=== PATIENT | female | born 2000 | race Caucasian/White ===

== ENCOUNTER 2018-04-09 21:04 | Emergency (ER) | payer OTHER ==
--- OUTSIDE RECORDS SUMMARY | 2018-04-09 21:06 | XMS REPORT ---
:2000 [facility] Address [address] [place] [address] Dr. Ventura [address] [place] [id number] Care Team Providers Name Role Phone Unavailable Unavailable Unavailable Problems This patient has no known problems. Allergies, Adverse Reactions, Alerts This patient has no known allergies or adverse reactions. Medications This patient has no known medications.
[2018-04-09 21:58] LABS: Absolute Lymphocytes (CBC) 2.8 K/uL (0.7-4.9); Absolute Monocytes 0.7 K/uL (0.1-1.3); Absolute Neutrophil 4.4 K/uL (1.8-8.0); Basophils % 0.8 % (0-1.3); Eosinophils % 3.1 % (0-4.4); Hematocrit 36.8 % (36.0-45.0); MCH 29.3 pg (27.0-35.0); MCV 85.6 fL (80-100); MPV 10.5 fL (7.6-11.3); Monocytes % 8.4 % (3.3-12.3)
[2018-04-09 22:08] LABS: Urine Blood TRACE (NEG); Urine Glucose NEGATIVE (NEG); Urine Protein 1+ (NEG); Urine Specific Gravity 1.025 (1.005-1.030)
[2018-04-09 22:16] LABS: ALT/SGPT 13 U/L (12-78); AST/SGOT 9 U/L (15-37); Albumin 3.6 g/dL (3.4-5.0); Alkaline Phosphatase 41 U/L (45-117); BUN Blood Urea Nitrogen 12 mg/dL (7-18); Bicarbonate 27 mmol/L (21-32); Bilirubin Total 0.5 mg/dL (0.2-1.0); Glucose Level 87 mg/dL (74-106); Potassium 3.4 mmol/L (3.5-5.1); Protein, Total 7.7 g/dL (6.4-8.2); Sodium Level 138 mmol/L (136-145)
[2018-04-09] MEDS ORDERED: NA CHLORIDE 0.9% 100 ML IV ONE (22:25)
[2018-04-09] MEDS ORDERED: CEFTRIAXONE 1000 MG/VIAL ONE (22:25)
--- NOTE | 2018-04-09 23:14 | EDPHYS ---
Physician Documentation [facility] Name: Edson Holley Age: 17 yrs Sex: Female : 2000 Arrival Date: 04/09/2018 Time: 21:05 Bed 25 Private MD: ED Physician Jean Marie Canchola HPI: 04/09 21:41 This 17 yrs old Female presents to ER via Ambulatory with complaints of ps1 Abdominal Pain, Vaginal Bleeding, + Preg <12wks. 21:41 sees [facility] for care. Recent US 04/07/18 Now complaining of suprapubic ps1 tenderness. Normal to date per patient. Denies urinary complaints. Additionally has non-specific chest pain for weeks that says gets worse with her abdominal pain. Pain is moderate and cramping. No vomiting. US report: 7w 4d by this ultrasound Best gestational age 8w 1d determined by LMP (02/09/18) Regular FHR 167 bpm Transverse presentation Placenta Too early to evaluate AFIWithin normal limits. 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 - Social history:: Smoking status: Patient/guardian denies using tobacco. - Ebola Screening: : No symptoms or risks identified at this time. ROS: 21:41 Constitutional: Negative for fever, chills, and weight loss, Eyes: Negative for injury, ps1 pain, redness, and discharge, Cardiovascular: Negative for chest pain, palpitations, and edema, Respiratory: Negative for shortness of breath, cough, wheezing, and pleuritic chest pain, MS/Extremity: Negative for injury and deformity, Skin: Negative for injury, rash, and discoloration, Neuro: Negative for headache, weakness, numbness, tingling, and seizure. 21:41 Cardiovascular: Positive for chest pain. 21:41 Abdomen/GI: Positive for abdominal pain. Exam: 21:41 Constitutional: This is a well developed, well nourished patient who is awake, alert, ps1 and in no acute distress. Head/Face: Normocephalic, atraumatic. Eyes: Pupils equal round and reactive to light, extra-ocular motions intact. Lids and lashes normal. Conjunctiva and sclera are non-icteric and not injected. Cardiovascular: Regular rate and rhythm. No gallops, murmurs, or rubs. Normal PMI, no JVD. No pulse deficits. Respiratory: Lungs have equal breath sounds bilaterally, clear to auscultation and percussion. No rales, rhonchi or wheezes noted. No increased work of breathing, no retractions or nasal flaring. Abdomen/GI: Soft, non-tender, with normal bowel sounds. No distension or tympany. No guarding or rebound. No evidence of tenderness throughout. Skin: Warm, dry with normal turgor. Normal color with no rashes, no lesions, and no evidence of cellulitis. MS/ Extremity: Pulses equal, no cyanosis. Neurovascular intact. Full, normal range of motion. Neuro: Awake and alert, GCS 15, oriented to person, place, time, and situation. Cranial nerves II-XII grossly intact. Sensory grossly intact. Vital Signs: 21:19 BP 114 / 69; Pulse 85; Resp 18; Temp 99.3(O); Pulse Ox 100% on R/A; Weight 52.16 kg; tl2 Height 5 ft. 5 in. (165.10 cm); Pain 10/10; 23:32 BP 115 / 66; Pulse 78; Resp 18; Pulse Ox 100% on R/A; tl2 21:19 Body Mass Index 19.14 (52.16 kg, 165.10 cm) tl2 MDM: 21:27 Patient medically screened. ps1 04/09 21:25 Order name: Abo/rh Typing; Complete Time: 22:27 ps1 04/09 21:25 Order name: CBC with Diff; Complete Time: 22:06 ps1 04/09 21:25 Order name: CMP; Complete Time: 22:17 ps1 04/09 21:25 Order name: DD; Complete Time: 22:11 ps1 04/09 22:00 Order name: Urine Dipstick--Ancillary (enter results); Complete Time: 22:11 ar5 04/09 22:21 Order name: ABO/RH no charge; Complete Time: 22:27 EDMS 04/09 21:25 Order name: IV Saline Lock; Complete Time: 21:57 ps1 04/09 21:25 Order name: Labs collected and sent; Complete Time: 21:57 ps1 04/09 21:25 Order name: NPO; Complete Time: 21:57 ps1 04/09 21:25 Order name: Urine Dipstick-Ancillary (obtain specimen); Complete Time: 21:57 ps1 Administered Medications: 22:21 Drug: Rocephin - (cefTRIAXone) 1 grams Route: IVPB; Infused Over: 30 mins; Site: right tl2 antecubital; 22:30 Follow up: IV Status: Completed infusion tl2 Disposition: 04/09/18 23:13 Discharged to Home. Impression: Infections of genitourinary tract in . - Condition is Stable. - Discharge Instructions: and Urinary Tract Infection. - Prescriptions for Keflex 500 mg Oral Capsule - take 1 capsule by ORAL route every 8 hours for 10 days; 30 capsule. - Medication Reconciliation Form, Thank You Letter, Antibiotic Education, Prescription Opioid Use form. - Follow up: Private Physician; When: 48 Hours; Reason: Recheck today's complaints, Continuance of care, Re-evaluation by your physician. Follow up: Emergency Department; When: As needed; Reason: Fever > 102 F, Worsening of condition. - Problem is new. - Symptoms are unchanged. Signatures: Dispatcher [employer] EDMS Latha Chaparro RN RN tl2 Jean Marie Canchola MD MD ps1 Corrections: (The following items were deleted from the chart) 23:37 23:13 04/09/2018 23:13 Discharged to Home. Impression: Infections of genitourinary tl2 tract in . Condition is Stable. Forms are Medication Reconciliation Form, Thank You Letter, Antibiotic Education, Prescription Opioid Use. Follow up: Private Physician; When: 48 Hours; Reason: Recheck today's complaints, Continuance of care, Re-evaluation by your physician. Follow up: Emergency Department; When: As needed; Reason: Fever > 102 F, Worsening of condition. Problem is new. Symptoms are unchanged. ps1
--- NOTE | 2018-04-09 23:14 | ER ---
Nurse's Notes [facility] Name: Edson Holley Age: 17 yrs Sex: Female : 2000 Arrival Date: 04/09/2018 Time: 21:05 Bed 25 Private MD: Diagnosis: Infections of genitourinary tract in Presentation: 04/09 21:18 Presenting complaint: Patient states: 2 months , reports pelvic pain and light tl2 spotting since this morning. Transition of care: patient was not received from another setting of care. Onset of symptoms was April 09, 2018. Risk Assessment: Do you want to hurt yourself or someone else? Patient reports no desire to harm self or others. Initial Sepsis Screen: Does the patient meet any 2 criteria? No. Patient's initial sepsis screen is negative. Does the patient have a suspected source of infection? No. Patient's initial sepsis screen is negative. Care prior to arrival: None. 21:18 Method Of Arrival: Ambulatory tl2 21:18 Acuity: NARCISO 3 tl2 Triage Assessment: 21:19 : Reports cramping, vaginal bleeding that is spotty. tl2 21:21 General: Appears. tl2 21:21 General: Behavior is calm, cooperative, appropriate for age. Pain: Complains of pain in tl2 suprapubic area. GI: Abdomen is non-distended. 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 - Social history:: Smoking status: Patient/guardian denies using tobacco. - Ebola Screening: : No symptoms or risks identified at this time. Screenin:19 Abuse screen: Denies threats or abuse. Denies injuries from another. Nutritional ls4 screening: No deficits noted. Tuberculosis screening: No symptoms or risk factors identified. Fall Risk None identified. Assessment: 21:23 General: Appears in no apparent distress. Behavior is calm, cooperative. Neuro: No ls4 deficits noted. Cardiovascular: No deficits noted. Respiratory: No deficits noted. GI: No deficits noted. Bowel sounds present X 4 quads. Abd is non tender X 4 quads. : Reports vaginal bleeding that is spotty. Derm: No deficits noted. 23:03 Reassessment: Patient appears in no apparent distress at this time. Patient and/or tl2 family updated on plan of care and expected duration. Pain level reassessed. Patient is alert, oriented x 3, equal unlabored respirations, skin warm/dry/pink. Awaiting further orders, Pt states that she wants to eat, will notify provider. 23:32 Reassessment: Patient appears in no apparent distress at this time. Patient and/or tl2 family updated on plan of care and expected duration. Pain level reassessed. Patient is alert, oriented x 3, equal unlabored respirations, skin warm/dry/pink. Pt and family verbalized understanding of discharge instructions, need for follow up and prescription usage. Vital Signs: 21:19 BP 114 / 69; Pulse 85; Resp 18; Temp 99.3(O); Pulse Ox 100% on R/A; Weight 52.16 kg; tl2 Height 5 ft. 5 in. (165.10 cm); Pain 10/10; 23:32 BP 115 / 66; Pulse 78; Resp 18; Pulse Ox 100% on R/A; tl2 21:19 Body Mass Index 19.14 (52.16 kg, 165.10 cm) tl2 ED Course: 21:05 Patient arrived in ED. ds1 21:06 Jean Marie Canchola MD is Attending Physician. ps1 21:19 Kathryn Murphy, RN is Primary Nurse. ls4 21:19 Triage completed. tl2 21:19 Patient has correct armband on for positive identification. Bed in low position. Call ls4 light in reach. Side rails up X 1. 21:19 Arm band placed on right wrist. tl2 21:19 No provider procedures requiring assistance completed. ls4 21:36 Inserted saline lock: 20 gauge in right antecubital area, using aseptic technique. ls4 Blood collected. 21:36 Initial lab(s) drawn, by me, sent to lab. Urine collected: clean catch specimen, cloudy.ls4 23:32 IV discontinued, intact, bleeding controlled, No redness/swelling at site. Pressure tl2 dressing applied. Administered Medications: 22:21 Drug: Rocephin - (cefTRIAXone) 1 grams Route: IVPB; Infused Over: 30 mins; Site: right tl2 antecubital; 22:30 Follow up: IV Status: Completed infusion tl2 Outcome: 23:13 Discharge ordered by . ps1 23:32 Discharged to home ambulatory, with family. tl2 23:32 Condition: stable 23:32 Discharge instructions given to patient, family, Instructed on discharge instructions, follow up and referral plans. medication usage, Demonstrated understanding of instructions, follow-up care, medications, Prescriptions given X 1. 23:37 Patient left the ED. tl2 Signatures: Linnea Kebede ds1 Latha Chaparro, RN RN tl2 Jean Marie Canchola MD MD ps1 Kathryn Murphy RN RN ls4
== END 2018-04-09 23:37 | disposition home or self-care (01) ==
LOC: ER 21:04
DX: O23.91 Unspecified genitourinary tract infection in pregnancy, first trimester (principal); Z3A.08 8 weeks gestation of pregnancy
CPT/HCPCS: 36415; 80053; 81003; 85025; 85379; 86900; 86901; 96374; 99284

== ENCOUNTER 2018-06-27 14:03 | Emergency (ER) | payer OTHER ==
--- OUTSIDE RECORDS SUMMARY | 2018-06-27 14:06 | XMS REPORT ---
:2000 [facility] Address [address] [place] [address] Dr. Ventura [address] [place] [id number] Care Team Providers Name Role Phone Unavailable Unavailable Unavailable Problems This patient has no known problems. Allergies, Adverse Reactions, Alerts This patient has no known allergies or adverse reactions. Medications This patient has no known medications.
--- NOTE | 2018-06-27 15:12 | ER ---
Nurse's Notes [facility] Name: Edson Holley Age: 18 yrs Sex: Female : 2000 Arrival Date: 06/27/2018 Time: 14:05 Bed 23 Private MD: Evaristo Fleming W Diagnosis: Spontaneous Presentation: 06/27 14:07 Presenting complaint: EMS states: PT LOST BABY WHILE IN BATH THIS AM. EMS BROUGHT ls4 REMAINS. Transition of care: patient was not received from another setting of care. Onset of symptoms was June 27, 2018. Risk Assessment: Do you want to hurt yourself or someone else? Patient reports no desire to harm self or others. Initial Sepsis Screen: Does the patient meet any 2 criteria? No. Patient's initial sepsis screen is negative. Does the patient have a suspected source of infection? No. Patient's initial sepsis screen is negative. Care prior to arrival: IV initiated. 20 GA, in the right antecubital area. 14:07 Method Of Arrival: EMS: [facility] ls4 14:07 Acuity: NARCISO 3 ls4 Triage Assessment: 14:10 General: Appears in no apparent distress. Behavior is calm, cooperative. Pain: ls4 Complains of pain in suprapubic area. :. 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 - Social history:: Smoking status: Patient/guardian denies using tobacco, Patient/guardian denies using alcohol, street drugs. - Ebola Screening: : Patient negative for fever greater than or equal to 101.5 degrees Fahrenheit, and additional compatible Ebola Virus Disease symptoms Patient denies exposure to infectious person Patient denies travel to an Ebola-affected area in the 21 days before illness onset No symptoms or risks identified at this time. - Family history:: not pertinent. Screenin:27 Abuse screen: Denies threats or abuse. Denies injuries from another. Nutritional ls4 screening: No deficits noted. Tuberculosis screening: No symptoms or risk factors identified. 15:17 Fall Risk None identified. ls4 Assessment: 14:26 General: Appears uncomfortable, Behavior is calm, cooperative. Pain: Complains of pain ls4 in abdomen and suprapubic area Pain currently is 8 out of 10 on a pain scale. Neuro: Level of Consciousness is awake, alert, obeys commands. Cardiovascular: No deficits noted. Respiratory: Airway is patent Breath sounds are clear bilaterally. : Reports vaginal bleeding that is CONFIRMED MISCARRIAGE. 15:13 Obstetrical Assessment: General assessment: awake and alert, skin warm and dry, ls4 respirations even and unlabored, PT GIVEN TIME WITH BABY IN ROOM WITH FAMILY. PT IN NO DISTRESS. TEACHING AND EDUCATION REGARDING MISCARRIAGE AND RESOURCES GIVEN TO PATIENT. . 15:29 Reassessment: memory box given to parents, prayer offered for family, baby taken out of tl3 room and brought down to pathology. Family plans to have a for baby and pathology is aware. 15:49 Reassessment: No changes from previously documented assessment. Patient and/or family tl3 updated on plan of care and expected duration. Pain level reassessed. Patient is alert, oriented x 3, equal unlabored respirations, skin warm/dry/pink. Vital Signs: 14:09 BP 97 / 61; Pulse 104; Resp 20; Temp 98.9; Pulse Ox 99% on R/A; Pain 8/10; ls4 15:17 BP 104 / 73; Pulse 91; Resp 16; Temp 98.4(O); Pulse Ox 100% on R/A; Pain 3/10; ls4 15:49 BP 109 / 70; Pulse 88; Resp 18; Pulse Ox 100% on R/A; tl3 Vitals: 15:15 Heart Tones na. ls4 Score: 14:10 Total: 0, Heart Rate: 0 (Absent), Resp Rate: 0 (Absent), Muscle Tone: 0 tl3 (Flaccid), Irritability: 0 (No Response), Color: 0 (Blue/Pale), Notes: baby at 20 weeks gestataion, delivered in amnio sac, placenta delivered with . fully formed with no obvious deformities, area of purplish discoloration across upper back , possible levity ED Course: 14:05 Patient arrived in ED. ls4 14:07 Evaristo Fleming MD is Private Physician. ls4 14:09 Triage completed. ls4 14:09 Arm band placed on left wrist. ls4 14:14 Latoya Forrester MD is Attending Physician. ma2 14:45 Bed in low position. Call light in reach. Side rails up X 1. Warm blanket given. Pillow jp3 given. Pulse ox on. NIBP on. 15:11 Matilda Calderon, RN is Primary Nurse. tl3 15:15 No provider procedures requiring assistance completed. Maintain EMS IV. Dressing ls4 intact. Good blood return noted. Site clean \T\ dry. Gauge \T\ site: 20 G RT AC . 15:49 IV discontinued, intact, bleeding controlled, No redness/swelling at site. Pressure tl3 dressing applied. Administered Medications: No medications were administered Outcome: 15:11 Discharge ordered by . ma2 15:49 Discharged to home via wheelchair. tl3 15:49 Condition: stable 15:49 Discharge instructions given to patient, family, Instructed on discharge instructions, follow up and referral plans. Demonstrated understanding of instructions, follow-up care. 15:51 Patient left the ED. tl3 Signatures: Latoya Forrester MD MD wy2 Matilda Calderon, RN RN tl3 Crescencio Nunez jp3 Kathryn Murphy, RN RN ls4 Corrections: (The following items were deleted from the chart) 15:32 15:23 [place] assessment: Vitals; tl3 tl3
--- NOTE | 2018-06-27 15:12 | EDPHYS ---
Physician Documentation [facility] Name: Edson Holley Age: 18 yrs Sex: Female : 2000 Arrival Date: 06/27/2018 Time: 14:05 Bed 23 Private MD: Evaristo Fleming W ED Physician Latoya Forrester HPI: 06/27 15:04 This 18 yrs old Female presents to ER via EMS with complaints of ma2 Labor, OB Problem (> 20 Weeks). 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 - Social history:: Smoking status: Patient/guardian denies using tobacco, Patient/guardian denies using alcohol, street drugs. - Ebola Screening: : Patient negative for fever greater than or equal to 101.5 degrees Fahrenheit, and additional compatible Ebola Virus Disease symptoms Patient denies exposure to infectious person Patient denies travel to an Ebola-affected area in the 21 days before illness onset No symptoms or risks identified at this time. - Family history:: not pertinent. ROS: 15:08 Constitutional: Negative for fever, chills, and weight loss, Cardiovascular: Negative ma2 for chest pain, palpitations, and edema, Respiratory: Negative for shortness of breath, cough, wheezing, and pleuritic chest pain, Abdomen/GI: Negative for abdominal pain, nausea, diarrhea, and constipation. 15:08 : Positive for , Negative for urinary frequency, flank pain, vaginal itching, missed period. 15:08 All other systems are negative. Exam: 15:08 Constitutional: This is a well developed, well nourished patient who is awake, alert, ma2 and in no acute distress. Chest/axilla: Normal chest wall appearance and motion. Nontender with no deformity. No lesions are appreciated. Cardiovascular: Regular rate and rhythm with a normal S1 and S2. No gallops, murmurs, or rubs. Normal PMI, no JVD. No pulse deficits. Respiratory: Lungs have equal breath sounds bilaterally, clear to auscultation and percussion. No rales, rhonchi or wheezes noted. No increased work of breathing, no retractions or nasal flaring. Abdomen/GI: Soft, non-tender, with normal bowel sounds. No distension or tympany. No guarding or rebound. No evidence of tenderness throughout. Female : Normal external genitalia. MS/ Extremity: Pulses equal, no cyanosis. Neurovascular intact. Full, normal range of motion. Neuro: Awake and alert, GCS 15, oriented to person, place, time, and situation. Cranial nerves II-XII grossly intact. Motor strength 5/5 in all extremities. Sensory grossly intact. Cerebellar exam normal. Normal gait. 15:08 Special observations: had of baby and complete placenta has no symptoms now . Vital Signs: 14:09 BP 97 / 61; Pulse 104; Resp 20; Temp 98.9; Pulse Ox 99% on R/A; Pain 8/10; ls4 15:17 BP 104 / 73; Pulse 91; Resp 16; Temp 98.4(O); Pulse Ox 100% on R/A; Pain 3/10; ls4 15:49 BP 109 / 70; Pulse 88; Resp 18; Pulse Ox 100% on R/A; tl3 Score: 14:10 Total: 0, Heart Rate: 0 (Absent), Resp Rate: 0 (Absent), Muscle Tone: 0 tl3 (Flaccid), Irritability: 0 (No Response), Color: 0 (Blue/Pale), Notes: baby at 20 weeks gestataion, delivered in amnio sac, placenta delivered with . infant fully formed with no obvious deformities, area of purplish discoloration across upper back infant, possible levity MDM: 14:14 Patient medically screened. ma2 15:11 Differential diagnosis: Data reviewed: vital signs, nurses notes. Counseling: I had a ma2 detailed discussion with the patient and/or guardian regarding: the historical points, exam findings, and any diagnostic results supporting the discharge/admit diagnosis, the presence of at least one elevated blood pressure reading (>120/80) during this emergency department visit, the need for outpatient follow up. Administered Medications: No medications were administered Disposition: 06/27/18 15:11 Discharged to Home. Impression: Spontaneous . - Condition is Stable. - Discharge Instructions: Stillbirth, Form - Excuse from Work, School, or Physical Activity. - Medication Reconciliation Form, Thank You Letter, Antibiotic Education, Prescription Opioid Use, Family Work Release form. - Follow up: Private Physician; When: Tomorrow; Reason: Continuance of care. Signatures: Latoya Forrester MD MD ma2 Matilda Calderon RN RN tl3 Kathryn Murphy RN RN ls4 Corrections: (The following items were deleted from the chart) 15:51 15:11 06/27/2018 15:11 Discharged to Home. Impression: Spontaneous . Condition tl3 is Stable. Forms are Medication Reconciliation Form, Thank You Letter, Antibiotic Education, Prescription Opioid Use. Follow up: Private Physician; When: Tomorrow; Reason: Continuance of care. analisa2
== END 2018-06-27 15:51 | disposition home or self-care (01) ==
LOC: ER 14:03
DX: O03.9 Complete or unspecified spontaneous abortion without complication (principal)
CPT/HCPCS: 88300; 88305

== ENCOUNTER 2020-02-07 12:42 | Emergency (ER) | payer OTHER, SELFPAY ==
--- NOTE | 2020-02-07 13:05 | ER ---
Nurse's Notes [facility] Name: Edson Holley Age: 19 yrs Sex: Female : 2000 Arrival Date: 02/07/2020 Time: 12:43 Bed 3 Private MD: Diagnosis: Encounter for screening for other viral diseases;Headache Presentation: 02/06 12:48 Chief complaint: Patient states: headache since 0400 today to front of forehead, did iw not take anything for pain, +chills, nose is runny, denies sensitivity to light or blurry vision, rates pain 7/10, intermittent. Coronavirus screen: chills, headache, runny nose, Client presents with at least one sign or symptom that may indicate coronavirus-19. Standard/surgical mask placed on the client. Provider contacted for isolation considerations. Ebola Screen: Patient negative for fever greater than or equal to 101.5 degrees Fahrenheit, and additional compatible Ebola Virus Disease symptoms Patient denies exposure to infectious person. Patient denies travel to an Ebola-affected area in the 21 days before illness onset. No symptoms or risks identified at this time. Initial Sepsis Screen: Does the patient meet any 2 criteria? No. Patient's initial sepsis screen is negative. Does the patient have a suspected source of infection? No. Patient's initial sepsis screen is negative. Risk Assessment: Do you want to hurt yourself or someone else? Patient reports no desire to harm self or others. Onset of symptoms was February 07, 2020. 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 - Social history:: Smoking status: Smoking status: Patient denies any tobacco usage or history of. Screenin:00 Abuse screen: Denies threats or abuse. Nutritional screening: No deficits noted. aa5 Tuberculosis screening: No symptoms or risk factors identified. Fall Risk None identified. Assessment: 13:00 General: Appears comfortable, Behavior is calm, cooperative. Pain: Complains of pain in aa5 forehead Pain currently is 7 out of 10 on a pain scale. Quality of pain is described as aching, pressure, Pt states "it feels like allergies" Is continuous. Neuro: Level of Consciousness is awake, alert, obeys commands, Oriented to person, place, time, situation. Cardiovascular: Patient's skin is warm and dry. Respiratory: Airway is patent Respiratory effort is even, unlabored, Respiratory pattern is regular, symmetrical. GI: Reports nausea, Patient currently denies diarrhea, vomiting. : No signs and/or symptoms were reported regarding the genitourinary system. EENT: Reports nasal congestion. Derm: Skin is dry, Skin is normal, Skin temperature is warm. Musculoskeletal: Range of motion: intact in all extremities. 13:20 Reassessment: Attempted to swab pt for COVID-19, pt pulled my arm away as I was aa5 inserting swab into right nostril. Pt states "I can't dot his, I don't want it". Pt refused COVID-19 swab. Lab notified to cancel per pt's refusal. PA notified. . Vital Signs: 12:48 BP 108 / 76; Pulse 84; Resp 16; Temp 98.7; Pulse Ox 100% on R/A; Weight 52.62 kg; iw Height 5 ft. 6 in. (167.64 cm); Pain 7/10; 12:48 Body Mass Index 18.72 (52.62 kg, 167.64 cm) iw ED Course: 12:43 Patient arrived in ED. ag5 12:50 Triage completed. iw 12:51 Arm band placed on. iw 12:52 Davin Aguilar PA is PHCP. jr8 12:52 Romaine Murphy MD is Attending Physician. jr8 13:00 Patient has correct armband on for positive identification. Bed in low position. Call aa5 light in reach. Side rails up X 1. 13:25 No provider procedures requiring assistance completed. Patient did not have IV access aa5 during this emergency room visit. 13:30 Su Deng, RN is Primary Nurse. aa5 Administered Medications: No medications were administered Outcome: 13:04 Discharge ordered by . jr8 13:25 Discharged to home ambulatory. aa5 13:25 Condition: stable 13:25 Discharge instructions given to patient, Instructed on discharge instructions, follow up and referral plans. Demonstrated understanding of instructions, follow-up care, Pt instructed that it is recommended to quarantine until symptom-free for 3 days, pt verbalized understanding. 13:30 Patient left the ED. aa5 Signatures: Magdalena Loyola RN Su Marshall RN RN aa5 Davin Aguilar PA PA 8 Tiara Monge 5
--- NOTE | 2020-02-07 13:05 | EDPHYS ---
Physician Documentation [facility] Name: Edson Holley Age: 19 yrs Sex: Female : 2000 Arrival Date: 02/07/2020 Time: 12:43 Bed 3 Private MD: ED Physician Romaine Murphy HPI: 02/06 13:02 This 19 yrs old Female presents to ER via Ambulatory with complaints of jr8 Headache. 13:02 The patient complains of pain to the diffuse . The patient describes the headache as jr8 throbbing. Onset: The symptoms/episode began/occurred acutely, today. Associated signs and symptoms: The patient has no apparent associated signs or symptoms. Severity of symptoms: At its worst the pain was mild, in the emergency department the pain is unchanged. Headache History: Denies prior headaches. The symptoms are alleviated by nothing. the symptoms are aggravated by nothing. The patient has not experienced similar symptoms in the past. The patient has not recently seen a physician. Stated that she doesn't want anything for the headache. That her mother wanted her swabbed. 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 - Social history:: Smoking status: Smoking status: Patient denies any tobacco usage or history of. ROS: 13:02 Eyes: Negative for injury, pain, redness, and discharge, ENT: Negative for injury, jr8 pain, and discharge, Neck: Negative for injury, pain, and swelling, Cardiovascular: Negative for chest pain, palpitations, and edema, Respiratory: Negative for shortness of breath, cough, wheezing, and pleuritic chest pain, Abdomen/GI: Negative for abdominal pain, nausea, vomiting, diarrhea, and constipation, Back: Negative for injury and pain, MS/Extremity: Negative for injury and deformity, Skin: Negative for injury, rash, and discoloration. 13:02 Neuro: Positive for headache, Negative for altered mental status, dizziness, gait disturbance, hearing loss, loss of consciousness, numbness, seizure activity, speech changes, syncope, near syncope, tingling, tinnitus, tremor, visual changes, weakness. Exam: 13:02 Eyes: Pupils equal round and reactive to light, extra-ocular motions intact. Lids and jr8 lashes normal. Conjunctiva and sclera are non-icteric and not injected. Cornea within normal limits. Periorbital areas with no swelling, redness, or edema. ENT: Nares patent. No nasal discharge, no septal abnormalities noted. Tympanic membranes are normal and external auditory canals are clear. Oropharynx with no redness, swelling, or masses, exudates, or evidence of obstruction, uvula midline. Mucous membranes moist. Neck: Trachea midline, no thyromegaly or masses palpated, and no cervical lymphadenopathy. Supple, full range of motion without nuchal rigidity, or vertebral point tenderness. No Meningismus. Cardiovascular: Regular rate and rhythm with a normal S1 and S2. No gallops, murmurs, or rubs. Normal PMI, no JVD. No pulse deficits. Respiratory: Lungs have equal breath sounds bilaterally, clear to auscultation and percussion. No rales, rhonchi or wheezes noted. No increased work of breathing, no retractions or nasal flaring. Abdomen/GI: Soft, non-tender, with normal bowel sounds. No distension or tympany. No guarding or rebound. No evidence of tenderness throughout. Skin: Warm, dry with normal turgor. Normal color with no rashes, no lesions, and no evidence of cellulitis. MS/ Extremity: Pulses equal, no cyanosis. Neurovascular intact. Full, normal range of motion. Neuro: Awake and alert, GCS 15, oriented to person, place, time, and situation. Cranial nerves II-XII grossly intact. Motor strength 5/5 in all extremities. Sensory grossly intact. Cerebellar exam normal. Normal gait. Vital Signs: 12:48 BP 108 / 76; Pulse 84; Resp 16; Temp 98.7; Pulse Ox 100% on R/A; Weight 52.62 kg; iw Height 5 ft. 6 in. (167.64 cm); Pain 7/10; 12:48 Body Mass Index 18.72 (52.62 kg, 167.64 cm) iw MDM: 12:52 Patient medically screened. jr8 13:02 Data reviewed: vital signs, nurses notes, lab test result(s). Data interpreted: Pulse jr8 oximetry: on room air is 100 %. Interpretation: normal. Counseling: I had a detailed discussion with the patient and/or guardian regarding: the historical points, exam findings, and any diagnostic results supporting the discharge/admit diagnosis, lab results, the need for outpatient follow up, a family practitioner, to return to the emergency department if symptoms worsen or persist or if there are any questions or concerns that arise at home. ED course: Discussed with patient that she should remain at home until results come back. If worse or other symptoms were to arise to f/u or come back. Patient good with this . Administered Medications: No medications were administered Disposition: 14:21 Co-signature as Attending Physician, Romaine Murphy MD. rn Disposition: 02/07/20 13:04 Discharged to Home. Impression: Encounter for screening for other viral diseases, Headache. - Condition is Stable. - Discharge Instructions: General Headache Without Cause, COVID-19. - Medication Reconciliation Form, Thank You Letter, Antibiotic Education, Prescription Opioid Use form. - Follow up: Private Physician; When: As needed; Reason: Recheck today's complaints, Continuance of care, Re-evaluation by your physician. - Problem is new. - Symptoms are unchanged. Signatures: Dispatcher [employer] EDMagdalena Elaine RN RN iw Nieto, Roman, MD MD rn Calderon, Audri, RN RN aa5 Davin Aguilar PA PA jr8 Corrections: (The following items were deleted from the chart) 13:30 13:04 02/07/2020 13:04 Discharged to Home. Impression: Encounter for screening for aa5 other viral diseases; Headache. Condition is Stable. Forms are Medication Reconciliation Form, Thank You Letter, Antibiotic Education, Prescription Opioid Use. Follow up: Private Physician; When: As needed; Reason: Recheck today's complaints, Continuance of care, Re-evaluation by your physician. Problem is new. Symptoms are unchanged. jr8
[2020-02-07 13:44] VITALS: BP 108/76; TEMP 98.7; O2SAT 100
--- OUTSIDE RECORDS SUMMARY | 2020-02-08 20:56 | XMS REPORT | Continuity of Care Document ---
:2000 Author Organization [facility] t Address [address] [place] [address] [address] [place] [address] Care Team Providers Name Role Phone Jamin Osman Attending Clinician Doctor Unassigned, Name Attending Clinician Unavailable Problems This patient has no known problems. Allergies, Adverse Reactions, Alerts This patient has no known allergies or adverse reactions. Medications This patient has no known medications. Procedures This patient has no known procedures. Encounters Start End Encounter Admission Attending Care Care Encounter Source Date/Time Date/Time Type Type Clinicians Facility Department ID 2019-07-04 2019-07-04 Telephone LISA Tejeda [id number] 00:00:00 00:00:00 Radha Neville [facility] [id number] [facility] [id number] MATERNAL [id number] & CHILD 107 [facility] 2019-06-20 2019-06-20 Patient Doctor [facility] [id number] 00:00:00 00:00:00 Secure Msg Unassigned, [facility]OWER [id number] [place] [facility] [id number] MATERNAL [id number] & CHILD 107 [facility] Results This patient has no known results.
== END 2020-02-07 13:30 | disposition home or self-care (01) ==
LOC: ER 12:42
DX: R51.9 Headache, unspecified (principal); Z53.20 Procedure and treatment not carried out because of patient's decision for unspecified reasons
CPT/HCPCS: 99281

== ENCOUNTER 2021-04-19 11:34 | Emergency (ER) | payer OTHER ==
--- OUTSIDE RECORDS SUMMARY | 2021-04-19 11:40 | XMS REPORT | Continuity of Care Document ---
:2000 Author Organization [facility] t Address [address] [place] [place] [address] Care Team Providers Name Role Phone Pcp, Does Not Have A Primary Care Physician Jared ABDUL Attending Clinician Unavailable Óscar BAGLEYP Attending Clinician Silver CAT SKINNER Attending Clinician GREEN Attending Clinician Unavailable Chantell BAGLEYP, R Attending Clinician Christianne SIDDIQUI, L Attending Clinician Rosio HALL Attending Clinician Philomena SIDDIQUI Attending Clinician Franklin Pino MD Attending Clinician Doctor Unassigned, Name Attending Clinician Unavailable Cristino SIDDIQUI Attending Clinician Eleazar SIDDIQUI, M Attending Clinician Alfredito SIDDIQUI, R Attending Clinician Arturo SIDDIQUI, Slava Attending Clinician Akinsijahaira WHCNP, C Attending Clinician Trimester, Res-1st Attending Clinician Unavailable Marin SIDDIQUI R Attending Clinician WALLACE C Attending Clinician Unavailable Rodrigue SIDDIQUI, Ronnie Attending Clinician [phone] Jared HALEY Attending Clinician Unavailable Henok PARHAM, T Attending Clinician Unavailable DICLEMENTE Attending Clinician Unavailable DICLEMENTE Attending Clinician Unavailable CRISTINO Admitting Clinician Unavailable Christianne SIDDIQUI, L Admitting Clinician Cristino SIDDIQUI Admitting Clinician Alfredito SIDDIQUI, R Admitting Clinician Arturo SIDDIQUI, Slava Admitting Clinician Payers Payer Name Policy Type Policy Number Effective Date Expiration Date [facility] [id number] 2020 CHOICE MEDICAID 00:00:00 MEDICAID [facility] [id number] 2019 00:00:00 MEDICAID PENDING PENDING 2019 00:00:00 Advance Directives Directive Decision Effective Termination Comments Source Date Date Healthcare Agents on N/A Univ ersity FileNameRelationshipHealthcare [facility] Agent Medical RelationshipCommunicationMonica [place] [facility]MotherHealth Care [phone] (Mobile) Problems Condition Condition Condition Status Onset Resolution Last Treating Co mments Source Name Details Category Date Date Treatment Clinician Date Disease Active Univers uterine uterine 8-26 ity of contractio contractio [place], 00 Medical antepartum antepartum Br anch , third , third trimester trimester Disease Active Univers labor in labor in 8-26 ity of third third 00:00: [place] trimester trimester 00 [facility] with with Branch delivery delivery Disease Active Univers contractio contractio 817 it y of ns ns 00:00: [place] 00 Medical Branch 34 weeks 34 weeks Disease Active Unive rs gestation gestation 8-12 ity of of of 00:00: [place] 00 [facility] Branch 35 weeks 35 weeks Disease Active Unive rs gestation gestation 8-12 ity of of of 00:00: [place] 00 [facility] Branch Disease Active Univers uterine uterine 8-12 ity of contractio contractio 00:[place] 00 [facility] Branch Trichomona Trichomona Disease Active Overview : Univers l l 3-03 Formattin ity of vulvovagin vulvovagin 00:00: g of this [place] itis itis 00 note Medical might be Branch different from the original. Identifie d on pap UTI in UTI in Disease Active Overview: Univer s 2-17 Formattin i ty of 00:00: g of this [place] 00 note Medical might be Branch different from the original. pending BRANDYN Anemia of Anemia of Disease Active Uni vers mother in mother in 2-17 ity of , , 00:00[place] antepartum antepartum 00 Or dical Branch History of History of Disease Active Overview : Univers intrauteri intrauteri 2-14 Formattin ity of ne ne 00:00: g of this [place] 00 note Medical might be Branch different from the original. At 5 months Supervisio Supervisio Disease Active 2020-0 U nivers n of n of 2-14 ity of high-risk high-risk 00:00: [place] 00 [facility] History of History of Disease Active 2020-0 U nivers miscarriag miscarriag 2-14 it y of e e 00:00: [place] [id number] Medical Branch Multiparit Multiparit Disease Active 2020-0 U nivers y y 2-14 ity of 00:00: [address] Branch Vaginal Vaginal Disease Active 2019- Univers bleeding bleeding 2-14 ity of in in 00:00: [place] 00 [facility] Disease Active Overview: Univers with poor with poor 7-24 History ity of obstetric obstetric 00:00: spontaneo [place] history history 00 Medical Branch loss/deli very at 19 weeks. 11/17/18 - Lupus anticoagu lant, anticardi olipin - negative. Factor V Leiden and Prothromb in gene mutation negative. Incomplete Incomplete Disease Active Overview : Univers miscarriag miscarriag - Formattin ity of e e 00:00: g of this [place] 00 note Medical might be Branch different from the original. 11/08/18 -US revealed a live forbes IUP. 11/09/18 - ER - bleeding 11/11/18 - US revealed a live forbes IUP at 6.6 weeks c/w dates. 11/13/18 - ER - bleeding, HCG [id number]/ - US revealed NO IUP any longer. S/p evacuatio n of the uterus. Histology revealed chorionic villi11/17 - HCG 13,367. Lupus workup negative. Factor V Leiden and Prothromb in gene mutation negative. Acute Acute Disease Active Overview: Univer s cystitis cystitis -11/08/18 - ity of during during 00:00: [address] [place] 00 Coli s/p Me dical in first in first Macrobid Bran ch trimester trimester Disease Active Overview: Univers examinatio examinatio -10/25/18 - ity of n or test, n or test, 00:00: HCG [place] positive positive 00 Med ical result - HCG Branch 401 - HCG 18,577 Bipolar 1 Bipolar 1 Disease Active Uni vers disorder disorder - ity of 00:00: [place] 00 Medical Branch Short Short Disease Active Univers interval interval 1-14 ity of between between 00:00: [place] pregnancie pregnancie 00 Me dical s s Branch affecting affecting , , antepartum antepartum Influenza Influenza Disease Active Uni vers vaccinatio vaccinatio 1-14 it y of n declined n declined 00:00: [place] 00 [place] Family Family Disease Active Univers history of history of 1-14 it y of sickle sickle 00:00: [place] cell cell 00 Medical disease disease Branch Chlamydia Chlamydia Disease Active Overview: Univers infection infection -14 Formattin i ty of affecting affecting 00:00: g of this [place] 00 note Medi archana might be Branch different from the original. 03/16/18 - positive chlamydia - BRANDYN positive 11/08/18 - MDL swab from 11/08/18 was positive for BV and chlamydia . S/p Flagyl and Azithromy ethan. 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 9-14 ity of 00:00: [place] trauma trauma 00 [facility] Allergies, Adverse Reactions, Alerts Allergy Allergy Status Severity Reaction(s) Onset Inactive Treating Comm ents Source Name Type Date Date Clinician NO KNOWN Drug Active Univers ALLERGIE Class ity of S [facility] Social History Social Habit Start Date Stop Date Quantity Comments Source ASSERTION 2020-04-29 [facility] 00:00:00 [facility] Exposure to Not sure [facility] SARS-CoV-2 (event) Medica l Branch Alcohol intake 2021-04-19 2021-04-19 0 /d [facility] 00:00:00 00:00:00 [facility] Tobacco use and 2011-12-25 2011-12-25 Never used [facility] exposure 00:00:00 00:00:00 [facility] Sex Assigned At [birth year] [facility] 00:00:00 00:00:00 [facility] Smoking Status Start Date Stop Date Source Never smoker [facility] Medications Ordered Filled Start Stop Current Ordering Indication Dosage Frequency Signature Comments Components Source Medication Medication Date Date Medication? Clinician (SIG) Name Name Yes [id number] 1{tbl} Take 1 Univers vitamin 8-28 102 tablet by ity of w/FA tablet 00:00: mouth [place] 00 daily. Medical Branch docusate Yes [id number] 240mg Take 1 Univers calcium 240 8-28 102 capsule by it y of mg capsule 00:00: mouth once [place] 00 daily as Medical needed for Branch Constipati on. ferrous Yes [id number] 325mg Take 1 Univers sulfate 325 8-28 102 tablet by ity of mg (65 mg 00:00: mouth [place] iron) 00 daily. Medical tablet Branch ibuprofen Yes [id number] 600mg Take 1 Univers 600 mg 8-28 102 tablet by ity of tablet 00:00: mouth [place] 00 every 6 Medical (six) Branch hours as needed (Pain). Take with food or milk. Yes [id number] 1{tbl} Take 1 Univers vitamin 8-28 102 tablet by ity of w/FA tablet 00:00: mouth [place] 00 daily. Medical Branch docusate Yes [id number] 240mg Take 1 Univers calcium 240 8-28 102 capsule by it y of mg capsule 00:00: mouth once [place] 00 daily as Medical needed for Branch Constipati on. ferrous Yes [id number] 325mg Take 1 Univers sulfate 325 8-28 102 tablet by ity of mg (65 mg 00:00: mouth [place] iron) 00 daily. Medical tablet Branch ibuprofen Yes [id number] 600mg Take 1 Univers 600 mg 8-28 102 tablet by ity of tablet 00:00: mouth [place] 00 every 6 Medical (six) Branch hours as needed (Pain). Take with food or milk. Yes [id number] 1{tbl} Take 1 Univers vitamin 8-28 102 tablet by ity of w/FA tablet 00:00: mouth [place] 00 daily. Medical Branch docusate Yes [id number] 240mg Take 1 Univers calcium 240 8-28 102 capsule by it y of mg capsule 00:00: mouth once [place] 00 daily as Medical needed for Branch Constipati on. ferrous Yes [id number] 325mg Take 1 Univers sulfate 325 8-28 102 tablet by ity of mg (65 mg 00:00: mouth [place] iron) 00 daily. Medical tablet Branch ibuprofen Yes [id number] 600mg Take 1 Univers 600 mg 8-28 102 tablet by ity of tablet 00:00: mouth [place] 00 every 6 Medical (six) Branch hours as needed (Pain). Take with food or milk. Yes [id number] 1{tbl} Take 1 Univers vitamin 8-28 102 tablet by ity of w/FA tablet 00:00: mouth [place] 00 daily. Medical Branch docusate Yes [id number] 240mg Take 1 Univers calcium 240 8-28 102 capsule by it y of mg capsule 00:00: mouth once [place] 00 daily as Medical needed for Branch Constipati on. ferrous Yes [id number] 325mg Take 1 Univers sulfate 325 8-28 102 tablet by ity of mg (65 mg 00:00: mouth [place] iron) 00 daily. Medical tablet Branch ibuprofen Yes [id number] 600mg Take 1 Univers 600 mg 8-28 102 tablet by ity of tablet 00:00: mouth [place] 00 every 6 Medical (six) Branch hours as needed (Pain). Take with food or milk. Yes [id number] 1{tbl} Take 1 Univers vitamin 8-28 102 tablet by ity of w/FA tablet 00:00: mouth [place] 00 daily. Medical Branch docusate Yes [id number] 240mg Take 1 Univers calcium 240 8-28 102 capsule by it y of mg capsule 00:00: mouth once [place] 00 daily as Medical needed for Branch Constipati on. ferrous Yes [id number] 325mg Take 1 Univers sulfate 325 8-28 102 tablet by ity of mg (65 mg 00:00: mouth [place] iron) 00 daily. Medical tablet Branch ibuprofen Yes [id number] 600mg Take 1 Univers 600 mg 8-28 102 tablet by ity of tablet 00:00: mouth [place] 00 every 6 Medical (six) Branch hours as needed (Pain). Take with food or milk. Yes [id number] 1{tbl} Take 1 Univers vitamin 8-28 102 tablet by ity of w/FA tablet 00:00: mouth [place] 00 daily. Medical Branch docusate Yes [id number] 240mg Take 1 Univers calcium 240 8-28 102 capsule by it y of mg capsule 00:00: mouth once [place] 00 daily as Medical needed for Branch Constipati on. ferrous Yes [id number] 325mg Take 1 Univers sulfate 325 8-28 102 tablet by ity of mg (65 mg 00:00: mouth [place] iron) 00 daily. Medical tablet Branch ibuprofen Yes [id number] 600mg Take 1 Univers 600 mg 8-28 102 tablet by ity of tablet 00:00: mouth [place] 00 every 6 Medical (six) Branch hours as needed (Pain). Take with food or milk. ibuprofen Yes 600mg 600 mg, Univ ers (IBU) 8-26 Oral, ity of tablet 600 20:22: Q6HPRN, [place] mg 52 Starting Medical [facility] Branch 12/26/20 at 1522, Until Discontinu ed, Routine, Pain (scale 4-6) acetaminoph 2020-0 Yes 650mg 650 mg, Un cami en 12-26 Oral, ity of (TYLENOL) 20:22: Q6HPRN, [place] tablet 650 52 Starting Medic al mg [facility] Branch 12/26/20 at 1522, Until Discontinu ed, Routine, Pain (scale 1-3) diphenhydrA 2020-0 Yes 25mg 25 mg, Univ ers MINE 12-26 Oral, ity of (BENADRYL) 20:22: Q6HPRN, [place] tablet 25 52 Starting Medica l mg [facility] Branch 12/26/20 at 1522, Until Discontinu ed, Routine, Sleep, Itching ibuprofen 2020-0 Yes 600mg 600 mg, Univ ers (IBU) 12-26 Oral, ity of tablet 600 20:22: Q6HPRN, [place] mg 52 Starting Medical [facility] 12/26/20 at 1522, Until Discontinu ed, Routine, Pain (scale 4-6) acetaminoph 2020-0 Yes 650mg 650 mg, Un cami en 12-26 Oral, ity of (TYLENOL) 20:22: Q6HPRN, [place] tablet 650 52 Starting Medic al mg [facility] 12/26/20 at 1522, Until Discontinu ed, Routine, Pain (scale 1-3) diphenhydrA 2020-0 Yes 25mg 25 mg, [facility] MINE 12-26 Oral, ity of (BENADRYL) 20:22: Q6HPRN, [place] tablet 25 52 Starting Medica l mg [facility] Branch 12/26/20 at 1522, Until Discontinu ed, Routine, Sleep, Itching ondansetron 2020-0 Yes 4mg 4 mg, Slow Univers (ZOFRAN 12-26 IV Push, ity of (PF)) 20:22: Q8HPRN, [place] injection 4 51 Starting Medi archana mg [facility] Branch 12/26/20 at 1522, Until Discontinu ed, Routine, Nausea and Vomiting (N/V) simethicone 2020-0 Yes 160mg 160 mg, Un cami (GAS RELIEF 12-26 Oral, ity of (SIMETHICON 20:22: PC+HSPRN, [place] E)) 51 Starting Medical chewable [place] Branch tablet 160 12/26/20 at mg 1522, Until Discontinu ed, Routine, Gas magnesium 2020-0 Yes 30mL 30 mL, Univer s hydroxide 8- Oral, ity of (MILK OF 20:22: QDAILYPRN, [place] MAGNESIA) 51 Starting Medica l 400 mg/5 mL [place] Branch suspension 12/26/20 at 30 mL 1522, Until Discontinu ed, Routine, Constipati on benzocaine- 2020-0 Yes Topical, Un cami menthol 12-26 PRN, ity of (DERMOPLAST 20:22: Starting [place] ) 20-0.5 % 51 [place] Medical topical 12/26/20 at Branch spray 1522, Until Discontinu ed, Routine, Perineum discomfort ondansetron 2020-0 Yes 4mg 4 mg, Slow Univers (ZOFRAN 12-26 IV Push, ity of (PF)) 20:22: Q8HPRN, [place] injection 4 51 Starting Medi archana mg [place] Branch 12/26/20 at 1522, Until Discontinu ed, Routine, Nausea and Vomiting (N/V) simethicone 2020-0 Yes 160mg 160 mg, Un cmai (GAS RELIEF 12-26 Oral, ity of (SIMETHICON 20:22: PC+HSPRN, [place] E)) 51 Starting Medical chewable [place] Branch tablet 160 12/26/20 at mg 1522, Until Discontinu ed, Routine, Gas magnesium 2020-0 Yes 30mL 30 mL, Univer s hydroxide 12-26 Oral, ity of (MILK OF 20:22: QDAILYPRN, [place] MAGNESIA) 51 Starting Medica l 400 mg/5 mL [place] Branch suspension 12/26/20 at 30 mL 1522, Until Discontinu ed, Routine, Constipati on benzocaine- 2020-0 Yes Topical, Un cami menthol 8 PRN, ity of (DERMOPLAST 20:22: Starting [place] ) 20-0.5 % 51 [place] Medical topical 12/26/20 at Branch spray 1522, Until Discontinu ed, Routine, Perineum discomfort lidocaine-e 2020- No Intraderma Univers pinephrine 12-26 08-26 l, ONCE ity o f (XYLOCAINE 15:22: 22:11 INTRA [place] W/EPINEPHRI 00 :33 PROCEDURE, Me dical NE) 1.5 Starting Branch %-1:200,000 [place] injection 12/26/20 at 1022, Until [place]ina 12/26/20 at 1711, Routine, Intra-op lidocaine-e 2020- No Intraderma Univers pinephrine 12-26 l, ONCE ity o f (XYLOCAINE 15:22: 22:11 INTRA [place] W/EPINEPHRI 00 :33 PROCEDURE, Me dical NE) 1.5 Starting Branch %-1:200,000 [place] injection 12/26/20 at 1022, Until [place] 12/26/20 at 1711, Routine, Intra-op D5W-LR IV 2020- No 1000mL at 125 Uni vers infusion 12-26 mL/hr, IV ity o f 1,000 mL 13:45: 20:24 Infusion, [place] 00 :15 CONTINUOUS Medical , Starting Branch [place] 12/26/20 at 0845, Until [place] 12/26/20 at 1524, Routine D5W-LR IV 2020- No 1000mL at 125 Uni vers infusion 12-26- mL/hr, IV ity o f 1,000 mL 13:45: 20:24 Infusion, [place] 00 :15 CONTINUOUS Medical , Starting Branch [place] 12/26/20 at 0845, Until [place] 12/26/20 at 1524, Routine LR 1000 mL 2020- No 2mU/min at 6-120 Univers + oxytocin 12-26- mL/hr, IV ity of 20 units IV 13:27: 20:24 Infusion, [place] Solution 42 :15 TITRATE, Medical Starting Branch [place] 12/26/20 at 0827, Until [place] 12/26/20 at 1524, MOUNA lactated 2020- No 500mL at 999 Unive rs ringers IV 12-26- mL/hr, 500 it y of infusion 13:27: 20:24 mL, IV [place] 500 mL 42 :15 Infusion, Medical PRN - SEE Branch INSTRUCTIO NS, Starting [place] 12/26/20 at 0827, Until [place] 12/26/20 at 1524, Routine LR 1000 mL 2020- No 2mU/min at 6-120 Univers + oxytocin 12-26 08-26 mL/hr, IV ity of 20 units IV 13:27: 20:24 Infusion, [place] Solution 42 :15 TITRATE, Medical Starting Branch [place] 12/26/20 at 0827, Until Rosina 12/26/20 at 1524, MOUNA lactated 2020- No 500mL at 999 Unive rs ringers IV 12-26 08-26 mL/hr, 500 it y of infusion 13:27: 20:24 mL, IV [place] 500 mL 42 :15 Infusion, Medical PRN - SEE [facility] NS, Starting Rosina 12/26/20 at 0827, Until [place]ina 12/26/20 at 1524, Routine alum-mag Yes 30mL 30 mL, Univers hydroxide-s 12-18 Oral, ity of imeth 02:06: Q6HPRN, [place] (MAALOX 24 Starting Medical PLUS [facility] Branch MAG-AL 12/17/20 at PLUS) 2106, 200-200-20 Until mg/5 mL Discontinu suspension ed, 30 mL Routine, Indigestio n docusate Yes 240mg 240 mg, Unive rs calcium 12-18 Oral, ity of (SURFAK) 02:06: QHSPRN, [place] capsule 240 24 Starting Medi archana mg [facility] 12/17/20 at 2106, Until Discontinu ed, Routine, Constipati on lactated 2020- No 1000mL at 999 Univ ers ringers IV 12-18 08-17 mL/hr, ity of infusion 00:15: 23:18 1,000 mL, [place] 1,000 mL 00 :00 IV Medical Infusion, [place] ONCE, 1 dose, [facility] 12/17/20 at 1915, STAT terbutaline Yes .25mg 0.25 mg, U nivers (BRETHINE) 12-17 Subcutaneo ity of injection 23:11: us, PRN, [place] 0.25 mg 35 Starting Medical [facility] 12/17/20 at 1811, Until Discontinu ed, Routine, if physician says to give ondansetron Yes 4mg 4 mg, Slow Univers (ZOFRAN 12-17 IV Push, ity of (PF)) 23:10: Q6HPRN, [place] injection 4 21 Starting Medi archana mg e Branch 12/17/20 at 1810, Until Discontinu ed, Routine, Nausea and Vomiting (N/V) FENTanyl PF 2020- No 50ug 50 mcg, Un cami (SUBLIMAZE 12-17 Slow IV ity o f (PF)) 23:10: 23:09 Push, [place] injection 05 :05 Q1HPRN, Medical 50 mcg Starting Branch Wed12/17/20 at 1810, Until Wed12/18/20 at 1809, Routine, Pain (scale 7-10) azithromyci 2020- No 1000mg 1,000 mg, Univers n 12-13 IV ity of (ZITHROMAX) 12:45: 15:08 [place], [place] 1,000 mg in 00 :00 ONCE, 1 Medic al NaCl 0.9% dose, Wed Branc h (NS) 250 [facility]13/[facility], Administer over 60 Minutes, 250 mL
R benjie for Anti-Infec tive: Documented Infection< br>Documen lm Infection Site: Pelvic<br& gt;Duratio n of Therapy: Other (see Comments) lactated 2020- No 500mL at 999 Unive rs ringers IV 12-13 mL/hr, 500 it y of infusion 12:15: 11:30 mL, [place] 500 mL 00 :00 Intravenou Medical s, ONCE, 1 Branch dose, Wed12/13/20 at 0715, Routine acetaminoph 2020- No 650mg 650 mg, U nivers en 12-13 Oral, ity of (TYLENOL) 11:27: 11:51 ONCE, 1 [place] 160 mg/5 mL 00 :00 dose, Wed Med ical liquid 650 12/13/20 at [facility] mg 0630, Routine betamethaso 2020- No 12mg 12 mg, Uni vers ne acet,sod 12-13 Intramuscu i ty of phos 02:30: 03:58 lar, Q24H, [place] (CELESTONE 00 :00 1 dose, Medica l SOLUSPAN) 6 First dose Br anch mg/mL on [place] injection 12/12/20 at 12 mg 2130, Routine azithromyci 202- No [id number] 1000mg Take 2 Univers n 500 mg 12-13 01 tablets by ity of tablet 00:00: 04:59 mouth once [place] 00 :00 now for 1 Medical dose. This Branch is for expedited partner treatment, please supply to patient's partner. Yes 1{tbl} 1 tablet, Un cami vitamin - Oral, ity of w/FA 23:30: DAILY, [place] (PRENATABS 00 First dose Med ical RX) tablet on [place] Branch 1 tablet 12/12/20 at 1830, Until Discontinu ed, Routine alum-mag Yes 30mL 30 mL, Univers hydroxide-s 12-12 Oral, ity of imeth 23:17: Q6HPRN, [place] (MAALOX 04 Starting Medical PLUS / [place] Branch MAG-AL 12/12/20 at PLUS) 1816, 200-200-20 Until mg/5 mL Discontinu suspension ed, 30 mL Routine, Indigestio n docusate Yes 240mg 240 mg, Unive rs calcium -12 Oral, ity of (SURFAK) 23:17: QHSPRN, [place] capsule 240 04 Starting Medi archana mg [place] Branch 12/12/20 at 1817, Until Discontinu ed, Routine, Constipati on magnesium Yes 30mL 30 mL, Univer s hydroxide 12-12 Oral, ity of (MILK OF 23:17: QDAILYPRN, [place] MAGNESIA) 04 Starting Medica l 400 mg/5 mL [place] Branch suspension 12/12/20 at 30 mL 1816, Until Discontinu ed, Routine, Constipati on proMETHazin 2020- No 25mg 25 mg, IV Univers e 12-12 Piggyback, ity of (PHENERGAN) 14:12: 15:12 ONCE NOW, [place] 25 mg in 00 :00 1 dose, Medical NaCl 0.9% [place] Branch (NS) 50 mL 12/12/20 at IV 0915, piggyback Routine butorphanol 2020- No 1mg 1 mg, IV U nivers (STADOL) 12-12 Push, ity of injection 1 13:08: 13:23 ONCE, 1 [place] mg 00 :00 dose, [facility] Medical 12/12/20 at Branch 0815, Routine D5W-LR IV 0 Yes 1000mL at 125 Univ ers infusion 8-12 mL/hr, IV ity of 1,000 mL 08:15: Infusion, [place] 00 CONTINUOUS Medical , Starting Branch [place] 12/12/20 at 0315, Until Discontinu ed, Routine proMETHazin No 12.5mg 12.5 mg, Univers e 12-12 IV ity of (PHENERGAN) 08:00: 08:39 Piggyback, [place] 12.5 mg in 00 :00 ONCE, 1 Medica l NaCl 0.9% dose, [facility] Branc h (NS) 50 mL 12/12/20 at IV 0315, MONUA piggyback butorphanol 2020- No 1mg 1 mg, IV U nivers (STADOL) 12-12 Push, ity of injection 1 08:00: 08:39 ONCE, 1 [place] mg 00 :00 dose, [facility] Medical 12/12/20 at Branch 0315, MOUNA sodium 0 Yes 30mL 30 mL, Univers citrate-cit 12-12 Oral, ity of bethany acid 07:56: PRE-PROCED [place] as (BICITRA) 36 URE ONCE, Medic al 500-334 1 dose, Branch mg/5 mL Starting solution 30 [place] mL 12/12/20 at 0256, Until Discontinu ed, Routine, Surgery/Pr ocedure lidocaine 0 Yes 50mL 50 mL, Univer s 1% 12-12 Infiltrati ity of (XYLOCAINE) 07:56: on, PRN - [place] 10 mg/mL (1 36 SEE Medical %) INSTRUCTIO Branch injection NS, 50 mL Starting [place] 12/12/20 at 0256, Until Discontinu ed, Routine, Local anesthesia , For laceration repair only as a local anesthetic as indicated. lidocaine 0 Yes .3mL 0.3 mL, Unive rs 1% (PF) 8-12 Infiltrati ity of (XYLOCAINE) 07:56: on, PRN - [place] injection 36 SEE Medical 0.3 mL INSTRUCTIO [place] NS, Starting Ros[place] 12/12/20 at 0256, Until Discontinu ed, Routine, Local anesthesia , For IV line placement only as a local anesthetic . lactated 2020-0 Yes 500mL at 999 Univer s ringers IV 8-12 mL/hr, 500 ity of infusion 07:56: mL, IV [place] 500 mL 36 Infusion, Medical PRN - SEE [facility] NS, Starting Rosina 12/12/20 at 0256, Until Discontinu ed, Routine cephALEXin 2020-0 Yes [id number] 500mg Take 1 Univers 500 mg 7-26 capsule by ity of capsule 00:00: mouth 4 [place] 00 (four) Medical times [place] daily. cephALEXin 2020-0 202- No [id number] 500mg Take 1 Univers 500 mg 7-26 08-13 capsule by ity of capsule 00:00: 00:00 mouth 4 [place] 00 :00 (four) Medical times [place] daily. Nitrofurant 2020-2020- No 100mg 100 mg, U nivers oin&Nit. 724 07-24 Oral, ity of Macrocryst 02:30: 02:21 ONCE, 1 [place] as (MACROBID) 00 :00 dose, Wed Medi archana 100 mg 11/22/20 at [place] capsule 100 2130, mg Routine
Reason for Anti-Infec tive: Empiric Therapy for Suspected Infection< br>Empiric Therapy Site: Urine
D uration of therapy: 72 hours lactated 2020-0 Yes 1000mL at 999 Unive rs ringers IV 7-24 mL/hr, ity of infusion 02:00: 1,000 mL, [place] 1,000 mL 00 IV Medical Infusion, Branch CONTINUOUS , Starting Wed11/22/20 at 2100, Until Discontinu ed, Routine D5W-LR IV 2020-0 Yes 1000mL at 150 Univ ers infusion 7-24 mL/hr, IV ity of 1,000 mL 02:00: Infusion, [place] 00 CONTINUOUS Medical , Starting Branch 11/22/21 at 2100, Until Discontinu ed, Routine terbutaline 2020- No .25mg 0.25 mg, [facility] (BRETHINE) 11-23 Subcutaneo it y of injection 02:00: 01:06 [place] 0.25 mg 00 :00 1 dose, Medical Fri Branch 11/22/20 at 2100, Routine metroNIDAZO 2020- No [id number] 2000mg Take 4 [facility] LE 500 mg 3-03 03-04 tablets by it[facility] [place] tablet 00:00: 05:59 [place] 00 :[place] now for 1 Medical dose. Branch metroNIDAZO 2020- No [id number] 2000mg Take 4 [facility] LE 500 mg 3-03 03-04 tablets by [facility] tablet 00:00: 05:59 [place] 00 :[place] now for 1 Medical dose. Branch metroNIDAZO 2019- No [id number] 2000mg Take 4 [facility] LE 500 mg 3-03 03-04 tablets by [facility] tablet 00:00: 05:59 [place] 00 :[place] now for 1 Medical dose. Branch ferrous 2020-0 Yes [id number] 325mg Take 1 Un cami sulfate 325 2-17 tablet by ity of mg (65 mg 00:00: mouth 2 [place] iron) 00 (two) Medical tablet times Branch daily. ascorbic 2020-0 Yes [id number] 500mg Take 1 U nivers acid, 2-17 tablet by [facility] of vitamin C, 00:00: mouth [place] 500 mg 00 (three) Medical tablet times Branch daily. Nitrofurant 2020-0 Yes [id number] 100mg Take 1 [facility] oin&Nit. 2-17 capsule by ity o f Macrocryst 00:00: mouth [place] (MACROBID) 00 (two) Medical 100 mg times Branch capsule daily. Nitrofurant 2020-0 Yes [id number] 100mg Take 1 [facility] oin&Nit. 2-17 capsule by it[facility] o [place] Macrocryst 00:00: mouth [place] (MACROBID) 00 (two) Medical 100 mg times Branch capsule daily. ferrous 2020-0 Yes [id number] 325mg Take 1 Un cami sulfate 325 2-17 tablet by ity of mg (65 mg 00:00: mouth 2 [place] iron) 00 (two) Medical tablet times Branch daily. ascorbic 2020-0 Yes [id number] 500mg Take 1 [facility] nivers acid, 2-17 tablet by [facility] of vitamin C, 00:00: mouth 3 [place] 500 mg 00 (three) Medical tablet times Branch daily. Nitrofurant 2020-0 Yes [id number] 100mg Take 1 [facility] oin&Nit. 2-17 capsule by it[facility] o f Macrocryst 00:00: mouth [place] (MACROBID) 00 (two) Medical 100 mg times Branch capsule daily. ferrous 2020-0 Yes [id number] 325mg Take 1 Un cami sulfate 325 2-17 tablet by ity of mg (65 mg 00:00: mouth 2 [place] iron) 00 (two) Medical tablet times Branch daily. ascorbic 2020-0 Yes [id number] 500mg Take 1 U nivers acid, 2-17 tablet by [facility] of vitamin C, 00:00: mouth 3 [place] 500 mg 00 (three) Medical tablet times Branch daily. Nitrofurant 2020-0 Yes [id number] 100mg Take 1 [facility] oin&Nit. 2-17 capsule by it[facility] o f Macrocryst 00:00: mouth [place] (MACROBID) 00 (two) Medical 100 mg times Branch capsule daily. ferrous 2020-0 Yes [id number] 325mg Take 1 Un cami sulfate 325 2-17 tablet by ity of mg (65 mg 00:00: mouth 2 [place] iron) 00 (two) Medical tablet times Branch daily. ascorbic 2020-0 Yes [id number] 500mg Take 1 [facility] nivers acid, 2-17 tablet by [facility] of vitamin C, 00:00: mouth 3 [place] 500 mg 00 (three) Medical tablet times Branch daily. Nitrofurant 2020-0 Yes [id number] 100mg Take 1 [facility] oin&Nit. 2-17 capsule by it[facility] o f Macrocryst 00:00: mouth [place] (MACROBID) 00 (two) Medical 100 mg times Branch capsule daily. ferrous 2020-0 Yes [id number] 325mg Take 1 Un cami sulfate 325 2-17 tablet by ity of mg (65 mg 00:00: mouth 2 [place] iron) 00 (two) Medical tablet times Branch daily. ascorbic 2020-0 Yes [id number] 500mg Take 1 U nivers acid, 2-17 tablet by [facility] of vitamin C, 00:00: mouth 3 [place] 500 mg 00 (three) Medical tablet times Branch daily. Nitrofurant 2020-0 Yes [id number] 100mg Take 1 [facility] oin&Nit. 2-17 capsule by it[facility] o f Macrocryst 00:00: mouth [place] (MACROBID) 00 (two) Medical 100 mg times Branch capsule daily. ferrous 2020-0 Yes [id number] 325mg Take 1 Un cami sulfate 325 2-17 tablet by ity of mg (65 mg 00:00: mouth 2 [place] iron) 00 (two) Medical tablet times Branch daily. ascorbic 2020-0 Yes [id number] 500mg Take 1 U nivers acid, 2-17 tablet by [facility] of vitamin C, 00:00: mouth 3 [place] 500 mg 00 (three) Medical tablet times Branch daily. Nitrofurant 2020-0 Yes [id number] 100mg Take 1 [facility] oin&Nit. 2-17 capsule by ity o f Macrocryst 00:00: mouth [place] (MACROBID) 00 (two) Medical 100 mg times Branch capsule daily. ferrous 2020-0 Yes [id number] 325mg Take 1 Un cami sulfate 325 2-17 tablet by ity of mg (65 mg 00:00: mouth 2 [place] iron) 00 (two) Medical tablet times Branch daily. ascorbic 2020-0 Yes [id number] 500mg Take 1 U nivers acid, 2-17 tablet by [facility] of vitamin C, 00:00: mouth 3 [place] 500 mg 00 (three) Medical tablet times Branch daily. Nitrofurant 2020-0 Yes [id number] 100mg Take 1 [facility] oin&Nit. 2-17 capsule by it[facility] o f Macrocryst 00:00: mouth [place] (MACROBID) 00 (two) Medical 100 mg times Branch capsule daily. ferrous 2020-0 Yes [id number] 325mg Take 1 Un cami sulfate 325 2-17 tablet by ity of mg (65 mg 00:00: mouth 2 [place] iron) 00 (two) Medical tablet times Branch daily. ascorbic 2020-0 Yes [id number] 500mg Take 1 U nivers acid, 2-17 tablet by [facility] of vitamin C, 00:00: mouth 3 [place] 500 mg 00 (three) Medical tablet times Branch daily. Nitrofurant 2020-0 Yes [id number] 100mg Take 1 [facility] oin&Nit. 2-17 capsule by it[facility] o f Macrocryst 00:00: mouth [place] (MACROBID) 00 (two) Medical 100 mg times Branch capsule daily. ferrous 2020-0 Yes [id number] 325mg Take 1 Un cami sulfate 325 2-17 tablet by ity of mg (65 mg 00:00: mouth 2 [place] iron) 00 (two) Medical tablet times Branch daily. ascorbic 2020-0 Yes [id number] 500mg Take 1 U nivers acid, 2-17 tablet by [facility] of vitamin C, 00:00: mouth 3 [place] 500 mg 00 (three) Medical tablet times Branch daily. Nitrofurant 2020-0 Yes [id number] 100mg Take 1 [facility] oin&Nit. 2-17 capsule by it[facility] o f Macrocryst 00:00: mouth [place] (MACROBID) 00 (two) Medical 100 mg times Branch capsule daily. ferrous 2020-0 Yes [id number] 325mg Take 1 Un cami sulfate 325 2-17 tablet by ity of mg (65 mg 00:00: mouth 2 [place] iron) 00 (two) Medical tablet times Branch daily. ascorbic 2020-0 Yes [id number] 500mg Take 1 U nivers acid, 2-17 tablet by it[facility] of vitamin C, 00:00: mouth 3 [place] 500 mg 00 (three) Medical tablet times Branch daily. Nitrofurant 2020-0 Yes [id number] 100mg Take 1 [facility] oin&Nit. 2-17 capsule by ity o f Macrocryst 00:00: mouth [place] (MACROBID) 00 (two) Medical 100 mg times Branch capsule daily. ferrous 2020-0 Yes [id number] 325mg Take 1 Un cami sulfate 325 2-17 tablet by ity of mg (65 mg 00:00: mouth 2 [place] iron) 00 (two) Medical tablet times Branch daily. ascorbic 2020-0 Yes [id number] 500mg Take 1 [facility] nivers acid, 2-17 tablet by [facility] of vitamin C, 00:00: mouth 3 [place] 500 mg 00 (three) Medical tablet times Branch daily. Nitrofurant 2020-0 Yes [id number] 100mg Take 1 [facility] oin&Nit. 2-17 capsule by ity o f Macrocryst 00:00: mouth 2 [place] (MACROBID) 00 (two) Medical 100 mg times Branch capsule daily. ferrous 2020-0 Yes [id number] 325mg Take 1 Un cami sulfate 325 2-17 tablet by ity of mg (65 mg 00:00: mouth 2 [place] iron) 00 (two) Medical tablet times Branch daily. ascorbic 2020-0 Yes [id number] 500mg Take 1 U nivers acid, 2-17 tablet by it[facility] of vitamin C, 00:00: mouth 3 [place] 500 mg 00 (three) Medical tablet times Branch daily. Nitrofurant 2020-0 Yes [id number] 100mg Take 1 [facility] oin&Nit. 2-17 capsule by it[facility] o f Macrocryst 00:00: mouth 2 [place] (MACROBID) 00 (two) Medical 100 mg times Branch capsule daily. ferrous 2020-0 Yes [id number] 325mg Take 1 Un cami sulfate 325 2-17 tablet by ity of mg (65 mg 00:00: mouth 2 [place] iron) 00 (two) Medical tablet times Branch daily. ascorbic 2020-0 Yes [id number] 500mg Take 1 U nivers acid, 2-17 tablet by it[facility] of vitamin C, 00:00: mouth 3 [place] 500 mg 00 (three) Medical tablet times Branch daily. Nitrofurant 2020-0 Yes [id number] 100mg Take 1 [facility] oin&Nit. 2-17 capsule by ity o f Macrocryst 00:00: mouth 2 [place] (MACROBID) 00 (two) Medical 100 mg times Branch capsule daily. ferrous 2020-0 Yes [id number] 325mg Take 1 Un cami sulfate 325 2-17 tablet by ity of mg (65 mg 00:00: mouth 2 [place] iron) 00 (two) Medical tablet times Branch daily. ascorbic 2020-0 Yes [id number] 500mg Take 1 U nivers acid, 2-17 tablet by ity of vitamin C, 00:00: mouth 3 [place] 500 mg 00 (three) Medical tablet times Branch daily. Nitrofurant 2020-0 Yes [id number] 100mg Take 1 [facility] oin&Nit. 2-17 capsule by ity o f Macrocryst 00:00: mouth 2 [place] (MACROBID) 00 (two) Medical 100 mg times Branch capsule daily. ferrous 2020-0 Yes [id number] 325mg Take 1 Un cami sulfate 325 2-17 tablet by ity of mg (65 mg 00:00: mouth 2 [place] iron) 00 (two) Medical tablet times Branch daily. ascorbic 2020-0 Yes [id number] 500mg Take 1 U nivers acid, 2-17 tablet by ity of vitamin C, 00:00: mouth 3 [place] 500 mg 00 (three) Medical tablet times Branch daily. ferrous 2020-0 Yes [id number] 325mg Take 1 Un cam[place] sulfate 325 2-17 tablet by ity of mg (65 mg 00:00: mouth 2 [place] iron) 00 (two) Medical tablet times Branch daily. ascorbic 2020-0 Yes [id number] 500mg Take 1 U nivers acid, 2-17 tablet by ity of vitamin C, 00:00: mouth 3 [place] 500 mg 00 (three) Medical tablet times Branch daily. ferrous 2020-0 Yes [id number] 325mg Take 1 Un cami sulfate 325 2-17 tablet by ity of mg (65 mg 00:00: mouth 2 [place] iron) 00 (two) Medical tablet times Branch daily. ascorbic 2020-0 Yes [id number] 500mg Take 1 U nivers acid, 2-17 tablet by ity of vitamin C, 00:00: mouth 3 [place] 500 mg 00 (three) Medical tablet times Branch daily. ferrous 2020-0 Yes [id number] 325mg Take 1 Un cami sulfate 325 2-17 tablet by ity of mg (65 mg 00:00: mouth 2 [place] iron) 00 (two) Medical tablet times Branch daily. ascorbic 2020-0 Yes [id number] 500mg Take 1 U nivers acid, 2-17 tablet by ity of vitamin C, 00:00: mouth 3 [place] 500 mg 00 (three) Medical tablet times Branch daily. ferrous 2020-0 Yes [id number] 325mg Take 1 Un cami sulfate 325 2-17 tablet by ity of mg (65 mg 00:00: mouth 2 [place] iron) 00 (two) Medical tablet times Branch daily. ascorbic 2020-0 Yes [id number] 500mg Take 1 U nivers acid, 2-17 tablet by ity of vitamin C, 00:00: mouth 3 [place] 500 mg 00 (three) Medical tablet times Branch daily. ferrous 2020-0 Yes [id number] 325mg Take 1 Un cami sulfate 325 2-17 tablet by ity of mg (65 mg 00:00: mouth 2 [place] iron) 00 (two) Medical tablet times Branch daily. ascorbic Yes [id number] 500mg Take 1 U nivers acid, 2-17 tablet by ity of vitamin C, 00:00: mouth 3 [place] 500 mg 00 (three) Medical tablet times Branch daily. ferrous 2020- No [id number] 325mg Take 1 U nivers sulfate 325 06-19-28 tablet by it y of mg (65 mg 00:00: 00:00 mouth 2 [place] iron) 00 :00 (two) Medical tablet times Branch daily. ascorbic 2020- No [id number] 500mg Take 1 [facility] acid, 217 -28 tablet by ity of vitamin C, 00:00: 00:00 mouth 3 [place] 500 mg 00 :00 (three) Medical tablet times Branch daily. ferrous 2020- No [id number] 325mg Take 1 U nivers sulfate 325 06-19- tablet by it y of mg (65 mg 00:00: 00:00 mouth 2 [place] iron) 00 :00 (two) Medical tablet times Branch daily. ascorbic 2020- No [id number] 500mg Take 1 [facility] acid, 06-19- tablet by ity of vitamin C, 00:00: 00:00 mouth 3 [place] 500 mg 00 :00 (three) Medical tablet times Branch daily. ferrous 2020- No [id number] 325mg Take 1 U nivers sulfate 325 06-19- tablet by it y of mg (65 mg 00:00: 00:00 mouth 2 [place] iron) 00 :00 (two) Medical tablet times Branch daily. ascorbic 2020- No [id number] 500mg Take 1 [facility] acid, 217 -28 tablet by ity of vitamin C, 00:00: 00:00 mouth 3 [place] 500 mg 00 :00 (three) Medical tablet times Branch daily. ferrous 2020- No [id number] 325mg Take 1 U nivers sulfate 325 217 -28 tablet by it y of mg (65 mg 00:00: 00:00 mouth 2 [place] iron) 00 :00 (two) Medical tablet times Branch daily. ascorbic 2020- No [id number] 500mg Take 1 [facility] acid, 2-17 -28 tablet by ity of vitamin C, 00:00: 00:00 mouth 3 [place] 500 mg 00 :00 (three) Medical tablet times Branch daily. Nitrofurant 2020- No [id number] 100mg Take 1 [facility] oin&Nit. 2-17 08-13 capsule by ity of Macrocryst 00:00: 00:00 mouth 2 [place] (MACROBID) 00 :00 (two) Medical 100 mg times Branch capsule daily. methylergon Yes [id number] 200ug Take 1 [facility] ovine 7-18 tablet by ity of (METHERGINE 00:00: mouth [place] ) 0.2 mg 00 every 6 Medical tablet (six) Branch hours. azithromyci Yes [id number] 1g Take 1 [facility] n 1 gram 7-18 Packet by ity of powder 00:00: mouth [place] 00 weekly. [facility] methylergon Yes [id number] 200ug Take 1 [facility] ovine 7-18 tablet by ity of (METHERGINE 00:00: mouth [place] ) 0.2 mg 00 every 6 Medical tablet (six) Branch hours. azithromyci Yes [id number] 1g Take 1 [facility] n 1 gram 7-18 Packet by ity of powder 00:00: mouth [place] 00 weekly. [facility] Branch methylergon Yes [id number] 200ug Take 1 [facility] ovine 7-18 tablet by ity of (METHERGINE 00:00: mouth [place] ) 0.2 mg 00 every 6 Medical tablet (six) Branch hours. azithromyci Yes [id number] 1g Take 1 [facility] n 1 gram 7-18 Packet by ity of powder 00:00: mouth [place] 00 weekly. [facility] Branch methylergon Yes [id number] 200ug Take 1 [facility] ovine 7-18 tablet by ity of (METHERGINE 00:00: mouth [place] ) 0.2 mg 00 every 6 Medical tablet (six) Branch hours. azithromyci Yes [id number] 1g Take 1 [facility] n 1 gram 7-18 Packet by ity of powder 00:00: mouth [place] 00 weekly. [facility] Branch methylergon Yes [id number] 200ug Take 1 [facility] ovine 7-18 tablet by ity of (METHERGINE 00:00: mouth [place] ) 0.2 mg 00 every 6 Medical tablet (six) Branch hours. azithromyci 2019-0 Yes [id number] 1g Take 1 [facility] n 1 gram 7-18 Packet by ity of powder 00:00: mouth [place] 00 weekly. Medical Branch methylergon 2019-0 Yes [id number] 200ug Take 1 [facility] ovine 7-18 tablet by ity of (METHERGINE 00:00: mouth [place] ) 0.2 mg 00 every 6 Medical tablet (six) Branch hours. azithromyci 2019-0 Yes [id number] 1g Take 1 [facility] n 1 gram 7-18 Packet by ity of powder 00:00: mouth [place] 00 weekly. [facility] Branch methylergon 2018-0 Yes [id number] 200ug Take 1 [facility] ovine 7-18 tablet by ity of (METHERGINE 00:00: mouth [place] ) 0.2 mg 00 every 6 Medical tablet (six) Branch hours. azithromyci 2019-0 Yes [id number] 1g Take 1 [facility] n 1 gram 7-18 Packet by ity of powder 00:00: mouth [place] 00 weekly. Medical Branch methylergon 2018-0 Yes [id number] 200ug Take 1 [facility] ovine 7-18 tablet by ity of (METHERGINE 00:00: mouth [place] ) 0.2 mg 00 every 6 Medical tablet (six) Branch hours. azithromyci 2019-0 Yes [id number] 1g Take 1 [facility] n 1 gram 7-18 Packet by ity of powder 00:00: mouth [place] 00 weekly. Medical Branch methylergon 2019-0 Yes [id number] 200ug Take 1 [facility] ovine 7-18 tablet by ity of (METHERGINE 00:00: mouth [place] ) 0.2 mg 00 every 6 Medical tablet (six) Branch hours. azithromyci 2019-0 Yes [id number] 1g Take 1 [facility] n 1 gram 7-18 Packet by ity of powder 00:00: mouth [place] 00 weekly. [facility] Branch methylergon 2019-0 Yes [id number] 200ug Take 1 [facility] ovine 7-18 tablet by ity of (METHERGINE 00:00: mouth [place] ) 0.2 mg 00 every 6 Medical tablet (six) Branch hours. azithromyci 2019-0 Yes [id number] 1g Take 1 [facility] n 1 gram 7-18 Packet by ity of powder 00:00: mouth [place] 00 weekly. Medical Branch methylergon 2018- Yes [id number] 200ug Take 1 [facility] ovine 7-18 tablet by ity of (METHERGINE 00:00: mouth [place] ) 0.2 mg 00 every 6 Medical tablet (six) Branch hours. azithromyci 2018- Yes [id number] 1g Take 1 [facility] n 1 gram 7-18 Packet by ity of powder 00:00: mouth [place] 00 weekly. Medical Branch methylergon 2018- Yes [id number] 200ug Take 1 [facility] ovine 7-18 tablet by ity of (METHERGINE 00:00: mouth [place] ) 0.2 mg 00 every 6 Medical tablet (six) Branch hours. azithromyci 2018- Yes [id number] 1g Take 1 [facility] n 1 gram 7-18 Packet by ity of powder 00:00: mouth [place] 00 weekly. [facility] Branch methylergon 2018- Yes [id number] 200ug Take 1 [facility] ovine 7-18 tablet by ity of (METHERGINE 00:00: mouth [place] ) 0.2 mg 00 every 6 Medical tablet (six) Branch hours. azithromyci 2018- Yes [id number] 1g Take 1 [facility] n 1 gram 7-18 Packet by ity of powder 00:00: mouth [place] 00 weekly. [facility] Branch methylergon 2018- Yes [id number] 200ug Take 1 [facility] ovine 7-18 tablet by ity of (METHERGINE 00:00: mouth [place] ) 0.2 mg 00 every 6 Medical tablet (six) Branch hours. azithromyci 2019- Yes [id number] 1g Take 1 [facility] n 1 gram 7-18 Packet by ity of powder 00:00: mouth [place] 00 weekly. Medical Branch methylergon 2018- Yes [id number] 200ug Take 1 [facility] ovine 7-18 tablet by ity of (METHERGINE 00:00: mouth [place] ) 0.2 mg 00 every 6 Medical tablet (six) Branch hours. azithromyci 2019- Yes [id number] 1g Take 1 [facility] n 1 gram 7-18 Packet by ity of powder 00:00: mouth [place] 00 weekly. [facility] Branch methylergon 2018- Yes [id number] 200ug Take 1 [facility] ovine 7-18 tablet by ity of (METHERGINE 00:00: mouth [place] ) 0.2 mg 00 every 6 Medical tablet (six) Branch hours. azithromyci 2019-0 Yes [id number] 1g Take 1 [facility] n 1 gram 7-18 Packet by ity of powder 00:00: mouth [place] 00 weekly. Medical Branch methylergon 2019-0 Yes [id number] 200ug Take 1 [facility] ovine 7-18 tablet by ity of (METHERGINE 00:00: mouth [place] ) 0.2 mg 00 every 6 Medical tablet (six) Branch hours. azithromyci 2019-0 Yes [id number] 1g Take 1 [facility] n 1 gram 7-18 Packet by ity of powder 00:00: mouth [place] 00 weekly. Medical Branch methylergon 2018-0 Yes [id number] 200ug Take 1 [facility] ovine 7-18 tablet by ity of (METHERGINE 00:00: mouth [place] ) 0.2 mg 00 every 6 Medical tablet (six) Branch hours. azithromyci 2019-0 Yes [id number] 1g Take 1 [facility] n 1 gram 7-18 Packet by ity of powder 00:00: mouth [place] 00 weekly. Medical Branch methylergon 2018-0 Yes [id number] 200ug Take 1 [facility] ovine 7-18 tablet by ity of (METHERGINE 00:00: mouth [place] ) 0.2 mg 00 every 6 Medical tablet (six) Branch hours. azithromyci 2019-0 Yes [id number] 1g Take 1 [facility] n 1 gram 7-18 Packet by ity of powder 00:00: mouth [place] 00 weekly. Medical Branch methylergon 2019-0 Yes [id number] 200ug Take 1 [facility] ovine 7-18 tablet by ity of (METHERGINE 00:00: mouth [place] ) 0.2 mg 00 every 6 Medical tablet (six) Branch hours. azithromyci 2019-0 Yes [id number] 1g Take 1 [facility] n 1 gram 7-18 Packet by ity of powder 00:00: mouth [place] 00 weekly. Medical Branch methylergon 2019-0 Yes [id number] 200ug Take 1 [facility] ovine 7-18 tablet by ity of (METHERGINE 00:00: mouth [place] ) 0.2 mg 00 every 6 Medical tablet (six) Branch hours. azithromyci 2019-0 Yes [id number] 1g Take 1 [facility] n 1 gram 7-18 Packet by ity of powder 00:00: mouth [place] 00 weekly. Medical Branch methylergon Yes [id number] 200ug Take 1 [facility] ovine 7-18 tablet by ity of (METHERGINE 00:00: mouth [place] ) 0.2 mg 00 every 6 Medical tablet (six) Branch hours. azithromyci Yes [id number] 1g Take 1 [facility] n 1 gram 7-18 Packet by ity of powder 00:00: mouth [place] 00 weekly. Medical Branch methylergon 2020- No [id number] 200ug Take 1 [facility] ovine 7-18 08-13 tablet by ity of (METHERGINE 00:00: 00:00 mouth [place] ) 0.2 mg 00 :00 every 6 Medical tablet (six) Branch hours. azithromyci 2020- No [id number] 1g Take 1 [facility] n 1 gram 7-18 08-13 Packet by ity o f powder 00:00: 00:00 mouth [place] 00 :00 weekly. Medical Branch metroNIDAZO Yes [id number] 500mg Take 1 [facility] LE (FLAGYL) 7-17 tablet by ity of 500 mg 00:00: mouth 2 [place] tablet 00 (two) Medical times Branch daily. azithromyci Yes [id number] 1000mg Take 2 [facility] n 500 mg 7-17 tablets by ity o f tablet 00:00: mouth [place] 00 weekly. Medical Branch metroNIDAZO Yes [id number] 500mg Take 1 [facility] LE (FLAGYL) 7-17 tablet by ity of 500 mg 00:00: mouth 2 [place] tablet 00 (two) Medical times Branch daily. azithromyci Yes [id number] 1000mg Take 2 [facility] n 500 mg 7-17 tablets by ity o f tablet 00:00: mouth [place] 00 weekly. Medical Branch metroNIDAZO Yes [id number] 500mg Take 1 [facility] LE (FLAGYL) 7-17 tablet by ity of 500 mg 00:00: mouth 2 [place] tablet 00 (two) Medical times Branch daily. azithromyci Yes [id number] 1000mg Take 2 [facility] n 500 mg 7-17 tablets by ity o f tablet 00:00: mouth [place] 00 weekly. Medical Branch metroNIDAZO Yes [id number] 500mg Take 1 [facility] LE (FLAGYL) 7-17 tablet by ity of 500 mg 00:00: mouth 2 [place] tablet 00 (two) Medical times Branch daily. azithromyci Yes [id number] 1000mg Take 2 [facility] n 500 mg 7-17 tablets by ity o f tablet 00:00: mouth [place] 00 weekly. Medical Branch metroNIDAZO Yes [id number] 500mg Take 1 [facility] LE (FLAGYL) 7-17 tablet by ity of 500 mg 00:00: mouth 2 [place] tablet 00 (two) Medical times Branch daily. azithromyci Yes [id number] 1000mg Take 2 [facility] n 500 mg 7-17 tablets by ity o f tablet 00:00: mouth [place] 00 weekly. Medical Branch metroNIDAZO Yes [id number] 500mg Take 1 [facility] LE (FLAGYL) 7-17 tablet by ity of 500 mg 00:00: mouth 2 [place] tablet 00 (two) Medical times Branch daily. azithromyci Yes [id number] 1000mg Take 2 [facility] n 500 mg 7-17 tablets by ity o f tablet 00:00: mouth [place] 00 weekly. Medical Branch metroNIDAZO Yes [id number] 500mg Take 1 [facility] LE (FLAGYL) 7-17 tablet by ity of 500 mg 00:00: mouth 2 [place] tablet 00 (two) Medical times Branch daily. azithromyci Yes [id number] 1000mg Take 2 [facility] n 500 mg 7-17 tablets by ity o f tablet 00:00: mouth [place] 00 weekly. Medical Branch metroNIDAZO Yes [id number] 500mg Take 1 [facility] LE (FLAGYL) 7-17 tablet by ity of 500 mg 00:00: mouth 2 [place] tablet 00 (two) Medical times Branch daily. azithromyci Yes [id number] 1000mg Take 2 [facility] n 500 mg 7-17 tablets by ity o f tablet 00:00: mouth [place] 00 weekly. Medical Branch metroNIDAZO Yes [id number] 500mg Take 1 [facility] LE (FLAGYL) 7-17 tablet by ity of 500 mg 00:00: mouth 2 [place] tablet 00 (two) Medical times Branch daily. azithromyci Yes [id number] 1000mg Take 2 [facility] n 500 mg 7-17 tablets by ity o f tablet 00:00: mouth [place] 00 weekly. Medical Branch metroNIDAZO Yes [id number] 500mg Take 1 [facility] LE (FLAGYL) 7-17 tablet by ity of 500 mg 00:00: mouth 2 [place] tablet 00 (two) Medical times Branch daily. azithromyci Yes [id number] 1000mg Take 2 [facility] n 500 mg 7-17 tablets by ity o f tablet 00:00: mouth [place] 00 weekly. Medical Branch metroNIDAZO Yes [id number] 500mg Take 1 [facility] LE (FLAGYL) 7-17 tablet by ity of 500 mg 00:00: mouth 2 [place] tablet 00 (two) Medical times Branch daily. azithromyci Yes [id number] 1000mg Take 2 [facility] n 500 mg 7-17 tablets by ity o f tablet 00:00: mouth [place] 00 weekly. [facility] Branch metroNIDAZO Yes [id number] 500mg Take 1 [facility] LE (FLAGYL) 7-17 tablet by ity of 500 mg 00:00: mouth 2 [place] tablet 00 (two) Medical times Branch daily. azithromyci Yes [id number] 1000mg Take 2 [facility] n 500 mg 7-17 tablets by ity o f tablet 00:00: mouth [place] 00 weekly. [facility] Branch metroNIDAZO Yes [id number] 500mg Take 1 [facility] LE (FLAGYL) 7-17 tablet by ity of 500 mg 00:00: mouth 2 [place] tablet 00 (two) Medical times Branch daily. azithromyci Yes [id number] 1000mg Take 2 [facility] n 500 mg 7-17 tablets by ity o f tablet 00:00: mouth [place] 00 weekly. [facility] Branch metroNIDAZO Yes [id number] 500mg Take 1 [facility] LE (FLAGYL) 7-17 tablet by ity of 500 mg 00:00: mouth 2 [place] tablet 00 (two) Medical times Branch daily. azithromyci Yes [id number] 1000mg Take 2 [facility] n 500 mg 7-17 tablets by ity o f tablet 00:00: mouth [place] 00 weekly. [facility] Branch metroNIDAZO Yes [id number] 500mg Take 1 [facility] LE (FLAGYL) 7-17 tablet by ity of 500 mg 00:00: mouth 2 [place] tablet 00 (two) Medical times Branch daily. azithromyci Yes [id number] 1000mg Take 2 [facility] n 500 mg 7-17 tablets by ity o f tablet 00:00: mouth [place] 00 weekly. Medical Branch metroNIDAZO Yes [id number] 500mg Take 1 [facility] LE (FLAGYL) 7-17 tablet by ity of 500 mg 00:00: mouth 2 [place] tablet 00 (two) Medical times Branch daily. azithromyci Yes [id number] 1000mg Take 2 [facility] n 500 mg 7-17 tablets by ity o f tablet 00:00: mouth [place] 00 weekly. [facility] Branch metroNIDAZO Yes [id number] 500mg Take 1 [facility] LE (FLAGYL) 7-17 tablet by ity of 500 mg 00:00: mouth 2 [place] tablet 00 (two) Medical times Branch daily. azithromyci Yes [id number] 1000mg Take 2 [facility] n 500 mg 7-17 tablets by ity o f tablet 00:00: mouth [place] 00 weekly. [facility] Branch metroNIDAZO Yes [id number] 500mg Take 1 [facility] LE (FLAGYL) 7-17 tablet by ity of 500 mg 00:00: mouth 2 [place] tablet 00 (two) Medical times Branch daily. azithromyci Yes [id number] 1000mg Take 2 Univers n 500 mg 7-17 tablets by ity o f tablet 00:00: mouth [place] 00 weekly. [facility] metroNIDAZO Yes [id number] 500mg Take 1 Univers LE (FLAGYL) 7-17 tablet by ity of 500 mg 00:00: mouth 2 [place] tablet 00 (two) Medical times Branch daily. azithromyci Yes [id number] 1000mg Take 2 Univers n 500 mg 7-17 tablets by ity o f tablet 00:00: mouth [place] 00 weekly. [facility] metroNIDAZO Yes [id number] 500mg Take 1 Univers LE (FLAGYL) 7-17 tablet by ity of 500 mg 00:00: mouth 2 [place] tablet 00 (two) Medical times Branch daily. azithromyci Yes [id number] 1000mg Take 2 Univers n 500 mg 7-17 tablets by ity o f tablet 00:00: mouth [place] 00 weekly. Medical Branch metroNIDAZO Yes [id number] 500mg Take 1 Univers LE (FLAGYL) 7-17 tablet by ity of 500 mg 00:00: mouth 2 [place] tablet 00 (two) Medical times Branch daily. azithromyci Yes [id number] 1000mg Take 2 Univers n 500 mg 7-17 tablets by ity o f tablet 00:00: mouth [place] 00 weekly. Medical Branch metroNIDAZO Yes [id number] 500mg Take 1 Univers LE (FLAGYL) 7-17 tablet by ity of 500 mg 00:00: mouth 2 [place] tablet 00 (two) Medical times Branch daily. azithromyci Yes [id number] 1000mg Take 2 Univers n 500 mg 7-17 tablets by ity o f tablet 00:00: mouth [place] 00 weekly. [facility] metroNIDAZO 2020- No [id number] 500mg Take 1 Univers LE (FLAGYL) 7-17 08-13 tablet by it y of 500 mg 00:00: 00:00 mouth 2 [place] tablet 00 :00 (two) Medical times Branch daily. azithromyci 2020- No [id number] 1000mg Take 2 Univers n 500 mg 7-17 08-13 tablets by ity of tablet 00:00: 00:00 mouth [place] 00 :00 weekly. [facility] Nitrofurant Yes [id number] 100mg Take 1 Univers oin&Nit. 7-12 4 capsule by ity o [place] ([place]CR[place] 00 (two) Medical 100 mg times Branch capsule daily. Nitrofurant Yes [id number] 100mg Take 1 Univers oin&Nit. 7-12 4 capsule by ity o [place] (MACROBID[place] 00 (two) Medical 100 mg times Branch capsule daily. Nitrofurant Yes [id number] 100mg Take 1 Univers oin&Nit. 7-12 4 capsule by ity o [place] ([place]CROB[place] 00 (two) Medical 100 mg times Branch capsule daily. Nitrofurant 2018- Yes [id number] 100mg Take 1 Univers oin&Nit. 7-12 4 capsule by ity o [place] (MACROB[place] 00 (two) Medical 100 mg times Branch capsule daily. Nitrofurant Yes [id number] 100mg Take 1 Univers oin&Nit. 7-12 4 capsule by ity o [place] (MACROB[place] 00 (two) Medical 100 mg times Branch capsule daily. Nitrofurant Yes [id number] 100mg Take 1 Univers oin&Nit. 7-12 4 capsule by ity o f [place] 00:[place]: mouth [place] (MACROBID[place] 00 (two) Medical 100 mg times Branch capsule daily. Nitrofurant Yes [id number] 100mg Take 1 Univers oin&Nit. 7-12 4 capsule by ity o [place]: [place] (MACROBID[place] 00 (two) Medical 100 mg times Branch capsule daily. Nitrofurant Yes [id number] 100mg Take 1 Univers oin&Nit. 7-12 4 capsule by ity o f [place] 00:[place]: mouth [place] (MACROBID[place] 00 (two) Medical 100 mg times Branch capsule daily. Nitrofurant Yes [id number] 100mg Take 1 Univers oin&Nit. 7-12 4 capsule by ity o f [place]ryst 00:[place]: mouth [place] (MACROBID[place] 00 (two) Medical 100 mg times Branch capsule daily. Nitrofurant Yes [id number] 100mg Take 1 Univers oin&Nit. 7-12 4 capsule by ity o f [place] 00:[place]: mouth [place] (MACROBID) 00 (two) Medical 100 mg times Branch capsule daily. Nitrofurant Yes [id number] 100mg Take 1 Univers oin&Nit. 7-12 4 capsule by ity o f [place] 00:[place]: mouth [place] (MACROBID[place] 00 (two) Medical 100 mg times Branch capsule daily. Nitrofurant 2018-0 Yes [id number] 100mg Take 1 Univers oin&Nit. 7-12 4 capsule by ity o f [place] 00:[place]: mouth [place] (MACROBID[place] 00 (two) Medical 100 mg times Branch capsule daily. Nitrofurant Yes [id number] 100mg Take 1 Univers oin&Nit. 7-12 4 capsule by ity o f [place] 00:[place]: mouth [place] (MACROBID) 00 (two) Medical 100 mg times Branch capsule daily. Nitrofurant Yes [id number] 100mg Take 1 Univers oin&Nit. 7-12 4 capsule by ity o f [place]ryst 00:[place]: mouth [place] (MACROBID) 00 (two) Medical 100 mg times Branch capsule daily. Nitrofurant Yes [id number] 100mg Take 1 Univers oin&Nit. 7-12 4 capsule by ity o f [place]ryst 00:[place]: mouth [place] (MACROBID[place] 00 (two) Medical 100 mg times Branch capsule daily. Nitrofurant Yes [id number] 100mg Take 1 Univers oin&Nit. 7-12 4 capsule by ity o f [place]ryst 00:[place]: mouth [place] (MACROBID) 00 (two) Medical 100 mg times Branch capsule daily. Nitrofurant Yes [id number] 100mg Take 1 Univers oin&Nit. 7-12 4 capsule by ity o f [place]ryst 00:[place]: mouth [place] (MACROBID) 00 (two) Medical 100 mg times Branch capsule daily. Nitrofurant Yes [id number] 100mg Take 1 Univers oin&Nit. 7-12 4 capsule by ity o f [place] 00:[place]: mouth [place] (MACROBID) 00 (two) Medical 100 mg times Branch capsule daily. Nitrofurant 0 Yes [id number] 100mg Take 1 Univers oin&Nit. 7-12 4 capsule by ity o f [place]ryst 00:[place]: mouth [place] (MACROBID) 00 (two) Medical 100 mg times Branch capsule daily. Nitrofurant Yes [id number] 100mg Take 1 Univers oin&Nit. 7-12 4 capsule by ity o f [place]ryst 00:[place]: mouth [place] (MACROBID) 00 (two) Medical 100 mg times Branch capsule daily. Nitrofurant 2018- Yes [id number] 100mg Take 1 Univers oin&Nit. 7-12 4 capsule by ity o f [place] 00:[place]: mouth [place] (MACROBID) 00 (two) Medical 100 mg times Branch capsule daily. Nitrofurant Yes [id number] 100mg Take 1 Univers oin&Nit. 7-12 4 capsule by ity o f [place] 00:[place]: mouth [place] (MACROBID[place] 00 (two) Medical 100 mg times Branch capsule daily. Nitrofurant 2021- No [id number] 100mg Take 1 Univers oin&Nit. 712 08-13 4 capsule by ity of Macrocryst 00:00: 00:00 mouth 2 [place] (MACROBID) 00 :00 (two) Medical 100 mg times Branch capsule daily. Immunizations Ordered Filled Immunization Date Status Comments [facility] e Immunization Name Name [facility] 2017-07-05 Completed University of 00:00:00 [facility] 2017-07-05 Completed University of 00:00:00 [facility] 2017-07-05 Completed University of 00:00:00 [facility] 2017-07-05 Completed University of 00:00:00 [facility] 2017-07-05 Completed University of 00:00:00 [facility] 2017-07-05 Completed University of 00:00:00 [facility] 2017-07-05 Completed University of 00:00:00 [facility] 2017-07-05 Completed University of 00:00:00 [facility] 2017-07-05 Completed University of 00:00:00 [facility] 2017-07-05 Completed University of 00:00:00 [facility] 2017-07-05 Completed University of 00:00:00 [facility] 2017-07-05 Completed University of 00:00:00 [facility] 2017-07-05 Completed University of 00:00:00 [facility] 2017-07-05 Completed University of 00:00:00 [facility] 2017-07-05 Completed University of 00:00:00 [facility] 2017-07-05 Completed University of 00:00:00 [facility] MMR 2017-07-05 Completed University of 00:00:00 [facility] MMR 2017-07-05 Completed University of 00:00:00 [facility] MMR 2017-07-05 Completed University of 00:00:00 [facility] MMR 2017-07-05 Completed University of 00:00:00 [facility] 2017-07-05 Completed University of 00:00:00 [facility] 2017-07-05 Completed University of 00:00:00 [facility] MMR 2017-07-05 Completed University of 00:00:00 [facility] MMR 2017-07-05 Completed University of 00:00:00 [facility] 2017-07-05 Completed University of 00:00:00 [facility] 2017-07-05 Completed University of 00:00:00 [facility] 2017-07-05 Completed University of 00:00:00 [facility] 2017-07-05 Completed University of 00:00:00 [facility] 2017-07-05 Completed University of 00:00:00 [facility] 2017-07-05 Completed University of 00:00:00 [facility] 2017-07-05 Completed University of 00:00:00 [facility] 2017-07-05 Completed University of 00:00:00 [facility] 2017-07-05 Completed University of 00:00:00 [facility] 2017-07-05 Completed University of 00:00:00 [facility] 2017-06-04 Completed University of 00:00:00 [facility] Varicella 2017-06-04 Completed University of (varivax)(chicken 00:00:00 [place] M edical pox) Branch MMR 2017-06-04 Completed University of 00:00:00 [facility] Varicella 2017-06-04 Completed University of (varivax)(chicken 00:00:00 [place] [facility] [place] pox) [facility] MMR 2017-06-04 Completed University of 00:00:00 [facility] Varicella 2017-06-04 Completed University of (varivax)(chicken 00:00:00 [place] [facility] [place] pox) Branch MMR 2017-06-04 Completed University of 00:00:00 [facility] Varicella 2017-06-04 Completed University of (varivax)(chicken 00:00:00 [place] [facility]ical pox) Branch MMR 2017-06-04 Completed University of 00:00:00 [facility] Varicella 2017-06-04 Completed University of (varivax)(chicken 00:00:00 [place] M edical pox) Branch MMR 2017-06-04 Completed University of 00:00:00 [facility] Varicella 2017-06-04 Completed University of (varivax)(chicken 00:00:00 [place] M edical pox) Branch MMR 2017-06-04 Completed University of 00:00:00 [facility] Varicella 2017-06-04 Completed University of (varivax)(chicken 00:00:00 [place] M edical pox) Branch MMR 2017-06-04 Completed University of 00:00:00 [facility] Varicella 2017-06-04 Completed University of (varivax)(chicken 00:00:00 [place] M edical pox) Branch MMR 2017-06-04 Completed University of 00:00:00 [facility] Varicella 2017-06-04 Completed University of (varivax)(chicken 00:00:00 [place] M [facility]ical pox) Branch [facility] 2017-06-04 Completed University of 00:00:00 [facility] Varicella 2017-06-04 Completed University of (varivax)(chicken 00:00:00 [place] M edical pox) Branch MMR 2017-06-04 Completed University of 00:00:00 [facility] Varicella 2017-06-04 Completed University of (varivax)(chicken 00:00:00 [place] M edical pox) Branch [facility] 2017-06-04 Completed University of 00:00:00 [facility] Varicella 2017-06-04 Completed University of (varivax)(chicken 00:00:00 [place] M edical pox) Branch MMR 2017-06-04 Completed University of 00:00:00 [facility] Varicella 2017-06-04 Completed University of (varivax)(chicken 00:00:00 [place] M edical pox) Branch MMR 2017-06-04 Completed University of 00:00:00 [facility] Varicella 2017-06-04 Completed University of (varivax)(chicken 00:00:00 [place] M edical pox) Branch MMR 2017-06-04 Completed University of 00:00:00 [facility] Varicella 2017-06-04 Completed University of (varivax)(chicken 00:00:00 [place] M edical pox) Branch MMR 2017-06-04 Completed University of 00:00:00 [facility] Varicella 2017-06-04 Completed University of (varivax)(chicken 00:00:00 [place] M edical pox) Branch MMR 2017-06-04 Completed University of 00:00:00 [facility] Varicella 2017-06-04 Completed University of (varivax)(chicken 00:00:00 [place] M edical pox) Branch [facility] 2017-06-04 Completed University of 00:00:00 [facility] Varicella 2017-06-04 Completed University of (varivax)(chicken 00:00:00 [place] M edical pox) Branch MMR 2017-06-04 Completed University of 00:00:00 [facility] Varicella 2017-06-04 Completed University of (varivax)(chicken 00:00:00 [place] M edical pox) Branch [facility] 2017-06-04 Completed University of 00:00:00 [facility] Varicella 2017-06-04 Completed University of (varivax)(chicken 00:00:00 [place] M edical pox) Branch [facility] 2017-06-04 Completed University of 00:00:00 [facility] Varicella 2017-06-04 Completed University of (varivax)(chicken 00:00:00 [place] M edical pox) Branch [facility] 2017-06-04 Completed University of 00:00:00 [facility] Varicella 2017-06-04 Completed University of (varivax)(chicken 00:00:00 [place] M edical pox) Branch [facility] 2017-06-04 Completed University of 00:00:00 [facility] Varicella 2017-06-04 Completed University of (varivax)(chicken 00:00:00 [place] M edical pox) Branch [facility] 2017-06-04 Completed University of 00:00:00 [facility] Varicella 2017-06-04 Completed University of (varivax)(chicken 00:00:00 [place] M edical pox) Branch [facility] 2017-06-04 Completed University of 00:00:00 [facility] Varicella 2017-06-04 Completed University of (varivax)(chicken 00:00:00 [place] M edical pox) Branch [facility] 2017-06-04 Completed University of 00:00:00 [facility] Varicella 2017-06-04 Completed University of (varivax)(chicken 00:00:00 [place] M edical pox) Branch MMR 2017-06-04 Completed University of 00:00:00 [facility] Varicella 2017-06-04 Completed University of (varivax)(chicken 00:00:00 [place] M edical pox) Branch [facility] 2017-06-04 Completed University of 00:00:00 [facility] Varicella 2017-06-04 Completed University of (varivax)(chicken 00:00:00 [place] M edical pox) Branch [facility] 2017-06-04 Completed University of 00:00:00 [facility] Varicella 2017-06-04 Completed University of (varivax)(chicken 00:00:00 [place] M edical pox) Branch [facility] 2017-06-04 Completed University of 00:00:00 [facility] Varicella 2017-06-04 Completed University of (varivax)(chicken 00:00:00 [place] M edical pox) Branch [facility] 2017-06-04 Completed University of 00:00:00 [facility] Varicella 2017-06-04 Completed University of (varivax)(chicken 00:00:00 [place] M edical pox) Branch [facility] 2017-06-04 Completed University of 00:00:00 [facility] Varicella 2017-06-04 Completed University of (varivax)(chicken 00:00:00 [place] M edical pox) Branch [facility] 2017-06-04 Completed University of 00:00:00 [facility] Varicella 2017-06-04 Completed University of (varivax)(chicken 00:00:00 [place] M edical pox) Branch [facility] 2017-06-04 Completed University of 00:00:00 [facility] Varicella 2017-06-04 Completed University of (varivax)(chicken 00:00:00 [place] M edical pox) Branch Vital Signs Vital Name Observation Time Observation Value Comments Source Systolic blood 2021-04-19 15:36:00 115 mm[Hg] Univer sity of pressure [facility] Diastolic blood 2021-04-19 15:36:00 77 mm[Hg] Unive rsity of pressure [facility] Heart rate 2021-04-19 15:36:00 74 /min [facility] Body temperature 2021-04-19 15:36:00 37 Pinky [facility] Respiratory rate 2021-04-19 15:36:00 17 /min [facility] height 2021-04-19 15:36:00 167.6 cm [facility] Body weight 2021-04-19 15:36:00 61.417 kg [facility] [place] [facility] BMI 2021-04-19 15:36:00 21.85 kg/m2 [facility] [place] [facility] Oxygen saturation in 2021-04-19 15:36:00 99 /min University of Arterial blood by [facility] Pulse oximetry Branch Systolic blood 2020-12-28 09:00:00 115 mm[Hg] Univer sity of pressure [place] [facility] Diastolic blood 2020-12-28 09:00:00 73 mm[Hg] Unive rsity of pressure [place] [facility] Heart rate 2020-12-28 09:00:00 73 /min [facility] [place] [facility] Body temperature 2020-12-28 09:00:00 37.28 Pinky Univ ers[facility] [place] [facility] Respiratory rate 2020-12-28 09:00:00 16 /min Univ ers[facility] [place] [facility] Oxygen saturation in 2020-12-28 00:32:00 100 /min University of Arterial blood by [facility] Pulse oximetry Branch Body height 2020-12-26 18:30:00 162.6 cm [facility] [place] [facility] Body weight 2020-12-26 18:30:00 60.4 kg [facility] [place] [facility] BMI 2020-12-26 18:30:00 22.85 kg/m2 [facility] [place] [facility] Heart rate 2020-12-18 11:45:00 93 /min [facility] [place] [facility] Oxygen saturation in 2020-12-18 11:30:00 100 /min University of Arterial blood by [facility] Pulse oximetry Branch Systolic blood 2020-12-18 11:15:00 108 mm[Hg] Univer sity of pressure [place] [facility] Diastolic blood 2020-12-18 11:15:00 72 mm[Hg] Unive rsity of pressure [place] [facility] Body temperature 2020-12-18 11:15:00 36.78 Pinky Univ ersity of [place] [facility] Respiratory rate 2020-12-18 11:15:00 18 /min Univ ersity [facility] [place] [facility] Systolic blood 2020-12-14 20:30:00 104 mm[Hg] Univer sity of pressure [place] [facility] Diastolic blood 2020-12-14 20:30:00 56 mm[Hg] Unive rsity of pressure [place] [facility] Heart rate 2020-12-14 20:30:00 94 /min [facility] [place] [facility] Oxygen saturation in 2020-12-14 20:30:00 99 /min [facility] Arterial blood by [place] [facility] Pulse oximetry Branch Respiratory rate 2020-12-14 20:00:00 18 /min Univ ersity [facility] [place] [facility] Body temperature 2020-12-14 18:00:00 36.72 Pinky Univ ers[facility] [place] [facility] Body weight 2020-12-12 06:40:00 60.328 kg [facility] [place] [facility] BMI 2020-12-12 06:40:00 22.13 kg/m2 [facility] [place] [facility] Heart rate 2020-11-23 02:30:00 125 /min [facility] [place] [facility] Oxygen saturation in 2020-11-23 02:30:00 100 /min University of Arterial blood by [facility] [place] [facility] archana Pulse oximetry Branch Systolic blood 2020-11-23 00:15:00 108 mm[Hg] Univer sity of pressure [place] [facility] Diastolic blood 2020-11-23 00:15:00 68 mm[Hg] Unive rsity of pressure [place] [facility] Respiratory rate 2020-11-22 23:58:00 26 /min Univ ers[facility] [place] [facility] Body weight 2020-11-22 23:58:00 60.51 kg [facility] [place] [facility] BMI 2020-11-22 23:58:00 22.20 kg/m2 [facility] [place] [facility] Heart rate 2020-10-11 16:10:00 87 /min [facility] [place] [facility] Oxygen saturation in 2020-10-11 15:15:00 100 /min University of Arterial blood by [facility] [place] [facility] archana Pulse oximetry Branch Systolic blood 2020-10-11 14:26:00 108 mm[Hg] Univer sity of pressure [place] [facility] Diastolic blood 2020-10-11 14:26:00 62 mm[Hg] Unive rsity of pressure [place] [facility] Body temperature 2020-10-11 14:26:00 37.22 Pinky Univ ers[facility] [place] [facility] Respiratory rate 2020-10-11 14:26:00 22 /min Univ ers[facility] [place] [facility] Body weight 2020-10-11 14:26:00 58.968 kg [facility] [place] [facility] BMI 2020-10-11 14:26:00 21.63 kg/m2 [facility] [place] [facility] Systolic blood 2019-07-03 16:41:00 112 mm[Hg] Univer sity of pressure [place] [facility] Diastolic blood 2019-07-03 16:41:00 74 mm[Hg] Unive rsity of pressure [place] [facility] Heart rate 2019-07-03 16:41:00 68 /min [facility] [place] [facility] Body temperature 2019-07-03 16:41:00 36.72 Pinky Univ ers[facility] [place] [facility] Respiratory rate 2019-07-03 16:41:00 18 /min Univ ersity of [facility] Body height 2019-07-03 16:41:00 165.1 cm [facility] [place] [facility] Body weight 2019-07-03 16:41:00 50.531 kg [facility] [place] [facility] BMI 2019-07-03 16:41:00 18.54 kg/m2 [facility] [place] [facility] Systolic blood 2019-06-19 16:01:00 118 mm[Hg] Univer sity of pressure [place] [facility] Diastolic blood 2019-06-19 16:01:00 78 mm[Hg] Unive rsity of pressure [place] [facility] Heart rate 2019-06-19 16:01:00 76 /min [facility] [place] [facility] Body temperature 2019-06-19 16:01:00 36.83 Pinky Univ ers[facility] [place] [facility] Body height 2019-06-19 16:01:00 165.1 cm [facility] [place] [facility] Body weight 2019-06-19 16:01:00 50.576 kg [facility] [place] [facility] BMI 2019-06-19 16:01:00 18.55 kg/m2 [facility] [place] [facility] Systolic blood 2019-06-16 16:25:00 105 mm[Hg] Univer sity of pressure [place] [facility] Diastolic blood 2019-06-16 16:25:00 62 mm[Hg] Unive rsity of pressure [place] [facility] Heart rate 2019-06-16 16:25:00 84 /min [facility] [place] [facility] Body temperature 2019-06-16 16:25:00 36.5 Pinky Univ ersity of [facility] Respiratory rate 2019-06-16 16:25:00 16 /min [facility] Body height 2019-06-16 16:25:00 165.1 cm [facility] Body weight 2019-06-16 16:25:00 50.122 kg [facility] BMI 2019-06-16 16:25:00 18.39 kg/m2 [facility] Procedures Procedure Date / Time Performing Clinician Source Performed CBC WITH DIFF 2020-12-27 08:58:00 Adum, Jaqueline Dunn [facility] CENTRAL NEURAXIAL BLOCK 2020-12-26 17:59:05 Luisquteo-Star Holman [facility] GC & CHLAMYDIA AMPLIFIED 2020-12-26 14:06:00 Adum, Jaqueline Dunn [facility] COVID-19 (ID NOW RAPID 2020-12-26 14:01:00 Adum, Jaqueline Dunn [facility] TESTING) Medical Branch LAB ONLY COVID 2020-12-26 14:01:00 Adum, Jaqueline Dunn [facility] INTERPRETATION [facility] CBC WITH DIFF 2020-12-26 13:51:00 Adum, Jaqueline Dunn [facility] HEPATITIS B SURFACE 2020-12-26 13:51:00 Adum, Jaqueline Dunn [facility] ANTIGEN [facility] ADC OR NIKHIL ONLY - RPR 2020-12-26 13:51:00 Adum, Jaqueline Dunn [facility] HB ABO GROUPING 2020-12-26 13:50:00 Adum, Jaqueline Dunn [facility] EXTERNAL PROVIDER RECORDS 2020-12-23 05:01:00 Doctor Unassigned, [facility] Name Medical [place] L&D VISIT (NON-DELIVERED) 2020-12-17 05:01:00 Doctor Unassigned, [facility] Name [facility] CBC WITH DIFF 2020-12-12 07:18:00 Saba Reynolds [facility] URINALYSIS 2020-12-12 07:18:00 Saba Reynolds [facility] RUBELLA SCREEN IGG 2020-12-12 07:18:00 [facility] VZV ANTIBODY SCREEN 2020-12-12 07:18:00 Kalli Munoz [facility] HEPATITIS B SURFACE 2020-12-12 07:18:00 Saba Reynolds [facility] ANTIGEN [facility] URINE CULTURE 2020-12-12 07:18:00 Saba Reynolds [facility] GC & CHLAMYDIA AMPLIFIED 2020-12-12 07:18:00 [facility] GROUP B STREPTOCOCCUS BY 2020-12-12 07:18:00 Saba Reynolds Un [facility] PCR [facility] HIV 1/2 AG-AB WITH REFLEX 2020-12-12 07:18:00 [facility] - SYPHILIS 2020-12-12 07:18:00 Saba Reynolds [facility] IGG/IGM [facility] HB ABO GROUPING 2020-12-12 07:16:00 Saba Reynolds [facility] COVID-19 (ID NOW RAPID 2020-12-12 06:00:00 Penelope Bush [facility] TESTING) Medical Branch LAB ONLY COVID 2020-12-12 06:00:00 Penelope Bush [facility] INTERPRETATION [facility] URINALYSIS 2020-11-23 01:49:00 Analia Morris [place] [facility] ADC CLC OR LCC ONLY - WET 2020-11-23 01:49:00 Analia Morris [facility] PREP [facility] US PELVIS > 14 2020-10-11 17:14:03 Martha Gregg [facility] Branch NOTICE OF PRIVACY 2020-10-11 14:13:42 Doctor Yaniv, [facility] PRACTICES [facility] [place] CONSENT/REFUSAL FOR 2020-10-11 14:13:28 Doctor Yaniv, [facility] DIAGNOSIS AND TREATMENT [facility] [place] MEDICAL RELEASE/CLEARANCE 2020-10-11 05:01:00 Doctor Yaniv, [facility] FORMS [facility] [place] <14 WEEKS US 2019-06-19 17:44:50 Maldonado Husain [facility] POCT TEST 2019-06-19 16:32:00 Elsa Duenas [facility] PAP SMEAR-LIQUID BASED-CP 2019-06-16 20:14:00 Anjum Tejeda [facility] GLUCOSE 1 HOUR POST 2019-06-16 17:32:00 Anjum Tejeda [facility] TOTAL BETA HCG ASSAY 2019-06-16 17:32:00 [facility] 2019-06-16 17:32:00 [facility] SURFACE 2019-06-16 17:32:00 Anjum Tejeda [facility] HB ABO GROUPING 2019-06-16 17:32:00 Anjum Tejeda [facility] HIV 1/2 AG-AB WITH REFLEX 2019-06-16 17:32:00 Anjum Tejeda [facility] POCT TEST 2019-06-16 16:17:00 Anjum Tejeda [facility] POCT URINALYSIS W/O 2019-06-16 16:17:00 Anjum Tejeda [facility] SPECIFIC GRAVITY [facility] ASSIGNMENT OF BENEFITS 2019-06-16 15:47:52 Doctor Unassigned, [facility] Name [facility] AUTHORIZATION FOR RELEASE 2018-12-01 05:01:00 Doctor Unassigned, [facility] [place] Encounters Start End Encounter Admission Attending Care Care Encounter Source Date/Time Date/Time Type Type Clinicians Facility Department ID 2021-03-03 Emergency [facility] [id number] Univers [facility] 2021-03-03 Outpatient P [facility] [id number] Univers 14:56:41 ity [facility] 2021-03-03 Emergency [facility] [id number] Univers 10:28:21 [facility] 2021-03-03 Outpatient X NEMB ERT [id number] Univers 00:42:14 ity [facility] 2021-03-03 Emergency [facility] [id number] Univers 00:36:44 ity of [facility] 2021-04-21 2021-04-21 Outpatient R CHANTELL [facility] [id number] Univers 15:00:00 15:00:00 FROYLAN [id number] ity o f [facility] 2021-04-21 2021-04-21 Outpatient R CHANTELL [facility] [id number] Univers 15:00:00 15:00:00 FROYLAN ity o f [facility] 2021-04-19 2021-04-19 Urgent Sergio Cantrell [facility] 1.2.840.114 [id number] Univers 09:40:00 10:00:00 [facility] [id number] [facility] 4.2.7.2.686 Seth as DEION?BLEA [phone] [address] MEDICAL OFFICE [facility] 2021-04-19 2021-04-19 Outpatient R [facility] [id number] Univers 09:40:00 09:40:00 [id number] ity of [facility] 2021-04-19 2021-04-19 Outpatient R [facility] [id number] Univers 09:40:00 09:40:00 [facility] 2021-03-12 2021-03-12 Tele[facility] [id number] Univers 00:00:00 00:00:00 Froylan R JDE DEVELOPER [id number] ity [facility] 4.2.7.2.686 Seth as MATERNAL [phone] Med ical & CHILD [address] [place] [address] 2020-12-26 2020-12-28 [facility] 1.2.840.114 [id number] Univers 06:41:00 14:08:00 Encounter Jaqueline Patel 350.1.13.10 ity [facility] 4.2.7.2.686 [place] [facility] [phone] [address] 2020-12-27 2020-12-27 [facility] 1.2.840.114 [id number] Univers 20:02:24 20:02:24 Event Ulysses Jorge 350.1.13.10 i ty of [place] 4.2.7.2.686 [facility] [id number] [facility] 083 Branch 2020-12-26 2020-12-26 Anesthesia Crescencio Quach [facility] 1.2.840.114 [id number] Univers 09:55:00 16:46:00 Event Jairo Reid Jorge [id number] ity of [place] 4.2.7.2.686 [facility] [phone] [facility] 083 Branch 2020-12-23 2020-12-23 Orders Doctor ZAIRA 1.2.840.114 [id number] Univers 00:00:00 00:00:00 Only Unassigned, ANALILIA 350.1.13.10 ity of [facility] 4.2.7.2.686 Seth as [phone] [facility] 009 Branch 2020-12-17 2020-12-18 Hospital CristinoMartha [facility] 1.2.840.114 [id number] Univers 17:47:00 08:15:00 Encounter Jorge 350.1.13.10 ity of [place] 4.2.7.2.686 [facility] [id number] [facility] 083 Branch 2020-12-17 2020-12-17 Outpatient X [facility] [id number] Univers 17:44:00 17:44:00 ity of [facility] 2020-12-17 2020-12-17 Orders Doctor MENESES 1.2.840.114 [id number] Univers 00:00:00 00:00:00 Only Unassigned, ANALILIA 350.1.13.10 ity of [facility] 4.2.7.2.686 Seth as [phone] [facility] 009 Branch 2020-12-11 2020-12-14 Hospital Penelope Bush 1.2.840 .114 [id number] Univers 23:05:00 16:55:00 Encounter Lamine Glaser 350.1.13.10 ity of HOSPITAL 4.2.7.2.686 Seth as [phone] [facility] 019 Branch 2020-11-25 2020-11-25 Case Analia Morris [facility] [id number] Univers 00:00:00 00:00:00 Management Cam Jorge 350.1.13.10 ity of [place].2.[place] [phone] Or dical [facility] [address] [facility] 2020-11-22 2020-11-22 Emergency Analia Morris [facility] 1.2.840.114 [id number] Univers 19:00:00 22:25:00 Cam [place] 350.1.13.10 i ty of [place]2.7.2.686 [place] [id number] [place]23 [place] 2020-10-11 2020-10-11 Emergency Martha Gregg [facility] 1.2.840.114 [id number] Univers 09:27:00 13:10:00 [place] 350.1.13.10 i ty of [place] 4.2.7.2.686 [facility] [phone] [address] 2020-10-11 2020-10-11 Orders Doctor ZAIRA 1.2.840.114 [id number] Univers 00:00:00 00:00:00 Only Unassigned, ANALILIA 350.1.13.10 ity of [facility] 4.2.7.2.686 Seth as [phone] [place] [address] Branch 2019-07-10 2019-07-10 Outpatient [facility] [id number] Univers 13:15:00 13:15:00 [id number] ity of [facility] 2019-07-04 2019-07-04 Telephone [facility] 1.2.840.114 [id number] 00:00:00 00:00:00 Anjum C JDE DEVELOPER 350.1.13.10 [facility] 4.2.7.2.686 MATERNAL [id number] & CHILD [facility] 2019-07-04 2019-07-04 [facility]phone [facility] 1.2.840.114 [id number] Univers 00:00:00 00:00:00 Anjum C JDE DEVELOPER 350.1.13.10 ity of REGIONAL 4.2.7.2.686 Seth as MATERNAL [phone] Med ical & CHILD [address] [place] [address] 2019-07-03 2019-07-03 Routine Trimester, [facility] Res-1st UNIVERSIT 1.2.840.114 [id number] Univers 10:34:17 11:28:57 Shonna Haley Y HEALTH 350.1.13.10 ity of Visit CLINICS [place].7.2.[place] [id number] [address] 2019-07-03 2019-07-03 Outpatient R [facility] [id number] Univers 10:15:00 10:15:00 ity of [facility] 2019-07-03 2019-07-03 Outpatient R [facility] [id number] Univers 10:15:00 10:15:00 ity of [facility] 2019-06-30 2019-06-30 Outpatient R AKINSIPE, [facility] [id number] Univers 14:00:00 14:00:00 ANJUM ity o f [facility] 2019-06-21 2019-06-21 Telephone [facility] UNIVERSIT 1.2.840.11 [id number] Univers 00:00:00 00:00:00 Maldonado loredo Y HEALTH 350.1.13.10 ity of [facility] CLINICS 4.2.7.2.[place] [phone] [address] 2019-06-20 2019-06-20 Patient Doctor [facility] 1.2.840.114 [id number] 00:00:00 00:00:00 Secure Msg Unassigned, JDE DEVELOPER 350.1.13.10 [facility]AL 4.2.7.2.686 MATERNAL [phone] & CHILD [address] [place] [address] 2019-06-20 2019-06-20 Patient Doctor [place] 1.2.840.114 [id number] Univers 00:00:00 00:00:00 Secure Msg Unassigned, JDE DEVELOPER 350.1.13.10 ity of [facility] REGIONAL 4.2.7.2.686 Seth as MATERNAL [phone] Med ical & CHILD [address] [place] [address] 2019-06-19 2019-06-19 Routine Trimester, [facility] Res-1st UNIVERSIT 1.2.840.114 [id number] Univers 09:53:30 11:29:04 Shonna Haley R Y HEALTH 350.1.13.10 ity of Visit CLINICS 4[place]2.[place].2.[place] [id number] [facility] 113 [place] 2019-06-19 2019-06-19 Outpatient R MARIN [facility] [id number] Univers 09:30:00 11:29:04 SHONNA ity [facility] 2019-06-19 2019-06-19 Telephone [facility] 1.2.840.114 [id number] Univers 00:00:00 00:00:00 Anjum C JDE DEVELOPER 350.1.13.[address] [facility] 4.2.7.2.686 Seth as MATERNAL [phone] Med ical & CHILD [address] [place] [address] 2019-06-16 2019-06-16 Initial [facility] 1.2.236.127 [id number] Univers 10:14:38 11:20:42 Anjum C JDE DEVELOPER 350.1.13.[address] [facility] 4.2.7.2.686 Seth as MATERNAL [phone] [facility] ical & CHILD [address] [place] [address] 2019-06-16 2019-06-16 Outpatient R [facility] [id number] Univers 10:00:00 11:20:42 ANJUM cunhay o f [facility] 2019-06-16 2019-06-16 Orders Doctor MENESES 1.2.840.114 [id number] Univers 00:00:00 00:00:00 Only Unassigned, ANALILIA 350.1.13.10 ity of [facility] 4.2.7.2.686 Seth as [phone] [facility] 009 [place] 2019-06-15 2019-06-15 Nurse ZAIRA Whiting 1.2.840.114 [id number] Univers 00:00:00 00:00:00 Triage Annie BILLINGSLEY 350.1.13.10 it y of HOSPITAL 4.2.7.2.686 Seth as [phone] [address] 2019-06-15 2019-06-15 Nurse ZAIRA Whiting 1.2.840.114 [id number] Univers 00:00:00 00:00:00 Triage Annie BILLINGSLEY 350.1.13.10 it y of [facility] 4.2.7.2.686 Seth as [phone] [address] 2018-12-05 2018-12-05 Telephone [facility] 1.2.840.114 [id number] Univers 00:00:00 00:00:00 Anjum Neville JDE DEVELOPER 350.1.13.[address] [facility] 42.7.2.686 Seth as MATERNAL [phone] Med ical & CHILD [address] [place] [address] 2018-12-01 2018-12-01 Orders Doctor ZAIRA 1.2.840.114 [id number] Univers 00:00:00 00:00:00 Only Unassigned, ANALILIA 350.1.13.10 ity of [place] [facility] 4.2.7.2.686 Seth as [phone] [address] 2018-11-11 2018-11-11 Outpatient R JAMARCUS ARROYO [facility] B [id number] Univers 00:00:00 00:00:00 JAMARCUS ARROYO [facility] Results Test Description Test Time Test Comments Results Result Comments Source GC & CHLAMYDIA AMPLIFIED ASSAY 2020-12-27 22:15:02 Test Item Value Reference Range Interpretation Comme nts C. trachomatis Nucleic Acid (test Negative Negative code = 71425-3) N. gonorrhoeae Nucleic Acid (test Negative Negative code = 68002-4) BEATRIZ (test code = BEATRIZ) Reliable results are dependent on adequate specimen collection. ? A positive result obtained from a patient after therapeutic treatment cannot be interpreted as indicating the presence of viable organisms. ?For patients on whom a false positive result may have adverse psychosocial impact, retesting is advised. Indeterminate: Unable to generate a valid test result on this specimen. ?Please submit a new specimen for repeat testing if clinically indicated. Chlamydia trachomatis/Neisseria gonorrhoeae nucleic acid amplification testing (NAAT) has not been validated for medico-legal specimens (sexual abuse in nicholas-pubertal and pre-pubertal children, sexual assault, and legal cases). ?Culture for Chlamydia trachomatis and/or Neisseria gonorrhoeae from clinically appropriate sites is the method of choice in these cases. ? Results from this testing should be interpreted in conjunction with other laboratory and clinical data available to the clinician.For females in general, a urine specimen is a second-line option because it is considered less sensitive than a cervical swab for Chlamydia trachomatis and/or Neisseria gonorrhoeae NAAT. Lab Interpretation (test code = Normal 57822-3) [facility] CHLAMYDIA AMPLIFIED [id number] 22:15:02 Test Item Value Reference Range Interpretation Comments C. trachomatis Nucleic Acid (test Negative Negative code = 75990-0) N. gonorrhoeae Nucleic Acid (test Negative Negative code = 94087-0) BEATRIZ (test code = BEATRIZ) Lab Interpretation (test code = Normal 59409-4) [facility] COVID [id number] 16:33:40COVID DMT InterpretationInterpretation/Recommendations:Molecular NAAT Tests for Active Infection with the SARS-CoV-2 Virus:The patient has currently tested negative for the SARS-CoV-2 virus that causesCOVID-19 illness. This most likely indicates that the patient does not have an active infection withthe SARS-CoV-2 virus. However, infection is not completely ruled out as the false negative rate for molecular NAAT testing using a nasopharyngeal sample can be up to 30%, mostly dependent on the timingof sample collection in relation to illness onset and any deficiencies in sampling techniques. If the patient has symptoms concerning for COVID-19 illness, a repeat NAAT test (PCR, Rapid ID Now, etc.) should be performed, at which time the SARS-CoV-2 virus if present may have reached a detectable viral load (usually peaking by the end of the first week of symptoms). Tests for IgM and/or IgG Antibodies to the SARS-CoV-2 Virus:Testing for IgM and IgG antibodies approximately 3 weeks after illness onset will likely indicate if the patient has produced antibodies to the SARS-CoV-2 virus. However, some patients may take longer to develop detectable antibodies, while others infected with SARS-CoV-2 may never develop antibodies, particularly those who have had mild or asymptomatic illness. Of note, if the patient has been vaccinated earlier than 1-2 weeks prior to antibody testing, any sqypprogGDTV-QkK-3 IgG antibody result is likely due to vaccination. The specific duration and strength of immunity from SARS-CoV-2 IgG antibodies is highly variable between individuals and is dependent on a variety of factors, including infection vs. vaccination response, initial infection severity, the strength of the patient's own immune system, and the variants to which the patient has been exposed. ? --- Interpretation Result Comments:These interpretation comments are based upon all COVID-19 testing the patient has had at [facility], including molecular NAAT testing (more commonly known as PCR testing and Rapid ID Now testing) and antibody testing. It does not take into account any testing that a patient has had outside of the [facility] medical record. [facility] LABORATORY SERVICESCOVID OmteqmnRVIH-TwG-2 Rapid ID NOW (no units) ? ? Date ? Value ? 12/26/2020 ? Not Detected ? ? ? 12/12/2020 ? Not Detected ? [facility] SERVICESUnMem[facility] HospitalLAB ONLY COVID [id number] 16:33:40COVID DMT InterpretationInterpretation/Recommendations:Molecular NAAT Tests for Active Infection with the SARS-CoV-2 Virus:The patient has currently tested negative for the SARS-CoV-2 virus that causesCOVID-19 illness. This most likely indicates that the patient does not have an active infection withthe SARS-CoV-2 virus. However, infection is not completely ruled out as the false negative rate for m olecular NAAT testing using a nasopharyngeal sample can be up to 30%, mostly dependent on the timingof sample collection in relation to illness onset and any deficiencies in sampling techniques. If the patient has symptoms concerning for COVID-19 illness, a repeat NAAT test (PCR, Rapid ID Now, etc.) should be performed, at which time the SARS-CoV-2 virus if present may have reached a detectable viral load (usually peaking by the end of the first week of symptoms). Tests for IgM and/or IgG Antibodies to the SARS-CoV-2 Virus:Testing for IgM and IgG antibodies approximately 3 weeks after illness onset will likely indicate if the patient has produced antibodies to the SARS-CoV-2 virus. However, some patients may take longer to develop detectable antibodies, while others infected with SARS-CoV-2 may never develop antibodies, particularly those who have had mild or asymptomatic illness. Of note, if the patient has been vaccinated earlier than 1-2 weeks prior to antibody testing, any positive SARS-CoV-2 IgG antibody result is likely due to vaccination. The specific duration and strength of immunity from SARS-CoV-2 IgG antibodies is highly variable between individuals and is dependent on a variety of factors, including infection vs. vaccination response, initial infection severity, the strength of the patient's own immune system, and the variants to which the patient has been exposed. ? --- Interpretation Result Comments:These interpretation comments are based upon all COVID-19 testing the patient has had at [facility], including molecular NAAT testing (more commonly known as PCR testing and Rapid ID Now testing) and antibody testing. It does not take into account any testing that a patient has had outside of the [facility] medical record. [facility] LABORATORY SERVICESCOVID GikgxbcRZZY-QmT-2 Rapid ID NOW (no units) ? ? Date ? Value ? 12/26/2020 ? Not Detected ? ? ? 12/12/2020 ? Not Detected ? [facility] LABORATORY SERVICESUnMemorial Hermann Pearland HospitalCBC with [id number] 09:51:26 Test Item Value Reference Range Interpretation Comments WBC (test code = See_Comment H [Automated 6690-2) message] The sy stem which generated this result transmitted reference range : 4.30 - 11.10 10*3/?L. The reference range was not used to interpret this result as normal/abnormal . RBC (test code = See_Comment L [Automated 789-8) message] The sy stem which generated this result transmitted reference range : 3.93 - 5.25 10*6/?L. The reference range was not used to interpret this result as normal/abnormal . HGB (test code = 9.3 g/dL 11.6-15.0 L 718-7) HCT (test code = 30.8 % 35.7-45.2 L 4544-3) MCV (test code = 79.0 fL 80.6-95.5 L 787-2) MCH (test code = 23.8 pg 25.9-32.8 L 785-6) MCHC (test code = 30.2 g/dL 31.6-35.1 L 786-4) RDW-SD (test code = 44.8 fL 39.0-49.9 90103-0) RDW-CV (test code = 15.8 % 12.0-15.5 H 788-0) PLT (test code = See_Comment L [Automated 777-3) message] The sy stem which generated this result transmitted reference range : 166 - 358 10*3/ ?L. The reference r patti was not used to interpret this result as normal/abnormal . MPV (test code = 11.3 fL 9.5-12.9 68106-6) IPF % (test code = 7.2 % 1.3-7.7 Platelet count [id number]) measured by fluorescence method. NRBC/100 WBC (test See_Comment [Automat ed code = 4266734644) message] The system which generated this result transmitted reference range : 0.0 - 10.0 /100 WBCs. The refer ence range was not u sed to interpret th is result as normal/abnormal . NRBC x10^3 (test code <0.01 See_Comment [Auto mated = [id number]) message] The s ystem which generated this result transmitted reference range : 10*3/?L. The reference range was not used to interpret this result as normal/abnormal . GRAN MAT (NEUT) % 76.2 % (test code = 770-8) IMM GRAN % (test code 0.90 % = 9328603141) LYMPH % (test code = 14.2 % 736-9) MONO % (test code = 7.8 % 5905-5) EOS % (test code = 0.5 % 713-8) BASO % (test code = 0.4 % 706-2) GRAN MAT x10^3(ANC) 11.28 10*3/uL 1.88-7.09 H (test code = 9251191150) IMM GRAN x10^3 (test 0.14 10*3/uL 0.00-0.06 H code = 9228392737) LYMPH x10^3 (test 2.11 10*3/uL 1.32-3.29 code = 731-0) MONO x10^3 (test code 1.15 10*3/uL 0.33-0.92 H = 742-7) EOS x10^3 (test code 0.07 10*3/uL 0.03-0.39 = 711-2) BASO x10^3 (test code 0.06 10*3/uL 0.01-0.07 = 704-7) Lab Interpretation Abnormal (test code = 02949-7) [facility] with [id number] 09:51:26 Test Item Value Reference Range Interpretation Comments WBC (test code = See_Comment H [Automated 6690-2) message] The system which generated this result transmit lm reference range : 4.30 - 11.10 10*3/?L. The reference range was not used to interpret this result as normal/abnormal . RBC (test code = See_Comment L [Automated 789-8) message] The system which generated this result transmit lm reference range : 3.93 - 5.25 10*6/?L. The reference range was not used to interpret this result as normal/abnormal . HGB (test code = 9.3 g/dL 11.6-15.0 L 718-7) HCT (test code = 30.8 % 35.7-45.2 L 4544-3) MCV (test code = 79.0 fL 80.6-95.5 L 787-2) MCH (test code = 23.8 pg 25.9-32.8 L 785-6) MCHC (test code = 30.2 g/dL 31.6-35.1 L 786-4) RDW-SD (test code = 44.8 fL 39.0-49.9 47357-3) RDW-CV (test code = 15.8 % 12.0-15.5 H 788-0) PLT (test code = See_Comment L [Automated 777-3) message] The system which generated this result transmit lm reference range : 166 - 358 10*3/ ?L. The reference range was not u sed to interpret th is result as normal/abnormal . MPV (test code = 11.3 fL 9.5-12.9 11762-8) IPF % (test code = 7.2 % 1.3-7.7 2485225809) NRBC/100 WBC (test See_Comment [Automat ed code = 5229395029) message] The system which generated this result transmit lm reference range : 0.0 - 10.0 /100 WBCs. The reference range was not used to interpret this result as normal/abnormal . NRBC x10^3 (test code <0.01 See_Comment [Auto mated = 7394699987) message] The system which generated this result transmit lm reference range : 10*3/?L. The reference range was not used to interpret this result as normal/abnormal . GRAN MAT (NEUT) % 76.2 % (test code = 770-8) IMM GRAN % (test code 0.90 % = 2562366938) LYMPH % (test code = 14.2 % 736-9) MONO % (test code = 7.8 % 5905-5) EOS % (test code = 0.5 % 713-8) BASO % (test code = 0.4 % 706-2) GRAN MAT x10^3(ANC) 11.28 10*3/uL 1.88-7.09 H (test code = 5422491930) IMM GRAN x10^3 (test 0.14 10*3/uL 0.00-0.06 H code = 6101463548) LYMPH x10^3 (test code 2.11 10*3/uL 1.32-3.29 = 731-0) MONO x10^3 (test code 1.15 10*3/uL 0.33-0.92 H = 742-7) EOS x10^3 (test code = 0.07 10*3/uL 0.03-0.39 711-2) BASO x10^3 (test code 0.06 10*3/uL 0.01-0.07 = 704-7) Lab Interpretation Abnormal (test code = 85898-4) [facility] OR [facility] ONLY - [id number] 05:41:56 Test Item Value Reference Range Interpretation Comments RPR (Qualitative) (test code = Nonreactive Nonreactive 05945-4) Lab Interpretation (test code = Normal 57002-8) [facility] OR [place] ONLY - [id number] 05:41:56 Test Item Value Reference Range Interpretation Comments RPR (Qualitative) (test code = Nonreactive Nonreactive 30928-1) Lab Interpretation (test code = Normal 69131-9) [facility] B Surface [id number] 20:47:16 Test Item Value Reference Range Interpretation Comments HBsAg Semi-Quantitative (test code = Negative Negative 5195-3) [facility] B Surface [id number] 20:47:16 Test Item Value Reference Range Interpretation Comments HBsAg Semi-Quantitative (test code = Negative Negative 5195-3) [facility] [id number] 17:59:05 Crescencio Quach MD ? ? 12/26/2020 ?1:00 PM Central Neuraxial Block Performed by: Crescencio Quach MDAuthorized by: Crescencio Quach MD Patient Location: OBStart Time:12/26/2020 9:55 AMEnd Time: 12/26/2020 10:30 AMReason for Block: OB request, Patient request, Labor derek lgesia, Surgical anesthesia and Post-op pain managementStaff: ?Anesthesiologist: Crescencio Quach MD ?Performed by: anesthesiologistPreanesthetic Checklist: patient identified, IV checked, risks and benefits explained, monitors and equipment checked, timeout performed, ob surgical consent/approval, pre-op evaluation, surgical consent, site marked, anesthesia consent and OB/surgical consent verifiedProcedure: ?Type of Neuraxial: Continuous and Epidural ?Patient Position: sitting ?Prep: Betadine and patient draped ? ?Monitoring: heart rate, continuous pulse ox, heart rate / toco and NIBP ?Location: lumbar (1-5) ?Lumbar: L4-L5 ?Approach: midline ? ?Technique: catheter and DEEPAK salineEpidural/Spinal [place] and/or Catheter: ?Epidural/Spinal Kit: BBraun ?Needle Type: Tuohy ?Needle Gauge: 18 G ?Needle Length: 3.5 in (8.89 cm) ?Needle Insertion Depth: 4.5 ?Catheter Type: multiport ? ?Catheter Size: 19 G ? ?Catheter at Skin Depth: 9 ?Number of Attempts: 1 ?Test Dose: lidocaine 1.5%with epinephrine 1-to-200,000 ? ?Dose: 3 cc ? ?Catheter Securement Method: surgical tape and TegadermAssessment: ?Block Outcome: pain improved ? ?Events: blood aspirated ?Procedure Assessment: patient tolerated procedure well with no complicationsNotes: ? Blood aspirated after catheter placed 1st time so catheter pulled out. Re- did epidural from beginning without any issues. Smooth and atraumatic, (+) Local, (+) STFUniSt[facility] HospitalCentral Neuraxial [id number] 17:59:05Crescencio Quach MD ? ? 12/26/2020 ?1:00 PM Central Neuraxial Block Performed by: Crescencio Quach MDAuthorized by: Crescencio Quach MD Patient Location: OBStart Time:12/26/2020 9:55 AMEnd Time: 12/26/2020 10:30 AMReason for Block: OB request, Patient request, Labor analgesia, Surgical anesthesia and Post-op pain managementStaff: ?Anesthesiologist: Crescencio Velez MD ?Performed by: anesthesiologistPreanesthetic Checklist: patient identified, IV checked, risks and benefits explained, monitors and equipment checked, timeout performed, ob surgical consent/approval, pre-op evaluation, surgical consent, site marked, anesthesia consent and OB/surgical consent verifiedProcedure: ?Type of Neuraxial: Continuous and Epidural ?Patient Position: sitting ?Prep: Betadine and patient draped ? ?Monitoring: heart rate, continuous pulse ox, heart rate / toco and NIBP ?Location: lumbar (1-5) ?Lumbar: L4-L5 ?Approach: midline ? ?Technique: catheter and DEEPAK saline Epidural/Spinal [place] and/or Catheter: ?Epidural/Spinal Kit: BBraun ?Needle Type: Tuohy ?Needle Gauge: 18 G ?Needle Length: 3.5 in (8.89 cm) ?Needle Insertion Depth: 4.5 ?Catheter Type: multiport ? ?Catheter Size: 19 G ? ?Catheter at Skin Depth: 9 ?Number of Attempts: 1 ?Test Dose: lidocaine 1.5% with epinephrine 1-to-200,000 ? ?Dose: 3 cc ? ?Catheter Securement Method: surgical tape and TegadermAssessment: ?Block Outcome: pain improved ? ?Events: blood aspirated ?Procedure Assessment: patient tolerated procedure well with no complicationsNotes: ? Blood aspirated after catheter placed 1st time so catheter pulled out. Re- did epidural from beginning without any issues. Smooth and atraumatic, (+) Local, (+) STFUniversHCA [facility] Healthcare MainlandType and Screen - ONCE [id number] 15:01:16 Test Item Value Reference Range Interpretation Comments ABO & RH (test code B Positive Performe d at [facility] = 20) Laboratory Serv [facility] Blood Bank[address] [place] [address] Free: [phone] A No. [id number] IAT (test code = Negative Performed a t [facility] 1185) Laboratory Serv [facility] [place] [address] Free: [phone] A No. [id number] [facility] TaylorType and Screen - ONCE [id number] 15:01:16 Test Item Value Reference Range Interpretation Comments ABO & RH (test code = 20) B Positive IAT (test code = 1185) Negative [facility] TaylorCOVID-19 (ID NOW RAPID TESTING)2020-12-26 14:42:59 Test Item Value Reference Range Interpretation Comments SARS-CoV-2 Rapid ID NOW Not Detected Not Detected (test code = 73712-8) BEATRIZ (test code = BEATRIZ) ID NOW COVID-19 Assay is an isothermal nucleic acid amplification test intended for the qualitative detection of nucleic acid from SARS-CoV-2 viral RNA in nasopharyngeal (ELECTRIC MOTOR ANALYST) specimens. It is used under Emergency Use Authorization (EUA) by FDA. The limit of detection (LOD) of the assay is 125 Genome Equivalents/mL. A positive result is indicative of the presence of SARS-CoV-2 RNA. ?Clinical correlation with patient history and other diagnostic information is necessary to determine patient infection status. A negative (Not Detected) result does not preclude SARS-CoV-2 infection. In patients with clinical symptoms and other tests that are consistent with SARS-CoV-2 infection, negative results should be treated as presumptive negative and a new specimen should be tested with alternative PCR molecular test. Invalid: Please collect a new specimen for repeat patient testing if clinically indicated. Lab Interpretation Normal (test code = 85655-3) [facility] Taylor[facility] (ID NOW RAPID TESTING)2020-12-26 14:42:59 Test Item Value Reference Range Interpretation Comments SARS-CoV-2 Rapid ID NOW (test Not Detected Not Detected code = 87418-6) BEATRIZ (test code = BEATRIZ) Lab Interpretation (test code = Normal 61763-0) [facility] with [id number] 14:25:16 Test Item Value Reference Range Interpretation Comments WBC (test code = See_Comment H [Automated 6690-2) message] The sy stem which generated this result transmitted reference range : 4.30 - 11.10 10*3/?L. The reference range was not used to interpret this result as normal/abnormal . RBC (test code = See_Comment L [Automated 789-8) message] The sy stem which generated this result transmitted reference range : 3.93 - 5.25 10*6/?L. The reference range was not used to interpret this result as normal/abnormal . HGB (test code = 8.8 g/dL 11.6-15.0 L 718-7) HCT (test code = 29.1 % 35.7-45.2 L 4544-3) MCV (test code = 79.9 fL 80.6-95.5 L 787-2) MCH (test code = 24.2 pg 25.9-32.8 L 785-6) MCHC (test code = 30.2 g/dL 31.6-35.1 L 786-4) RDW-SD (test code = 45.0 fL 39.0-49.9 50855-2) RDW-CV (test code = 15.7 % 12.0-15.5 H 788-0) PLT (test code = See_Comment L [Automated 777-3) message] The sy stem which generated this result transmitted reference range : 166 - 358 10*3/ ?L. The reference r patti was not used to interpret this result as normal/abnormal . MPV (test code = 11.3 fL 9.5-12.9 99047-6) IPF % (test code = 5.4 % 1.3-7.7 Platelet count [id number]) measured by fluorescence method. NRBC/100 WBC (test See_Comment [Automat ed code = 2674581625) message] The system which generated this result transmitted reference range : 0.0 - 10.0 /100 WBCs. The refer ence range was not u sed to interpret th is result as normal/abnormal . NRBC x10^3 (test code <0.01 See_Comment [Auto mated = 5834975724) message] The s ystem which generated this result transmitted reference range : 10*3/?L. The reference range was not used to interpret this result as normal/abnormal . GRAN MAT (NEUT) % 76.7 % (test code = 770-8) IMM GRAN % (test code 1.30 % = 8683203388) LYMPH % (test code = 12.7 % 736-9) MONO % (test code = 8.4 % 5905-5) EOS % (test code = 0.5 % 713-8) BASO % (test code = 0.4 % 706-2) GRAN MAT x10^3(ANC) 10.10 10*3/uL 1.88-7.09 H (test code = 4561383843) IMM GRAN x10^3 (test 0.17 10*3/uL 0.00-0.06 H code = 7887985336) LYMPH x10^3 (test 1.68 10*3/uL 1.32-3.29 code = 731-0) MONO x10^3 (test code 1.11 10*3/uL 0.33-0.92 H = 742-7) EOS x10^3 (test code 0.07 10*3/uL 0.03-0.39 = 711-2) BASO x10^3 (test code 0.05 10*3/uL 0.01-0.07 = 704-7) Lab Interpretation Abnormal (test code = 08205-3) [facility] with [id number] 14:25:16 Test Item Value Reference Range Interpretation Comments WBC (test code = See_Comment H [Automated 6690-2) message] The system which generated this result transmit lm reference range : 4.30 - 11.10 10*3/?L. The reference range was not used to interpret this result as normal/abnormal . RBC (test code = See_Comment L [Automated 789-8) message] The system which generated this result transmit lm reference range : 3.93 - 5.25 10*6/?L. The reference range was not used to interpret this result as normal/abnormal . HGB (test code = 8.8 g/dL 11.6-15.0 L 718-7) HCT (test code = 29.1 % 35.7-45.2 L 4544-3) MCV (test code = 79.9 fL 80.6-95.5 L 787-2) MCH (test code = 24.2 pg 25.9-32.8 L 785-6) MCHC (test code = 30.2 g/dL 31.6-35.1 L 786-4) RDW-SD (test code = 45.0 fL 39.0-49.9 32915-3) RDW-CV (test code = 15.7 % 12.0-15.5 H 788-0) PLT (test code = See_Comment L [Automated 777-3) message] The system which generated this result transmit lm reference range : 166 - 358 10*3/ ?L. The reference range was not u sed to interpret th is result as normal/abnormal . MPV (test code = 11.3 fL 9.5-12.9 71217-5) IPF % (test code = 5.4 % 1.3-7.7 2917842376) NRBC/100 WBC (test See_Comment [Automat ed code = 0865098877) message] The system which generated this result transmit lm reference range : 0.0 - 10.0 /100 WBCs. The reference range was not used to interpret this result as normal/abnormal . NRBC x10^3 (test code <0.01 See_Comment [Auto mated = 7654989964) message] The system which generated this result transmit lm reference range : 10*3/?L. The reference range was not used to interpret this result as normal/abnormal . GRAN MAT (NEUT) % 76.7 % (test code = 770-8) IMM GRAN % (test code 1.30 % = 4922189581) LYMPH % (test code = 12.7 % 736-9) MONO % (test code = 8.4 % 5905-5) EOS % (test code = 0.5 % 713-8) BASO % (test code = 0.4 % 706-2) GRAN MAT x10^3(ANC) 10.10 10*3/uL 1.88-7.09 H (test code = 9437802181) IMM GRAN x10^3 (test 0.17 10*3/uL 0.00-0.06 H code = 4035979155) LYMPH x10^3 (test code 1.68 10*3/uL 1.32-3.29 = 731-0) MONO x10^3 (test code 1.11 10*3/uL 0.33-0.92 H = 742-7) EOS x10^3 (test code = 0.07 10*3/uL 0.03-0.39 711-2) BASO x10^3 (test code 0.05 10*3/uL 0.01-0.07 = 704-7) Lab Interpretation Abnormal (test code = 30305-8) [facility] TaylorRubella Screen (BETH) [id number] 17:26:32 Test Item Value Reference Range Interpretation Comments Rubella screen IgG Positive Negative (test code = 2837382082) BEATRIZ (test code = BEATRIZ) Positive - Indicates the patient was exposed to Rubella through infection or vaccination.Negative - Indicates the patient could be susceptible to Rubella infection.Equivocal - A second specimen should be sent. [facility] TaylorVZV ANTIBODY [id number] 17:26:32 Test Item Value Reference Range Interpretation Comments VZV IgG antibody Positive Negative (test code = 34850-4) BEATRIZ (test code = BEATRIZ) Positive - Indicates the patient was exposed to VZV through infection or vaccination.Negative - Indicates the patient could be susceptible to VZV infection.Equivocal - A second specimen should be sent for testing. [facility] TaylorGROUP B STREPTOCOCCUS BY [id number] 15:10:33 Test Item Value Reference Range Interpretation Comments Group B Streptococcus by PCR (test Negative Negative code = 91692-3) Lab Interpretation (test code = Normal 68664-2) [facility] TaylorURINE [id number] 13:15:59 Test Item Value Reference Range Interpretation Comments URINE CULTURE (test No aerobic growth (< code = 630-4) 1000 CFU/mL) [facility] TaylorGC & CHLAMYDIA AMPLIFIED [id number] 00:02:36 Test Item Value Reference Range Interpretation Comments C. trachomatis Nucleic Positive Negative A Acid (test code = 88519-9) N. gonorrhoeae Nucleic Negative Negative Acid (test code = 95078-9) BEATRIZ (test code = BEATRIZ) Reliable results are dependent on adequate specimen collection. ? A positive result obtained from a patient after therapeutic treatment cannot be interpreted as indicating the presence of viable organisms. ?For patients on whom a false positive result may have adverse psychosocial impact, retesting is advised. Indeterminate: Unable to generate a valid test result on this specimen. ?Please submit a new specimen for repeat testing if clinically indicated. Chlamydia trachomatis/Neisseria gonorrhoeae nucleic acid amplification testing (NAAT) has not been validated for medico-legal specimens (sexual abuse in nicholas-pubertal and pre-pubertal children, sexual assault, and legal cases). ?Culture for Chlamydia trachomatis and/or Neisseria gonorrhoeae from clinically appropriate sites is the method of choice in these cases. ? Results from this testing should be interpreted in conjunction with other laboratory and clinical data available to the clinician. Lab Interpretation Abnormal (test code = 03777-1) [facility] TaylorGALV ONLY - SYPHILIS [id number] 14:51:20 Test Item Value Reference Range Interpretation Comments Syphilis IgG/IgM (test Non-reactive Non-reactive code = 51713-0) BEATRIZ (test code = BEATRIZ) Non-reactive - No serologic evidence of T. pallidum infection. Cannot exclude incubating or early syphilis. Submit a second specimen in 2-4 weeks if syphilis is clinically suspected. Equivocal - Further testing to follow. Reactive - Further testing to follow. Lab Interpretation (test Normal code = 77626-2) [facility] TaylorLAB ONLY COVID [id number] 13:56:29COVID DMT InterpretationInterpretation/Recommendations:Molecular NAAT Tests for Active Infection with the SARS-CoV-2 Virus:The patient has currently tested negative for the SARS-CoV-2 virus that causesCOVID-19 illness. This most likely indicates that the patient does not have an active infection withthe SARS-CoV-2 virus. However, infection is not completely ruled out as the false negative rate for molecular NAAT testing using a nasopharyngeal sample can be up to 30%, mostly dependent on the timingof sample collection in relation to illness onset and any deficiencies in sampling techniques. If the patient has symptoms concerning for COVID-19 illness, a repeat NAAT test (PCR, Rapid ID Now, etc.) should be performed, at which time the SARS-CoV-2 virus - if present - may have reached a detectable viral load (usually peaking by the end of the first week of symptoms). Tests for IgM and/or IgG Antibodies to the SARS-CoV-2 Virus:Testing for IgM and IgG antibodies approximately 3 weeks after illness o nset will likely indicate if the patient has produced antibodies to the SARS-CoV-2 virus. However, some patients may take longer to develop detectable antibodies, while others infected with SARS-CoV-2 may never develop antibodies, particularly those who have had mild or asymptomatic illness. Of note, if the patient has been vaccinated earlier than 1-2 weeks prior to antibody testing, any positive SARS-CoV-2 IgG antibody result is likely due to vaccination. The specific duration and strength of immunity from SARS-CoV-2 IgG antibodies is highly variable between individuals and is dependent on a variety of factors, including infection vs. vaccination response, initial infection severity, the strengthof the patient's own immune system, and the variants to which the patient has been exposed. ? ------- Interpretation Result Comments:These interpretation comments are based upon all COVID-19 testing the patient has had at [facility], includingmolecular NAAT testing (more commonly known as PCR testing and Rapid ID Now testing) and antibody testing. It does not take into account any testing that a patient has had outside of the [facility] medical record. [facility] LABORATORY SERVICESCOVID UktuucvOYPI-VkL-4 Rapid ID NOW (no units) ? ? Date ? Value ? 12/12/2020 ? Not Detected ? [facility] LABORATORY SERVICESUnMemorial Hermann Pearland HospitalHIV 1/2 AG-AB WITH [id number] 10:41:20 Test Item Value Reference Range Interpretation Comments HIV Negative Negative Semi-quantitative (test code = 99544-7) BEATRIZ (test code = Non-reactive for HIV-1 BEATRIZ) antigen and HIV-1/HIV-2 antibodies. ?No laboratory evidence of HIV infection. ?Repeat in 2-4 weeks if acute HIV infection is suspected. [facility] TaylorHEPATITIS B SURFACE [id number] 09:07:07 Test Item Value Reference Range Interpretation Comments HBsAg Semi-Quantitative (test code = Negative Negative 5195-3) [facility] TaylorType and Screen - ONCE [id number] 08:17:13 Test Item Value Reference Range Interpretation Comments ABO & RH (test code B POSITIVE Performe d at [facility] = 20) Laboratory Serv [facility] Blood [facility]3 [address] [facility] [address] [address]Sxam Free: [phone] A No. [id number] IAT (test code = Negative Performed a t [facility] 1185) Laboratory Serv [facility] Blood [facility] [address] [address]Tlbq Free: [phone] A No. [id number] [facility] TaylorURINALYSIS2021-08-12 07:58:55 Test Item Value Reference Range Interpretation Comments APPEARANCE (test code = Clear Clear 2939429401) COLOR (test code = Yellow Yellow 3528656568) PH (test code = 4.8-8.0 5996918754) SP GRAVITY (test code = 1.003-1.030 6877810908) GLU U QUAL (test code = Normal Normal 1234818280) BLOOD (test code = 1+ Negative A 9128031445) KETONES (test code = 5 mg/dL Negative A 4476978701) PROTEIN (test code = 30 mg/dL Negative A 2887-8) UROBILIN (test code = 4.0 mg/dL Normal A 2877786543) BILIRUBIN (test code = Negative Negative 3620493917) NITRITE (test code = Negative Negative 5918551343) LEUK KEHINDE (test code = 25/uL Negative A 5405893583) RBC/HPF (test code = See_Comment H [Autom ated message] 2150914316) The system [employer] Score[employer] generated this result transmit lm reference range : 0 - 3 HPF. The refe rence range was not u sed to interpret th is result as normal/abnormal . WBC/HPF (test code = See_Comment H [Autom ated message] 3182998260) The system [employer] Score[employer] generated this result transmit lm reference range : 0 - 5 HPF. The refe rence range was not u sed to interpret th is result as normal/abnormal . BACTERIA (test code = Negative Negative 1489509102) MUCOUS (test code = Slight Negative LPF A 1141254777) SQ EPITH (test code = <1 See_Comment [Auto mated message] 2083522393) The system [employer] Score[employer] generated this result transmit lm reference range : <=2 HPF. The refere nce range was not u sed to interpret th is result as normal/abnormal . Lab Interpretation (test Abnormal code = 02712-7) [facility] WITH [id number] 07:33:54 Test Item Value Reference Range Interpretation Comments WBC (test code = See_Comment H [Automated 6690-2) message] The system which generated this result transmit lm reference range : 4.30 - 11.10 10*3/?L. The reference range was not used to interpret this result as normal/abnormal . RBC (test code = See_Comment L [Automated 789-8) message] The system which generated this result transmit lm reference range : 3.93 - 5.25 10*6/?L. The reference range was not used to interpret this result as normal/abnormal . HGB (test code = 9.2 g/dL 11.6-15.0 L 718-7) HCT (test code = 30.5 % 35.7-45.2 L 4544-3) MCV (test code = 82.4 fL 80.6-95.5 787-2) MCH (test code = 24.9 pg 25.9-32.8 L 785-6) MCHC (test code = 30.2 g/dL 31.6-35.1 L 786-4) RDW-SD (test code = 42.7 fL 39.0-49.9 31808-3) RDW-CV (test code = 14.2 % 12.0-15.5 788-0) PLT (test code = See_Comment L [Automated 777-3) message] The system which generated this result transmit lm reference range : 166 - 358 10*3/ ?L. The reference range was not u sed to interpret th is result as normal/abnormal . MPV (test code = 11.2 fL 9.5-12.9 75400-6) NRBC/100 WBC (test See_Comment [Automat ed code = 3140934477) message] The system which generated this result transmit lm reference range : 0.0 - 10.0 /100 WBCs. The reference range was not used to interpret this result as normal/abnormal . NRBC x10^3 (test code <0.01 See_Comment [Auto mated = 2050273574) message] The system which generated this result transmit lm reference range : 10*3/?L. The reference range was not used to interpret this result as normal/abnormal . GRAN MAT (NEUT) % 90.7 % (test code = 770-8) IMM GRAN % (test code 1.50 % = 3440945099) LYMPH % (test code = 6.4 % 736-9) MONO % (test code = 1.0 % 5905-5) EOS % (test code = 0.0 % 713-8) BASO % (test code = 0.4 % 706-2) GRAN MAT x10^3(ANC) 11.17 10*3/uL 1.88-7.09 H (test code = 7691430044) IMM GRAN x10^3 (test 0.18 10*3/uL 0.00-0.06 H code = 1630038753) LYMPH x10^3 (test code 0.79 10*3/uL 1.32-3.29 L = 731-0) MONO x10^3 (test code 0.12 10*3/uL 0.33-0.92 L = 742-7) EOS x10^3 (test code = <0.03 0.03-0.39 L 711-2) BASO x10^3 (test code 0.05 10*3/uL 0.01-0.07 = 704-7) Lab Interpretation Abnormal (test code = 92250-4) [facility] TaylorCOVID-19 (ID NOW RAPID TESTING)2020-12-12 06:21:47 Test Item Value Reference Range Interpretation Comments SARS-CoV-2 Rapid ID NOW Not Detected Not Detected (test code = 16154-3) BEATRIZ (test code = BEATRIZ) ID NOW COVID-19 Assay is an isothermal nucleic acid amplification test intended for the qualitative detection of nucleic acid from SARS-CoV-2 viral RNA in nasopharyngeal (ELECTRIC MOTOR ANALYST) specimens. It is used under Emergency Use Authorization (EUA) by FDA. The limit of detection (LOD) of the assay is 125 Genome Equivalents/mL. A positive result is indicative of the presence of SARS-CoV-2 RNA. ?Clinical correlation with patient history and other diagnostic information is necessary to determine patient infection status. A negative (Not Detected) result does not preclude SARS-CoV-2 infection. In patients with clinical symptoms and other tests that are consistent with SARS-CoV-2 infection, negative results should be treated as presumptive negative and a new specimen should be tested with alternative PCR molecular test. Invalid: Please collect a new specimen for repeat patient testing if clinically indicated. Lab Interpretation Normal (test code = 64116-1) [facility] TaylorAD CLC OR L[facility] ONLY - WET [id number] 03:12:01 Test Item Value Reference Range Interpretation Comments CLUE CELLS WET PREP (test code = Few None Seen HPF A 0423693445) WBC WET PREP (test code = Few None Seen HPF A 7476086007) TRICHOMONAS WET PREP (test code = None Seen None Seen HPF 1472668204) YEAST WET PREP (test code = None Seen None Seen HPF 5993431506) Lab Interpretation (test code = Abnormal 46100-7) [facility] TaylorURINALYSIS2021-07-24 02:25:48 Test Item Value Reference Range Interpretation Comments APPEARANCE (test code = Hazy Clear A 5872146304) COLOR (test code = Jennifer Yellow A 5527726483) PH (test code = 4.8-8.0 1614120475) SP GRAVITY (test code = 1.003-1.030 1475331853) GLU U QUAL (test code = Normal Normal 6051493150) BLOOD (test code = Negative Negative 2296198157) KETONES (test code = 80 mg/dL Negative A 6528431314) PROTEIN (test code = 30 mg/dL Negative A 2887-8) UROBILIN (test code = 4.0 mg/dL Normal A 7432188392) BILIRUBIN (test code = Negative Negative [id number]) NITRITE (test code = Negative Negative 4062640344) LEUK KEHINDE (test code = 75/uL Negative A 1502857788) RBC/HPF (test code = See_Comment H [Autom ated message] 3084285942) The system [employer] Score[employer] generated this result transmit lm reference range : 0 - 3 HPF. The refe rence range was not u sed to interpret th is result as normal/abnormal . WBC/HPF (test code = See_Comment H [Autom ated message] 2317285753) The system [employer] Score[employer] generated this result transmit lm reference range : 0 - 5 HPF. The refe rence range was not u sed to interpret th is result as normal/abnormal . BACTERIA (test code = Many Negative A 3305939653) MUCOUS (test code = Marked Negative LPF A 3941165943) SQ EPITH (test code = HPF 1072720482) HYAL CAST (test code = See_Comment [Aut omated message] 6711759057) The system [employer] Score[employer] generated this result transmit lm reference range : <=2 LPF. The refere nce range was not u sed to interpret th is result as normal/abnormal . Lab Interpretation (test Abnormal code = 70622-7) [facility] 14 [id number] 17:53:22IMPRESSIONS: Single intrauterine with estimated gestational age of 26 weeksand 0 days No or maternal complications are identified. RL 4728 ORDERING PHYSICIAN: MARTHA GREGG CLINICAL INDICATIONS: Pelvic pain. COMPARISON: None avai lable. TECHNIQUE: Permanent images were recorded. FINDINGS: ? Single live intrauterine . ?Cephalic presentation. ? heartrate of 146 beats/min. Anterior placenta. Maternal adnexa were notidentified on this study. Cervix is closed measuring 4 cm in length. Amniotic fluid index = 12.4 MEASUREMENTS Biparietal diameter = ?6.5 cmHead circumference = 23.8 cmAbdominal circumference = 21.4cmFemur length = 4.9 cm. Estimated gestational age by measurements is 26 weeks and 0 days. ? Estimated weight is 886 g SURVEY : Intracranial contents grossly normal. No facial anomalies were identified.No spinal anomalies were identified. Four-chamber view of the heartidentified. Fluid present in the stomach and bladder. Both kidneysidentified. Three-vessel cord with normal insertion. No gross limbanomalies. [facility], Radiant Results Inft User - 10/11/2020 12:54 PM CDTFormatting of this notemight be different from the original.ORDERING PHYSICIAN: MARTHA GREGGCLINICAL INDICATIONS: Pelvic pain.COMPARISON: None available.TECHNIQUE: Permanent images were recorded.FINDINGS: Single live intrauterine . Cephalic presentation. heartrate of 146 beats/min. Anterior placenta. Maternal adnexa were notidentified on this study. Cervix is closed measuring 4 cm in length.Amniotic fluid index = 12.4FETAL MEASUREMENTSBiparietal diameter = 6.5 cmHead circumference = 23.8 cmAbdominal circumference = 21.4 cmFemur length = 4.9 cm.Estimated gestational age by measurements is 26 weeks and 0 days. Estimated weight is 886 gFETAL SURVEY :Intracranial contents grossly normal. No facial anomalies were identified.No spinal anomalies were identified. Four-chamber view of the heartidentified. Fluid present in the stomach and bladder. Both kidneysidentified. Three-vessel cord with normal insertion. No gross limbanomalies.IMPRESSIONIMPRESSIONS:Single intrauterine with estimated gestational age of 26 weeksand 0 daysNo or maternal complications are identified.RL 4728 [facility] [id number] 16:32:00 Test Item Value Reference Range Interpretation Comments POCT PREG (test code = 1605) Positive On board controls acceptable with C Yes Line (test code = 3574) POCT PREG LOT # (test code = 3575) POCT PREG TEST DATE (test code = 3576) Lab Interpretation (test code = Abnormal 63677-9) [facility]2 AG-AB WITH [id number] 10:25:00 Test Item Value Reference Range Interpretation Comments HIV Negative Negative Semi-quantitative (test code = 00309-2) BEATRIZ (test code = Non-reactive for HIV-1 BEATRIZ) antigen and HIV-1/HIV-2 antibodies. ?No laboratory evidence of HIV infection. ?Repeat in 2-4 weeks if acute HIV infection is suspected. [facility] WORK[facility], BLOOD [id number] 08:09:30 Test Item Value Reference Range Interpretation Comments ABO & RH (test code B POSITIVE Performe d at [facility] = 20) Laboratory Serv [facility] Blood Bank3 [facility] [address]Eirb Free: [phone] A No. [id number] IAT (test code = Negative Performed a t [facility] 1185) Laboratory Serv [facility] Blood Bank3 [facility] s [address]Ufzu Free: [phone] A No. [id number] [facility] [id number] 08:01:00 Test Item Value Reference Range Interpretation Comments BETA HCG (test See_Comment [Automated m essage] code = The system [facility] h [id number]) generated this result transmit lm reference range : Non- fe male and male patien ts: <5 mIU/mL. The reference range was not used to interpret this result as normal/abnormal . BEATRIZ (test code Gestational Age ? ? = BEATRIZ) ?Range (mIU/mL) 1-10 ?Weeks ?[id number] Weeks ?75648-97880344-97 Weeks ?1038-50862529-77 Weeks ?1532-511136 Biotin has been reported to cause a negative bias, interpret results relative to patient's use of biotin. [facility]AT[facility] B SURFACE [id number] 07:41:00 Test Item Value Reference Range Interpretation Comments HBsAg Semi-Quantitative (test code = Negative Negative 5195-3) [facility] WITH [id number] 06:39:00 Test Item Value Reference Range Interpretation Comments WBC (test code = See_Comment [Automated 6690-2) message] The sy stem which generated this result transmitted reference range : 4.30 - 11.10 10*3/?L. The reference range was not used to interpret this result as normal/abnormal . RBC (test code = See_Comment [Automated 789-8) message] The sy stem which generated this result transmitted reference range : 3.93 - 5.25 10*6/?L. The reference range was not used to interpret this result as normal/abnormal . HGB (test code = 9.2 g/dL 11.6-15 L 718-7) HCT (test code = 34.2 % 35.7-45.2 L 4544-3) MCV (test code = 74.5 fL 80.6-95.5 L 787-2) MCH (test code = 20.0 pg 25.9-32.8 L 785-6) MCHC (test code = 26.9 g/dL 31.6-35.1 L 786-4) RDW-SD (test code = 47.6 fL 39-49.9 09444-7) RDW-CV (test code = 17.8 % 12-15.5 H 788-0) PLT (test code = See_Comment [Automated 777-3) message] The sy stem which generated this result transmitted reference range : 166 - 358 10*3/ ?L. The reference r patti was not used to interpret this result as normal/abnormal . MPV (test code = 12.0 fL 9.5-12.9 35027-7) NRBC/100 WBC (test See_Comment [Automat ed code = 4886064200) message] The system which generated this result transmitted reference range : 0.0 - 10.0 /100 WBCs. The refer ence range was not u sed to interpret th is result as normal/abnormal . NRBC x10^3 (test code <0.01 See_Comment [Auto mated = 3998348691) message] The s ystem which generated this result transmitted reference range : 10*3/?L. The reference range was not used to interpret this result as normal/abnormal . GRAN MAT (NEUT) % 57.9 % (test code = 770-8) IMM GRAN % (test code 0.30 % = 1690858768) LYMPH % (test code = 28.3 % 736-9) MONO % (test code = 9.4 % 5905-5) EOS % (test code = 3.2 % 713-8) BASO % (test code = 0.9 % 706-2) GRAN MAT x10^3(ANC) 3.81 10*3/uL 1.88-7.09 (test code = 2055282672) IMM GRAN x10^3 (test <0.03 0-0.06 code = 0700117202) LYMPH x10^3 (test code 1.86 10*3/uL 1.32-3.29 = 731-0) MONO x10^3 (test code 0.62 10*3/uL 0.33-0.92 = 742-7) EOS x10^3 (test code = 0.21 10*3/uL 0.03-0.39 711-2) BASO x10^3 (test code 0.06 10*3/uL 0.01-0.07 = 704-7) Lab Interpretation Abnormal (test code = 07345-9) [facility] 1 HOUR POST [id number] 06:31:00 Test Item Value Reference Range Interpretation Comments GLUC 1 HR (test code = 7344315907) 86 mg/dL 120-170 L Lab Interpretation (test code = Abnormal 95345-0) [facility] [id number] 16:17:00 Test Item Value Reference Range Interpretation Comments POCT PREG (test code = 1605) Positive On board controls acceptable with C Yes Line (test code = 3574) POCT PREG LOT # (test code = 3575) POCT PREG TEST DATE (test code = 3576) [facility] W/O SPECIFIC [id number] 16:17:00 Test Item Value Reference Range Interpretation Comments POCT PH U (test code = 3254) 6 mg/dl 5-8 POCT U LEUK EST (test code = Trace Negative - Negative 3263) POCT U NIT (test code = 3262) Neg Negative - Negative POCT U PROT (test code = 3259) Trace Negative - Negative POCT U GLU (test code = 3256) Neg Negative - Negative POCT U KETONE (test code = 3258) None Negative - Negative POCT U BLD (test code = 3257) Negative - Negative [facility]
--- NOTE | 2021-04-19 12:28 | EDPHYS ---
Physician Documentation [facility] Name: Edson Holley Age: 20 yrs Sex: Female : 2000 Arrival Date: 04/19/2021 Time: 11:34 Bed Treatment Private MD: ED Physician Romaine Murphy HPI: 04/19 12:26 This 20 yrs old Black Female presents to ER via Ambulatory with complaints of Abdominal kb Pain, Needs work note. 12:26 The patient has not experienced similar symptoms in the past. kb 12:26 The patient presents to the emergency department with nausea, vomiting, diarrhea. kb Onset: The symptoms/episode began/occurred yesterday. Possible causes: unknown. The symptoms are aggravated by nothing. The symptoms are alleviated by nothing. Associated signs and symptoms: Pertinent positives: diarrhea, nausea, vomiting, Pertinent negatives: abdominal pain, fever. Severity of symptoms: At their worst the symptoms were mild moderate in the emergency department the symptoms have resolved. The patient has not recently seen a physician. Pt states "I had a stomach virus yesterday. I'm better today but I have to get a work note that says I can go back." Pt reports n/v/d and abd cramps yesterday. Pt has been tolerating PO intake today. 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 - Social history:: Smoking status: Patient denies any tobacco usage or history of. ROS: 12:26 Constitutional: Negative for fever, chills, and weight loss. kb 12:26 Abdomen/GI: Positive for nausea, vomiting, and diarrhea, abdominal cramps. 12:26 All other systems are negative. Exam: 12:26 Constitutional: This is a well developed, well nourished patient who is awake, alert, kb and in no acute distress. Head/Face: Normocephalic, atraumatic. ENT: Moist Mucous membranes Respiratory: Respirations even and unlabored. No increased work of breathing. Talking in full sentences Abdomen/GI: Soft, non-tender. No distention Skin: Warm, dry with normal turgor. Normal color. MS/ Extremity: Pulses equal, no cyanosis. Neurovascular intact. Full, normal range of motion. Neuro: Awake and alert, GCS 15, oriented to person, place, time, and situation. Moves all extremities. Normal gait. Psych: Awake, alert, with orientation to person, place and time. Behavior, mood, and affect are within normal limits. Vital Signs: 12:16 BP 122 / 67; Pulse 80; Resp 14; Temp 98.1(TE); Pulse Ox 100% on R/A; Weight 61.23 kg; ss Height 5 ft. 5 in. (165.10 cm); 12:16 Body Mass Index 22.46 (61.23 kg, 165.10 cm) ss MDM: 12:23 Patient medically screened. kb 12:25 Data reviewed: vital signs, nurses notes. Data interpreted: Pulse oximetry: on room air kb is 100 %. Interpretation: normal. Counseling: I had a detailed discussion with the patient and/or guardian regarding: the historical points, exam findings, and any diagnostic results supporting the discharge/admit diagnosis, the need for outpatient follow up, a family practitioner, to return to the emergency department if symptoms worsen or persist or if there are any questions or concerns that arise at home. 04/19 12:21 Order name: PO challenge; Complete Time: 12:38 kb Administered Medications: No medications were administered Disposition: 16:46 Co-signature as Attending Physician, Romaine Murphy MD. rn Disposition Summary: 04/19/21 12:28 Discharge Ordered Location: Home kb Condition: Stable kb Diagnosis - Encounter for issue of other medical certificate - work note kb - Nausea with vomiting, unspecified kb Followup: kb - With: Emergency Department - When: As needed - Reason: Worsening of condition Followup: kb - With: Private Physician - When: 2 - 3 days - Reason: Recheck today's complaints, Continuance of care, Re-evaluation by your physician Discharge Instructions: - Discharge Summary Sheet kb - Viral Gastroenteritis, Adult, [id number] kb Forms: - Medication Reconciliation Form kb - Thank You Letter kb - Antibiotic Education kb - Work release form kb - Prescription Opioid Use kb Signatures: Brigid Conte, SHAQ ESQUIVEL-Ckb Murphy, Romaine, MD MD rn Smirch, Shweta, RN RN ss
--- NOTE | 2021-04-19 12:28 | ER ---
Nurse's Notes [facility] Name: Edson Holley Age: 20 yrs Sex: Female : 2000 Arrival Date: 04/19/2021 Time: 11:34 Bed Treatment Private MD: Diagnosis: Encounter for issue of other medical certificate-work note;Nausea with vomiting, unspecified Presentation: 04/19 12:16 Chief complaint: Patient states: "I have a stomach virus and I'm feeling better now. I ss was just hoping to get some nausea medicine and a work note.". Coronavirus screen: Client denies travel out of the [place] in the last 14 days. Ebola Screen: Patient denies exposure to infectious person. Patient denies travel to an Ebola-affected area in the 21 days before illness onset. Initial Sepsis Screen: Does the patient meet any 2 criteria? No. Patient's initial sepsis screen is negative. Does the patient have a suspected source of infection? No. Patient's initial sepsis screen is negative. Risk Assessment: Do you want to hurt yourself or someone else? Patient reports no desire to harm self or others. Onset of symptoms was April 18, 2021. 12:16 Method Of Arrival: Ambulatory ss 12:16 Acuity: NARCISO 4 ss Triage Assessment: 12:38 General: Appears in no apparent distress. as6 12:39 General: Behavior is calm, cooperative. Pain: Denies pain. 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 - Social history:: Smoking status: Patient denies any tobacco usage or history of. Screenin:38 Abuse screen: Denies threats or abuse. Nutritional screening: No deficits noted. as6 Tuberculosis screening: No symptoms or risk factors identified. Fall Risk None identified. Assessment: 12:38 Reassessment: Patient appears in no apparent distress at this time. as6 Vital Signs: 12:16 BP 122 / 67; Pulse 80; Resp 14; Temp 98.1(TE); Pulse Ox 100% on R/A; Weight 61.23 kg; ss Height 5 ft. 5 in. (165.10 cm); 12:16 Body Mass Index 22.46 (61.23 kg, 165.10 cm) ED Course: 11:34 Patient arrived in ED. ds1 11:54 Brigid Conte FNP-C is [facility]. kb 11:54 Romaine Murphy MD is Attending Physician. kb 12:18 Triage completed. 12:18 Arm band placed on right wrist. 12:26 Brad Villaseñor, RN is Primary Nurse. as6 12:39 Bed in low position. Call light in reach. as6 12:39 No provider procedures requiring assistance completed. Patient did not have IV access as6 during this emergency room visit. Administered Medications: No medications were administered Outcome: 12:28 Discharge ordered by . kb 12:39 Discharged to home ambulatory. as6 12:39 Condition: stable 12:39 Discharge instructions given to patient, Instructed on discharge instructions, follow up and referral plans. Demonstrated understanding of instructions, follow-up care. 12:39 Patient left the ED. as6 Signatures: Brigid Conte FNP-C TERRAZZO WORKER HELPER-Linnea Ross ds1 Shweta Clancy, PRASAD RN Brad Villaseñor, RN RN as6 Corrections: (The following items were deleted from the chart) 12:19 12:16 Acuity: N[facility]
[2021-04-19 12:53] VITALS: BP 122/67; TEMP 98.1; O2SAT 100
== END 2021-04-19 12:39 | disposition home or self-care (01) ==
LOC: ER 11:34
DX: Z02.79 Encounter for issue of other medical certificate (principal)
CPT/HCPCS: 99281

== ENCOUNTER → 2024-12-07 | Emergency (ER) | payer SELFPAY ==
--- OUTSIDE RECORDS SUMMARY | 2024-12-07 18:22 | XMS REPORT | Continuity of Care Document ---
Author Name Unknown Address [address] [facility] [address] [place] [address] Organization [facility] [place] Address [address] [facility] [address] [place] [address] Care Team Providers Care Fence Builder Name Role Phone Pcp, Patient Does Not Have A Primary Care Physic prasanna KIMBERLY MATTHEWS Attending Clinician Unavailable Byron Kimberly VAZQUEZ Attending Clinician [phone] [facility]ending [facility]ician UnaCrista Maurer CNM Attending Clinician [phone] STACY UGERRIER Attending Clinician Unavailable CECILIO SHEPHERD Attending Clinician Unavailable JAQUELINE FAUST Attending Clinician Unavailable Nurse, [facility] Attending Clinician Un available Jaqueline Faust MD Attending Clinician [phone] Doctor Unassigned, [facility] Attending Clinician U Cecilio Manriquez MD Attending Clinician [phone] Domo LEIGH Attending Clinician Unavailable Domo Hudson Attending Clinician [phone] HUYEN HENRY Attending Clinician Unavailable HUYEN HENRY Attending Clinician Unavailable Will Harper MD Attending Clinician + Antonio SIDDIQUI, Xochilt De La Rosa Attending Clinician + Ultrasound, Ang-m Attending Clinician UnavailKaelyn Francis MD Attending Clinician +[phone] KAELYN CRUZ Attending Clinician Unavailable KAELYN CRUZ Attending Clinician Unavailable ARCELIA SIBLEY Attending Clinician ARCELIA Dsouza Attending Clinician Abril chou 2, [facility] Attending Clinician Unavailable VIKTORIA GUZMAN Attending Clinician Unavailable Thomas SIDDIQUI, Viktoria Attending Clinician [phone] Unknown, Attending Attending Clinician Unavailab shankar Kc RN, Ivy Attending Clinician UnavailOpal Bauman DO Attending Clinician + [phone] Ultrasound, [facility] Attending Clinician Unavaila thom Barakat MD, Channing Attending Clinician + CHANNING NICK Attending Clinician Unaneto Bush MD, Penelope Aguayo Attending Clinician +[phone] Tato Rm DO Attending Clinician +[phone] TATO RM Attending Clinician Unavailable PENELOPE BUSH Attending Clinician UnavailSherri Watson RN Attending Clinician UnavailSRINATH Abel Attending Clinician Unaneto Liz MD, Srinath Aguilar Attending Clinician + Shailesh Hernandez RN, Magalis Attending Clinician Unavailable PARAS AREVALO Attending Clinician Unavailable Mickey BAGLEYPParas Attending Clinician [phone] Provider, [facility] Attending Clinician Unavailable KELLY MON Attending Clinician Unavailable Kelly Avina Attending Clinician [phone] CONNIE BRUNSON Attending Clinician UnavailManjula BAGLEYPConnie Attending Clinician [phone] MARY JO MIN Attending Clinician Unavailable Mary Jo Min NP Attending Clinician +[phone] JEAN MARIE WALLACE Attending Clinician Unavailable Jean Marie Wallace DO Attending Clinician +[phone] FROYLAN ABDUL Attending Clinician Unavailab shankar BAGLEYPSergio Attending Clinician [phone] Zana Douglas Attending Clinician [phone] ZANA IRBY Attending Clinician Unavailable Chilango ESQUIVEL, Froylan Coleman Attending Clinician +- [phone] Ulysses Avelar CRNA Attending Clinician + [phone] Crescencio Quach MD Attending Clinicia n Franklin Pino MD, Leonard Attending Clinician + [phone] Martha Gregg MD Attending Clinician +[phone] Huyen Glaser MD Attending Clinician [phone] Akinsijahaira [facility], Anjum Neville Attending Clinician + [facility] Attending Clinician Unavailable Shonna Funes MD Attending Clinician [phone] AKINALEJANDRO, ANJUM Neville Attending Clinician Unavail able Maldonado Husain MD Attending Clinic prasanna SHONNA FUNES Attending Clinician Unavailable Henok PARHAM, Annie Rios Attending Clinician Unavailab JAMARCUS Mason Attending Clinician Unavaila JAMARCUS Archer Attending Clinician Unavaila JAQUELINE Yuan Admitting Clinician Unavailable MARTHA GREGG Admitting Clinician Unavailable HUYEN HENRY Admitting Clinician Unavailable Jaqueline Faust MD Admitting Clinician +[phone] CECILIO SHEPHERD Admitting Clinician Unavailable Cecilio Shepherd MD Admitting Clinician [phone] ARCELIA SIBLEY Admitting Clinician MARY JO Powell Admitting Clinician Unavailable Martha Gregg MD Admitting Clinician [phone] Huyen Glaser MD Admitting Clinician +[phone] Payers Payer Name Policy Type Policy Number Effective Date Expirati on Date Source [facility] [id number] 2020 00:00:00 [place] [id number] 2019 00:00:00 MEDICAID PENDING PENDING 2019 00:00:00 Problems Condition Name Condition Details Condition Category Status Onset Date Resolution Date Last Treatment Date Treating Clinician Comments Source 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 914 00:00: 00 [facility] High-risk in first trimester High-risk in first trimester Disease Resolve d 0 1-27 00:00: 00 2024-01-10 00:00:00 2024-01-10 10:11:02 [facility] Premature uterine contractio ns Premature uterine contractio ns Disease Resolve d 2020-0 8-26 00:00: 00 2024-01-10 00:00:00 2024-01-10 10:11:17 [facility] premature rupture of membranes (PPROM) with onset of labor within 24 hours of rupture in first trimester, antepartum premature rupture of membranes (PPROM) with onset of labor within 24 hours of rupture in first trimester, antepartum Disease Resolve d 2022-0 7-26 00:00: 00 2023-01-14 00:00:00 2023-01-14 16:32:27 [facility] Leakage of amniotic fluid Leakage of amniotic fluid Disease Resolve d 2022-0 7-25 00:00: 00 2023-01-14 00:00:00 2023-01-14 16:32:25 [facility] 34 weeks gestation of 34 weeks gestation of Disease Resolve d 2022-0 7-25 00:00: 00 2023-01-14 00:00:00 2023-01-14 16:32:11 [facility] premature rupture of membranes in third trimester premature rupture of membranes in third trimester Disease Resolve d 2022-0 7-25 00:00: 00 2023-01-14 00:00:00 2023-01-14 16:32:28 [facility] 9 weeks gestation of 9 weeks gestation of Disease Resolve d 2022-0 1-27 00:00: 00 2022-10-27 00:00:00 2022-10-27 07:55:06 [facility] labor in third trimester with delivery labor in third trimester with delivery Disease Resolve d 2020-0 8-26 00:00: 00 2022-05-15 00:00:00 2022-05-15 18:18:51 [facility] contractio ns contractio ns Disease Resolve d 2020-0 8-17 00:00: 00 2022-05-15 00:00:00 2022-05-15 18:18:02 [facility] 35 weeks gestation of 35 weeks gestation of Disease Resolve d 2020-0 8-12 00:00: 00 2022-05-15 00:00:00 2022-05-15 18:17:54 [facility] uterine contractio ns uterine contractio ns Disease Resolve d 2020-0 8-12 00:00: 00 2022-05-15 00:00:00 2022-05-15 18:18:02 [facility] Anemia of mother in , antepartum Anemia of mother in , antepartum Disease Resolve d 2019-0 2-17 00:00: 00 2022-05-15 00:00:00 2022-05-15 18:18:06 [facility] Supervisio n of high-risk Supervisio n of high-risk Disease Resolve d 2019-0 2-14 00:00: 00 2022-05-15 00:00:00 2022-05-15 18:19:00 [facility] Multiparit y Multiparit y Disease Resolve d 2019-0 2-14 00:00: 00 2022-05-15 00:00:00 2022-05-15 18:18:44 [facility] Vaginal bleeding in Vaginal bleeding in Disease Resolve d 2-14 00:00: 00 2022-05-15 00:00:00 2022-05-15 18:18:56 [facility] Influenza vaccinatio n declined Influenza vaccinatio n declined Disease Resolve d 1-14 00:00: 00 2022-05-15 00:00:00 2022-05-15 18:18:38 [facility] Chlamydia infection affecting Chlamydia infection affecting Disease Resolve d 1-14 00:00: 00 2022-05-15 00:00:00 2022-05-15 18:18:16 Overview: Formattin g of this note might be different from the original. 03/16/18 - positive chlamydia - BRANDYN positive 11/08/18 - MDL swab from 11/08/18 was positive for BV and chlamydia . S/p Flagyl and Azithromy ethan. [facility] (normal spontaneou s vaginal delivery) (normal spontaneou s vaginal delivery) Disease Resolve d 2017-0 2-02 00:00: 00 2022-05-15 00:00:00 2022-05-15 18:18:50 [facility] Trichomona l vulvovagin itis Trichomona l vulvovagin itis Disease Resolve d 2019- 3-03 00:00: 00 2020-12-26 00:00:00 2020-12-26 08:53:12 Overview: Formattin g of this note might be different from the original. Identifie d on pap [facility] UTI in UTI in Disease Resolve d 2-17 00:00: 00 2020-12-26 00:00:00 2020-12-26 08:51:55 Overview: Formattin g of this note might be different from the original. pending BRANDYN [facility] Incomplete miscarriag e Incomplete miscarriag e Disease Resolve d 11-18 00:00: 00 2020-12-26 00:00:00 2020-12-26 08:53:01 Overview: Formattin g of this note might be different from the original. 11/08/18 -US revealed a live forbes IUP. 11/09/18 - ER - bleeding 11/11/18 - US revealed a live forbes IUP at 6.6 weeks c/w dates. 11/13/18 - ER - bleeding, HCG 104,8707 - US revealed NO IUP any longer. S/p evacuatio n of the uterus. Histology revealed chorionic villi11/17 - HCG 13,367. Lupus workup negative. Factor V Leiden and Prothromb in gene mutation negative. [facility] with poor obstetric history with poor obstetric history Disease Resolve d 11-23 00:00: 00 2019-06-16 00:00:00 2019-06-16 10:54:34 Overview: History spontaneo us loss/deli very at 19 weeks. 11/17/18 - Lupus anticoagu lant, anticardi olipin - negative. Factor V Leiden and Prothromb in gene mutation negative. [facility] Acute cystitis during in first trimester Acute cystitis during in first trimester Disease Resolve d 11-11 00:00: 00 2019-06-16 00:00:00 2019-06-16 10:54:04 Overview: 11/08/18 - 100K E. Coli s/p Macrobid [facility] examinatio n or test, positive result examinatio n or test, positive result Disease Resolve d 10-25 00:00: 00 2019-06-16 00:00:00 2019-06-16 10:54:32 Overview: 10/25/18 - HCG 1,3886/ - HCG 3,4017/ - HCG 18,577 [facility] Short interval between pregnancie s affecting , antepartum Short interval between pregnancie s affecting , antepartum Disease Resolve d 05-16 00:00: 00 2019-06-16 00:00:00 2019-06-16 10:55:29 [facility] Syncope, unspecifie d syncope type Syncope, unspecifie d syncope type Disease Resolve d 2017-05 00:00: 00 2019-06-16 00:00:00 2019-06-16 10:54:38 [facility] Chest pain, unspecifie d type Chest pain, unspecifie d type Disease Resolve d 2017-05 00:00: 00 2019-06-16 00:00:00 2019-06-16 10:54:07 [facility] Multiparit y Multiparit y Disease Resolve d 06-13 00:00: 00 2018-10-25 00:00:00 2018-10-25 10:17:21 [facility] Urinary tract infection in mother during first trimester of Urinary tract infection in mother during first trimester of Disease Resolve d 05-16 00:00: 00 2018-10-25 00:00:00 2018-10-25 10:06:07 [facility] Depression during Depression during Disease Resolve d 05-16 00:00: 00 2018-10-25 00:00:00 2018-10-25 10:17:52 [facility] Supervisio n of high-risk Supervisio n of high-risk Disease Resolve d 2016-05 00:00: 00 2018-10-25 00:00:00 2018-10-25 10:06:12 [facility] High risk teen in first trimester High risk teen in first trimester Disease Resolve d 2016-05 00:00: 00 2018-06-13 00:00:00 2018-06-13 13:25:16 [facility] Chlamydia trachomati s infection of lower genitourin nathan sites Chlamydia trachomati s infection of lower genitourin nathan sites Disease Resolve d 2017-05 00:00: 00 2018-05-16 00:00:00 2018-05-16 09:20:37 [facility] Vaginal bleeding in Vaginal bleeding in Disease Resolve d 2016-05 00:00: 00 2018-05-16 00:00:00 2018-05-16 08:28:59 [facility] Depo-Prove ra contracept kaushik status Depo-Prove ra contracept kaushik status Disease Resolve d 0 -22 00:00: 00 2018-03-16 00:00:00 2018-03-16 15:59:51 [facility] Routine follow-up Routine follow-up Disease Resolve d 0 3-05 00:00: 00 2018-03-16 00:00:00 2018-03-16 15:59:53 [facility] Normal labor Normal labor Disease Resolve d - 00:00: 00 2018-03-16 00:00:00 2018-03-16 15:59:54 [facility] Uterine contractio ns during Uterine contractio ns during Disease Resolve d 01-14 00:00: 00 2018-03-16 00:00:00 2018-03-16 15:56:16 [facility] Maternal varicella, non-immune Maternal varicella, non-immune Disease Resolve d 01-14 00:00: 00 2018-03-16 00:00:00 2018-03-16 16:00:06 [facility] Rubella non-immune status, antepartum Rubella non-immune status, antepartum Disease Resolve d 01-14 00:00: 00 2018-03-16 00:00:00 2018-03-16 16:00:06 [facility] 37 weeks gestation of 37 weeks gestation of Disease Resolve d 0 - 00:00: 00 2017-07-06 00:00:00 2017-07-06 10:03:45 [facility] Lethargy Lethargy Disease Resolve d 1 00:00: 00 2017-07-06 00:00:00 2017-07-06 10:03:45 [facility] Missed menses Missed menses Disease Resolve d 01-14 00:00: 00 2017-06-02 00:00:00 2017-06-02 17:48:32 [facility] Nausea and vomiting during prior to 22 weeks gestation Nausea and vomiting during prior to 22 weeks gestation Disease Resolve d 01-14 00:00: 00 2017-06-02 00:00:00 2017-06-02 17:48:34 [facility] Leukorrhea , not specified as infective Leukorrhea , not specified as infective Disease Resolve d 01-14 00:00: 00 2017-06-02 00:00:00 2017-06-02 17:48:36 [facility] Nausea and vomiting during prior to 22 weeks gestation Nausea and vomiting during prior to 22 weeks gestation Disease Resolve d 01-14 00:00: 00 2017-06-02 00:00:00 2017-06-02 17:48:34 [facility] Right knee pain Right knee pain Disease Resolve d 07-09 00:00: 00 2017-06-02 00:00:00 2017-06-02 17:48:29 [facility] Left elbow pain Left elbow pain Disease Resolve d 07-09 00:00: 00 2017-06-02 00:00:00 2017-06-02 17:48:31 [facility] High risk teen , first trimester High risk teen , first trimester Disease Resolve d 01-14 00:00: 00 2017-04-15 00:00:00 2017-04-15 11:04:02 [facility] Supervisio n of high risk , antepartum , first trimester Supervisio n of high risk , antepartum , first trimester Disease Resolve d 01-14 00:00: 00 2017-04-06 00:00:00 2017-04-06 15:15:25 [facility] Allergies, Adverse Reactions, Alerts Allergy Name Allergy Type Status Severity Reaction(s) Onset Date Inactive Date Treating Clinician Comments Source CLINDAMY ETHAN DRUG INGREDI Active Unknown-Cmnt 06 00:00: 00 [facility] Clindamy ethan Propensi ty to adverse reaction s Active Unknown - See comments 09-05 00:00: 00 Pass out, hives [facility] NO KNOWN ALLERGIE S Drug Class Active [facility] Social History Social Habit Start Date Stop Date Quantity Comments Source ASSERTION 2022-04-10 00:00:00 Not [facility] Alcoholic beverage intake 2024-09-27 00:00:00 2024-09-27 00:00:00 0 /d [facility] History of Social function 2024-01-07 00:00:00 2024-01-07 00:00:00 [facility] Alcohol intake 2023-07-13 00:00:00 2023-07-13 00:00:00 0 /d [facility] Tobacco use and exposure 2022-11-25 00:00:00 2022-11-25 00:00:00 Smokeless tobacco non-user [facility] Exposure to SARS-CoV-2 (event) 2022-10-17 00:00:00 2022-10-27 11:35:00 Not sure [facility] Sex assigned at 2000 00:00:00 2000 00:00:00 [facility] Smoking Status Start Date Stop Date Source Never smoked tobacco [facility] Medications Ordered Medication Name Filled Medication Name Start Date Stop Date Current Medication? Ordering Clinician Indication Dosage Frequency Signature (SIG) Comments Components Source metroNIDAZO LE 0.75 % (37.5mg/5 gram) vaginal gel 2023-05 00:00: 00 09-26 00:00 :00 No [id number] 1{appli cator} Insert 1 Applicator into vagina at bedtime. [facility] metroNIDAZO LE 500 mg tablet 01-09 00:00: 00 04-03 00:00 :00 No [id number] 500mg Take 1 tablet by mouth every 12 (twelve) hours. [facility] medroxyPROG ESTERone (DEPO-PROVE RA) syringe 150 mg 01-06 16:00: 00 03-02 15:59 :00 No [id number] 150mg 150 mg, Intramuscu lar, [id number], 5 doses, First dose on Wed01/07/24 at 1100, Last dose on Wed12/08/24 at 1100, Routine [facility] medroxyPROG ESTERone (DEPO-PROVE RA) syringe 150 mg 10-04 16:30: 00 10-04 15:43 :00 No [id number] 150mg [facility] medroxyPROG ESTERone (DEPO-PROVE RA) syringe 150 mg 07-12 21:30: 00 07-12 20:38 :00 No [id number] 150mg [facility] FLUoxetine 10 mg capsule 07-12 00:00: 00 09-26 00:00 :00 No [id number] 10mg Take 1 capsule by mouth in the morning. [facility] hydrOXYzine 25 mg capsule 07-12 00:00: 00 09-26 00:00 :00 No [id number] 25mg Take 1 capsule by mouth 4 (four) times daily as needed for Anxiety or Other (insomnia) . [facility] medroxyPROG ESTERone (DEPO-PROVE RA) syringe 150 mg 2022-05 2- 18:00: 00 04-16 17:11 :00 No [id number] 150mg [facility] ketorolac (TORADOL) injection 30 mg 01-27 01:15: 00 01-27 00:29 :00 No 30mg 30 mg, Intramuscu lar, ONCE, 1 dose, On Wed01/26/23 at 2015, MOUNA [facility] chlorhexidi ne (PERIDEX) 0.12 % mouthwash 01-26 00:00: 00 Yes [id number] 15mL Swish and spit out 15 mL in the morning and 15 mL in the evening. [facility] chlorhexidi ne (PERIDEX) 0.12 % mouthwash 01-26 00:00: 00 09-27 00:00 :00 No [id number] 15mL Swish and spit out 15 mL in the morning and 15 mL in the evening. [facility] amoxicillin 400 mg/5 mL oral suspension 01-26 00:00: 00 02-06 04:59 :00 No [id number] 500mg Take 6.25 mL by mouth in the morning and 6.25 mL at noon and 6.25 mL in the evening. Do all this for 10 days. [facility] medroxyPROG ESTERone (DEPO-PROVE RA) syringe 150 mg 01-14 22:30: 00 01-14 21:32 :00 No [id number] 150mg [facility] PNV no.95/jorge us fum/folic ac ( ORAL) 01-14 17:02: 55 01-14 00:00 :00 No Take by mouth. [facility] PNV no.95/jorge us fum/folic ac ( ORAL) 11-27 16:12: 51 Yes Take by mouth. [facility] ibuprofen (ADVIL CHILDREN'S) 100 mg/5 mL oral suspension 600 mg 11-27 02:19: 24 Yes 600mg 600 mg, Oral, Q6HPRN, Starting on Rosina 11/26/22 at 2119, Until Discontinu ed, Routine, Pain (scale 4-6) [facility] vitamin w/FA tablet 11-27 00:00: 00 Yes [id number] 1{tbl} Take 1 tablet by mouth in the morning. [facility] docusate 100 mg capsule 11-27 00:00: 00 Yes [id number] 200mg Take 2 capsules by mouth once daily as needed for Constipati on. [facility] ferrous sulfate 325 mg (65 mg iron) tablet 11-27 00:00: 00 Yes [id number] 325mg Take 1 tablet by mouth in the morning and 1 tablet in the evening. [facility] ibuprofen 600 mg tablet 11-27 00:00: 00 Yes [id number] 600mg Take 1 tablet by mouth every 6 (six) hours as needed (Pain). Take with food or milk. [facility] acetaminoph en (CHILDREN'S ACETAMINOPH EN) 160 mg/5 mL (5 mL) oral suspension 650 mg 11-26 04:11: 37 Yes 650mg 650 mg, Oral, Q6HPRN, Starting on Wed11/25/22 at 2311, Until Discontinu ed, Routine, Pain (scale 4-6) [facility] rho(D) immune globulin (RHOGAM) syringe 300 mcg 11-25 13:11: 06 Yes 300ug 300 mcg, Intramuscu lar, ONCE, For 1 dose, Conditiona l, Routine [facility] diphenhydrA MINE (BENADRYL) tablet 25 mg 11-25 13:09: 58 Yes 25mg 25 mg, Oral, Q6HPRN, Starting on Wed11/25/22 at 0809, Until Discontinu ed, Routine, Sleep, Itching [facility] ondansetron (ZOFRAN (PF)) injection 4 mg 11-25 13:09: 58 Yes 4mg 4 mg, Slow IV Push, Q8HPRN, Starting on Wed11/25/22 at 0809, Until Discontinu ed, Routine, Nausea and Vomiting (N/V) [facility] simethicone (GAS RELIEF (SIMETHICON E)) chewable tablet 160 mg 11-25 13:09: 58 Yes 160mg 160 mg, Oral, PC+HSPRN, Starting on Wed11/25/22 at 0809, Until Discontinu ed, Routine, Gas [facility] docusate (COLACE) capsule 200 mg 11-25 13:09: 58 Yes 200mg 200 mg, Oral, QDAILYPRN, Starting on Wed11/25/22 at 0809, Until Discontinu ed, Routine, Constipati on [facility] magnesium hydroxide (MILK OF MAGNESIA) 400 mg/5 mL suspension 30 mL 11-25 13:09: 58 Yes 30mL 30 mL, Oral, QDAILYPRN, Starting on Wed11/25/22 at 0809, Until Discontinu ed, Routine, Constipati on [facility] benzocaine- menthol (DERMOPLAST ) 20-0.5 % topical spray 11-25 13:09: 58 Yes Topical, PRN, Starting on Wed11/25/22 at 0809, Until Discontinu ed, Routine, Perineum discomfort [facility] oxytocin (PITOCIN) 30 units in NS 500 mL IV infusion 11-25 10:20: 07 11-25 13:11 :05 No 2mU/min at 2-40 mL/hr, IV Infusion, TITRATE, Starting on Wed11/25/22 at 0520, Until Wed11/25/22 at 0811, MOUNA [facility] bupivacaine (preserv free) (SENSORCAIN E MPF) 0.25 % (2.5 mg/mL) injection 11-25 09:42: 00 11-25 17:03 :23 No Caudal Block, ONCE INTRA PROCEDURE, Starting on Wed11/25/22 at 0442, Until Discontinu ed, Routine, Intra-op [facility] fentaNYL 2 mcg/mL + bupivacaine 0.1% in NS 250 mL epidural bag 11-25 08:19: 00 11-25 17:03 :23 No Intra-op [facility] lidocaine-e pinephrine (XYLOCAINE W/EPINEPHRI NE) 1.5 %-1:200,000 injection 11-25 08:10: 00 11-25 17:03 :23 No Intraderma l, ONCE INTRA PROCEDURE, Starting on Wed11/25/22 at 0310, Until Discontinu ed, Routine, Intra-op [facility] penicillin GK 3 million units in NS 50 mL IV infusion (CNR) 11-25 06:00: 00 11-25 13:11 :05 No 310 3,000,000 Units (3 Million Units), IV Piggyback, Q4H ABX, First dose on Wed11/25/22 at 0100, Until Discontinu ed, Administer over 60 Minutes, 50 mL
Reas on for Anti-Infec tive: Empiric Non-Surgic al Prophylaxi s
Durat ion of therapy: 72 hours [facility] tranexamic acid (CYKLOKAPRO N) injection 1,000 mg 11-25 05:23: 03 Yes 1000mg 1,000 mg, Intravenou s, Administer over 10 Minutes, PRN, 1 dose, Starting on Wed11/25/22 at 0023, Until Discontinu ed, Routine, PPH [facility] miSOPROStoL (CYTOTEC) tablet 1,000 mcg 11-25 05:23: 03 Yes 1000ug 1,000 mcg, Rectal, PRN, 1 dose, Starting on Wed11/25/22 at 002, Until Discontinu ed, Routine, PPH [facility] methylergon ovine (METHERGINE ) injection 0.2 mg 11-25 05:23: 03 Yes .2mg 0.2 mg, Intramuscu lar, Q4HPRN, 1 dose, Starting on Wed11/25/22 at 0023, Until Discontinu ed, Routine, PPH [facility] sodium citrate-cit bethany acid (BICITRA) 500-334 mg/5 mL solution 30 mL 11-25 05:23: 03 11-25 08:21 :00 No 30mL 30 mL, Oral, PRE-PROCED URE ONCE, 1 dose, Starting on Wed11/25/22 at 0023, Until Discontinu ed, Routine, Surgery/Pr ocedure [facility] D5W-LR IV infusion 1,000 mL 11-25 03:00: 00 11-25 13:11 :05 No 1000mL at 125 mL/hr, IV Infusion, CONTINUOUS , Starting on Wed11/24/22 at 2200, Until Wed11/25/22 at 0811, Routine [facility] betamethaso ne acet,sod phos (CELESTONE SOLUSPAN) 6 mg/mL injection 12 mg 11-25 02:45: 00 11-25 13:11 :05 No 12mg 12 mg, Intramuscu lar, Q24H, 2 doses, First dose on Wed11/24/22 at 2145, Last dose on Wed11/25/22 at 2145, Routine [facility] penicillin g potassium 5 Million Units in NaCl 0.9% (NS) 100 mL MINI-BAG 11-25 02:30: 00 11-25 02:55 :00 No 510 5 Million Units, IV Piggyback, ONCE, 1 dose, On Wed11/24/22 at 2130, Administer over 60 Minutes, 100 mL
Reas on for Anti-Infec tive: Empiric Therapy for Suspected Infection< br>Empiric Therapy Site: Pelvic
Duration of therapy: 72 hours [facility] terbutaline (BRETHINE) injection 0.25 mg 11-25 02:30: 00 11-25 01:55 :00 No .25mg 0.25 mg, Subcutaneo us, ONCE, 1 dose, On Wed11/24/22 at 2130, Routine [facility] PNV no.95/jorge us fum/folic ac ( ORAL) 11-24 20:14: 58 Yes Take by mouth. [facility] PNV no.95/jorge us fum/folic ac ( ORAL) 11-18 01:38: 37 Yes Take by mouth. [facility] PNV no.95/jorge us fum/folic ac ( ORAL) 10-31 06:14: 40 Yes Take by mouth. [facility] NaCl 0.9% (NS) bolus infusion 500 mL 10-07 17:30: 00 10-07 16:33 :00 No 500mL at 999 mL/hr, 500 mL, IV Infusion, ONCE, 1 dose, On Wed10/07/22 at 1230, STAT [facility] acetaminoph en (TYLENOL) tablet 650 mg 10-07 13:42: 57 Yes 650mg 650 mg, Oral, Q6HPRN, Starting on Wed10/07/22 at 0842, Until Discontinu ed, Routine, Pain (scale 4-6) [facility] PNV no.95/jorge us fum/folic ac ( ORAL) 10-07 13:20: 02 Yes Take by mouth. [facility] azelastine 137 mcg (0.1 %) nasal spray 10-05 00:00: 00 01-14 00:00 :00 No [id number] 1{spray } Use 1 Howell in each nostril in the morning and 1 Howell in the evening. Use in each nostril as directed [facility] fluticasone propionate 50 mcg/actuati on nasal spray 10-05 00:00: 00 01-14 00:00 :00 No [id number] 1{spray } Use 1 Howell in each nostril in the morning. [facility] amoxicillin 500 mg tablet 10-05 00:00: 00 10-13 00:00 :00 No [id number] 500mg Take 1 tablet by mouth in the morning and 1 tablet in the evening. Do all this for 10 days. [facility] doxylamine- pyridoxine, vit B6, (DICLEGIS) 10-10 mg per tablet 10-05 00:00: 00 10-13 00:00 :00 No [id number] Oral: Initial: Two tablets at bedtime on days 1 and 2; if symptoms persist, take 1 tablet in morning and 2 tablets at bedtime on day 3; if symptoms persist, may further increase to 1 tablet in morning, 1 tablet mid-aftern oon, and 2 tablets at bedtime on day 4 (maximum: doxylamine 40 mg/pyridox ine 40 mg [4 tablets] per day). [facility] guaiFENesin 400 mg tablet 10-05 00:00: 00 10-13 00:00 :00 No [id number] 400mg Take 1 tablet by mouth every 4 (four) hours as needed for Cough. [facility] PNV no.95/jorge us fum/folic ac ( ORAL) 09-05 12:00: 32 Yes Take by mouth. [facility] metroNIDAZO LE (FLAGYL) tablet 500 mg 09-02 13:30: 00 09-02 13:37 :00 No 500mg 500 mg, Oral, ONCE NOW, 1 dose, On Wed09/02/22 at 0845, Routine
Reason for Anti-Infec tive: Documented Infection< br>Documen lm Infection Site: Pelvic
Duration of Therapy: 7 days [facility] acetaminoph en (TYLENOL) tablet 650 mg 09-02 13:00: 00 09-02 13:37 :00 No 650mg 650 mg, Oral, ONCE, 1 dose, On Wed09/02/22 at 0800, Routine [facility] PNV no.95/jorge us fum/folic ac ( ORAL) 09-02 10:45: 49 Yes Take by mouth. [facility] PNV no.95/jorge us fum/folic ac ( ORAL) 08-21 11:35: 44 Yes Take by mouth. [facility] metroNIDAZO LE 500 mg tablet 08-14 00:00: 00 10-13 00:00 :00 No [id number] 500mg Take 1 tablet by mouth every 12 (twelve) hours. [facility] terconazole 0.4 % vaginal cream 08-14 00:00: 00 10-13 00:00 :00 No [id number] 1{appli cator} Insert 1 Applicator into vagina at bedtime. Use for 7 nights [facility] PNV no.95/jorge us fum/folic ac ( ORAL) 08-13 21:37: 58 Yes Take by mouth. [facility] cephALEXin 500 mg capsule 08-13 00:00: 00 08-21 04:59 :00 No 500mg Take 1 capsule by mouth 4 (four) times daily for 7 days. [facility] hydroxyprog esterone(PF ) (JAYASHREE AUTO-INJECT OR) 275 mg/1.1 mL injection 275 mg 08-07 17:15: 00 08-07 16:26 :00 No [id number] 275mg [facility] hydroxyprog esterone(PF ) (JAYASHREE AUTO-INJECT OR) 275 mg/1.1 mL injection 275 mg 07-31 20:30: 00 07-31 19:34 :00 No [id number] 275mg [facility] hydroxyprog esterone(PF ) (JAYASHREE AUTO-INJECT OR) 275 mg/1.1 mL injection 275 mg 07-24 19:30: 00 07-24 18:33 :00 No [id number] 275mg [facility] JAYASHREE, PF, 275 mg/1.1 mL injection 07-20 00:00: 00 10-13 00:00 :00 No 275mg inject 1.1 mL under the skin weekly. [facility] PNV no.95/jorge us fum/folic ac ( ORAL) 06-26 11:19: 57 Yes Take by mouth. [facility] acetaminoph en (TYLENOL) tablet 650 mg 06-21 00:01: 00 06-21 00:02 :00 No [id number] 650mg [facility] ondansetron 4 mg disintegrat ing tablet 06-15 00:00: 00 10-13 00:00 :00 No 4mg Take 1 tablet by mouth. [facility] No known medications 05-29 11:41: 02 No No known medication s [facility] No known medications 05-15 18:19: 33 No No known medication s [facility] cefTRIAXone (ROCEPHIN) 1,000 mg in NaCl 0.9% (NS) 50 mL MINI-BAG 2021-05 23:30: 00 04-14 00:22 :00 No 1000mg 1,000 mg, IV Piggyback, ONCE, 1 dose, On Wed04/13/22 at 1730, Administer over 30 Minutes, 50 mL
Reas on for Anti-Infec tive: Documented Infection< br>Documen lm Infection Site: Urine
D uration of Therapy: 7 days [facility] NaCl 0.9% (NS) bolus infusion 1,000 mL 2021-05 23:30: 00 04-14 00:22 :00 No 1000mL at 999 mL/hr, 1,000 mL, IV Infusion, ONCE, 1 dose, On Wed04/13/22 at 1730, STAT [facility] dicyclomine (BENTYL) injection 20 mg 2021-05 23:30: 00 04-13 22:49 :00 No 20mg 20 mg, Intramuscu lar, ONCE, 1 dose, On Wed04/13/22 at 1730, [facility] maalox:diph enhydrAMINE :lidocaine 2 % viscous 1:1:1 ([facility]) oral suspension 15 mL 2021-05 22:30: 00 04-13 22:50 :00 No 15mL 15 mL, Oral, ONCE, 1 dose, On Wed04/13/22 at 1630, Routine [facility] ondansetron (ZOFRAN (PF)) injection 4 mg 2021-05 22:30: 00 04-13 22:49 :00 No 4mg 4 mg, Slow IV Push, ONCE, 1 dose, On Wed04/13/22 at 1630, [facility] famotidine (PEPCID (PF)) injection 20 mg 2021-05 22:30: 00 04-13 22:49 :00 No 20mg 20 mg, Slow IV Push, ONCE, 1 dose, On Wed04/13/22 at 1630, [facility] ketorolac (TORADOL) injection 30 mg 2021-05 22:30: 00 04-13 22:48 :00 No 30mg 30 mg, Slow IV Push, ONCE, 1 dose, On Wed04/13/22 at 1630, [facility] disintegrat ing tablet 2021-05 00:00: 00 Yes [id number] 4mg Take 1 tablet by mouth every 8 (eight) hours as needed for Nausea and Vomiting (N/V). [facility] dicyclomine 20 mg tablet 2021-05 00:00: 00 Yes [id number] 20mg Take 1 tablet by mouth 4 (four) times daily as needed for Abdominal pain. [facility] cefdinir 300 mg capsule 2021-05 00:00: 00 04-21 05:59 :00 No [id number] 300mg Take 1 capsule by mouth every 12 (twelve) hours for 7 days. [facility] No known medications 2021-05 12:46: 45 No No known medication s [facility] fluticasone propionate 50 mcg/actuati on nasal spray 2021-05 00:00: 00 04-02 05:59 :00 No [id number] 2{spray } Use 2 Sprays in each nostril in the morning for 30 days. [facility] benzonatate 200 mg capsule 2021-05 00:00: 00 03-13 05:59 :00 No [id number] 200mg Take 1 capsule by mouth 3 (three) times daily as needed for Cough for up to 10 days. [facility] oseltamivir (TAMIFLU) 75 mg capsule 2021-05 00:00: 00 03-08 04:59 :00 No [id number] 75mg Take 1 capsule by mouth in the morning and 1 capsule in the evening. Do all this for 5 days. [facility] No known medications 5-13 23:37: 33 No No known medication s [facility] NaCl 0.9% (NS) bolus infusion 1,000 mL 08-26 22:15: 00 08-26 23:20 :00 No 1000mL at 999 mL/hr, 1,000 mL, IV Infusion, ONCE, 1 dose, On Wed08/26/21 at 1715, STAT [facility] cephALEXin (KEFLEX) 500 mg capsule 08-26 00:00: 00 09-03 04:59 :00 No [id number] 100 500mg Take 1 capsule by mouth 3 (three) times daily for 7 days. [facility] vitamin w/FA tablet 12-28 00:00: 00 09-12 00:00 :00 No [id number] 102 1{tbl} Take 1 tablet by mouth daily. [facility] docusate calcium 240 mg capsule 12-28 00:00: 00 09-12 00:00 :00 No [id number] 102 240mg Take 1 capsule by mouth once daily as needed for Constipati on. [facility] ferrous sulfate 325 mg (65 mg iron) tablet 12-28 00:00: 00 09-12 00:00 :00 No [id number] 102 325mg Take 1 tablet by mouth daily. [facility] ibuprofen 600 mg tablet 12-28 00:00: 00 09-12 00:00 :00 No [id number] 102 600mg Take 1 tablet by mouth every 6 (six) hours as needed (Pain). Take with food or milk. [facility] vitamin w/FA tablet 12-28 00:00: 00 09-12 00:00 :00 No [id number] 102 1{tbl} Take 1 tablet by mouth daily. [facility] ibuprofen (IBU) tablet 600 mg 12-26 20:22: 52 Yes 600mg 600 mg, Oral, Q6HPRN, Starting Rosina 12/26/20 at 1522, Until Discontinu ed, Routine, Pain (scale 4-6) [facility] acetaminoph en (TYLENOL) tablet 650 mg 12-26 20:22: 52 Yes 650mg 650 mg, Oral, Q6HPRN, Starting Rosina 12/26/20 at 1522, Until Discontinu ed, Routine, Pain (scale 1-3) [facility] diphenhydrA MINE (BENADRYL) tablet 25 mg 12-26 20:22: 52 Yes 25mg 25 mg, Oral, Q6HPRN, Starting Rosina 12/26/20 at 1522, Until Discontinu ed, Routine, Sleep, Itching [facility] ondansetron (ZOFRAN (PF)) injection 4 mg 12-26 20:22: 51 Yes 4mg 4 mg, Slow IV Push, Q8HPRN, Starting Wed12/26/20 at 1522, Until Discontinu ed, Routine, Nausea and Vomiting (N/V) [facility] simethicone (GAS RELIEF (SIMETHICON E)) chewable tablet 160 mg 12-26 20:22: 51 Yes 160mg 160 mg, Oral, PC+HSPRN, Starting Rosina 12/26/20 at 1522, Until Discontinu ed, Routine, Gas [facility] magnesium hydroxide (MILK OF MAGNESIA) 400 mg/5 mL suspension 30 mL 12-26 20:22: 51 Yes 30mL 30 mL, Oral, QDAILYPRN, Starting Wed12/26/20 at 1522, Until Discontinu ed, Routine, Constipati on [facility] benzocaine- menthol (DERMOPLAST ) 20-0.5 % topical spray 12-26 20:22: 51 Yes Topical, PRN, Starting Wed12/26/20 at 1522, Until Discontinu ed, Routine, Perineum discomfort [facility] lidocaine-e pinephrine (XYLOCAINE W/EPINEPHRI NE) 1.5 %-1:200,000 injection 12-26 15:22: 00 12-26 22:11 :33 No Intraderma l, ONCE INTRA PROCEDURE, Starting Wed12/26/20 at 1022, Until Wed12/26/20 at 1711, Routine, Intra-op [facility] D5W-LR IV infusion 1,000 mL 12-26 13:45: 00 12-26 20:24 :15 No 1000mL at 125 mL/hr, IV Infusion, CONTINUOUS , Starting Wed12/26/20 at 0845, Until Rosina 12/26/20 at 1524, Routine [facility] LR 1000 mL + oxytocin 20 units IV Solution 12-26 13:27: 42 12-26 20:24 :15 No 2mU/min at 6-120 mL/hr, IV Infusion, TITRATE, Starting Wed12/26/20 at 0827, Until Wed12/26/20 at 1524, MOUNA [facility] lactated ringers IV infusion 500 mL 12-26 13:27: 42 12-26 20:24 :15 No 500mL at 999 mL/hr, 500 mL, IV Infusion, PRN - SEE INSTRUCTIO NS, Starting Wed12/26/20 at 0827, Until Wed12/26/20 at 1524, Routine [facility] alum-mag hydroxide-s imeth (MAALOX PLUS / MAG-AL PLUS) 200-200-20 mg/5 mL suspension 30 mL 12-18 02:06: 24 Yes 30mL 30 mL, Oral, Q6HPRN, Starting Wed12/17/20 at 2106, Until Discontinu ed, Routine, Indigestio n [facility] docusate calcium (SURFAK) capsule 240 mg 12-18 02:06: 24 Yes 240mg 240 mg, Oral, QHSPRN, Starting Wed12/17/20 at 2106, Until Discontinu ed, Routine, Constipati on [facility] lactated ringers IV infusion 1,000 mL 12-18 00:15: 00 12-17 23:18 :00 No 1000mL at 999 mL/hr, 1,000 mL, IV Infusion, ONCE, 1 dose, Wed12/17/20 at 1915, STAT [facility] terbutaline (BRETHINE) injection 0.25 mg 12-17 23:11: 35 Yes .25mg 0.25 mg, Subcutaneo us, PRN, Starting Wed12/17/20 at 1811, Until Discontinu ed, Routine, if physician says to give [facility] ondansetron (ZOFRAN (PF)) injection 4 mg 12-17 23:10: 21 Yes 4mg 4 mg, Slow IV Push, Q6HPRN, Starting Wed12/17/20 at 1810, Until Discontinu ed, Routine, Nausea and Vomiting (N/V) [facility] FENTanyl PF (SUBLIMAZE (PF)) injection 50 mcg 12-17 23:10: 05 12-18 23:09 :05 No 50ug 50 mcg, Slow IV Push, Q1HPRN, Starting Tu12/17/20 at 1810, Until Wed12/18/20 at 1809, Routine, Pain (scale 7-10) [facility] azithromyci n (ZITHROMAX) 1,000 mg in NaCl 0.9% (NS) 250 mL piggyback 12-13 12:45: 00 12-13 15:08 :00 No 1000mg 1,000 mg, IV Piggyback, ONCE, 1 dose, Wed12/13/20 at 0745, Administer over 60 Minutes, 250 mL
Reas on for Anti-Infec tive: Documented Infection< br>Documen lm Infection Site: Pelvic
Duration of Therapy: Other (see Comments) [facility] lactated ringers IV infusion 500 mL 12-13 12:15: 00 12-13 11:30 :00 No 500mL at 999 mL/hr, 500 mL, Intravenou s, ONCE, 1 dose, Wed12/13/20 at 0715, Routine [facility] acetaminoph en (TYLENOL) 160 mg/5 mL liquid 650 mg 12-13 11:27: 00 12-13 11:51 :00 No 650mg 650 mg, Oral, ONCE, 1 dose, Wed12/13/20 at 0630, Routine [facility] betamethaso ne acet,sod phos (CELESTONE SOLUSPAN) 6 mg/mL injection 12 mg 12-13 02:30: 00 12-13 03:58 :00 No 12mg 12 mg, Intramuscu lar, Q24H, 1 dose, First dose on Rosina 12/12/20 at 2130, Routine [facility] azithromyci n 500 mg tablet 12-13 00:00: 12-14 04:59 :00 No [id number] 01 1000mg Take 2 tablets by mouth once now for 1 dose. This is for expedited partner treatment, please supply to patient's partner. [facility] vitamin w/FA (PRENATABS RX) tablet 1 tablet 12-12 23:30: 00 Yes 1{tbl} 1 tablet, Oral, DAILY, First dose on Rosina 12/12/20 at 1830, Until Discontinu ed, Routine [facility] alum-mag hydroxide-s imeth (MAALOX PLUS / MAG-AL PLUS) 200-200-20 mg/5 mL suspension 30 mL 12-12 23:17: 04 Yes 30mL 30 mL, Oral, Q6HPRN, Starting Rosina 12/12/20 at 1817, Until Discontinu ed, Routine, Indigestio n [facility] docusate calcium (SURFAK) capsule 240 mg 12-12 23:17: 04 Yes 240mg 240 mg, Oral, QHSPRN, Starting Rosina 12/12/20 at 1817, Until Discontinu ed, Routine, Constipati on [facility] magnesium hydroxide (MILK OF MAGNESIA) 400 mg/5 mL suspension 30 mL 12-12 23:17: 04 Yes 30mL 30 mL, Oral, QDAILYPRN, Starting Rosina 12/12/20 at 1817, Until Discontinu ed, Routine, Constipati on [facility] proMETHazin e (PHENERGAN) 25 mg in NaCl 0.9% (NS) 50 mL IV piggyback 12-12 14:12: 00 12-12 15:12 :00 No 25mg 25 mg, IV Piggyback, ONCE NOW, 1 dose, [facility] 12/12/20 at 0915, Routine [facility] butorphanol (STADOL) injection 1 mg 12-12 13:08: 00 12-12 13:23 :00 No 1mg 1 mg, IV Push, ONCE, 1 dose, [facility] 12/12/20 at 0815, Routine [facility] D5W-LR IV infusion 1,000 mL 12-12 08:15: 00 Yes 1000mL at 125 mL/hr, IV Infusion, CONTINUOUS , Starting Rosina 12/12/20 at 0315, Until Discontinu ed, Routine [facility] proMETHazin e (PHENERGAN) 12.5 mg in NaCl 0.9% (NS) 50 mL IV piggyback 12-12 08:00: 00 12-12 08:39 :00 No 12.5mg 12.5 mg, IV Piggyback, ONCE, 1 dose, Rosina 12/12/20 at 0315, [facility] butorphanol (STADOL) injection 1 mg 12-12 08:00: 00 12-12 08:39 :00 No 1mg 1 mg, IV Push, ONCE, 1 dose, Rosina 12/12/20 at 0315, [facility] sodium citrate-cit bethany acid (BICITRA) 500-334 mg/5 mL solution 30 mL 12-12 07:56: 36 Yes 30mL 30 mL, Oral, PRE-PROCED URE ONCE, 1 dose, Starting Rosina 12/12/20 at 0256, Until Discontinu ed, Routine, Surgery/Pr ocedure [facility] lidocaine 1% (XYLOCAINE) 10 mg/mL (1 %) injection 50 mL 12-12 07:56: 36 Yes 50mL 50 mL, Infiltrati on, PRN - SEE INSTRUCTIO NS, Starting [facility] 12/12/20 at 025, Until Discontinu ed, Routine, Local anesthesia , For laceration repair only as a local anesthetic as indicated. [facility] lidocaine 1% (PF) (XYLOCAINE) injection 0.3 mL 12-12 07:56: 36 Yes .3mL 0.3 mL, Infiltrati on, PRN - SEE INSTRUCTIO NS, Starting Rosina 12/12/20 at 025, Until Discontinu ed, Routine, Local anesthesia , For IV line placement only as a local anesthetic . [facility] lactated ringers IV infusion 500 mL 12-12 07:56: 36 Yes 500mL at 999 mL/hr, 500 mL, IV Infusion, PRN - SEE INSTRUCTIO NS, Starting Rosina 12/12/20 at 0256, Until Discontinu ed, Routine [facility] cephALEXin 500 mg capsule 11-25 00:00: 00 Yes [id number] 500mg Take 1 capsule by mouth 4 (four) times daily. [facility] Nitrofurant oin&Nit. Macrocryst (MACROBID) 100 mg capsule 100 mg 11-23 02:30: 00 11-23 02:21 :00 No 100mg 100 mg, Oral, ONCE, 1 dose, Wed11/22/20 at 2130, Routine
Reason for Anti-Infec tive: Empiric Therapy for Suspected Infection< br>Empiric Therapy Site: Urine
D uration of therapy: 72 hours [facility] lactated ringers IV infusion 1,000 mL 11-23 02:00: 00 Yes 1000mL at 999 mL/hr, 1,000 mL, IV Infusion, CONTINUOUS , Starting Wed11/22/20 at 2100, Until Discontinu ed, Routine [facility] D5W-LR IV infusion 1,000 mL 11-23 02:00: 00 Yes 1000mL at 150 mL/hr, IV Infusion, CONTINUOUS , Starting Wed11/22/20 at 2100, Until Discontinu ed, Routine [facility] terbutaline (BRETHINE) injection 0.25 mg 11-23 02:00: 00 11-23 01:06 :00 No .25mg 0.25 mg, Subcutaneo us, ONCE, 1 dose, Wed11/22/20 at 2100, Routine [facility] metroNIDAZO LE 500 mg tablet 3-03 00:00: 00 07-04 05:59 :00 No [id number] 2000mg Take 4 tablets by mouth once now for 1 dose. [facility] ferrous sulfate 325 mg (65 mg iron) tablet 2-17 00:00: 00 12-28 00:00 :00 No [id number] 325mg Take 1 tablet by mouth 2 (two) times daily. [facility] ascorbic acid, vitamin C, 500 mg tablet 06-19 00:00: 00 12-28 00:00 :00 No [id number] 500mg Take 1 tablet by mouth 3 (three) times daily. [facility] Nitrofurant oin&Nit. Macrocryst (MACROBID) 100 mg capsule 06-19 00:00: 00 12-13 00:00 :00 No [id number] 100mg Take 1 capsule by mouth 2 (two) times daily. [facility] methylergon ovine (METHERGINE ) 0.2 mg tablet 11-17 00:00: 00 12-13 00:00 :00 No [id number] 200ug Take 1 tablet by mouth every 6 (six) hours. [facility] azithromyci n 1 gram powder 11-17 00:00: 00 12-13 00:00 :00 No [id number] 1g Take 1 Packet by mouth weekly. [facility] metroNIDAZO LE (FLAGYL) 500 mg tablet 11-16 00:00: 00 12-13 00:00 :00 No [id number] 500mg Take 1 tablet by mouth 2 (two) times daily. [facility] azithromyci n 500 mg tablet 11-16 00:00: 00 12-13 00:00 :00 No [id number] 1000mg Take 2 tablets by mouth weekly. [facility] Nitrofurant oin&Nit. Macrocryst (MACROBID) 100 mg capsule 11-11 00:00: 00 12-13 00:00 :00 No [id number] 4 100mg Take 1 capsule by mouth 2 (two) times daily. [facility] Immunizations Ordered Immunization Name Filled Immunization Name Date Status Comments Source MMR 2024-01-10 00:00:00 Completed [facility] Varicella (varivax)(chicken pox) 2024-01-10 00:00:00 Completed [facility] TDAP 2024-01-10 00:00:00 Completed [facility] HPV 2024-01-10 00:00:00 Completed [facility] MMR 2023-10-05 10:30:00 Completed [facility] Varicella (varivax)(chicken pox) 2023-10-05 10:30:00 Completed [facility] TDAP 2023-10-05 10:30:00 Completed [facility] Varicella (varivax)(chicken pox) 2023-07-13 15:00:00 Completed [facility] TDAP 2023-07-13 15:00:00 Completed [facility] MMR 2023-07-13 15:00:00 Completed [facility] MMR 2023-07-13 00:00:00 Completed [facility] Varicella (varivax)(chicken pox) 2023-07-13 00:00:00 Completed [facility] TDAP 2023-07-13 00:00:00 Completed [facility] MMR 2023-04-16 10:30:00 Completed [facility] Varicella (varivax)(chicken pox) 2023-04-16 10:30:00 Completed [facility] TDAP 2023-04-16 10:30:00 Completed [facility] MMR 2023-04-16 00:00:00 Completed [facility] Varicella (varivax)(chicken pox) 2023-04-16 00:00:00 Completed [facility] TDAP 2023-04-16 00:00:00 Completed [facility] MMR 2023-01-26 18:24:00 Completed [facility] Varicella (varivax)(chicken pox) 2023-01-26 18:24:00 Completed [facility] TDAP 2023-01-26 18:24:00 Completed [facility] TDAP 2022-10-27 00:00:00 Completed [facility] TDAP 2022-10-27 00:00:00 Completed [facility] TDAP 2022-10-27 00:00:00 Completed [facility] TDAP 2022-10-27 00:00:00 Completed [facility] TDAP 2022-10-27 00:00:00 Completed [facility] TDAP 2022-10-27 00:00:00 Completed [facility] TDAP 2022-10-27 00:00:00 Completed [facility] TDAP 2022-10-27 00:00:00 Completed [facility] TDAP 2022-10-27 00:00:00 Completed [facility] TDAP 2022-10-27 00:00:00 Completed [facility] TDAP 2022-10-27 00:00:00 Completed [facility] TDAP 2022-10-27 00:00:00 Completed [facility] MMR 2022-10-13 00:00:00 Completed [facility] Varicella (varivax)(chicken pox) 2022-10-13 00:00:00 Completed [facility] MMR 2022-07-03 00:00:00 Completed [facility] Varicella (varivax)(chicken pox) 2022-07-03 00:00:00 Completed [facility] MMR 2022-06-02 00:00:00 Completed [facility] Varicella (varivax)(chicken pox) 2022-06-02 00:00:00 [facility] [facility] 2020-12-30 00:00:00 Completed [facility] Varicella (varivax)(chicken pox) 2020-12-30 00:00:00 Completed [facility] MMR 2020-10-15 00:00:00 Completed [facility] Varicella (varivax)(chicken pox) 2020-10-15 00:00:00 Completed [facility] MMR 2017-07-05 00:00:00 Completed [facility] MMR 2017-07-05 00:00:00 Completed [facility] MMR 2017-07-05 00:00:00 Completed [facility] MMR 2017-07-05 00:00:00 Completed [facility] MMR 2017-07-05 00:00:00 Completed [facility] MMR 2017-07-05 00:00:00 Completed [facility] MMR 2017-07-05 00:00:00 Completed [facility] MMR 2017-07-05 00:00:00 Completed [facility] MMR 2017-07-05 00:00:00 Completed [facility] MMR 2017-07-05 00:00:00 Completed [facility] MMR 2017-07-05 00:00:00 Completed [facility] MMR 2017-07-05 00:00:00 Completed [facility] MMR 2017-07-05 00:00:00 Completed [facility] MMR 2017-07-05 00:00:00 Completed [facility] MMR 2017-07-05 00:00:00 Completed [facility] MMR 2017-07-05 00:00:00 Completed [facility] MMR 2017-07-05 00:00:00 Completed [facility] MMR 2017-07-05 00:00:00 Completed [facility] MMR 2017-07-05 00:00:00 Completed [facility] MMR 2017-07-05 00:00:00 Completed [facility] MMR 2017-07-05 00:00:00 Completed [facility] MMR 2017-07-05 00:00:00 Completed [facility] MMR 2017-07-05 00:00:00 Completed [facility] MMR 2017-07-05 00:00:00 Completed [facility] MMR 2017-07-05 00:00:00 Completed [facility] MMR 2017-07-05 00:00:00 Completed [facility] MMR 2017-07-05 00:00:00 Completed [facility] MMR 2017-07-05 00:00:00 Completed [facility] MMR 2017-07-05 00:00:00 Completed [facility] MMR 2017-07-05 00:00:00 Completed [facility] MMR 2017-07-05 00:00:00 Completed [facility] MMR 2017-07-05 00:00:00 Completed [facility] MMR 2017-07-05 00:00:00 Completed [facility] MMR 2017-07-05 00:00:00 Completed [facility] MMR 2017-07-05 00:00:00 Completed [facility] MMR 2017-07-05 00:00:00 Completed [facility] MMR 2017-07-05 00:00:00 Completed [facility] MMR 2017-07-05 00:00:00 Completed [facility] MMR 2017-07-05 00:00:00 Completed [facility] MMR 2017-07-05 00:00:00 Completed [facility] MMR 2017-07-05 00:00:00 Completed [facility] MMR 2017-07-05 00:00:00 Completed [facility] MMR 2017-07-05 00:00:00 Completed [facility] MMR 2017-07-05 00:00:00 Completed [facility] MMR 2017-07-05 00:00:00 Completed [facility] MMR 2017-07-05 00:00:00 Completed [facility] MMR 2017-07-05 00:00:00 Completed [facility] MMR 2017-07-05 00:00:00 Completed [facility] MMR 2017-07-05 00:00:00 Completed [facility] MMR 2017-07-05 00:00:00 Completed [facility] MMR 2017-07-05 00:00:00 Completed [facility] MMR 2017-07-05 00:00:00 Completed [facility] MMR 2017-07-05 00:00:00 Completed [facility] MMR 2017-07-05 00:00:00 Completed [facility] MMR 2017-07-05 00:00:00 Completed [facility] MMR 2017-07-05 00:00:00 Completed [facility] MMR 2017-07-05 00:00:00 Completed [facility] MMR 2017-07-05 00:00:00 Completed [facility] MMR 2017-07-05 00:00:00 Completed [facility] MMR 2017-07-05 00:00:00 Completed [facility] MMR 2017-07-05 00:00:00 Completed [facility] MMR 2017-07-05 00:00:00 Completed [facility] MMR 2017-07-05 00:00:00 Completed [facility] MMR 2017-07-05 00:00:00 Completed [facility] MMR 2017-07-05 00:00:00 Completed [facility] MMR 2017-07-05 00:00:00 Completed [facility] MMR 2017-07-05 00:00:00 Completed [facility] MMR 2017-07-05 00:00:00 Completed [facility] MMR 2017-07-05 00:00:00 Completed [facility] MMR 2017-07-05 00:00:00 Completed [facility] MMR 2017-07-05 00:00:00 Completed [facility] MMR 2017-07-05 00:00:00 Completed [facility] MMR 2017-07-05 00:00:00 Completed [facility] MMR 2017-07-05 00:00:00 Completed [facility] MMR 2017-07-05 00:00:00 Completed [facility] MMR 2017-07-05 00:00:00 Completed [facility] MMR 2017-07-05 00:00:00 Completed [facility] MMR 2017-07-05 00:00:00 Completed [facility] MMR 2017-07-05 00:00:00 Completed [facility] MMR 2017-07-05 00:00:00 Completed [facility] MMR 2017-07-05 00:00:00 Completed [facility] MMR 2017-07-05 00:00:00 Completed [facility] MMR 2017-07-05 00:00:00 Completed [facility] MMR 2017-07-05 00:00:00 Completed [facility] MMR 2017-07-05 00:00:00 Completed [facility] MMR 2017-07-05 00:00:00 Completed [facility] MMR 2017-07-05 00:00:00 Completed [facility] MMR 2017-07-05 00:00:00 Completed [facility] MMR 2017-07-05 00:00:00 Completed [facility] MMR 2017-07-05 00:00:00 Completed [facility] MMR 2017-07-05 00:00:00 Completed [facility] MMR 2017-07-05 00:00:00 Completed [facility] MMR 2017-07-05 00:00:00 Completed [facility] MMR 2017-07-05 00:00:00 Completed [facility] MMR 2017-07-05 00:00:00 Completed [facility] MMR 2017-07-05 00:00:00 Completed [facility] MMR 2017-07-05 00:00:00 Completed [facility] MMR 2017-07-05 00:00:00 Completed [facility] 2017-07-05 00:00:00 Completed [facility] 2017-07-05 00:00:00 Completed [facility] 2017-06-04 00:00:00 Completed [facility] Varicella (varivax)(chicken pox) 2017-06-04 00:00:00 Completed [facility] 2017-06-04 00:00:00 Completed [facility] Varicella (varivax)(chicken pox) 2017-06-04 00:00:00 Completed [facility] 2017-06-04 00:00:00 Completed [facility] Varicella (varivax)(chicken pox) 2017-06-04 00:00:00 Completed [facility] 2017-06-04 00:00:00 Completed [facility] 2017-06-04 00:00:00 Completed [facility] Varicella (varivax)(chicken pox) 2017-06-04 00:00:00 Completed [facility] Varicella (varivax)(chicken pox) 2017-06-04 00:00:00 Completed [facility] 2017-06-04 00:00:00 Completed [facility] Varicella (varivax)(chicken pox) 2017-06-04 00:00:00 Completed [facility] 2017-06-04 00:00:00 Completed [facility] Varicella (varivax)(chicken pox) 2017-06-04 00:00:00 Completed [facility] 2017-06-04 00:00:00 Completed [facility] Varicella (varivax)(chicken pox) 2017-06-04 00:00:00 Completed [facility] 2017-06-04 00:00:00 Completed [facility] Varicella (varivax)(chicken pox) 2017-06-04 00:00:00 Completed [facility] 2017-06-04 00:00:00 Completed [facility] Varicella (varivax)(chicken pox) 2017-06-04 00:00:00 Completed [facility] 2017-06-04 00:00:00 Completed [facility] Varicella (varivax)(chicken pox) 2017-06-04 00:00:00 Completed [facility] 2017-06-04 00:00:00 Completed [facility] Varicella (varivax)(chicken pox) 2017-06-04 00:00:00 Completed [facility] 2017-06-04 00:00:00 Completed [facility] Varicella (varivax)(chicken pox) 2017-06-04 00:00:00 Completed [facility] 2017-06-04 00:00:00 Completed [facility] Varicella (varivax)(chicken pox) 2017-06-04 00:00:00 Completed [facility] 2017-06-04 00:00:00 Completed [facility] Varicella (varivax)(chicken pox) 2017-06-04 00:00:00 Completed [facility] 2017-06-04 00:00:00 Completed [facility] Varicella (varivax)(chicken pox) 2017-06-04 00:00:00 Completed [facility] 2017-06-04 00:00:00 Completed [facility] Varicella (varivax)(chicken pox) 2017-06-04 00:00:00 Completed [facility] 2017-06-04 00:00:00 Completed [facility] Varicella (varivax)(chicken pox) 2017-06-04 00:00:00 Completed [facility] 2017-06-04 00:00:00 Completed [facility] Varicella (varivax)(chicken pox) 2017-06-04 00:00:00 Completed [facility] 2017-06-04 00:00:00 Completed [facility] Varicella (varivax)(chicken pox) 2017-06-04 00:00:00 Completed [facility] 2017-06-04 00:00:00 Completed [facility] Varicella (varivax)(chicken pox) 2017-06-04 00:00:00 Completed [facility] 2017-06-04 00:00:00 Completed [facility] Varicella (varivax)(chicken pox) 2017-06-04 00:00:00 Completed [facility] 2017-06-04 00:00:00 Completed [facility] Varicella (varivax)(chicken pox) 2017-06-04 00:00:00 Completed [facility] 2017-06-04 00:00:00 Completed [facility] Varicella (varivax)(chicken pox) 2017-06-04 00:00:00 Completed [facility] 2017-06-04 00:00:00 Completed [facility] Varicella (varivax)(chicken pox) 2017-06-04 00:00:00 Completed [facility] 2017-06-04 00:00:00 Completed [facility] Varicella (varivax)(chicken pox) 2017-06-04 00:00:00 Completed [facility] 2017-06-04 00:00:00 Completed [facility] Varicella (varivax)(chicken pox) 2017-06-04 00:00:00 Completed [facility] 2017-06-04 00:00:00 Completed [facility] Varicella (varivax)(chicken pox) 2017-06-04 00:00:00 Completed [facility] 2017-06-04 00:00:00 Completed [facility] Varicella (varivax)(chicken pox) 2017-06-04 00:00:00 Completed [facility] 2017-06-04 00:00:00 Completed [facility] Varicella (varivax)(chicken pox) 2017-06-04 00:00:00 Completed [facility] 2017-06-04 00:00:00 Completed [facility] Varicella (varivax)(chicken pox) 2017-06-04 00:00:00 Completed [facility] 2017-06-04 00:00:00 Completed [facility] 2017-06-04 00:00:00 Completed [facility] Varicella (varivax)(chicken pox) 2017-06-04 00:00:00 Completed [facility] Varicella (varivax)(chicken pox) 2017-06-04 00:00:00 Completed [facility] 2017-06-04 00:00:00 Completed [facility] Varicella (varivax)(chicken pox) 2017-06-04 00:00:00 Completed [facility] 2017-06-04 00:00:00 Completed [facility] Varicella (varivax)(chicken pox) 2017-06-04 00:00:00 Completed [facility] 2017-06-04 00:00:00 Completed [facility] Varicella (varivax)(chicken pox) 2017-06-04 00:00:00 Completed [facility] 2017-06-04 00:00:00 Completed [facility] Varicella (varivax)(chicken pox) 2017-06-04 00:00:00 Completed [facility] 2017-06-04 00:00:00 Completed [facility] Varicella (varivax)(chicken pox) 2017-06-04 00:00:00 Completed [facility] 2017-06-04 00:00:00 Completed [facility] Varicella (varivax)(chicken pox) 2017-06-04 00:00:00 Completed [facility] 2017-06-04 00:00:00 Completed [facility] Varicella (varivax)(chicken pox) 2017-06-04 00:00:00 Completed [facility] 2017-06-04 00:00:00 Completed [facility] Varicella (varivax)(chicken pox) 2017-06-04 00:00:00 Completed [facility] 2017-06-04 00:00:00 Completed [facility] Varicella (varivax)(chicken pox) 2017-06-04 00:00:00 Completed [facility] 2017-06-04 00:00:00 Completed [facility] Varicella (varivax)(chicken pox) 2017-06-04 00:00:00 Completed [facility] 2017-06-04 00:00:00 Completed [facility] Varicella (varivax)(chicken pox) 2017-06-04 00:00:00 Completed [facility] 2017-06-04 00:00:00 Completed [facility] Varicella (varivax)(chicken pox) 2017-06-04 00:00:00 Completed [facility] 2017-06-04 00:00:00 Completed [facility] Varicella (varivax)(chicken pox) 2017-06-04 00:00:00 Completed [facility] 2017-06-04 00:00:00 Completed [facility] Varicella (varivax)(chicken pox) 2017-06-04 00:00:00 Completed [facility] 2017-06-04 00:00:00 Completed [facility] Varicella (varivax)(chicken pox) 2017-06-04 00:00:00 Completed [facility] 2017-06-04 00:00:00 Completed [facility] Varicella (varivax)(chicken pox) 2017-06-04 00:00:00 Completed [facility] 2017-06-04 00:00:00 Completed [facility] Varicella (varivax)(chicken pox) 2017-06-04 00:00:00 Completed [facility] 2017-06-04 00:00:00 Completed [facility] Varicella (varivax)(chicken pox) 2017-06-04 00:00:00 Completed [facility] 2017-06-04 00:00:00 Completed [facility] Varicella (varivax)(chicken pox) 2017-06-04 00:00:00 Completed [facility] 2017-06-04 00:00:00 Completed [facility] Varicella (varivax)(chicken pox) 2017-06-04 00:00:00 Completed [facility] 2017-06-04 00:00:00 Completed [facility] Varicella (varivax)(chicken pox) 2017-06-04 00:00:00 Completed [facility] 2017-06-04 00:00:00 Completed [facility] Varicella (varivax)(chicken pox) 2017-06-04 00:00:00 Completed [facility] 2017-06-04 00:00:00 Completed [facility] Varicella (varivax)(chicken pox) 2017-06-04 00:00:00 Completed [facility] 2017-06-04 00:00:00 Completed [facility] Varicella (varivax)(chicken pox) 2017-06-04 00:00:00 Completed [facility] 2017-06-04 00:00:00 Completed [facility] Varicella (varivax)(chicken pox) 2017-06-04 00:00:00 Completed [facility] 2017-06-04 00:00:00 Completed [facility] Varicella (varivax)(chicken pox) 2017-06-04 00:00:00 Completed [facility] 2017-06-04 00:00:00 Completed [facility] Varicella (varivax)(chicken pox) 2017-06-04 00:00:00 Completed [facility] 2017-06-04 00:00:00 Completed [facility] Varicella (varivax)(chicken pox) 2017-06-04 00:00:00 Completed [facility] 2017-06-04 00:00:00 Completed [facility] Varicella (varivax)(chicken pox) 2017-06-04 00:00:00 Completed [facility] 2017-06-04 00:00:00 Completed [facility] Varicella (varivax)(chicken pox) 2017-06-04 00:00:00 Completed [facility] 2017-06-04 00:00:00 Completed [facility] Varicella (varivax)(chicken pox) 2017-06-04 00:00:00 Completed [facility] 2017-06-04 00:00:00 Completed [facility] 2017-06-04 00:00:00 Completed [facility] Varicella (varivax)(chicken pox) 2017-06-04 00:00:00 Completed [facility] Varicella (varivax)(chicken pox) 2017-06-04 00:00:00 Completed [facility] 2017-06-04 00:00:00 Completed [facility] Varicella (varivax)(chicken pox) 2017-06-04 00:00:00 Completed [facility] 2017-06-04 00:00:00 Completed [facility] Varicella (varivax)(chicken pox) 2017-06-04 00:00:00 Completed [facility] 2017-06-04 00:00:00 Completed [facility] Varicella (varivax)(chicken pox) 2017-06-04 00:00:00 Completed [facility] 2017-06-04 00:00:00 Completed [facility] Varicella (varivax)(chicken pox) 2017-06-04 00:00:00 Completed [facility] 2017-06-04 00:00:00 Completed [facility] Varicella (varivax)(chicken pox) 2017-06-04 00:00:00 Completed [facility] 2017-06-04 00:00:00 Completed [facility] Varicella (varivax)(chicken pox) 2017-06-04 00:00:00 Completed [facility] 2017-06-04 00:00:00 Completed [facility] Varicella (varivax)(chicken pox) 2017-06-04 00:00:00 Completed [facility] 2017-06-04 00:00:00 Completed [facility] Varicella (varivax)(chicken pox) 2017-06-04 00:00:00 Completed [facility] 2017-06-04 00:00:00 Completed [facility] Varicella (varivax)(chicken pox) 2017-06-04 00:00:00 Completed [facility] 2017-06-04 00:00:00 Completed [facility] Varicella (varivax)(chicken pox) 2017-06-04 00:00:00 Completed [facility] 2017-06-04 00:00:00 Completed [facility] Varicella (varivax)(chicken pox) 2017-06-04 00:00:00 Completed [facility] 2017-06-04 00:00:00 Completed [facility] Varicella (varivax)(chicken pox) 2017-06-04 00:00:00 Completed [facility] 2017-06-04 00:00:00 Completed [facility] Varicella (varivax)(chicken pox) 2017-06-04 00:00:00 Completed [facility] 2017-06-04 00:00:00 Completed [facility] Varicella (varivax)(chicken pox) 2017-06-04 00:00:00 Completed [facility] 2017-06-04 00:00:00 Completed [facility] Varicella (varivax)(chicken pox) 2017-06-04 00:00:00 Completed [facility] 2017-06-04 00:00:00 Completed [facility] Varicella (varivax)(chicken pox) 2017-06-04 00:00:00 Completed [facility] 2017-06-04 00:00:00 Completed [facility] Varicella (varivax)(chicken pox) 2017-06-04 00:00:00 Completed [facility] 2017-06-04 00:00:00 Completed [facility] Varicella (varivax)(chicken pox) 2017-06-04 00:00:00 Completed [facility] 2017-06-04 00:00:00 Completed [facility] Varicella (varivax)(chicken pox) 2017-06-04 00:00:00 Completed [facility] 2017-06-04 00:00:00 Completed [facility] Varicella (varivax)(chicken pox) 2017-06-04 00:00:00 Completed [facility] 2017-06-04 00:00:00 Completed [facility] Varicella (varivax)(chicken pox) 2017-06-04 00:00:00 Completed [facility] 2017-06-04 00:00:00 Completed [facility] Varicella (varivax)(chicken pox) 2017-06-04 00:00:00 Completed [facility] 2017-06-04 00:00:00 Completed [facility] Varicella (varivax)(chicken pox) 2017-06-04 00:00:00 Completed [facility] 2017-06-04 00:00:00 Completed [facility] Varicella (varivax)(chicken pox) 2017-06-04 00:00:00 Completed [facility] 2017-06-04 00:00:00 Completed [facility] Varicella (varivax)(chicken pox) 2017-06-04 00:00:00 Completed [facility] 2017-06-04 00:00:00 Completed [facility] Varicella (varivax)(chicken pox) 2017-06-04 00:00:00 Completed [facility] 2017-06-04 00:00:00 Completed [facility] Varicella (varivax)(chicken pox) 2017-06-04 00:00:00 Completed [facility] 2017-06-04 00:00:00 Completed [facility] Varicella (varivax)(chicken pox) 2017-06-04 00:00:00 Completed [facility] 2017-06-04 00:00:00 Completed [facility] Varicella (varivax)(chicken pox) 2017-06-04 00:00:00 Completed [facility] 2017-06-04 00:00:00 Completed [facility] Varicella (varivax)(chicken pox) 2017-06-04 00:00:00 Completed [facility] 2017-06-04 00:00:00 Completed [facility] Varicella (varivax)(chicken pox) 2017-06-04 00:00:00 Completed [facility] 2017-06-04 00:00:00 Completed [facility] Varicella (varivax)(chicken pox) 2017-06-04 00:00:00 Completed [facility] 2017-06-04 00:00:00 Completed [facility] Varicella (varivax)(chicken pox) 2017-06-04 00:00:00 Completed [facility] HPV 2015-01-16 00:00:00 Completed HPV 2012-12-23 00:00:00 Completed Vital Signs Vital Name Observation Time Observation Value Comments S ource Systolic blood pressure 2024-09-28 14:22:00 124 mm[Hg] [facility] Diastolic blood pressure 2024-09-28 14:22:00 81 mm[Hg] [facility] Heart rate 2024-09-28 14:22:00 83 /min [facility] Body temperature 2024-09-28 14:22:00 36.61 [facility] Respiratory rate 2024-09-28 14:22:00 17 /min [facility] Body height 2024-09-28 14:22:00 167.6 cm [facility] Body weight 2024-09-28 14:22:00 62.143 kg [facility] BMI 2024-09-28 14:22:00 22.11 kg/m2 [facility] Systolic blood pressure 2024-09-26 19:21:00 126 mm[Hg] [facility] Diastolic blood pressure 2024-09-26 19:21:00 89 mm[Hg] [facility] Heart rate 2024-09-26 19:21:00 85 /min [facility] Body temperature 2024-09-26 19:21:00 36.83 [facility] Respiratory rate 2024-09-26 19:21:00 17 /min [facility] Body height 2024-09-26 19:21:00 167.6 cm [facility] Body weight 2024-09-26 19:21:00 62.228 kg [facility] BMI 2024-09-26 19:21:00 22.14 kg/m2 [facility] Systolic blood pressure 2024-09-20 15:39:00 123 mm[Hg] [facility] Diastolic blood pressure 2024-09-20 15:39:00 76 mm[Hg] [facility] Heart rate 2024-09-20 15:39:00 89 /min [facility] Body temperature 2024-09-20 15:39:00 36.44 Pinky [facility] Respiratory rate 2024-09-20 15:39:00 16 /min [facility] Body weight 2024-09-20 15:39:00 61.598 kg [facility] BMI 2024-09-20 15:39:00 21.92 kg/m2 [facility] Systolic blood pressure 2024-06-28 16:31:00 130 mm[Hg] [facility] Diastolic blood pressure 2024-06-28 16:31:00 80 mm[Hg] [facility] Heart rate 2024-06-28 16:31:00 104 /min [facility] Body temperature 2024-06-28 16:31:00 36.06 Pinky [facility] Respiratory rate 2024-06-28 16:31:00 18 /min [facility] Body height 2024-06-28 16:31:00 167.6 cm [facility] Body weight 2024-06-28 16:31:00 60.147 kg [facility] BMI 2024-06-28 16:31:00 21.40 kg/m2 [facility] Systolic blood pressure 2024-04-03 17:02:00 108 mm[Hg] [facility] Diastolic blood pressure 2024-04-03 17:02:00 75 mm[Hg] [facility] Heart rate 2024-04-03 17:02:00 92 /min [facility] Body temperature 2024-04-03 17:02:00 36.72 Pinky [facility] Respiratory rate 2024-04-03 17:02:00 17 /min [facility] Body height 2024-04-03 17:02:00 167.6 cm [facility] Body weight 2024-04-03 17:02:00 59.875 kg [facility] BMI 2024-04-03 17:02:00 21.31 kg/m2 [facility] Systolic blood pressure 2024-01-07 15:15:00 129 mm[Hg] [facility] Diastolic blood pressure 2024-01-07 15:15:00 86 mm[Hg] [facility] Heart rate 2024-01-07 15:15:00 73 /min [facility] Body temperature 2024-01-07 15:15:00 36.5 Pinky [facility] Respiratory rate 2024-01-07 15:15:00 18 /min [facility] Body height 2024-01-07 15:15:00 167.6 cm [facility] Body weight 2024-01-07 15:15:00 61.825 kg [facility] BMI 2024-01-07 15:15:00 22.00 kg/m2 [facility] Systolic blood pressure 2023-10-05 15:42:00 139 mm[Hg] [facility] Diastolic blood pressure 2023-10-05 15:42:00 78 mm[Hg] [facility] Heart rate 2023-10-05 15:42:00 84 /min [facility] 2023-10-05 15:42:00 36.67 Pink[facility] Respiratory rate 2023-10-05 15:42:00 18 /min [facility] Body height 2023-10-05 15:42:00 167.6 cm [facility] Body weight 2023-10-05 15:42:00 60.601 kg [facility] BMI 2023-10-05 15:42:00 21.56 kg/m2 [facility] Systolic blood pressure 2023-07-13 20:31:00 122 mm[Hg] [facility] Diastolic blood pressure 2023-07-13 20:31:00 77 mm[Hg] [facility] Heart rate 2023-07-13 20:31:00 78 /min [facility] Respiratory rate 2023-07-13 20:31:00 18 /min [facility] Body height 2023-07-13 20:31:00 167.6 cm [facility] Body weight 2023-07-13 20:31:00 58.514 kg [facility] BMI 2023-07-13 20:31:00 20.82 kg/m2 [facility] Systolic blood pressure 2023-04-16 17:10:00 131 mm[Hg] [facility] Diastolic blood pressure 2023-04-16 17:10:00 90 mm[Hg] [facility] Heart rate 2023-04-16 17:10:00 75 /min [facility] Body temperature 2023-04-16 17:10:00 36.78 Pink[facility] Respiratory rate 2023-04-16 17:10:00 18 /min [facility] Body height 2023-04-16 17:10:00 167.6 cm [facility] Body weight 2023-04-16 17:10:00 59.875 kg [facility] BMI 2023-04-16 17:10:00 21.31 kg/m2 [facility] Systolic blood pressure 2023-01-27 00:41:00 122 mm[Hg] [facility] Diastolic blood pressure 2023-01-27 00:41:00 94 mm[Hg] [facility] Heart rate 2023-01-27 00:41:00 92 /min [facility] Respiratory rate 2023-01-27 00:41:00 16 /min [facility] Oxygen saturation in Arterial blood by Pulse oximetry 2023-01-27 00:41:00 99 /min [facility] Body temperature 2023-01-26 23:23:00 38.28 Pinky [facility] Body height 2023-01-26 23:23:00 167.6 cm [facility] Body weight 2023-01-26 23:23:00 61.236 kg [facility] BMI 2023-01-26 23:23:00 21.79 kg/m2 [facility] Systolic blood pressure 2023-01-14 20:30:00 115 mm[Hg] [facility] Diastolic blood pressure 2023-01-14 20:30:00 79 mm[Hg] [facility] Heart rate 2023-01-14 20:30:00 69 [facility] Body temperature 2023-01-14 20:30:00 36.67 Pinky [facility] Respiratory rate 2023-01-14 20:30:00 18 /min [facility] Body height 2023-01-14 20:30:00 167.6 cm [facility] Body weight 2023-01-14 20:30:00 62.596 kg [facility] BMI 2023-01-14 20:30:00 22.27 kg/m2 [facility] Systolic blood pressure 2022-11-27 13:00:00 109 mm[Hg] [facility] Diastolic blood pressure 2022-11-27 13:00:00 56 mm[Hg] [facility] Heart rate 2022-11-27 13:00:00 77 /[facility] Body temperature 2022-11-27 13:00:00 36.89 Pinky [facility] Respiratory rate 2022-11-27 13:00:00 18 /min [facility] Oxygen saturation in Arterial blood by Pulse oximetry 2022-11-27 13:00:00 98 /min [facility] Body weight 2022-11-27 02:00:00 68.493 kg [facility] BMI 2022-11-27 02:00:00 24.37 kg/m2 [facility] Systolic blood pressure 2022-11-19 18:05:00 99 mm[Hg] [facility] Diastolic blood pressure 2022-11-19 18:05:00 69 mm[Hg] [facility] Heart rate 2022-11-19 18:05:00 88 /[facility] Body temperature 2022-11-19 18:05:00 36.72 Pinky [facility] Respiratory rate 2022-11-19 18:05:00 18 /min [facility] Body height 2022-11-19 18:05:00 167.6 cm [facility] Body weight 2022-11-19 18:05:00 68.493 kg [facility] BMI 2022-11-19 18:05:00 24.37 kg/m2 [facility] Systolic blood pressure 2022-11-18 05:00:00 103 mm[Hg] [facility] Diastolic blood pressure 2022-11-18 05:00:00 62 mm[Hg] [facility] Heart rate 2022-11-18 05:00:00 94 /min [facility] Oxygen saturation in Arterial blood by Pulse oximetry 2022-11-18 05:00:00 99 /min [facility] Body temperature 2022-11-18 03:45:00 37 Pinky [facility] Respiratory rate 2022-11-18 03:45:00 18 /min [facility] Body weight 2022-11-18 03:45:00 69.355 kg [facility] BMI 2022-11-18 03:45:00 24.68 kg/m2 [facility] Systolic blood pressure 2022-10-31 11:00:00 107 mm[Hg] [facility] Diastolic blood pressure 2022-10-31 11:00:00 66 mm[Hg] [facility] Heart rate 2022-10-31 11:00:00 91 /min [facility] Respiratory rate 2022-10-31 11:00:00 17 /min [facility] Oxygen saturation in Arterial blood by Pulse oximetry 2022-10-31 11:00:00 99 /min [facility] Body temperature 2022-10-31 10:00:00 36.67 Pinky [facility] Body weight 2022-10-31 08:54:00 70.625 kg [facility] BMI 2022-10-31 08:54:00 25.13 kg/m2 [facility] Systolic blood pressure 2022-10-27 16:45:00 104 mm[Hg] [facility] Diastolic blood pressure 2022-10-27 16:45:00 69 mm[Hg] [facility] Heart rate 2022-10-27 16:45:00 82 /min [facility] Body temperature 2022-10-27 16:45:00 36.72 Pinky [facility] Respiratory rate 2022-10-27 16:45:00 18 /min [facility] Body height 2022-10-27 16:45:00 167.6 cm [facility] Body weight 2022-10-27 16:45:00 69.945 kg [facility] BMI 2022-10-27 16:45:00 24.89 kg/m2 [facility] Systolic blood pressure 2022-10-13 16:09:00 117 mm[Hg] [facility] Diastolic blood pressure 2022-10-13 16:09:00 69 mm[Hg] [facility] Heart rate 2022-10-13 16:09:00 108 /min [facility] Body temperature 2022-10-13 16:09:00 36.67 Pinky [facility] Respiratory rate 2022-10-13 16:09:00 18 /min [facility] Body height 2022-10-13 16:09:00 167.6 cm [facility] Body weight 2022-10-13 16:09:00 68.947 kg [facility] BMI 2022-10-13 16:09:00 24.53 kg/m2 [facility] Heart rate 2022-10-07 17:52:00 89 /[facility] Oxygen saturation in Arterial blood by Pulse oximetry 2022-10-07 17:52:00 100 /min [facility] Systolic blood pressure 2022-10-07 17:00:00 110 mm[Hg] [facility] Diastolic blood pressure 2022-10-07 17:00:00 55 mm[Hg] [facility] Body temperature 2022-10-07 13:13:00 37.06 Pinky [facility] Respiratory rate 2022-10-07 13:13:00 18 /min [facility] Body height 2022-10-07 13:13:00 167.6 cm [facility] Body weight 2022-10-07 13:13:00 68.04 kg [facility] BMI 2022-10-07 13:13:00 24.21 kg/m2 [facility] Systolic blood pressure 2022-10-05 14:13:00 103 mm[Hg] [facility] Diastolic blood pressure 2022-10-05 14:13:00 67 mm[Hg] [facility] Heart rate 2022-10-05 14:13:00 98 /[facility] Body temperature 2022-10-05 14:13:00 36.83 Pinky [facility] Respiratory rate 2022-10-05 14:13:00 16 /min [facility] Body height 2022-10-05 14:13:00 167.6 cm [facility] Body weight 2022-10-05 14:13:00 68.04 kg [facility] BMI 2022-10-05 14:13:00 24.21 kg/m2 [facility] Oxygen saturation in Arterial blood by Pulse oximetry 2022-10-05 14:13:00 98 /min [facility] Systolic blood pressure 2022-09-22 15:58:00 109 mm[Hg] [facility] Diastolic blood pressure 2022-09-22 15:58:00 70 mm[Hg] [facility] Heart rate 2022-09-22 15:58:00 84 /min [facility] Body temperature 2022-09-22 15:58:00 36.78 Pinky [facility] Respiratory rate 2022-09-22 15:58:00 18 /min [facility] Body height 2022-09-22 15:58:00 167.6 cm [facility] Body weight 2022-09-22 15:58:00 68.856 kg [facility] BMI 2022-09-22 15:58:00 24.50 kg/m2 [facility] Oxygen saturation in Arterial blood by Pulse oximetry 2022-09-22 15:58:00 99 /min [facility] Systolic blood pressure 2022-09-05 16:46:00 96 mm[Hg] [facility] Diastolic blood pressure 2022-09-05 16:46:00 57 mm[Hg] [facility] Heart rate 2022-09-05 16:46:00 76 /min [facility] Respiratory rate 2022-09-05 16:46:00 14 /min [facility] Oxygen saturation in Arterial blood by Pulse oximetry 2022-09-05 16:46:00 96 /min [facility] Body temperature 2022-09-05 15:29:00 36.72 Pinky [facility] Body height 2022-09-05 14:54:00 167.6 cm [facility] Body weight 2022-09-05 14:54:00 69.854 kg [facility] BMI 2022-09-05 14:54:00 24.86 kg/m2 [facility] Body weight 2022-09-02 13:00:00 70.308 kg [facility] BMI 2022-09-02 13:00:00 25.02 kg/m2 [facility] Systolic blood pressure 2022-09-02 12:37:00 120 mm[Hg] [facility] Diastolic blood pressure 2022-09-02 12:37:00 69 mm[Hg] [facility] Heart rate 2022-09-02 12:37:00 80 /min [facility] Body temperature 2022-09-02 12:37:00 36.94 Pinky [facility] Respiratory rate 2022-09-02 12:37:00 16 /min [facility] Oxygen saturation in Arterial blood by Pulse oximetry 2022-09-02 12:37:00 100 /min [facility] Systolic blood pressure 2022-08-21 16:33:00 100 mm[Hg] [facility] Diastolic blood pressure 2022-08-21 16:33:00 62 mm[Hg] [facility] Heart rate 2022-08-21 16:33:00 76 /min [facility] Body temperature 2022-08-21 16:33:00 36.78 Pinky [facility] Respiratory rate 2022-08-21 16:33:00 18 /min [facility] Body height 2022-08-21 16:33:00 167.6 cm [facility] Body weight 2022-08-21 16:33:00 68.947 kg [facility] BMI 2022-08-21 16:33:00 24.53 kg/m2 [facility] Systolic blood pressure 2022-08-14 01:40:00 112 mm[Hg] [facility] Diastolic blood pressure 2022-08-14 01:40:00 67 mm[Hg] [facility] Heart rate 2022-08-14 01:40:00 92 /min [facility] Body temperature 2022-08-14 01:40:00 36.89 Pinky [facility] Oxygen saturation in Arterial blood by Pulse oximetry 2022-08-14 01:40:00 99 /min [facility] Body weight 2022-08-14 01:05:00 69.673 kg [facility] BMI 2022-08-14 01:05:00 26.37 kg/m2 [facility] Systolic blood pressure 2022-08-13 20:11:00 121 mm[Hg] [facility] Diastolic blood pressure 2022-08-13 20:11:00 70 mm[Hg] [facility] Heart rate 2022-08-13 20:11:00 93 /min [facility] Body temperature 2022-08-13 20:11:00 36.72 Pinky [facility] Respiratory rate 2022-08-13 20:11:00 18 /min [facility] Body weight 2022-08-13 20:11:00 69.219 kg [facility] BMI 2022-08-13 20:11:00 26.19 kg/m2 [facility] Systolic blood pressure 2022-08-07 16:23:00 100 mm[Hg] [facility] Diastolic blood pressure 2022-08-07 16:23:00 63 mm[Hg] [facility] Heart rate 2022-08-07 16:23:00 88 /min [facility] Body temperature 2022-08-07 16:23:00 36.72 Pinky [facility] Body height 2022-08-07 16:23:00 162.6 cm [facility] Body weight 2022-08-07 16:23:00 67.949 kg [facility] BMI 2022-08-07 16:23:00 25.71 kg/m2 [facility] Systolic blood pressure 2022-07-31 19:28:00 107 mm[Hg] [facility] Diastolic blood pressure 2022-07-31 19:28:00 70 mm[Hg] [facility] Heart rate 2022-07-31 19:28:00 79 /min [facility] Body temperature 2022-07-31 19:28:00 36.72 Pinky [facility] Respiratory rate 2022-07-31 19:28:00 16 /min [facility] Body height 2022-07-31 19:28:00 162.6 cm [facility] Body weight 2022-07-31 19:28:00 67.586 kg [facility] BMI 2022-07-31 19:28:00 25.58 kg/m2 [facility] Systolic blood pressure 2022-07-24 18:09:00 113 mm[Hg] [facility] Diastolic blood pressure 2022-07-24 18:09:00 71 mm[Hg] [facility] Heart rate 2022-07-24 18:09:00 91 /min [facility] Body temperature 2022-07-24 18:09:00 36.72 Pinky [facility] Respiratory rate 2022-07-24 18:09:00 18 /min [facility] Body height 2022-07-24 18:09:00 162.6 cm [facility] Body weight 2022-07-24 18:09:00 67.132 kg [facility] BMI 2022-07-24 18:09:00 25.40 kg/m2 [facility] Systolic blood pressure 2022-06-26 17:19:00 108 mm[Hg] [facility] Diastolic blood pressure 2022-06-26 17:19:00 62 mm[Hg] [facility] Heart rate 2022-06-26 17:19:00 90 /min [facility] Body temperature 2022-06-26 17:19:00 36.83 Pinky [facility] Body height 2022-06-26 17:19:00 162.6 cm [facility] Body weight 2022-06-26 17:19:00 67.405 kg [facility] BMI 2022-06-26 17:19:00 25.51 kg/m2 [facility] Systolic blood pressure 2022-06-20 23:54:00 112 mm[Hg] [facility] Diastolic blood pressure 2022-06-20 23:54:00 73 mm[Hg] [facility] Heart rate 2022-06-20 23:54:00 120 /min [facility] Body temperature 2022-06-20 23:54:00 38.33 Pinky [facility] Respiratory rate 2022-06-20 23:54:00 18 /min [facility] Body height 2022-06-20 23:54:00 162.6 cm [facility] 2022-06-20 23:54:00 66.764 kg [facility] BMI 2022-06-20 23:54:00 25.26 kg/m2 [facility] Oxygen saturation in Arterial blood by Pulse oximetry 2022-06-20 23:54:00 100 /min [facility] Systolic blood pressure 2022-06-15 17:56:00 102 mm[Hg] [facility] Diastolic blood pressure 2022-06-15 17:56:00 69 mm[Hg] [facility] Heart rate 2022-06-15 17:56:00 95 /min [facility] Body temperature 2022-06-15 17:56:00 37.11 Pinky [facility] Respiratory rate 2022-06-15 17:56:00 20 /min [facility] Body height 2022-06-15 17:56:00 162.6 cm [facility] Body weight 2022-06-15 17:56:00 66.764 kg [facility] BMI 2022-06-15 17:56:00 25.26 kg/m2 [facility] Oxygen saturation in Arterial blood by Pulse oximetry 2022-06-15 17:56:00 98 /min [facility] Systolic blood pressure 2022-05-29 17:34:00 123 mm[Hg] [facility] Diastolic blood pressure 2022-05-29 17:34:00 65 mm[Hg] [facility] Heart rate 2022-05-29 17:34:00 88 /min [facility] Body temperature 2022-05-29 17:34:00 36.89 Pinky [facility] Respiratory rate 2022-05-29 17:34:00 18 /min [facility] Body height 2022-05-29 17:34:00 167.6 cm [facility] Body weight 2022-05-29 17:34:00 67.586 kg [facility] BMI 2022-05-29 17:34:00 24.05 kg/m2 [facility] Systolic blood pressure 2022-05-15 20:38:00 105 mm[Hg] [facility] Diastolic blood pressure 2022-05-15 20:38:00 69 mm[Hg] [facility] Heart rate 2022-05-15 20:38:00 101 /min [facility] Body height 2022-05-15 20:38:00 167.6 cm [facility] Body weight 2022-05-15 20:38:00 69.854 kg [facility] BMI 2022-05-15 20:38:00 24.86 kg/m2 [facility] Oxygen saturation in Arterial blood by Pulse oximetry 2022-05-15 20:38:00 99 /min [facility] Systolic blood pressure 2022-04-13 22:13:00 125 mm[Hg] [facility] Diastolic blood pressure 2022-04-13 22:13:00 87 mm[Hg] [facility] Heart rate 2022-04-13 22:13:00 99 /min [facility] Body temperature 2022-04-13 22:13:00 37.39 Pink[facility] Respiratory rate 2022-04-13 22:13:00 16 /min [facility] Body weight 2022-04-13 22:13:00 67.586 kg [facility] BMI 2022-04-13 22:13:00 25.58 kg/m2 [facility] Oxygen saturation in Arterial blood by Pulse oximetry 2022-04-13 22:13:00 100 /min [facility] Systolic blood pressure 2022-03-02 15:06:00 110 mm[Hg] [facility] Diastolic blood pressure 2022-03-02 15:06:00 67 mm[Hg] [facility] Heart rate 2022-03-02 15:06:00 84 /min [facility] Body temperature 2022-03-02 15:06:00 37.11 Pinky [facility] Respiratory rate 2022-03-02 15:06:00 12 /min [facility] Body height 2022-03-02 15:06:00 162.6 cm [facility] Body weight 2022-03-02 15:06:00 66.815 kg [facility] BMI 2022-03-02 15:06:00 25.28 kg/m2 [facility] Oxygen saturation in Arterial blood by Pulse oximetry 2022-03-02 15:06:00 98 /min [facility] Systolic blood pressure 2021-09-13 04:57:00 113 mm[Hg] [facility] Diastolic blood pressure 2021-09-13 04:57:00 80 mm[Hg] [facility] Heart rate 2021-09-13 04:57:00 78 [facility] Respiratory rate 2021-09-13 04:57:00 15 /min [facility] Oxygen saturation in Arterial blood by Pulse oximetry 2021-09-13 04:57:00 100 /min [facility] Body temperature 2021-09-13 01:44:00 37.17 [facility] Body height 2021-09-13 01:44:00 162.6 cm [facility] Body weight 2021-09-13 01:44:00 63.504 kg [facility] BMI 2021-09-13 01:44:00 24.03 kg/m2 [facility] Systolic blood pressure 2021-08-26 23:37:57 129 mm[Hg] [facility] Diastolic blood pressure 2021-08-26 23:37:57 89 mm[Hg] [facility] Heart rate 2021-08-26 23:37:57 73 /[facility] Body temperature 2021-08-26 23:37:57 36.22 Pink[facility] Respiratory rate 2021-08-26 23:37:57 16 /min [facility] Oxygen saturation in Arterial blood by Pulse oximetry 2021-08-26 23:37:57 100 /min [facility] Body weight 2021-08-26 21:59:00 61.236 kg [facility] BMI 2021-08-26 21:59:00 21.79 kg/m2 [facility] Systolic blood pressure 2021-04-19 15:36:00 115 mm[Hg] [facility] Diastolic blood pressure 2021-04-19 15:36:00 77 mm[Hg] [facility] Heart rate 2021-04-19 15:36:00 74 /min [facility] Body temperature 2021-04-19 15:36:00 37 Pinky [facility] Respiratory rate 2021-04-19 15:36:00 17 /min [facility] Body height 2021-04-19 15:36:00 167.6 cm [facility] Body weight 2021-04-19 15:36:00 61.417 kg [facility] BMI 2021-04-19 15:36:00 21.85 kg/m2 [facility] Oxygen saturation in Arterial blood by Pulse oximetry 2021-04-19 15:36:00 99 /min [facility] Systolic blood pressure 2020-12-28 09:00:00 115 mm[Hg] [facility] Diastolic blood pressure 2020-12-28 09:00:00 73 mm[Hg] [facility] Heart rate 2020-12-28 09:00:00 73 /min [facility] Body temperature 2020-12-28 09:00:00 37.28 [facility] Respiratory rate 2020-12-28 09:00:00 16 /min [facility] Oxygen saturation in Arterial blood by Pulse oximetry 2020-12-28 00:32:00 100 /min [facility] Body height 2020-12-26 18:30:00 162.6 cm [facility] Body weight 2020-12-26 18:30:00 60.4 kg [facility] BMI 2020-12-26 18:30:00 22.85 kg/m2 [facility] Heart rate 2020-12-18 11:45:00 93 /min [facility] Oxygen saturation in Arterial blood by Pulse oximetry 2020-12-18 11:30:00 100 /min [facility] Systolic blood pressure 2020-12-18 11:15:00 108 mm[Hg] [facility] Diastolic blood pressure 2020-12-18 11:15:00 72 mm[Hg] [facility] Body temperature 2020-12-18 11:15:00 36.78 Pinky [facility] Respiratory rate 2020-12-18 11:15:00 18 /min [facility] Systolic blood pressure 2020-12-14 20:30:00 104 mm[Hg] [facility] Diastolic blood pressure 2020-12-14 20:30:00 56 mm[Hg] [facility] Heart rate 2020-12-14 20:30:00 94 /min [facility] Oxygen saturation in Arterial blood by Pulse oximetry 2020-12-14 20:30:00 99 /min [facility] Respiratory rate 2020-12-14 20:00:00 18 /min [facility] Body temperature 2020-12-14 18:00:00 36.72 Pinky [facility] Body weight 2020-12-12 06:40:00 60.328 kg [facility] BMI 2020-12-12 06:40:00 22.13 kg/m2 [facility] Heart rate 2020-11-23 02:30:00 125 /min Un[facility] Oxygen saturation in Arterial blood by Pulse oximetry 2020-11-23 02:30:00 100 /min [facility] Systolic blood pressure 2020-11-23 00:15:00 108 mm[Hg] [facility] Diastolic blood pressure 2020-11-23 00:15:00 68 mm[Hg] [facility] Respiratory rate 2020-11-22 23:58:00 26 /min [facility] Body weight 2020-11-22 23:58:00 60.51 kg [facility] BMI 2020-11-22 23:58:00 22.20 kg/m2 [facility] Heart rate 2020-10-11 16:10:00 87 /min Un[facility] Oxygen saturation in Arterial blood by Pulse oximetry 2020-10-11 15:15:00 100 /min [facility] Systolic blood pressure 2020-10-11 14:26:00 108 mm[Hg] [facility] Diastolic blood pressure 2020-10-11 14:26:00 62 mm[Hg] [facility] Body temperature 2020-10-11 14:26:00 37.22 Pinky [facility] Respiratory rate 2020-10-11 14:26:00 22 /min [facility] Body weight 2020-10-11 14:26:00 58.968 kg [facility] BMI 2020-10-11 14:26:00 21.63 kg/m2 [facility] Systolic blood pressure 2019-07-03 16:41:00 112 mm[Hg] [facility] Diastolic blood pressure 2019-07-03 16:41:00 74 mm[Hg] [facility] Heart rate 2019-07-03 16:41:00 68 /min Un[facility] Body temperature 2019-07-03 16:41:00 36.72 Ipnky [facility] Respiratory rate 2019-07-03 16:41:00 18 /min [facility] Body height 2019-07-03 16:41:00 165.1 cm [facility] Body weight 2019-07-03 16:41:00 50.531 kg [facility] BMI 2019-07-03 16:41:00 18.54 kg/m2 [facility] Systolic blood pressure 2019-06-19 16:01:00 118 mm[Hg] [facility] Diastolic blood pressure 2019-06-19 16:01:00 78 mm[Hg] [facility] Heart rate 2019-06-19 16:01:00 76 /min Un[facility] Body temperature 2019-06-19 16:01:00 36.83 Pinky [facility] Body height 2019-06-19 16:01:00 165.1 cm [facility] Body weight 2019-06-19 16:01:00 50.576 kg [facility] BMI 2019-06-19 16:01:00 18.55 kg/m2 [facility] Systolic blood pressure 2019-06-16 16:25:00 105 mm[Hg] [facility] Diastolic blood pressure 2019-06-16 16:25:00 62 mm[Hg] [facility] Heart rate 2019-06-16 16:25:00 84 /min [facility] Body temperature 2019-06-16 16:25:00 36.5 Pinky [facility] Respiratory rate 2019-06-16 16:25:00 16 /min [facility] Body height 2019-06-16 16:25:00 165.1 cm [facility] Body weight 2019-06-16 16:25:00 50.122 kg [facility] BMI 2019-06-16 16:25:00 18.39 kg/m2 [facility] Procedures Procedure Date / Time Performed Performing Clinician Source [facility] ONLY - VAGINAL PATHOGENS BY NUCLEIC ACID TESTING 2024-09-26 20:00:00 Kimberly Matthews [facility] HIV 1/2 AG-AB WITH REFLEX 2024-09-26 20:00:00 Jamin Matthews [facility] SYPHILIS IGG/IGM 2024-09-26 20:00:00 Kimberly Matthews [facility] GALV ONLY - VAGINAL PATHOGENS BY NUCLEIC ACID TESTING 2024-01-07 16:09:00 Kimberly Matthews [facility] PATIENT FINANCIAL POLICY 2023-07-13 20:16:18 Doctor Unassigned, [facility] ASSIGNMENT OF BENEFITS 2023-04-16 16:46:35 Docto r Unassigned, [facility] CONSENT/REFUSAL FOR DIAGNOSIS AND TREATMENT 2023-01-26 23:07:53 Doctor Unassigned, [facility] [facility] STERILIZATION CONSENT FORM 2023-01-14 05:01:00 Doctor Unassigned, [facility] [facility] POCT TEST 2023-01-14 00:00:00 Adum, Jaqueline Dunn [facility] CBC WITH DIFF 2022-11-26 08:31:00 [facility] 2022-11-25 12:59:00 Jennifer Burns [facility] URINALYSIS 2022-11-25 03:23:00 [facility] 2022-11-25 03:23:00 Adum, Jaqueline Smith [facility] GC & CHLAMYDIA AMPLIFIED ASSAY 2022-11-25 03:23:00 Adum, Jaqueline Dunn [facility] ADC ONLY - FERN TEST 2022-11-25 03:23:00 Adum, Jaqueline Dunn [facility] CBC WITH DIFF 2022-11-25 01:57:00 Adum, Jaqueline Smith [facility] HEPATITIS B SURFACE ANTIGEN 2022-11-25 01:57:00 Adum, Jaqueline Dunn [facility] HB ABO GROUPING 2022-11-25 01:57:00 [facility]um[facility] 2022-11-25 01:57:00 Adum, Jaqueline Dunn [facility] RHO (D) IMMUNE GLOBULIN 2022-11-25 01:57:00 Jamin Burns [facility] GROUP B STREPTOCOCCUS BY PCR 2022-11-25 01:57:00 Adum, Jaqueline Dunn [facility] ADC OR NIKHIL ONLY - RPR 2022-11-25 01:57:00 Adum, Alina Dunn [facility] HIV 1/2 AG-AB WITH REFLEX 2022-11-25 01:57:00 Adum, Alina Dunn [facility] EMERGENCY DEPARTMENT DOCUMENTS 2022-11-24 05:01:00 Doctor Unassigned, [facility] [facility] HOSPITAL ADMISSION 2022-11-24 05:01:00 Doctor Un assigned, [employer] [facility] [facility] POCT URINALYSIS W/O SPECIFIC GRAVITY 2022-11-19 00:00:00 Adum, Jaqueline Dunn [facility] CLC OR LCC ONLY - WET PREP 2022-11-18 05:03:00 Adum, Jaqueline Dunn [facility] CONSENT/REFUSAL FOR DIAGNOSIS AND TREATMENT 2022-11-18 03:26:05 Doctor Unassigned, [employer] [facility] ASSIGNMENT OF BENEFITS 2022-10-31 08:43:32 Docto r Unassigned, [employer] [facility] CONSENT/REFUSAL FOR DIAGNOSIS AND TREATMENT 2022-10-31 08:42:28 Doctor Unassigned, [employer] [facility] TDAP VACCINE, >11 YRS, IM 2022-10-27 17:08:26 Ca Chris Arcelia [facility] POCT URINALYSIS W/O SPECIFIC GRAVITY 2022-10-27 00:00:00 Salud Sibleysol [facility] 2 HR GLUCOSE TOLERANCE TEST 2022-10-15 16:15:00 Adum, Jaqueline Dunn [facility] 1 HR GLUCOSE TOLERANCE TEST 2022-10-15 15:22:00 Adum, Jaqueline Dunn [facility] GLUCOSE FASTING 2022-10-15 14:11:00 Adum, Jaqueline Pond [facility] POCT URINALYSIS W/O SPECIFIC GRAVITY 2022-10-13 00:00:00 Adum, Jaqueline Dunn [facility] ADC CLC OR LCC ONLY - WET PREP 2022-10-07 13:51:00 Adum, Jaqueline Dunn [facility] CONSENT/REFUSAL FOR DIAGNOSIS AND TREATMENT 2022-10-07 12:45:01 Doctor Unassigned, [employer] [facility] POCT SARS-COV-2 ANTIGEN (BINAX NOW) 2022-10-05 14:20:00 Viktoria Guzman [facility] POCT MOLECULAR STREP 2022-10-05 14:17:00 Unknown, Attkaro aparicio [facility] POCT MOLECULAR FLU 2022-10-05 14:13:00 Unknown, Attend [facility] POCT URINALYSIS W/O SPECIFIC GRAVITY 2022-09-22 00:00:00 Adum, Jaqueline Dunn [facility] URINALYSIS 2022-09-02 11:40:00 Salud Sibleysol [facility] ADC CLC OR LCC ONLY - WET PREP 2022-09-02 11:40:00 Salud Sibleysol [facility] NOTICE OF PRIVACY PRACTICES 2022-09-02 10:44:52 Doctor Unassigned, [employer] [facility] CONSENT/REFUSAL FOR DIAGNOSIS AND TREATMENT 2022-09-02 10:40:42 Doctor Unassigned, [employer] [facility] POCT URINALYSIS W/O SPECIFIC GRAVITY 2022-08-21 00:00:00 Adum, Jaqueline Dunn [facility] POCT URINALYSIS W/O SPECIFIC GRAVITY 2022-08-13 20:15:00 Adum, Jaqueline Dunn [facility] POCT URINALYSIS W/O SPECIFIC GRAVITY 2022-07-24 00:00:00 Adum, Jaqueline Dunn [facility] MEDICATION CORRESPONDENCE 2022-07-10 06:01:00 Do ctor Unassigned, [employer] [facility] [facility] MEDICATION CORRESPONDENCE 2022-07-07 06:01:00 Do ctor Unassigned, [employer] [facility] MEDICATION CORRESPONDENCE 2022-07-03 06:01:00 Do ctor Unassigned, [employer] [facility] PATIENT FINANCIAL POLICY 2022-06-26 16:58:56 Doctor Unassigned, [employer] [facility] POCT URINALYSIS W/O SPECIFIC GRAVITY 2022-06-26 00:00:00 Adum, Jaqueline Dunn [facility] POCT SARS-COV-2 ANTIGEN (BINAX NOW) 2022-06-20 23:57:00 Paras Arevalo [facility] POCT MOLECULAR FLU 2022-06-20 23:56:00 Unknown, Attend ing [facility] POCT MOLECULAR STREP 2022-06-15 18:01:00 Unknown, Attkaro aparicio [facility] OB TRANSVAGINAL 2022-05-29 18:20:02 Adum, Jaqueline Dunn [facility] POCT URINALYSIS W/O SPECIFIC GRAVITY 2022-05-29 17:39:00 Adum, Jaqueline Dunn [facility] ULTRASOUND 2022-05-29 06:01:00 Doc tor Unassigned, [employer] [facility] OB TRANSVAGINAL 2022-05-16 00:19:46 Adum, Jaqueline Dunn [facility] URINE DRUG (IMMUNOASSAY) - COMPREHENSIVE DRUG SCREEN 2022-05-15 21:28:00 Adum, Jaqueline Dunn [facility] PAP SMEAR-LIQUID BASED-CP 2022-05-15 21:27:00 Adum, Alina theodorehari Mona [facility] POCT TEST 2022-05-15 20:51:00 Adum, Jaqueline Dunn [facility] POCT URINALYSIS W/O SPECIFIC GRAVITY 2022-05-15 20:48:00 Adum, Jaqueline Dunn [facility] ULTR[facility] 2022-05-15 06:01:00 Jomar hunt Unassigned, [employer] [facility] POCT TEST 2022-04-13 22:47:00 Kelly Mon [facility] LIPASE 2022-04-13 22:44:00 [facility] HEPATIC FUNCTION PANEL (77321) (ALB,T.PRO,BILI T,BU/BC,ALT,AST,ALK PHOS) 2022-04-13 22:44:00 [facility] BASIC METABOLIC PANEL (NA, K, CL, CO2, GLUCOSE, BUN, CREATININE, CA) 2022-04-13 22:44:00 Kelly Mon [facility] CBC WITH DIFF 2022-04-13 22:44:00 Kelly Mon [facility] URINALYSIS 2022-04-13 22:44:00 [facility] RAPID INFLUENZA A/B 2022-04-13 22:44:00 [facility] COVID-19 (ID NOW RAPID TESTING) 2022-04-13 22:44:00 [facility] CONSENT/REFUSAL FOR DIAGNOSIS AND TREATMENT 2022-04-13 22:10:15 Doctor Unassigned, [employer] [facility] POCT MOLECULAR FLU 2022-03-02 15:17:00 Unknown, Attend ing [facility] ASSIGNMENT OF BENEFITS 2022-03-02 14:44:52 Bahman r Unassigned, [employer] [facility] XR CERVICAL SPINE 3 VW 2021-09-13 03:51:06 Poppy Min ala [facility] XR CLAVICLE COMP LEFT 2021-09-13 03:51:06 Debora Min [facility] XR HAND 3+ VW LEFT 2021-09-13 03:51:06 Mary Jo Min [facility] XR HUMERUS 2 VW LEFT 2021-09-13 03:51:06 Mart Min [facility] XR SHOULDER 2+ VW LEFT 2021-09-13 03:51:06 Poppy Min ala [facility] XR WRIST 3+ VW LEFT 2021-09-13 03:51:06 Mary Jo Min [facility] NOTICE OF PRIVACY PRACTICES 2021-09-13 01:28:59 Doctor Unassigned, [employer] [facility] CONSENT/REFUSAL FOR DIAGNOSIS AND TREATMENT 2021-09-13 01:28:29 Doctor Unassigned, [employer] [facility] POCT TEST 2021-08-26 22:46:00 Belinda Wallace [facility] HB ABO GROUPING 2021-08-26 22:25:00 Jean Marie Wallace [facility] COMP. METABOLIC PANEL (58209) 2021-08-26 22:21:00 Jean Marie Wallace [facility] CBC WITH DIFF 2021-08-26 22:21:00 Jean Marie Wallace [facility] URINALYSIS 2021-08-26 22:21:00 Jean Marie Wallace [facility] CONSENT/REFUSAL FOR DIAGNOSIS AND TREATMENT 2021-08-26 21:52:32 Doctor Unassigned, [employer] [facility] NOTICE OF PRIVACY PRACTICES 2021-08-26 21:52:08 Doctor Unassigned, [employer] [facility] CBC WITH DIFF 2020-12-27 08:58:00 [facility]eline [facility] CENTRAL NEURAXIAL BLOCK 2020-12-26 17:59:05 Crescencio Sutton [facility] GC & CHLAMYDIA AMPLIFIED ASSAY 2020-12-26 14:06:00 AdJaqueline whatley [facility] COVID-19 (ID NOW RAPID TESTING) 2020-12-26 14:01:00 AdJaqueline whatley [facility] LAB ONLY COVID INTERPRETATION 2020-12-26 14:01:00 Adum, Jaqueline Dunn [facility] CBC WITH DIFF 2020-12-26 13:51:00 Adum, Jaqueline Dunn [facility] HEPATITIS B SURFACE ANTIGEN 2020-12-26 13:51:00 Adum, Jaqueline Dunn [facility] ADC OR NIKHIL ONLY - RPR 2020-12-26 13:51:00 Adum, Alina Dunn [facility] HB ABO GROUPING 2020-12-26 13:50:00 Adum, Jaqueline Dunn [facility] EXTERNAL PROVIDER RECORDS 2020-12-23 05:01:00 Do ctor Unassigned, [employer] [facility] L&D VISIT (NON-DELIVERED) 2020-12-17 05:01:00 Do ctor Unassigned, [employer] [facility] CBC WITH DIFF 2020-12-12 07:18:00 Saba Reynolds [facility] URINALYSIS 2020-12-12 07:18:00 Saba Reyonlds [facility] RUBELLA SCREEN IGG 2020-12-12 07:18:00 Kalli Munoz [facility] VZV ANTIBODY SCREEN 2020-12-12 07:18:00 Kalli Munoz [facility] HEPATITIS B SURFACE ANTIGEN 2020-12-12 07:18:00 Saba Reynolds [facility] URINE CULTURE 2020-12-12 07:18:00 Saba Reynolds [facility] GC & CHLAMYDIA AMPLIFIED ASSAY 2020-12-12 07:18:00 Saba Reynolds [facility] GROUP B STREPTOCOCCUS BY PCR 2020-12-12 07:18:00 Saba Reynolds [facility] HIV 1/2 AG-AB WITH REFLEX 2020-12-12 07:18:00 Saba Reynolds [facility] GALV ONLY - SYPHILIS IGG/IGM 2020-12-12 07:18:00 Saba Reynolds [facility] HB ABO GROUPING 2020-12-12 07:16:00 [facility] (ID NOW RAPID TESTING) 2020-12-12 06:00:00 Penelope Bush [facility] LAB ONLY COVID INTERPRETATION 2020-12-12 06:00:00 Penelope Bush [facility] URINALYSIS 2020-11-23 01:49:00 Cecilio Shepherd [facility] ADC CLC OR LCC ONLY - WET PREP 2020-11-23 01:49:00 Cecilio Shepherd [facility] US PELVIS > 14 WEEKS 2020-10-11 17:14:03 Martha Gregg [facility] NOTICE OF PRIVACY PRACTICES 2020-10-11 14:13:42 Doctor Unassigned, [employer] [facility] CONSENT/REFUSAL FOR DIAGNOSIS AND TREATMENT 2020-10-11 14:13:28 Doctor Unassigned, [employer] [facility] MEDICAL RELEASE/CLEARANCE FORMS 2020-10-11 05:01:00 Doctor Unassigned, [employer] [facility] <14 WEEKS US LIMITED 2019-06-19 17:44:50 Maldonado Husain [facility] POCT TEST 2019-06-19 16:32:00 Sa karen Duenas [facility] PAP SMEAR-LIQUID BASED-CP 2019-06-16 20:14:00 Anjum Tejeda [facility] GLUCOSE 1 HOUR POST PRANDIAL 2019-06-16 17:32:00 Anjum Tejeda [facility] TOTAL BETA HCG ASSAY 2019-06-16 17:32:00 Raleigh Tejeda [facility] CBC WITH DIFFERENTIAL 2019-06-16 17:32:00 Danial Tejeda [facility] HEPATITIS B SURFACE ANTIGEN 2019-06-16 17:32:00 Anjum Tejeda [facility] HB ABO GROUPING 2019-06-16 17:32:00 Anjum Tejeda [facility] HIV 1/2 AG-AB WITH REFLEX 2019-06-16 17:32:00 Anjum Tejeda [facility] POCT TEST 2019-06-16 16:17:00 Riki Tejeda [facility] POCT URINALYSIS W/O SPECIFIC GRAVITY 2019-06-16 16:17:00 Anjum Tejeda [facility] ASSIGNMENT OF BENEFITS 2019-06-16 15:47:52 Docto r Unassigned, [employer] [facility] AUTHORIZATION FOR RELEASE OF PHI 2018-12-01 05:01:00 Doctor Unassigned, [employer] [facility] Encounters Start Date/Time End Date/Time Encounter Type Admission Type Attending [facility] Emergency Department Facility Care Department Encounter ID Source 2022-11-18 01:38:42 Outpatient X [facility] [id number] [facility] 2022-10-07 13:20:18 Outpatient X [facility] [id number] [facility] 2022-08-13 21:38:03 Outpatient X [facility] [id number] [facility] 2021-03-03 18:12:26 Emergency [facility] [id number] [facility] 2021-03-03 14:56:41 Outpatient P [facility] [id number] [facility] 2021-03-03 10:28:21 Emergency [facility] [id number] [facility] 2021-03-03 00:42:14 [facility]patient [facility] [id number] [facility] 2021-03-03 00:36:44 Emergency [facility] [id number] [facility] 2025-01-29 15:15:00 2025-01-29 15:15:00 Outpatient R KIMBERLY MATTHEWS [facility] [id number] [facility] 2024-12-14 10:00:00 2024-12-14 10:00:00 [id number] 2024-09-27 00:00:00 2024-10-28 18:17:51 Patient Secure Msg Kimberly Matthews [facility] SIZE [facility]PER [facility] MATERNAL & CHILD [facility] [id number] [id number] 107 [id number] [facility] 2024-09-28 00:00:00 2024-09-28 09:54:43 Letter (Out) Kimberly Matthews [facility] SIZE [facility] & CHILD [facility] [id number] [id number] [id number] 107 [id number] [facility] 2024-09-28 08:45:00 2024-09-28 09:54:05 Office Visit R Kimberly Matthews [facility] SIZE [facility] & CHILD [facility] [id number] [id number] [id number] 107 [id number] [facility] 2024-09-27 00:00:00 2024-09-27 16:22:54 Patient Secure Msg Kimberly Matthews [facility] SIZE [facility]PER [facility] CHILD [facility] [id number] [id number] [id number] 107 [id number] [facility] 2024-09-27 00:00:00 2024-09-27 15:22:39 Patient Secure Msg Kimberly Matthews [facility] SIZE [facility] CHILD [facility] [id number] [id number] [id number] 107 [id number] [facility] 2024-09-27 00:00:00 2024-09-27 14:49:49 Telephone Kimberly Matthews [facility] SIZE [facility] & CHILD [facility] [id number] [id number] [id number] 107 [id number] [facility] 2024-09-26 14:00:00 2024-09-26 15:09:15 Office Visit R Kimberly Matthews [facility] SIZE [facility] & CHILD [facility] [id number] [id number] [id number] 107 [id number] [facility] 2024-09-20 10:30:00 2024-09-20 10:39:46 Nurse Visit R Visit, Deonnachp Nurse Crista Gerardo A Visit, DeonnaRmchp Nurse [facility] SIZE [facility] & CHILD [facility] [id number] [id number] [id number] 107 [id number] [facility] 2024-06-28 10:30:00 2024-06-28 10:45:00 Nurse Visit Visit, Javier Nurse Kimberly Matthews Visit, Deonnaramiro Nurse [facility] SIZE [facility]PER [facility] [id number] [id number] [id number] [id number] 107 [id number] [facility] 2024-06-28 10:30:00 2024-06-28 10:30:00 Outpatient R [facility] [id number] [facility] 2024-06-28 10:30:00 2024-06-28 10:30:00 Outpatient R KIMBERLY MATTHEWS [facility] [id number] [facility] 2024-04-03 10:30:00 2024-04-03 11:31:03 Outpatient R KIMBERLY MATTHEWS [facility] [id number] [facility] 2024-04-03 10:30:00 2024-04-03 11:31:03 Office Visit Kimberly Matthews [facility] SIZE [facility]PER [facility] CHILD [facility] [id number] [id number] [id number] [id number] 107 [id number] [facility] 2024-01-10 00:00:00 2024-02-12 18:21:06 Patient Secure Msg Kimberly Matthews [facility] SIZE [employer] & CHILD [facility] [id number] [id number] [id number] 107 [id number] [facility] 2024-01-18 10:30:00 2024-01-18 10:30:00 Outpatient R OBEYJULIO STACY [facility] [id number] [facility] 2024-01-10 00:00:00 2024-01-10 10:56:57 Case Management Byron Kimberly [facility] SIZE [employer] & CHILD [facility] 1..840.114 [id number] [id number] [id number] 107 [id number] [facility] 2024-01-07 10:15:00 2024-01-07 11:03:10 Outpatient R KIMBERLY MATTHEWS [facility] [id number] [facility] 2024-01-07 10:15:00 2024-01-07 11:03:10 Office Visit Byron Kimberly [facility] SIZE [employer] & CHILD [facility] ..840.114 [id number] [id number] [id number] 107 [id number] [facility] 2024-01-05 10:00:00 2024-01-05 10:00:00 Outpatient R [facility] [id number] [facility] 2023-10-05 10:30:00 2023-10-05 10:41:06 Outpatient R JAQUELINE FAUST [facility] [id number] [facility] 2023-10-05 10:30:00 2023-10-05 10:41:06 Nurse Visit Nurse, [facility] Jaqueline Faust [facility] ..840.114 350.1.13.10 4.2.7.2.686 [id number] 134 [id number] [facility] 2023-07-13 15:00:00 2023-07-13 16:10:58 Outpatient R JAQUELINE FAUST [facility] [id number] [facility] 2023-07-13 15:00:00 2023-07-13 16:10:58 Office Visit Jaqueline Faust [facility] 1..840.114 350.1.13.10 4.2.7.2.686 [id number] 134 [id number] [facility] 2023-07-13 10:00:00 2023-07-13 10:00:00 Outpatient R [facility] [id number] [facility] 2023-07-13 00:00:00 2023-07-13 00:00:00 Orders Only Doctor Unassigned, [employer] [facility] 1.840.114 350.1.13.10 4.2.7.2.686 [id number] [id number] [facility] 2023-07-09 10:30:00 2023-07-09 10:30:00 Outpatient R [facility] [id number] [facility] 2023-04-16 10:30:00 2023-04-16 11:11:56 Outpatient R CORA CECILIO [facility] [id number] [facility] 2023-04-16 10:30:00 2023-04-16 11:11:56 Nurse Visit Nurse, [facility] Cecilio Shepherd [facility] 1..840.114 350.1.13.10 4.2.7.2.686 [id number] 134 [id number] [facility] 2023-04-16 00:00:00 2023-04-16 00:00:00 Orders Only Doctor Unassigned, [employer] [facility] 1.840.114 350.1.13.10 4.2.7.2.686 [id number] [id number] [facility] 2023-01-26 18:24:00 2023-01-26 19:42:00 Emergency X Domo [facility] ERT [id number] [facility] 2023-01-26 18:24:00 2023-01-26 19:42:00 Emergency Domo Leigh [facility] 1.0.114 350.1.13.10 4.2.7.2.686 [id number] 084 [id number] [facility] 2023-01-14 16:00:00 2023-01-14 16:28:35 Outpatient R JAQUELINE FAUST [facility] [id number] [facility] 2023-01-14 16:00:00 2023-01-14 16:28:35 [facility]ine [facility] 1..114 350.1.13.10 4.2.7.2.686 [id number] [facility] 2023-01-14 00:00:00 2023-01-14 00:00:00 Orders Only Doctor Unassigned, [employer] [facility] 1..114 350.1.13.10 4.2.7.2.686 [id number] 009 [id number] [facility] 2022-11-24 20:14:00 2022-11-27 16:12:00 Inpatient P HUYEN [facility] [id number] [facility] 2022-11-24 20:14:00 2022-11-27 16:12:00 Hospital Encounter Jaqueline Faust [facility] ([facility]) 1..114 350.1.13.10 4.2.7.2.686 [id number] [facility] 2022-11-25 03:00:00 2022-11-25 09:59:00 Anesthesia Event Will Durant [facility] ([facility]) 1..114 350.1.13.10 4.2.7.2.686 [id number] [facility] 2022-11-25 04:33:24 2022-11-25 04:33:24 Anesthesia Event Xochilt Alvarez [facility] 1.2840.114 350.1.13.10 4.2.7.2.686 [id number] [id number] [facility] 2022-11-19 13:00:00 2022-11-19 13:29:04 Outpatient R ADUM, [facility] [id number] [facility] 2022-11-19 13:00:00 2022-11-19 13:29:04 Routine Visit Adum, Jaqueline [facility] PROFESSIO [facility] 1.2.840.114 350.1.13.10 4.2.7.2.686 [id number] 134 [id number] [facility] 2022-11-17 22:31:00 2022-11-18 01:17:00 Outpatient X ADUM, [facility] [id number] [facility] 2022-11-17 22:31:00 2022-11-18 01:17:00 Emergency Adum, Jaqueline [facility] 1.2840.114 350.1.13.10 4.2.7.2.686 [id number] 083 [id number] [facility] 2022-11-02 09:45:00 2022-11-02 10:15:00 [employer] Manager Visit Ultrasound, Kaelyn Noonan [facility] SIZE ST[facility] 1.840.114 350.1.13.10 4.2.7.2.686 [id number] [facility] 2022-11-02 09:45:00 2022-11-02 09:45:00 Outpatient P KAELYN CRUZ SANGEETA [facility] [id number] [facility] 2022-10-31 03:50:00 2022-10-31 06:08:00 Outpatient X CECILIO SHEPHERD [facility] [id number] [facility] 2022-10-31 03:50:00 2022-10-31 06:08:00 Emergency Shepherd, Cecilio Pedersen [facility] 1.2.840.114 350.1.13.10 4.2.7.2.686 [id number] 083 [id number] [facility] 2022-10-31 00:00:00 2022-10-31 00:00:00 Orders Only Doctor Unassigned, [employer] [facility] 1.2.840.114 350.1.13.10 4.2.7.2.686 [id number] [id number] [facility] 2022-10-27 11:30:00 2022-10-27 12:11:11 Outpatient R ARCELIA LOPEZ ARCELIA [facility] [id number] [facility] 2022-10-27 11:30:00 2022-10-27 12:11:11 Routine Visit Salud Lopezsol [facility] 1.2.840.114 350.1.13.10 4.2.7.2.686 [id number] 134 [id number] [facility] 2022-10-27 00:00:00 2022-10-27 00:00:00 Letter (Out) Robinson walsh Arcelia [facility] 1.2.840.114 350.1.13.10 4.2.7.2.686 [id number] 134 [id number] [facility] 2022-10-15 09:00:00 2022-10-15 09:15:00 [employer] Manager Visit 2, Adc Lab AdumJaqueline [facility] 1.2.840.114 350.1.13.10 4.2.7.2.686 [id number] [facility] 2022-10-15 09:00:00 2022-10-15 09:00:00 Outpatient R [facility]UM[facility] [id number] [facility] 2022-10-13 10:45:00 2022-10-13 11:44:13 Outpatient R [facility]UM[facility] [id number] [facility] 2022-10-13 10:45:00 2022-10-13 11:44:13 Routine Visit Adum, Jaqueline Dunn [facility] 1.2.840.114 350.1.13.10 4.2.7.2.686 [id number] 134 [id number] [facility] 2022-10-13 09:15:00 2022-10-13 09:30:00 [employer] Manager Visit 2, Adc Lab Adum, Jaqueline Dunn [facility] 1.2.840.114 350.1.13.10 4.2.7.2.686 [id number] [facility] 2022-10-13 00:00:00 2022-10-13 00:00:00 Case Management Adum, Jaqueline Dunn [facility] 1.2.840.114 350.1.13.10 4.2.7.2.686 [id number] 134 [id number] [facility] 2022-10-13 00:00:00 2022-10-13 00:00:00 Patient Secure Msg Adum, Jaqueline Dunn [facility] 1.2.840.114 350.1.13.10 4.2.7.2.686 [id number] 134 [id number] [facility] 2022-10-07 07:53:00 2022-10-07 13:10:00 Outpatient X ADPHYLICIA, JAQUELINE [facility] [id number] [facility] 2022-10-07 07:53:00 2022-10-07 13:10:00 Emergency Adum, Jaqueline Dunn [facility] 1.2.840.114 350.1.13.10 4.2.7.2.686 [id number] [id number] [facility] 2022-10-05 09:00:00 2022-10-05 09:31:33 Outpatient R VIKTORIA GUZMAN [facility] [id number] [facility] 2022-10-05 09:00:00 2022-10-05 09:31:33 Urgent Care Viktoria Guzman Unknown, Attending [facility] 1.84.114 350.1.13.10 4.2.7.2.686 [id number] [facility] 2022-10-05 00:00:00 2022-10-05 00:00:00 Letter (Out) Viktoria Guzman [facility] 1.840.114 350.1.13.10 4.2.7.2.686 [id number] [facility] 2022-09-22 10:45:00 2022-09-22 11:42:16 Outpatient R STEFANO JAQUELINE [facility] [id number] [facility] 2022-09-22 10:45:00 2022-09-22 11:42:16 Routine Visit AdAmada whatleyian [facility] 1.840.114 350.1.13.10 4.2.7.2.686 [id number] 134 [id number] [facility] 2022-09-18 13:00:00 2022-09-18 13:00:00 Outpatient R STEFANO JAQUELINE [facility] [id number] [facility] 2022-09-18 00:00:00 2022-09-18 00:00:00 Telephone Adphylicia Jaqueline Dunn [facility] 1.840.114 350.1.13.10 4.2.7.2.686 [id number] 134 [id number] [facility] 2022-09-14 00:00:00 2022-09-14 00:00:00 Nurse Triage Ivy Kc [facility] 1.20.114 350.1.13.10 4.2.7.2.686 [id number] [facility] 2022-09-05 09:53:00 2022-09-05 11:53:00 Outpatient X FITCH-MARIE S, ARCELIA FITCH-MARIE S, ARCELIA [facility] [id number] [facility] 2022-09-05 09:53:00 2022-09-05 11:53:00 Emergency Opal Loyola Fitch-Marie s, Arcelia [facility] 1..114 350.1.13.10 4.2.7.2.686 [id number] [facility] 2022-09-02 05:54:00 2022-09-02 10:40:00 Outpatient P FITCH-MARIE S, ARCELIA FITCH-MARIE S, ARCELIA [facility] [id number] [facility] 2022-09-02 05:54:00 2022-09-02 10:40:00 Hospital Encounter Fitch-Marie s, Arcelia [facility] 1..114 350.1.13.10 4.2.7.2.686 [id number] [id number] [facility] 2022-09-01 10:00:00 2022-09-01 10:30:00 [employer] Manager Visit Ultrasound, Adc Mfm Channing Rivera Sangeeta [facility] PROFESSIO [facility] 1.2.114 350.1.13.10 4.2.7.2.686 [id number] 134 [id number] [facility] 2022-09-01 10:00:00 2022-09-01 10:20:53 Outpatient KAELYN WHITMORE SANGEETA [facility] [id number] [facility] 2022-08-25 09:30:00 2022-08-25 09:30:00 Outpatient P CHANNING RIVERA [facility] [id number] [facility] 2022-08-24 15:00:00 2022-08-24 15:30:00 [employer] Manager Visit Ultrasound, Damion-Channing Oswald Hassan M Clifford Tato [facility] SIZE STAMPER [facility] MATERNAL & CHILD [facility] 1.840.114 350.1.13.10 4.2.7.2.686 [id number] [facility] 2022-08-24 15:00:00 2022-08-24 15:06:55 Outpatient P TATO RM [facility] [id number] [facility] 2022-08-21 11:15:00 2022-08-21 11:30:00 Routine Visit AdJaqueline whatley [facility] 1.840.114 350.1.13.10 4.2.7.2.686 [id number] 134 [id number] [facility] 2022-08-21 11:15:00 2022-08-21 11:15:00 Outpatient R ADPHYLICIA, JAQUELINE [facility] [id number] [facility] 2022-08-19 00:00:00 2022-08-19 00:00:00 Patient Secure Msg Doctor Unassigned, [employer] [facility] .840.114 350.1.13.10 4.2.7.2.686 [id number] [facility] 2022-08-18 10:30:00 2022-08-18 11:30:00 [employer] Manager Visit Ultrasound, [facility] Oswald Hassan M [facility] 1.2.840.114 350.1.13.10 4.2.7.2.686 [id number] 134 [id number] [facility] 2022-08-18 10:30:00 2022-08-18 10:30:00 Outpatient Gladis PENELOPE BUSH [facility] [id number] [facility] 2022-08-17 00:00:00 2022-08-17 00:00:00 Telephone Sherri Reagan [facility] 1.2840.114 350.1.13.10 4.2.7.2.686 [id number] 134 [id number] [facility] 2022-08-14 14:00:00 2022-08-14 14:00:00 Outpatient CECILIO LAGOS [facility] [id number] [facility] 2022-08-14 00:00:00 2022-08-14 00:00:00 Case Management AdJaqueline whatley [facility] 1.2840.114 350.1.13.10 4.2.7.2.686 [id number] 134 [id number] [facility] 2022-08-14 00:00:00 2022-08-14 00:00:00 Patient Secure Msg Doctor Unassigned, [employer] [facility] 1.2840.114 350.1.13.10 4.2.7.2.686 [id number] 134 [id number] [facility] 2022-08-13 20:14:00 2022-08-13 21:35:00 Outpatient X ADJAQUELINE WHATLEY [facility] [id number] [facility] 2022-08-13 20:14:00 2022-08-13 21:35:00 Emergency AdJaqueline whatley [facility] 1.2840.114 350.1.13.10 4.2.7.2.686 [id number] [id number] [facility] 2022-08-13 15:15:00 2022-08-13 15:40:14 Outpatient R ADUM, JAQUELINE [facility] [id number] [facility] 2022-08-13 15:15:00 2022-08-13 15:40:14 Routine Visit Adum, Jaqueline Dunn [facility] 1.2.840.114 350.1.13.10 4.2.7.2.686 [id number] 134 [id number] [facility] 2022-08-13 00:00:00 2022-08-13 00:00:00 Telephone Adum, Jaqueline Dunn [facility] 1.2.840.114 350.1.13.10 4.2.7.2.686 [id number] 134 [id number] [facility] 2022-08-12 00:00:00 2022-08-12 00:00:00 Telephone Adum, Jaqueline Dunn [facility] 1.2.840.114 350.1.13.10 4.2.7.2.686 [id number] 134 [id number] [facility] 2022-08-11 11:30:00 2022-08-11 13:04:20 Outpatient P SRINATH LIZ [facility] [id number] [facility] 2022-08-11 11:30:00 2022-08-11 12:00:00 [employer] Manager Visit Ultrasound, [facility] Srinath Liz Misuvneetu [facility] 1.2.840.114 350.1.13.10 4.2.7.2.686 [id number] 134 [id number] [facility] 2022-08-07 14:00:00 2022-08-07 14:00:00 Outpatient R ADUM, JAQUELINE [facility] [id number] [facility] 2022-08-07 14:00:00 2022-08-07 14:00:00 Nurse Visit Nurse, [facility] Adum, Jaqueline L [facility] 1.2.840.114 350.1.13.10 4.2.7.2.686 [id number] 134 [id number] [facility] 2022-08-07 00:00:00 2022-08-07 00:00:00 Nurse Triage Shailesh Hernandez, [facility] 1.2.840.114 350.1.13.10 4.2.7.2.686 [id number] [id number] [facility] 2022-08-06 00:00:00 2022-08-06 00:00:00 Telephone Adum, Jaqueline Dunn [facility] 1.2.840.114 350.1.13.10 4.2.7.2.686 [id number] 134 [id number] [facility] 2022-08-04 10:30:00 2022-08-04 11:08:41 Outpatient P CHANNING RIVERA [facility] [id number] [facility] 2022-08-04 10:30:00 2022-08-04 11:00:00 [employer] Manager Visit Ultrasound, [facility] Edmar walsh Hernandez [facility] 1.2.840.114 350.1.13.10 4.2.7.2.686 [id number] 134 [id number] [facility] 2022-07-31 14:30:00 2022-07-31 14:45:00 Nurse Visit Nurse, [facility] Adum, Jaqueline Dunn [facility] 1.2.840.114 350.1.13.10 4.2.7.2.686 [id number] 134 [id number] [facility] 2022-07-31 14:30:00 2022-07-31 14:30:00 Outpatient R ADPHYLICIA [facility] [id number] [facility] 2022-07-24 14:15:00 2022-07-24 14:30:00 [employer] Manager Visit 2, Adc Lab Adum, Jaqueline [facility] 1.2.840.114 350.1.13.10 4.2.7.2.686 [id number] [facility] 2022-07-24 13:00:00 2022-07-24 13:54:19 Outpatient R ADUM, JAQUELINE [facility] [id number] [facility] 2022-07-24 13:00:00 2022-07-24 13:54:19 Routine Visit Adum, Jaqueline [facility] 1.2.840.114 350.1.13.10 4.2.7.2.686 [id number] 134 [id number] [facility] 2022-07-23 00:00:00 2022-07-23 00:00:00 Case Management Adum, [facility] 1.2.840.114 350.1.13.10 4.2.7.2.686 [id number] 134 [id number] [facility] 2022-07-22 00:00:00 2022-07-22 00:00:00 Case Management Adum, [facility] 1.2.840.114 350.1.13.10 4.2.7.2.686 [id number] 134 [id number] [facility] 2022-07-21 00:00:00 2022-07-21 00:00:00 Telephone Adum, Jaqu[facility] 1.2.840.114 350.1.13.10 4.2.7.2.686 [id number] 134 [id number] [facility] 2022-07-10 00:00:00 2022-07-10 00:00:00 Telephone Adum, Jaqueline Dunn [facility] 1.2840.114 350.1.13.10 4.2.7.2.686 [id number] 134 [id number] [facility] 2022-07-10 00:00:00 2022-07-10 00:00:00 Orders Only Doctor Unassigned, [employer] [facility] 1.2.840.114 350.1.13.10 4.2.7.2.686 [id number] [facility] 2022-07-07 00:00:00 2022-07-07 00:00:00 Orders Only Doctor Unassigned, [employer] [facility] 1.2840.114 350.1.13.10 4.2.7.2.686 [id number] [facility] 2022-07-06 00:00:00 2022-07-06 00:00:00 Telephone AdumJaqueline [facility] 1.2840.114 350.1.13.10 4.2.7.2.686 [id number] 134 [id number] [facility] 2022-07-03 00:00:00 2022-07-03 00:00:00 Case Management AdJaqueline whatley [facility] 1.2840.114 350.1.13.10 4.2.7.2.686 [id number] [facility] 2022-07-03 00:00:00 2022-07-03 00:00:00 Orders Only Doctor Unassigned, [employer] [facility] 1.2840.114 350.1.13.10 4.2.7.2.686 [id number] [facility] 2022-07-03 00:00:00 2022-07-03 00:00:00 Patient Secure Msg AdumJaqueline [facility] 1.2840.114 350.1.13.10 4.2.7.2.686 [id number] 134 [id number] [facility] 2022-06-26 11:15:00 2022-06-26 12:02:26 Outpatient R JAQUELINE FAUST [facility] [id number] [facility] 2022-06-26 11:15:00 2022-06-26 11:30:00 Routine Visit Adphylicia, Jaqueline Dunn [facility] 1.114 350.1.13.10 4.2.7.2.686 [id number] 134 [id number] [facility] 2022-06-26 00:00:00 2022-06-26 00:00:00 Orders Only Doctor Unassigned, [employer] [facility] 1.114 350.1.13.10 4.2.7.2.686 [id number] [facility] 2022-06-20 18:00:00 2022-06-20 18:08:48 Outpatient R PARAS AREVALO [facility] [id number] [facility] 2022-06-20 18:00:00 2022-06-20 18:08:48 Urgent Care Paras Arevalo Unknown, Attending [facility] 1.84114 350.1.13.10 4.2.7.2.686 [id number] 370 [id number] [facility] 2022-06-20 00:00:00 2022-06-20 00:00:00 Letter (Out) Provider, Ang [facility] 1.114 350.1.13.10 4.2.7.2.686 [id number] 370 [id number] [facility] 2022-06-18 00:00:00 2022-06-18 00:00:00 Telephone Adum, Jaqueline Dunn [facility] 1.2.840.114 350.1.13.10 4.2.7.2.686 [id number] 134 [id number] [facility] 2022-06-18 00:00:00 2022-06-18 00:00:00 Patient Secure Msg Doctor Unassigned, [employer] [facility] 1.2840.114 350.1.13.10 4.2.7.2.686 [id number] [facility] 2022-06-15 12:00:00 2022-06-15 12:20:00 Urgent Care Viktoria Guzman Unknown, Attending [facility] 1.2.114 350.1.13.10 4.2.7.2.686 [id number] [facility] 2022-06-15 12:00:00 2022-06-15 12:00:00 Outpatient R VIKTORIA GUZMAN [facility] [id number] [facility] 2022-06-15 00:00:00 2022-06-15 00:00:00 Letter (Out) Viktoria Guzman [facility] BUILD[facility] 1..114 350.1.13.10 4.2.7.2.686 [id number] [facility] 2022-06-02 00:00:00 2022-06-02 00:00:00 Patient Secure Msg Doctor Unassigned, [employer] [facility] 1.20.114 350.1.13.10 4.2.7.2.686 [id number] [facility] 2022-05-29 14:00:00 2022-05-29 14:15:00 [employer] Manager Visit 2, Adc Lab AdumJaqueline [facility] 1.2840.114 350.1.13.10 4.2.7.2.686 [id number] [facility] 2022-05-29 14:00:00 2022-05-29 14:00:00 Outpatient R ADUM, JAQUELINE [facility] [id number] [facility] 2022-05-29 11:15:00 2022-05-29 12:15:19 Routine Visit Adum, Jaqueline Dunn [facility] 1.2.840.114 350.1.13.10 4.2.7.2.686 [id number] [facility] 2022-05-29 00:00:00 2022-05-29 00:00:00 Orders Only Doctor Unassigned, [employer] [facility] 1.2.840.114 350.1.13.10 4.2.7.2.686 [id number] [facility] 2022-05-22 00:00:00 2022-05-22 00:00:00 Telephone Adum, Jaqueline Dunn [facility] 1.2.840.114 350.1.13.10 4.2.7.2.686 [id number] [facility] 2022-05-15 14:15:00 2022-05-15 15:28:24 Outpatient R ADUM, JAQUELINE [facility] [id number] [facility] 2022-05-15 14:15:00 2022-05-15 15:28:24 Initial Visit Adum, Jaqueline Dunn [facility] 1.2.840.114 350.1.13.10 4.2.7.2.686 [id number] [facility] 2022-05-15 00:00:00 2022-05-15 00:00:00 Orders Only Doctor Unassigned, [employer] [facility] 1.2.840.114 350.1.13.10 4.2.7.2.686 [id number] [facility] 2022-04-13 16:15:00 2022-04-13 18:25:00 Emergency X KELLY MON [facility] ERT [id number] [facility] 2022-04-13 16:15:00 2022-04-13 18:25:00 Emergency Kelly Mon [facility] 1.2840.114 350.1.13.10 4.2.7.2.686 [id number] [facility] 2022-03-02 09:40:00 2022-03-02 11:19:14 Outpatient R CONNIE BRUNSON [facility] [id number] [facility] 2022-03-02 09:40:00 2022-03-02 11:19:14 Urgent Care Connie Brunson Unknown, Attending [facility] MED[facility]ILD[facility] 1.284.114 350.1.13.10 4.2.7.2.686 [id number] [facility] 2022-03-02 00:00:00 2022-03-02 00:00:00 Orders Only Doctor Unassigned, [employer] [facility] 1.284.114 350.1.13.10 4.2.7.2.686 [id number] [facility] 2022-03-02 00:00:00 2022-03-02 00:00:00 Letter (Out) Connie Brunson [facility] 1.284.114 350.1.13.10 4.2.7.2.686 [id number] [facility] [facility] [facility] 20:37:00 2021-09-12 23:59:00 Emergency X MARY JO MIN [facility] ERT [id number] [facility] 2021-09-12 20:37:00 2021-09-12 23:59:00 Emergency Mary Jo Min G [facility] 1.2840.114 350.1.13.10 4.2.7.2.686 [id number] [facility] 2021-08-26 17:03:00 2021-08-26 18:40:00 Emergency X JEAN MARIE WALLACE [facility] ERT [id number] [facility] 2021-08-26 17:03:00 2021-08-26 18:40:00 Emergency Jean Marie Wallace [facility] 1.840.114 350.1.13.10 4.2.7.2.686 [id number] [facility] 2021-08-26 00:00:00 2021-08-26 00:00:00 Orders Only Doctor Unassigned, [employer] [facility] 1.0.114 350.1.13.10 4.2.7.2.686 [id number] [facility] 2021-04-21 15:00:00 2021-04-21 15:00:00 Outpatient R FROYLAN ABDUL [facility] [id number] [facility] 2021-04-19 09:40:00 2021-04-19 10:00:00 Urgent Care Sergio Cantrell, [facility] 1.114 350.1.13.10 4.2.7.2.686 [id number] [facility] 2021-04-19 09:40:00 2021-04-19 09:40:00 Outpatient ZANA CALHOUN [facility] [id number] [facility] 2021-03-12 00:00:00 2021-03-12 00:00:00 Telephone Froylan Abdul [facility] MATERNAL & CHILD [facility] 1..114 350.1.13.10 4.2.7.2.686 [id number] [facility] 2020-12-30 00:00:00 2020-12-30 00:00:00 Patient Secure Msg Doctor Unassigned, [employer] [facility] 1.2.840.114 350.1.13.10 4.2.7.2.686 [id number] [facility] 2020-12-26 06:41:00 2020-12-28 14:08:00 Hospital Encounter Jaqueline Faust [facility] 1.2.840.114 350.1.13.10 4.2.7.2.686 [id number] [facility] 2020-12-27 20:02:24 2020-12-27 20:02:24 Anesthesia Event Ulysses Avelar [facility] 1.2.840.114 350.1.13.10 4.2.7.2.686 [id number] [facility] 2020-12-26 09:55:00 2020-12-26 16:46:00 Anesthesia Event Crescencio Greene Jairo [facility] 1.2.840.114 350.1.13.10 4.2.7.2.686 [id number] 083 [id number] [facility] 2020-12-23 00:00:00 2020-12-23 00:00:00 Orders Only Doctor Unassigned, [employer] [facility] 1.2.840.114 350.1.13.10 4.2.7.2.686 [id number] [id number] [facility] 2020-12-17 17:47:00 2020-12-18 08:15:00 Hospital Encounter Martha Gregg [facility] 1.2.840.114 350.1.13.10 4.2.7.2.686 [id number] [facility] 2020-12-17 17:44:00 2020-12-17 17:44:00 Outpatient X [facility] [id number] [facility] 2020-12-17 00:00:00 2020-12-17 00:00:00 Orders Only Doctor Unassigned, [employer] [facility] 1.2.840.114 350.1.13.10 4.2.7.2.686 [id number] [id number] [facility] 2020-12-11 23:05:00 2020-12-14 16:55:00 Hospital Encounter Penelope Bush, [facility] 1.2.840.114 350.1.13.10 4.2.7.2.686 [id number] [id number] [facility] 2020-11-25 00:00:00 2020-11-25 00:00:00 Case Management Cecilio Shepherd [facility] Professio [facility] 1.2.840.114 350.1.13.10 4.2.7.2.686 [id number] [facility] 2020-11-22 19:00:00 2020-11-22 22:25:00 Emergency Cecilio Shepherd [facility] 1.2.840.114 350.1.13.10 4.2.7.2.686 [id number] 083 [id number] [facility] 2020-10-15 00:00:00 2020-10-15 00:00:00 Patient Secure Msg Doctor Unassigned, [employer] [facility] 1.2.840.114 350.1.13.10 4.2.7.2.686 [id number] [id number] [facility] 2020-10-11 09:27:00 2020-10-11 13:10:00 Emergency Charles Greggn [facility] 1.2.840.114 350.1.13.10 4.2.7.2.686 [id number] [id number] [facility] 2020-10-11 00:00:00 2020-10-11 00:00:00 Orders Only Doctor Unassigned, [employer] [facility] 1.2840.114 350.1.13.10 4.2.7.2.686 [id number] [id number] [facility] 2019-07-04 00:00:00 2019-07-04 00:00:00 Telephone Anjum Tejeda [facility] SIZE [facility] MATERNAL & CHILD [facility] 1.2.840.114 350.1.13.10 4.2.7.2.686 [id number] 2019-07-04 00:00:00 2019-07-04 00:00:00 Telephone Anjum Tejeda [facility] SIZE [employer] & CHILD [facility] 1.2840.114 350.1.13.10 4.2.7.2.686 [id number] [facility] 2019-07-03 10:34:17 2019-07-03 11:28:57 Routine Visit Trimester, [facility] Res-1st Shonna Funes [facility] 1..114 350.1.13.10 4.2.7.2.686 [id number] [facility] 2019-07-03 10:15:00 2019-07-03 10:15:00 Outpatient R [facility] [id number] [facility] 2019-06-30 14:00:00 2019-06-30 14:00:00 Outpatient R ANJUM TEJEDA [facility] [id number] [facility] 2019-06-21 00:00:00 2019-06-21 00:00:00 Telephone Maldonado Silva [facility] 1..114 350.1.13.10 4.2.7.2.686 [id number] [facility] 2019-06-20 00:00:00 2019-06-20 00:00:00 Patient Secure Msg Doctor Unassigned, [employer] [facility] [employer] MATERNAL & CHILD [facility] 1.2.840.114 350.1.13.10 4.2.7.2.686 [id number] 2019-06-20 00:00:00 2019-06-20 00:00:00 Patient Secure Msg Doctor Unassigned, [employer] [facility] SIZE [employer] & CHILD [facility] 1.2.840.114 350.1.13.10 4.2.7.2.686 [id number] [facility] 2019-06-19 09:53:30 2019-06-19 11:29:04 Routine Visit Trimester, [facility] Res-1st Shonna Funes [facility] 1.2840.114 350.1.13.10 4.2.7.2.686 [id number] [facility] 2019-06-19 09:30:00 2019-06-19 11:29:04 Outpatient R SHONNA FUNES [facility] [id number] [facility] 2019-06-19 00:00:00 2019-06-19 00:00:00 Telephone Anjum Tejeda [facility] SIZE [employer] & CHILD [facility] 1.2840.114 350.1.13.10 4.2.7.2.686 [id number] [facility] 2019-06-16 10:14:38 2019-06-16 11:20:42 Initial Visit Anjum Tejeda [facility] [employer] [facility] & CHILD [facility] 1.2.840.114 350.1.13.10 4.2.7.2.686 [id number] [facility] 2019-06-16 10:00:00 2019-06-16 11:20:42 Outpatient R ANJUM TEJEDA [facility] [id number] [facility] 2019-06-16 00:00:00 2019-06-16 00:00:00 Orders Only Doctor Unassigned, [employer] [facility] 1.2.840.114 350.1.13.10 4.2.7.2.686 [id number] [id number] [facility] 2019-06-15 00:00:00 2019-06-15 00:00:00 Nurse Triage [facility] 1.2.840.114 350.1.13.10 4.2.7.2.686 [id number] [facility] 2019-06-15 00:00:00 2019-06-15 00:00:00 Nurse Triage [facility] 1.2.840.114 350.1.13.10 4.2.7.2.686 [id number] [facility] 2018-12-05 00:00:00 2018-12-05 00:00:00 Telephone Anjum Tejeda [facility] 1.2.840.114 350.1.13.10 4.2.7.2.686 [id number] [facility] 2018-12-01 00:00:00 2018-12-01 00:00:00 Orders Only Doctor Unassigned, [employer] [facility] 1.2.840.114 350.1.13.10 4.2.7.2.686 [id number] [id number] [facility] 2018-11-11 00:00:00 2018-11-11 00:00:00 Outpatient JAMARCUS CHAMORRO MICHAEL [facility] [id number] [facility] Results Test Description Test Time Test Comments Results Result Co mments Source [facility] WITH [id number] 05:45:30* Test Item Value Reference Range Interpretation Comme nts HIV Semi-quantitative (test code = 07736-1) 0.11 Negative BEATRIZ (test code = BEATRIZ) Non-reactive for HIV-1 antigen and HIV-1/HIV-2 antibodies. ?No laboratory evidence of HIV infection. ?Repeat in 2-4 weeks if acute HIV infection is suspected. [facility] CenterPOCT [id number] 21:23:00* Test Item Value Reference Range Interpretation Comme nts POCT PREG (test code = 1605) Negative On board controls acceptable with C Line (test code = 3574) Yes POCT PREG LOT # (test code = 3575) POCT PREG TEST DATE ( test code = 3576) [facility] CenterRHO (D) IMMUNE [id number] 15:25:31* Test Item Value Reference Range Interpretation Comme nts RHIG CANDIDATE? (test code = 5188) No- see comment Patient is not a candidate for RhIg- Patient is Rh Positive.Performed at [facility] Laboratory Services - [facility] Blood [address] [place] [id number] Free: [phone] No. [id number] [facility] CenterVENOUS CORD [id number] 13:14:16* Test Item Value Reference Range Interpretation Comme nts VENOUS BASE EXCESS, CORD (test code = 3042887024) -0.2 mEq/L VENOUS PH, CORD (test code = 5032737032) 7.39 7.25-7.45 VENOUS PC02, CORD (test code = 1289213259) 42 See_Comment [Automated messa ge] The system which generated this result transmitted reference range: 27 - 49 mmHg. The reference range was not used to interpret this result as normal/abnormal. VENOUS PO2, CORD (test code = 4669131569) 28 See_Comment [Automated me ssage] The system which generated this result transmitted reference range: 17 - 41 mmHg. The reference range was not used to interpret this result as normal/abnormal. VENOUS BICARBONATE, CORD (test code = 8820214395) 25 See_Comment [Automated messa ge] The system which generated this result transmitted reference range: 12 - 29 mEq/L. The reference range was not used to interpret this result as normal/abnormal. [facility] CenterADC OR NIKHIL ONLY - [id number] 09:18:00* Test Item Value Reference Range Interpretation Comme nts RPR (Qualitative) (test code = 42151-9) Nonreactive Nonreactive Lab Interpretation (test cod e = 61513-0) Normal [facility] CenterHEPATITIS B SURFACE [id number] 08:18:42 * Test Item Value Reference Range Interpretation Comme nts HBsAg Semi-Quantitative (les t code = 5195-3) 0.30 Negative [facility] CenterHIV 1/2 AG-AB WITH [id number] 03:22:27* Test Item Value Reference Range Interpretation Comme nts HIV Semi-quantitative (test code = 68568-2) 0.16 Negative BEATRIZ (test code = BEATRIZ) Non-reactive for HIV-1 antigen and HIV-1/HIV-2 antibodies. ?No laboratory evidence of HIV infection. ?Repeat in 2-4 weeks if acute HIV infection is suspected. [facility] WITH [id number] 02:57:05* Test Item Value Reference Range Interpretation Comme nts WBC (test code = 6690-2) 6.74 See_Comment [Automated messa ge] The system which generated this result transmitted reference range: 4.30 - 11.10 10*3/?L. The reference range was not used to interpret this result as normal/abnormal. RBC (test code = 789-8) 3.89 See_Comment L [Automated dentalDoctorsa ge] The system which generated this result transmitted reference range: 3.93 - 5.25 10*6/?L. The reference range was not used to interpret this result as normal/abnormal. HGB (test code = 718-7) 10.3 g/dL 11.6-15.0 L HCT (test code = 4544-3) 32.5 % 35.7-45.2 L MCV (test code = 787-2) 83.5 fL 80.6-95.5 MCH (test code = 785-6) 26.5 pg 25.9-32.8 MCHC (test code = 786-4) 31.7 g/dL 31.6-35.1 RDW-SD (test code = 64934-4) 42.6 fL 39.0-49.9 RDW-CV (test code = 788-0) 14.0 % 12.0-15.5 PLT (test code = 777-3) 120 See_Comment L [Automated dentalDoctorsa ge] The system which generated this result transmitted reference range: 166 - 358 10*3/?L. The reference range was not used to interpret this result as normal/abnormal. MPV (test code = 99105-6) 11.7 fL 9.5-12.9 IPF % (test code = 2853206243) 7.1 % 1.3-7.7 Platelet count measured by fluorescence method. NRBC/100 WBC (test code = 0930802202) 0.0 See_Comment [Automated [employer] ssage] The system which generated this result transmitted reference range: 0.0 - 10.0 /100 WBCs. The reference range was not used to interpret this result as normal/abnormal. NRBC x10^3 (test code = 8548179755) See_Comment [Automated dentalDoctorsa ge] The system which generated this result transmitted reference range: 10*3/?L. The reference range was not used to interpret this result as normal/abnormal. GRAN MAT (NEUT) % (test code = 770-8) 60.8 % IMM GRAN % (test code = 3807213094) 1.50 % LYMPH % (test code = 736-9) 26.9 % MONO % (test code = 5905-5) 10.1 % EOS % (test code = 713-8) 0.1 % BASO % (test code = 706-2) 0.6 % GRAN MAT x10^3(ANC) (test code = 8913567748) 4.10 10*3/uL 1.88-7.09 IMM GRAN x10^3 (test code = 0576212562) 0.10 10*3/uL 0.00-0.06 H LYMPH x10^3 (test code = 731-0) 1.81 10*3/uL 1.32-3.29 MONO x10^3 (test code = 742-7) 0.68 10*3/uL 0.33-0.92 EOS x10^3 (test code = 711-2) 0.03-0.39 L BASO x10^3 (test code = 704-7) 0.04 10*3/uL 0.01-0.07 Lab Interpretation (test code = 77524-2) Abnormal [facility] CenterType and Screen - ONCE [id number] 02:27:00* Test Item Value Reference Range Interpretation Comme nts ABO & RH (test code = 20) B Positive IAT (test code = 1185) Negative [facility]CIFIC [id number] 18:07:00* Test Item Value Reference Range Interpretation Comme nts POCT PH U (test code = 3254) n/a 5-8 POCT U LEUK EST (test code = 3263) n/a Negative - Negative POCT U NIT (test code = 3262) n/a Negative - Negati ve POCT U PROT (test code = 3259) Negative Negative - Negat kaushik POCT U GLU (test code = 3256) Negative Negative - Negati ve POCT U KETONE (test code = 3258) n/a Negative - Neg ative POCT U BLD (test code = 3257) n/a Negative - Negati ve [facility]/O SPECIFIC [id number] 16:49:00* Test Item Value Reference Range Interpretation Comme nts POCT PH U (test code = 3254) n/a 5-8 POCT U LEUK EST (test code = 3263) n/a Negative - Negative POCT U NIT (test code = 3262) n/a Negative - Negati ve POCT U PROT (test code = 3259) negative Negative - Negat kaushik POCT U GLU (test code = 3256) normal Negative - Negati ve POCT U KETONE (test code = 3258) n/a Negative - Neg ative POCT U BLD (test code = 3257) n/a Negative - Negati ve [facility] CenterPOCT [facility] W/O SPECIFIC [id number] 16:14:00* Test Item Value Reference Range Interpretation Comme nts POCT PH U (test code = 3254) n/a 5-8 POCT U LEUK EST (test code = 3263) n/a Negative - N egative POCT U NIT (test code = 3262) n/a Negative - Negati ve POCT U PROT (test code = 3259) Trace Negative - Negat kaushik POCT U GLU (test code = 3256) 250 Negative - Negati ve POCT U KETONE (test code = 3258) n/a Negative - Neg ative POCT U BLD (test code = 3257) n/a Negative - Negati ve [facility] MOLECULAR [id number] 14:25:06* Test Item Value Reference Range Interpretation Comme nts POCT Molecular FluA (test co de = 21438-4) Negative Negative POCT Molecular FluB (test co de = 44209-8) Negative Negative Lab Interpretation (test cod e = 20258-1) Normal [facility] MOLECULAR [id number] 14:25:06* Test Item Value Reference Range Interpretation Comme nts POCT Molecular FluA (test co de = 59664-4) Negative Negative POCT Molecular FluB (test co de = 28581-1) Negative Negative Lab Interpretation (test cod e = 19773-3) Normal [facility] MOLECULAR [id number] 14:22:28* Test Item Value Reference Range Interpretation Comme nts POCT Molecular Strep (test c ode = 89909-2) Positive Negative A Lab Interpretation (test cod e = 24777-2) Abnormal [facility] MOLECULAR [id number] 14:22:28* Test Item Value Reference Range Interpretation Comme nts POCT Molecular Strep (test c ode = 17135-1) Positive Negative A Lab Interpretation (test cod e = 64509-3) Abnormal [facility] SARS-COV-2 ANTIGEN (BINAX NOW)2022-10-05 14:22:00* Test Item Value Reference Range Interpretation Comme nts POCT SARS-COV-2 ANTIGEN (test code = 85303-1) Not Detected Not Detected On board controls acceptable with C Line (test code = 3574) Yes BEATRIZ (test code = BEATRIZ) accurate development and interpretation of all internal controlsKaren Mittal RN ?10/05/2022 ?9:20 AM [facility] URINALYSIS W/O SPECIFIC [id number] 17:59:00* Test Item Value Reference Range Interpretation Comme nts POCT PH U (test code = 3254) n/a 5-8 POCT U LEUK EST (test code = 3263) n/a Negative - Negative POCT U NIT (test code = 3262) n/a Negative - Negati ve POCT U PROT (test code = 3259) negative Negative - Negat kaushik POCT U GLU (test code = 3256) negative Negative - Negati ve POCT U KETONE (test code = 3258) n/a Negative - Neg ative POCT U BLD (test code = 3257) n/a Negative - Negati ve [facility] URINALYSIS W/O SPECIFIC [id number] 16:39:00* Test Item Value Reference Range Interpretation Comme nts POCT PH U (test code = 3254) n/a 5-8 POCT U LEUK EST (test code = 3263) n/a Negative - Negative POCT U NIT (test code = 3262) n/a Negative - Negati ve POCT U PROT (test code = 3259) Negative Negative - Negat kaushik POCT U GLU (test code = 3256) Normal Negative - Negati ve POCT U KETONE (test code = 3258) n/a Negative - Neg ative POCT U BLD (test code = 3257) n/a Negative - Negati ve [facility] URINALYSIS W/O SPECIFIC [id number] 20:15:00* Test Item Value Reference Range Interpretation Comme nts POCT PH U (test code = 3254) 6 mg/dl 5-8 POCT U LEUK EST (test code = 3263) 2+ Negative - Negative POCT U NIT (test code = 3262) negative Negative - Negative POCT U PROT (test code = 3259) trace Negative - Negative POCT U GLU (test code = 3256) negative Negative - Negative POCT U KETONE (test code = 3258) negative Negative - Negative POCT U BLD (test code = 3257) 50 Negative - Negative BEATRIZ (test code = BEATRIZ) accurate developme nt and interpretation of all internal controls Lab Interpretation (test code = 64599-8) Abnormal [facility] URINALYSIS W/O SPECIFIC [id number] 18:32:00* Test Item Value Reference Range Interpretation Comme nts POCT PH U (test code = 3254) n/a 5-8 POCT U LEUK EST (test code = 3263) n/a Negative - N egative POCT U NIT (test code = 3262) n/a Negative - Negati ve POCT U PROT (test code = 3259) neg Negative - Negat kaushik POCT U GLU (test code = 3256) neg Negative - Negati ve POCT U KETONE (test code = 3258) n/a Negative - Neg ative POCT U BLD (test code = 3257) n/a Negative - Negati ve [facility] URINALYSIS W/O SPECIFIC [id number] 17:32:00* Test Item Value Reference Range Interpretation Comme nts POCT PH U (test code = 3254) n/a 5-8 POCT U LEUK EST (test code = 3263) n/a Negative - Negative POCT U NIT (test code = 3262) n/a Negative - Negati ve POCT U PROT (test code = 3259) Negative Negative - Negat kaushik POCT U GLU (test code = 3256) Normal Negative - Negati ve POCT U KETONE (test code = 3258) n/a Negative - Neg ative POCT U BLD (test code = 3257) n/a Negative - Negati ve [facility] MOLECULAR [id number] 00:08:28* Test Item Value Reference Range Interpretation Comme nts POCT Molecular FluA (test co de = 77456-8) Negative Negative POCT Molecular FluB (test co de = 82518-6) Negative Negative Lab Interpretation (test cod e = 00417-5) Normal [facility] SARS-COV-2 ANTIGEN (BINAX NOW)2022-06-20 23:57:00* Test Item Value Reference Range Interpretation Comme nts POCT SARS-COV-2 ANTIGEN (les t code = 03782-9) Positive Not Detected A On board controls acceptable with C Line (test code = 3574) Yes Lab Interpretation (test cod e = 08313-6) Abnormal [facility] MOLECULAR [id number] 18:09:32* Test Item Value Reference Range Interpretation Comme nts POCT Molecular Strep (test c ode = 24921-5) Negative Negative Lab Interpretation (test cod e = 84767-5) Normal [facility] URINALYSIS W/O SPECIFIC [id number] 17:40:00* Test Item Value Reference Range Interpretation Comme nts POCT PH U (test code = 3254) n/a 5-8 POCT U LEUK EST (test code = 3263) n/a Negative - Negative POCT U NIT (test code = 3262) n/a Negative - Negati ve POCT U PROT (test code = 3259) negative Negative - Negat kaushik POCT U GLU (test code = 3256) negative Negative - Negati ve POCT U KETONE (test code = 3258) n/a Negative - Neg ative POCT U BLD (test code = 3257) n/a Negative - Negati ve [facility] [id number] 20:51:00* Test Item Value Reference Range Interpretation Comme nts POCT PREG (test code = 1605) Positive On board controls acceptable with C Line (test code = 3574) Yes POCT PREG LOT # (test code = 3575) POCT PREG TEST DATE ( test code = 3576) [facility] URINALYSIS W/O SPECIFIC [id number] 20:49:00* Test Item Value Reference Range Interpretation Comme nts POCT PH U (test code = 3254) N/A 5-8 POCT U LEUK EST (test code = 3263) N/A Negative - Negative POCT U NIT (test code = 3262) N/A Negative - Negati ve POCT U PROT (test code = 3259) Negative Negative - Negat kaushik POCT U GLU (test code = 3256) Negative Negative - Negati ve POCT U KETONE (test code = 3258) N/A Negative - Neg ative POCT U BLD (test code = 3257) N/A Negative - Negati ve [facility] METABOLIC PANEL (NA, K, CL, CO2, GLUCOSE, BUN, CREATININE, CA)2022-04-13 23:25:23* Test Item Value Reference Range Interpretation Comme nts NA (test code = 3278208326) 138 mmol/L 135-145 K (test code = 0806117604) 4.5 mmol/L 3.5-5.0 CL (test code = 4284511797) 103 mmol/L 98-108 CO2 TOTAL (test code = 8768054380) 26 mmol/L 23-31 AGAP (test code = 3319562406) 2-16 BUN (test code = 7715979212) 16 mg/dL 7-23 GLUCOSE (test code = 0465603504) 101 mg/dL 70-110 CREATININE (test code = 3891234397) 0.60 mg/dL 0.50-1.04 CALCIUM (test code = 2188214640) 8.6 mg/dL 8.6-10.6 eGFR (test code = 5273042516) mL/min/1.73m2 BEATRIZ (test code = BEATRIZ) Association of Glomerular Filtration Rate (GFR) and Staging of Kidney Disease* + + +- +| GFR (mL/min/1.73 m2) ?| With Kidney Damage ?| ?Without Kidney Damage+ ------+ ----+ ------+| ?>90 ?| ?Stage one ?| ? Normal ?+ -+ + -+| ?60-89 ?| ?Stage two ?| ? Decreased GFR ? + + +- +| ?30-59 ?| ?Stage three ?| ? Stage three ? + + +- +| ?15-29 ?| ?Stage four ? | ? Stage four ?+ -+ + -+| ?<15 (or dialysis) ? ?| ?Stage five ? | ? Stage five ?+ -+ + -+ *Each stage assumes the associated GFR level has been in effect for at least three months. ?Stages 1 to 5, with or without kidney disease, indicate chronic kidney disease. Notes: Determination of stages one and two (with eGFR >59mL/min/1.73 m2) requires estimation of kidney damage for at least three months as defined by structural or functional abnormalities of the kidney, manifested by either:Pathological abnormalities or Markers of kidney damage (including abnormalities in the composition of the blood or urine or abnormalities in imaging tests). [facility] ([id number] (ALB,T.PRO,BILI T,BU/BC,ALT,AST,ALK PHOS)2022-04-13 23:25:23* Test Item Value Reference Range Interpretation Comme nts TOTAL BILI (test code = 0456469367) 1.1 mg/dL 0.1-1.1 BILI UNCON (test code = 3158310866) 0.8 mg/dL 0.1-1.1 BILI CONJ (test code = 4545942821) 0.0 mg/dL 0.0-0.3 T PROTEIN (test code = 9118712891) 8.2 g/dL 6.3-8.2 ALBUMIN (test code = 6473019716) 4.6 g/dL 3.5-5.0 ALK PHOS (test code = 0889133687) 76 U/L 34-122 ALTv (test code = 1742-6) 21 U/L 5-35 AST(SGOT) (test code = 1434490500) 36 U/L 13-40 Lab Interpretation (test cod e = 07241-2) Normal [facility]20[facility] 23:25:03* Test Item Value Reference Range Interpretation Comme nts LIPASE (test code = 8565840891) 108 U/L 0-220 Lab Interpretation (test cod e = 61746-9) Normal [facility] CenterCB WITH [id number] 22:59:17* Test Item Value Reference Range Interpretation Comme nts WBC (test code = 6690-2) See_Comment H [Automated message] The system which generated this result transmitted reference range: 4.30 - 11.10 10*3/?L. The reference range was not used to interpret this result as normal/abnormal. RBC (test code = 789-8) See_Comment [Automated message] The system which generated this result transmitted reference range: 3.93 - 5.25 10*6/?L. The reference range was not used to interpret this result as normal/abnormal. HGB (test code = 718-7) 13.7 g/dL 11.6-15.0 HCT (test code = 4544-3) 42.2 % 35.7-45.2 MCV (test code = 787-2) 89.2 fL 80.6-95.5 MCH (test code = 785-6) 29.0 pg 25.9-32.8 MCHC (test code = 786-4) 32.5 g/dL 31.6-35.1 RDW-SD (test code = 94267-8) 38.8 fL 39.0-49.9 L RDW-CV (test code = 788-0) 12.0 % 12.0-15.5 PLT (test code = 777-3) See_Comment [Automated message] The system which generated this result transmitted reference range: 166 - 358 10*3/?L. The reference range was not used to interpret this result as normal/abnormal. MPV (test code = 48276-5) 12.0 fL 9.5-12.9 NRBC/100 WBC (test code = 6106677720) See_Comment [Automated message] The system which generated this result transmitted reference range: 0.0 - 10.0 /100 WBCs. The reference range was not used to interpret this result as normal/abnormal. NRBC x10^3 (test code = 3773821322) See_Comment [Automated message] The system which generated this result transmitted reference range: 10*3/?L. The reference range was not used to interpret this result as normal/abnormal. GRAN MAT (NEUT) % (test code = 770-8) 85.2 % IMM GRAN % (test code = 8360555115) 0.50 % LYMPH % (test code = 736-9) 7.7 % MONO % (test code = 5905-5) 5.7 % EOS % (test code = 713-8) 0.5 % BASO % (test code = 706-2) 0.4 % GRAN MAT x10^3(ANC) (test code = 4112162136) 10.78 10*3/uL 1.88-7.09 H IMM GRAN x10^3 (test code = 7827499276) 0.06 10*3/uL 0.00-0.06 LYMPH x10^3 (test code = 731-0) 0.97 10*3/uL 1.32-3.29 L MONO x10^3 (test code = 742-7) 0.72 10*3/uL 0.33-0.92 EOS x10^3 (test code = 711-2) 0.06 10*3/uL 0.03-0.39 BASO x10^3 (test code = 704-7) 0.05 10*3/uL 0.01-0.07 Lab Interpretation (test code = 02015-3) [facility]normal [facility] CenterPO[facility] [id number] 22:47:00* Test Item Value Reference Range Interpretation Comme nts POCT PREG (test code = 1605) Negative On board controls acceptable with C Line (test code = 3574) Present POCT PREG LOT # (test code = 3575) [id number] POCT PREG TEST DATE ( test code = 3576) 08-01-2023 Lab Interpretation (test cod e = 85196-9) Normal [facility] MOLECULAR [id number] 15:22:43* Test Item Value Reference Range Interpretation Comme nts POCT Molecular FluA (test co de = 29471-3) Positive Negative A Lab Interpretation (test cod e = 11047-1) [facility]normal [facility] CenterType and Screen - ONCE Jmbggcx4583-21-24 23:16:27* Test Item Value Reference Range Interpretation Comme nts ABO & RH (test code = 20) B Positive Performed at [facility] Laboratory [facility] Blood [address] [place], [place] [address]Toll Free: [phone] No. [id number] IAT (test code = 1185) Negative Performed at [facility] Laboratory [facility] Blood [place] [address]Toll Free: [phone] No. [id number] [facility] CenterCOMP. METABOLIC PANEL (14787)2021-08-26 23:11:02* Test Item Value Reference Range Interpretation Comme nts NA (test code = 5593099876) 140 mmol/L 135-145 K (test code = 6051943225) 3.9 mmol/L 3.5-5.0 CL (test code = 8884190898) 103 mmol/L 98-108 CO2 TOTAL (test code = 6872940379) 27 mmol/L 23-31 AGAP (test code = 6629020294) 2-16 BUN (test code = 6877589034) 13 mg/dL 7-23 GLUCOSE (test code = 2250816074) 88 mg/dL 70-110 CREATININE (test code = 9743352368) 0.63 mg/dL 0.50-1.04 TOTAL BILI (test code = 3323214781) 0.6 mg/dL 0.1-1.1 CALCIUM (test code = 9042406598) 8.7 mg/dL 8.6-10.6 T PROTEIN (test code = 8973321284) 7.7 g/dL 6.3-8.2 ALBUMIN (test code = 5715197332) 4.4 g/dL 3.5-5.0 ALK PHOS (test code = 8121416265) 63 U/L 34-122 ALTv (test code = 1742-6) 13 U/L 5-35 AST(SGOT) (test code = 8330501006) 21 U/L 13-40 eGFR (test code = 2431233420) mL/min/1.73m2 BEATRIZ (test code = BEATRIZ) Association of Glomerular Filtration Rate (GFR) and Staging of Kidney Disease* + + +- +| GFR (mL/min/1.73 m2) ?| With Kidney Damage ?| ?Without Kidney Damage+ ------+ ----+ ------+| ?>90 ?| ?Stage one ?| ? Normal ?+ -+ + -+| ?60-89 ?| ?Stage two ?| ? Decreased GFR ? + + +- +| ?30-59 ?| ?Stage three ?| ? Stage three ? + + +- +| ?15-29 ?| ?Stage four ? | ? Stage four ?+ -+ + -+| ?<15 (or dialysis) ? ?| ?Stage five ? | ? Stage five ?+ -+ + -+ *Each stage assumes the associated GFR level has been in effect for at least three months. ?Stages 1 to 5, with or without kidney disease, indicate chronic kidney disease. Notes: Determination of stages one and two (with eGFR >59mL/min/1.73 m2) requires estimation of kidney damage for at least three months as defined by structural or functional abnormalities of the kidney, manifested by either:Pathological abnormalities or Markers of kidney damage (including abnormalities in the composition of the blood or urine or abnormalities in imaging tests). [facility] WITH [id number] 22:46:16* Test Item Value Reference Range Interpretation Comme nts WBC (test code = 6690-2) See_Comment [Automated dentalDoctorsa ge] The system which generated this result transmitted reference range: 4.30 - 11.10 10*3/?L. The reference range was not used to interpret this result as normal/abnormal. RBC (test code = 789-8) See_Comment [Automated dentalDoctorsa ge] The system which generated this result transmitted reference range: 3.93 - 5.25 10*6/?L. The reference range was not used to interpret this result as normal/abnormal. HGB (test code = 718-7) 12.6 g/dL 11.6-15.0 HCT (test code = 4544-3) 38.5 % 35.7-45.2 MCV (test code = 787-2) 87.3 fL 80.6-95.5 MCH (test code = 785-6) 28.6 pg 25.9-32.8 MCHC (test code = 786-4) 32.7 g/dL 31.6-35.1 RDW-SD (test code = 33122-7) 39.8 fL 39.0-49.9 RDW-CV (test code = 788-0) 12.3 % 12.0-15.5 PLT (test code = 777-3) See_Comment [Automated dentalDoctorsa ge] The system which generated this result transmitted reference range: 166 - 358 10*3/?L. The reference range was not used to interpret this result as normal/abnormal. MPV (test code = 05091-2) 12.1 fL 9.5-12.9 NRBC/100 WBC (test code = 3244823428) See_Comment [Automated me ssage] The system which generated this result transmitted reference range: 0.0 - 10.0 /100 WBCs. The reference range was not used to interpret this result as normal/abnormal. NRBC x10^3 (test code = 5261893730) <0.01 See_Comment [Automated me ssage] The system which generated this result transmitted reference range: 10*3/?L. The reference range was not used to interpret this result as normal/abnormal. GRAN MAT (NEUT) % (test code = 770-8) 51.2 % IMM GRAN % (test code = 2177702341) 0.20 % LYMPH % (test code = 736-9) 36.4 % MONO % (test code = 5905-5) 8.1 % EOS % (test code = 713-8) 3.2 % BASO % (test code = 706-2) 0.9 % GRAN MAT x10^3(ANC) (test code = 8925134635) 3.37 10*3/uL 1.88-7.09 IMM GRAN x10^3 (test code = 6604068524) <0.03 0.00-0.06 LYMPH x10^3 (test code = 731-0) 2.39 10*3/uL 1.32-3.29 MONO x10^3 (test code = 742-7) 0.53 10*3/uL 0.33-0.92 EOS x10^3 (test code = 711-2) 0.21 10*3/uL 0.03-0.39 BASO x10^3 (test code = 704-7) 0.06 10*3/uL 0.01-0.07 [facility]PO[facility] [id number] 22:46:00* Test Item Value Reference Range Interpretation Comme nts POCT PREG (test code = 1605) negative On board controls acceptable with C Line (test code = 3574) present POCT PREG LOT # (test code = 3575) [id number] POCT PREG TEST DATE ( test code = 3576) 01/30/2023 Lab Interpretation (test cod e = 17933-4) Normal [facility] CenterGC & CHLAMYDIA AMPLIFIED [id number] 22:15:02* Test Item Value Reference Range Interpretation Comme nts C. trachomatis Nucleic Acid (test code = 33195-2) Negative Negative N. gonorrhoeae Nucleic Acid (test code = 74250-8) Negative Negative BEATRIZ (test code = BEATRIZ) Reliable results a re dependent on adequate specimen collection. ? A [...] gonorrhoeae NAAT. Lab Interpretation (test code = 00522-5) Normal [facility] CenterGC & CHLAMYDIA AMPLIFIED [id number] 22:15:02* Test Item Value Reference Range Interpretation Comme nts C. trachomatis Nucleic Acid (test code = 89392-1) Negative Negative N. gonorrhoeae Nucleic Acid (test code = 56870-4) Negative Negative BEATRIZ (test code = BEATRIZ) Lab Interpretation (test cod e = 18124-9) Normal [facility] CenterLAB ONLY COVID VTRJIRKTEKUVGP0684-91-78 16:33:40COVID DMT InterpretationInterpretation/Recommendations:Molecular NAAT Tests for Active Infection with the SARS-CoV-2 Virus:The patient has currently tested negative for the SARS-CoV-2 virus that causes COVID-19 illness. This most likely indicates that the patient does not have an active infection with the SARS-CoV-2 virus. However, infection is not completely ruled out as the false negative rate for molecular NAAT testing using a nasopharyngeal sample can be up to 30%, mostly dependent on the timing of sample collection in relation to illness onset and any deficiencies in sampling techniques.If the patient has symptoms concerning for COVID-19 illness, a repeat NAAT test (PCR, Rapid ID Now, etc.) should be performed, at which time the SARS-CoV-2 virus – if present – may have reached adetectable viral load (usually peaking by the end [...] which the patient has been exposed. ? Interpretation Result Comments:These interpretation comments are based upon all COVID-19 testing the patient has had at [facility], including molecular NAAT testing (more commonly known as PCR testing and Rapid ID Nowtesting) and antibody testing. It does not take into account any testing that a patient has had outs elvi of the [facility] medical record. [facility] LABORATORY SERVICESCOVID YlujjvoNZBT-LmA-0 Rapid ID NOW (no units) ? ? Date ? Value ? 12/26/2020 ? Not Detected ? ? ? 12/12/2020 ? Not Detected ? [facility] ONLY COVID CWFAMNMIOUSCJE4025-87-99 16:33:40COVID DMT InterpretationInterpretation/Recommendations:Molecular NAAT Tests for Active Infection with the SARS-CoV-2 Virus:The patient has currently tested negative for the SARS-CoV-2 virus that causes COVID-19 illness. This most likely indicates that the patient does not have an active infection with the SARS-CoV-2 virus. However, infection is not completely ruled out as the false negative rate for molecular NAAT testing using a nasopharyngeal sample can be up to 30%, mostly dependent on the timing of sample collection in relation to illness onset and any deficiencies in sampling techniques.If the patient has symptoms concerning for COVID-19 illness, a repeat NAAT test (PCR, Rapid ID Now,etc.) should be performed, at which time the SARS-CoV-2 virus – if present – may have reached adetectable viral load (usually peaking by the end [...] which the patient has been exposed. ? Interpretation Result Comments:These interpretation comments are based upon all COVID-19 testing the patient has had at [facility], including molecular NAAT testing (more commonly known as PCR testing and Rapid ID Nowtesting) and antibody testing. It does not take into account any testing that a patient has had outs elvi of the [facility] medical record. [facility] LABORATORY SERVICESCOVID DtaokdhKQZI-XdD-6 Rapid ID NOW (no units) ? ? Date ? Value ? 12/26/2020 ? Not Detected ? ? ? 12/12/2020 ? Not Detected ? [facility] CBC with Xwscuowncfud7207-74-58 09:51:26* Test Item Value Reference Range Interpretation Comme nts WBC (test code = 6690-2) See_Comment H [Automated messa ge] The system which generated this result transmitted reference range: 4.30 - 11.10 10*3/?L. The reference range was not used to interpret this result as normal/abnormal. RBC (test code = 789-8) See_Comment L [Automated dentalDoctorsa ge] The system which generated this result transmitted reference range: 3.93 - 5.25 10*6/?L. The reference range was not used to interpret this result as normal/abnormal. HGB (test code = 718-7) 9.3 g/dL 11.6-15.0 L HCT (test code = 4544-3) 30.8 % 35.7-45.2 L MCV (test code = 787-2) 79.0 fL 80.6-95.5 L MCH (test code = 785-6) 23.8 pg 25.9-32.8 L MCHC (test code = 786-4) 30.2 g/dL 31.6-35.1 L RDW-SD (test code = 73727-6) 44.8 fL 39.0-49.9 RDW-CV (test code = 788-0) 15.8 % 12.0-15.5 H PLT (test code = 777-3) See_Comment L [Automated dentalDoctorsa ge] The system which generated this result transmitted reference range: 166 - 358 10*3/?L. The reference range was not used to interpret this result as normal/abnormal. MPV (test code = 67125-2) 11.3 fL 9.5-12.9 IPF % (test code = 7703228394) 7.2 % 1.3-7.7 Platelet count measured by fluorescence method. NRBC/100 WBC (test code = 2915473287) See_Comment [Automated Gamify ssage] The system which generated this result transmitted reference range: 0.0 - 10.0 /100 WBCs. The reference range was not used to interpret this result as normal/abnormal. NRBC x10^3 (test code = 8552813530) <0.01 See_Comment [Automated messa ge] The system which generated this result transmitted reference range: 10*3/?L. The reference range was not used to interpret this result as normal/abnormal. GRAN MAT (NEUT) % (test code = 770-8) 76.2 % IMM GRAN % (test code = 2404619186) 0.90 % LYMPH % (test code = 736-9) 14.2 % MONO % (test code = 5905-5) 7.8 % EOS % (test code = 713-8) 0.5 % BASO % (test code = 706-2) 0.4 % GRAN MAT x10^3(ANC) (test code = 4235829849) 11.28 10*3/uL 1.88-7.09 H IMM GRAN x10^3 (test code = 8817222502) 0.14 10*3/uL 0.00-0.06 H LYMPH x10^3 (test code = 731-0) 2.11 10*3/uL 1.32-3.29 MONO x10^3 (test code = 742-7) 1.15 10*3/uL 0.33-0.92 H EOS x10^3 (test code = 711-2) 0.07 10*3/uL 0.03-0.39 BASO x10^3 (test code = 704-7) 0.06 10*3/uL 0.01-0.07 Lab Interpretation (test code = 76184-2) Abnormal [facility] with Tkonnpdbcfxn3515-06-50 09:51:26* Test Item Value Reference Range Interpretation Comme nts WBC (test code = 6690-2) See_Comment H [Automated message] The system which generated this result transmitted reference range: 4.30 - 11.10 10*3/?L. The reference range was not used to interpret this result as normal/abnormal. RBC (test code = 789-8) See_Comment L [Automated message] The system which generated this result transmitted reference range: 3.93 - 5.25 10*6/?L. The reference range was not used to interpret this result as normal/abnormal. HGB (test code = 718-7) 9.3 g/dL 11.6-15.0 L HCT (test code = 4544-3) 30.8 % 35.7-45.2 L MCV (test code = 787-2) 79.0 fL 80.6-95.5 L MCH (test code = 785-6) 23.8 pg 25.9-32.8 L MCHC (test code = 786-4) 30.2 g/dL 31.6-35.1 L RDW-SD (test code = 08380-5) 44.8 fL 39.0-49.9 RDW-CV (test code = 788-0) 15.8 % 12.0-15.5 H PLT (test code = 777-3) See_Comment L [Automated message] The system which generated this result transmitted reference range: 166 - 358 10*3/?L. The reference range was not used to interpret this result as normal/abnormal. MPV (test code = 86231-5) 11.3 fL 9.5-12.9 IPF % (test code = 6651895658) 7.2 % 1.3-7.7 NRBC/100 WBC (test code = 2319473494) See_Comment [Automated message] The system which generated this result transmitted reference range: 0.0 - 10.0 /100 WBCs. The reference range was not used to interpret this result as normal/abnormal. NRBC x10^3 (test code = 1911983180) <0.01 See_Comment [Automated message] The system which generated this result transmitted reference range: 10*3/?L. The reference range was not used to interpret this result as normal/abnormal. GRAN MAT (NEUT) % (test code = 770-8) 76.2 % IMM GRAN % (test code = 9209378365) 0.90 % LYMPH % (test code = 736-9) 14.2 % MONO % (test code = 5905-5) 7.8 % EOS % (test code = 713-8) 0.5 % BASO % (test code = 706-2) 0.4 % GRAN MAT x10^3(ANC) (test code = 1388586310) 11.28 10*3/uL 1.88-7.09 H IMM GRAN x10^3 (test code = 1770175905) 0.14 10*3/uL 0.00-0.06 H LYMPH x10^3 (test code = 731-0) 2.11 10*3/uL 1.32-3.29 MONO x10^3 (test code = 742-7) 1.15 10*3/uL 0.33-0.92 H EOS x10^3 (test code = 711-2) 0.07 10*3/uL 0.03-0.39 BASO x10^3 (test code = 704-7) 0.06 10*3/uL 0.01-0.07 Lab Interpretation (test code = 46912-5) Abnormal [facility] OR [facility] ONLY - [id number] 05:41:56* Test Item Value Reference Range Interpretation Comme nts RPR (Qualitative) (test code = 79413-3) Nonreactive Nonreactive Lab Interpretation (test cod e = 47965-4) Normal [facility] OR [facility] ONLY - [id number] 05:41:56* Test Item Value Reference Range Interpretation Comme nts RPR (Qualitative) (test code = 00780-0) Nonreactive Nonreactive Lab Interpretation (test cod e = 96335-9) Normal [facility] B Surface Mxvaets0169-32-11 20:47:16 * Test Item Value Reference Range Interpretation Comme nts HBsAg Semi-Quantitative (les t code = 5195-3) Negative Negative [facility] B Surface Zolawib1112-62-80 20:47:16 * Test Item Value Reference Range Interpretation Comme nts HBsAg Semi-Quantitative (les t code = 5195-3) Negative Negative [facility] Bbtok3550-43-55 17:59:05 Crescencio Quach MD ? ? 12/26/2020 [...] L4-L5 ?Approach: midline ? ?Technique: catheter and LORsalineEpidural/Spinal [place] and/or Catheter: ?Epidural/Spinal Kit: BBraun ?Needle Type: [...] no complicationsNotes: ? Blood aspirated after catheter rsogxu2zi time so catheter pulled out. Re- did epidural from beginning without any issues. Smooth and atra umatic, (+) Local, (+) STFUniversThe [facility] CampusCentral Neuraxial Bcvmw3582-69-56 17:59:05Crescencio Quach MD ? ? 12/26/2020 ?1:00 [...] L4-L5 ?Approach: midline ? ?Technique: catheter and LORsalineEpidural/Spinal [place] and/or Catheter: ?Epidural/Spinal Kit: BBraun ?Needle Type: [...] no complicationsNotes: ? Blood aspirated after catheter svtfpl0ix time so catheter pulled out. Re- did epidural from beginning without any issues. Smooth and atraumatic, (+) Local, (+) STFUniBaylor Scott & White [facility] – LakewayType and Screen - ONCE MZYY2304-86-37 15:01:16* Test Item Value Reference Range Interpretation Comme nts ABO & RH (test code = 20) B Positive Performed at [facility] Laboratory [facility] - [facility] Blood [address] [place] [address] Free: [phone] No. [id number] IAT (test code = 1185) Negative Performed at [facility] Laboratory [facility] Blood [address] [place], [place] [address]Toll Free: [phone] No. [id number] [facility] CenterType [facility] Screen - ONCE CPNC0721-20-20 15:01:16 * Test Item Value Reference Range Interpretation Comme nts ABO & RH (test code = 20) B Positive IAT (test code = 1185) [facility] RAPID TESTING)2020-12-26 14:42:59* Test Item Value Reference Range Interpretation Comme nts SARS-CoV-2 Rapid ID NOW (test code = 89372-5) Not Detected Not Detected BEATRIZ (test code = BEATRIZ) ID NOW COVID-19 As say is an isothermal nucleic acid amplification test intended for the qualitative detection of nucleic acid from SARS-CoV-2 viral RNA in nasopharyngeal (FOOT MITER OPERATOR) specimens. It is used under Emergency Use [...] patient testing if clinically indicated. Lab Interpretation (test code = 70396-2) Normal [facility]-19 (ID NOW RAPID TESTING)2020-12-26 14:42:59* Test Item Value Reference Range Interpretation Comme nts SARS-CoV-2 Rapid ID NOW (les t code = 15142-6) Not Detected Not Detected BEATRIZ (test code = BEATRIZ) Lab Interpretation (test cod e = 15911-9) Normal [facility] Center[facility] with Lsprrulfnvtu6634-30-46 14:25:16* Test Item Value Reference Range Interpretation Comme nts WBC (test code = 6690-2) See_Comment H [Automated messa ge] The system which generated this result transmitted reference range: 4.30 - 11.10 10*3/?L. The reference range was not used to interpret this result as normal/abnormal. RBC (test code = 789-8) See_Comment L [Automated messa ge] The system which generated this result transmitted reference range: 3.93 - 5.25 10*6/?L. The reference range was not used to interpret this result as normal/abnormal. HGB (test code = 718-7) 8.8 g/dL 11.6-15.0 L HCT (test code = 4544-3) 29.1 % 35.7-45.2 L MCV (test code = 787-2) 79.9 fL 80.6-95.5 L MCH (test code = 785-6) 24.2 pg 25.9-32.8 L MCHC (test code = 786-4) 30.2 g/dL 31.6-35.1 L RDW-SD (test code = 62979-0) 45.0 fL 39.0-49.9 RDW-CV (test code = 788-0) 15.7 % 12.0-15.5 H PLT (test code = 777-3) See_Comment L [Automated dentalDoctorsa ge] The system which generated this result transmitted reference range: 166 - 358 10*3/?L. The reference range was not used to interpret this result as normal/abnormal. MPV (test code = 36241-5) 11.3 fL 9.5-12.9 IPF % (test code = 5890704450) 5.4 % 1.3-7.7 Platelet count measured by fluorescence method. NRBC/100 WBC (test code = 7317531557) See_Comment [Automated [employer] ssage] The system which generated this result transmitted reference range: 0.0 - 10.0 /100 WBCs. The reference range was not used to interpret this result as normal/abnormal. NRBC x10^3 (test code = 7243770895) <0.01 See_Comment [Automated dentalDoctorsa ge] The system which generated this result transmitted reference range: 10*3/?L. The reference range was not used to interpret this result as normal/abnormal. GRAN MAT (NEUT) % (test code = 770-8) 76.7 % IMM GRAN % (test code = 8985865700) 1.30 % LYMPH % (test code = 736-9) 12.7 % MONO % (test code = 5905-5) 8.4 % EOS % (test code = 713-8) 0.5 % BASO % (test code = 706-2) 0.4 % GRAN MAT x10^3(ANC) (test code = 5541502412) 10.10 10*3/uL 1.88-7.09 H IMM GRAN x10^3 (test code = 5028526163) 0.17 10*3/uL 0.00-0.06 H LYMPH x10^3 (test code = 731-0) 1.68 10*3/uL 1.32-3.29 MONO x10^3 (test code = 742-7) 1.11 10*3/uL 0.33-0.92 H EOS x10^3 (test code = 711-2) 0.07 10*3/uL 0.03-0.39 BASO x10^3 (test code = 704-7) 0.05 10*3/uL 0.01-0.07 Lab Interpretation (test code = 14248-2) Abnormal [facility] with Rlcuvmptajvc7863-39-47 14:25:16* Test Item Value Reference Range Interpretation Comme nts WBC (test code = 6690-2) See_Comment H [Automated message] The system which generated this result transmitted reference range: 4.30 - 11.10 10*3/?L. The reference range was not used to interpret this result as normal/abnormal. RBC (test code = 789-8) See_Comment L [Automated message] The system which generated this result transmitted reference range: 3.93 - 5.25 10*6/?L. The reference range was not used to interpret this result as normal/abnormal. HGB (test code = 718-7) 8.8 g/dL 11.6-15.0 L HCT (test code = 4544-3) 29.1 % 35.7-45.2 L MCV (test code = 787-2) 79.9 fL 80.6-95.5 L MCH (test code = 785-6) 24.2 pg 25.9-32.8 L MCHC (test code = 786-4) 30.2 g/dL 31.6-35.1 L RDW-SD (test code = 67242-6) 45.0 fL 39.0-49.9 RDW-CV (test code = 788-0) 15.7 % 12.0-15.5 H PLT (test code = 777-3) See_Comment L [Automated message] The system which generated this result transmitted reference range: 166 - 358 10*3/?L. The reference range was not used to interpret this result as normal/abnormal. MPV (test code = 68831-6) 11.3 fL 9.5-12.9 IPF % (test code = 9001180179) 5.4 % 1.3-7.7 NRBC/100 WBC (test code = 4882778371) See_Comment [Automated message] The system which generated this result transmitted reference range: 0.0 - 10.0 /100 WBCs. The reference range was not used to interpret this result as normal/abnormal. NRBC x10^3 (test code = 2357853598) <0.01 See_Comment [Automated message] The system which generated this result transmitted reference range: 10*3/?L. The reference range was not used to interpret this result as normal/abnormal. GRAN MAT (NEUT) % (test code = 770-8) 76.7 % IMM GRAN % (test code = 5736621329) 1.30 % LYMPH % (test code = 736-9) 12.7 % MONO % (test code = 5905-5) 8.4 % EOS % (test code = 713-8) 0.5 % BASO % (test code = 706-2) 0.4 % GRAN MAT x10^3(ANC) (test code = 5975742992) 10.10 10*3/uL 1.88-7.09 H IMM GRAN x10^3 (test code = 2250129994) 0.17 10*3/uL 0.00-0.06 H LYMPH x10^3 (test code = 731-0) 1.68 10*3/uL 1.32-3.29 MONO x10^3 (test code = 742-7) 1.11 10*3/uL 0.33-0.92 H EOS x10^3 (test code = 711-2) 0.07 10*3/uL 0.03-0.39 BASO x10^3 (test code = 704-7) 0.05 10*3/uL 0.01-0.07 Lab Interpretation (test code = 38043-2) [facility]normal [facility] CenterRubell Screen (BETH) [id number] 17:26:32 * Test Item Value Reference Range Interpretation Comme nts Rubella screen IgG (test code = 0710290102) Positive Negative BEATRIZ (test code = BEATRIZ) Positive - Indicat es the patient was exposed to Rubella through infection or vaccination.Negative - Indicates the patient could be susceptible to Rubella infection.Equivocal - A second specimen should be sent. [facility] CenterVZV ANTIBODY [id number] 17:26:32* Test Item Value Reference Range Interpretation Comme nts VZV IgG antibody (test code = 61858-5) Positive Negative BEATRIZ (test code = BEATRIZ) Positive - Indicat es the patient was exposed to VZV through infection or vaccination.Negative - Indicates the patient could be susceptible to VZV infection.Equivocal - A second specimen should be sent for testing. [facility] CenterGROUP B STREPTOCOCCUS BY [id number] 15:10:33* Test Item Value Reference Range Interpretation Comme [facility] Group B Streptococcus by PCR (test code = 12920-2) Negative Negative Lab Interpretation (test cod e = 58833-7) Normal [facility] CenterURINE [id number] 13:15:59* Test Item Value Reference Range Interpretation Comme nts URINE CULTURE (test code = 630-4) No aerobic growth (< 1000 CFU/mL) [facility] CenterGC & CHLAMYDIA AMPLIFIED [id number] 00:02:36* Test Item Value Reference Range Interpretation Comme nts C. trachomatis Nucleic Acid (test code = 81949-9) Positive Negative A N. gonorrhoeae Nucleic Acid (test code = 90601-3) Negative Negative BEATRIZ (test code = BEATRIZ) Reliable results a re dependent on adequate specimen collection. ? A [...] data available to the clinician. Lab Interpretation (test code = 46042-0) Abnormal [facility] CenterGALV ONLY - SYPHILIS IGG/[id number] 14:51:20* Test Item Value Reference Range Interpretation Comme nts Syphilis IgG/IgM (test code = 97351-2) Non-reactive Non-reactive BEATRIZ (test code = BEATRIZ) Non-reactive - No serologic evidence of T. pallidum infection. Cannot exclude incubating or early syphilis. Submit a second specimen in 2-4 weeks if syphilis is clinically suspected. Equivocal - Further testing to follow. Reactive - Further testing to follow. Lab Interpretation (test code = 59288-5) Normal [facility] CenterLAB ONLY COVID [id number] 13:56:29COVID DMT InterpretationInterpretation/Recommendations:Molecular NAAT Tests for Active Infection with the SARS-CoV-2 Virus:The patient has currently tested negative for the SARS-CoV-2 virus that causes COVID-19 illness. This most likely indicates that the patient does not have an active infection with the SARS-CoV-2 virus. However, infection is not completely ruled out as the false negative rate for molecular NAAT testing using a nasopharyngeal sample can be up to 30%, mostly dependent on the timing of sample collection in relation to illness onset and any deficiencies in sampling techniques.If the patient has symptoms concerning for COVID-19 [...] patient has produced antibodies to the SARS-CoV-2 virus.However, some patients may take longer to develop detectable antibodies, while others infected [id number]-[id number] may never develop antibodies, particularly those who [...] the variants to which the patient has beenexposed. ? Interpretation Result Comments:These interpretation comments are based upon all COVID-19 testing the patient has had at [facility], including molecular NAAT testing (more commonly known as PCR testing and Rapid ID Now testing) and antibody testing. It does not take into account any testing that a patient has had outsideof the [facility] medical record. [facility] LABORATORY SERVICESCOVID [id number]-[id number] Rapid ID NOW (no units)? ? Date ? Value ? 12/12/2020 ? Not Detected ? [facility] LABORATORY SERVICESUnNorth [facility] Medical CenterHIV 1/2 AG-AB WITH [id number] 10:41:20* Test Item Value Reference Range Interpretation Comme nts HIV Semi-quantitative (test code = 47627-8) Negative Negative BEATRIZ (test code = BEATRIZ) Non-reactive for HIV-1 antigen and HIV-1/HIV-2 antibodies. ?No laboratory evidence of HIV infection. ?Repeat in 2-4 weeks if acute HIV infection is suspected. [facility] CenterHEPATITIS B SURFACE [id number] 09:07:07 * Test Item Value Reference Range Interpretation Comme nts HBsAg Semi-Quantitative (les t code = 5195-3) Negative Negative [facility] CenterType and Screen - ONCE [id number] 08:17:13* Test Item Value Reference Range Interpretation Comme nts ABO & RH (test code = 20) B POSITIVE Performed at [facility] Laboratory Services - [facility] Blood [address] [address] Free: [phone] No. [id number] IAT (test code = 1185) Negative Performed at [facility] Laboratory Services - [facility] Blood [address] [place] [address]geh Free: [phone] No. [id number] [facility] CenterURINALYSIS2021-08-12 07:58:55* Test Item Value Reference Range Interpretation Comme nts APPEARANCE (test code = 8829314568) Clear Clear COLOR (test code = 0489965484) Yellow Yellow PH (test code = 7836101933) 4.8-8.0 SP GRAVITY (test code = 6634369236) 1.003-1.030 GLU U QUAL (test code = 9660216663) Normal Normal BLOOD (test code = 9181057424) 1+ Negative A KETONES (test code = 1259842926) 5 mg/dL Negative A PROTEIN (test code = 2887-8) 30 mg/dL Negative A UROBILIN (test code = 6885287995) 4.0 mg/dL Normal A BILIRUBIN (test code = 1362245376) Negative Negative NITRITE (test code = 7429555582) Negative Negative LEUK KEHINDE (test code = 6970213070) 25/uL Negative A RBC/HPF (test code = 9429247193) See_Comment H [Automated messa ge] The system which generated this result transmitted reference range: 0 - 3 HPF. The reference range was not used to interpret this result as normal/abnormal. WBC/HPF (test code = 6210220249) See_Comment H [Automated messa ge] The system which generated this result transmitted reference range: 0 - 5 HPF. The reference range was not used to interpret this result as normal/abnormal. BACTERIA (test code = 2371846207) Negative Negative MUCOUS (test code = 3522943629) Slight Negative LPF A SQ EPITH (test code = 4438208157) <1 See_Comment [Automated messa ge] The system which generated this result transmitted reference range: <=2 HPF. The reference range was not used to interpret this result as normal/abnormal. Lab Interpretation (test code = 09475-6) Abnormal [facility] WITH [id number] 07:33:54* Test Item Value Reference Range Interpretation Comme nts WBC (test code = 6690-2) See_Comment H [Automated message] The system which generated this result transmitted reference range: 4.30 - 11.10 10*3/?L. The reference range was not used to interpret this result as normal/abnormal. RBC (test code = 789-8) See_Comment L [Automated message] The system which generated this result transmitted reference range: 3.93 - 5.25 10*6/?L. The reference range was not used to interpret this result as normal/abnormal. HGB (test code = 718-7) 9.2 g/dL 11.6-15.0 L HCT (test code = 4544-3) 30.5 % 35.7-45.2 L MCV (test code = 787-2) 82.4 fL 80.6-95.5 MCH (test code = 785-6) 24.9 pg 25.9-32.8 L MCHC (test code = 786-4) 30.2 g/dL 31.6-35.1 L RDW-SD (test code = 58199-5) 42.7 fL 39.0-49.9 RDW-CV (test code = 788-0) 14.2 % 12.0-15.5 PLT (test code = 777-3) See_Comment L [Automated message] The system which generated this result transmitted reference range: 166 - 358 10*3/?L. The reference range was not used to interpret this result as normal/abnormal. MPV (test code = 98875-2) 11.2 fL 9.5-12.9 NRBC/100 WBC (test code = 6062841859) See_Comment [Automated message] The system which generated this result transmitted reference range: 0.0 - 10.0 /100 WBCs. The reference range was not used to interpret this result as normal/abnormal. NRBC x10^3 (test code = 5381126116) <0.01 See_Comment [Automated message] The system which generated this result transmitted reference range: 10*3/?L. The reference range was not used to interpret this result as normal/abnormal. GRAN MAT (NEUT) % (test code = 770-8) 90.7 % IMM GRAN % (test code = 0640121243) 1.50 % LYMPH % (test code = 736-9) 6.4 % MONO % (test code = 5905-5) 1.0 % EOS % (test code = 713-8) 0.0 % BASO % (test code = 706-2) 0.4 % GRAN MAT x10^3(ANC) (test code = 6756606721) 11.17 10*3/uL 1.88-7.09 H IMM GRAN x10^3 (test code = 5840767015) 0.18 10*3/uL 0.00-0.06 H LYMPH x10^3 (test code = 731-0) 0.79 10*3/uL 1.32-3.29 L MONO x10^3 (test code = 742-7) 0.12 10*3/uL 0.33-0.92 L EOS x10^3 (test code = 711-2) <0.03 0.03-0.39 L BASO x10^3 (test code = 704-7) 0.05 10*3/uL 0.01-0.07 Lab Interpretation (test code = 17201-5) Abnormal [facility] CenterCOVID-19 (ID NOW RAPID TESTING)2020-12-12 06:21:47* Test Item Value Reference Range Interpretation Comme nts SARS-CoV-2 Rapid ID NOW (test code = 07130-2) Not Detected Not Detected BEATRIZ (test code = BEATRIZ) ID NOW COVID-19 As say is an isothermal nucleic acid amplification test intended for the qualitative detection of nucleic acid from SARS-CoV-2 viral RNA in nasopharyngeal (FOOT MITER OPERATOR) specimens. It is used under Emergency Use [...] patient testing if clinically indicated. Lab Interpretation (test code = 41283-9) Normal [facility] CenterAD CLC OR LCC ONLY - WET [id number] 03:12:01* Test Item Value Reference Range Interpretation Comme nts CLUE CELLS WET PREP (test co de = 0086486234) Few None Seen HPF A WBC WET PREP (test code = 4712437450) Few None Seen HPF A TRICHOMONAS WET PREP (test c ode = 9674574620) None Seen None Seen HPF YEAST WET PREP (test code = 4990868609) None Seen None Seen HPF Lab Interpretation (test cod e = 41110-1) Abnormal [facility] CenterURINALYSIS2021-07-24 02:25:48* Test Item Value Reference Range Interpretation Comme nts APPEARANCE (test code = 3306248092) Hazy Clear A COLOR (test code = 6088554395) Jennifer Yellow A PH (test code = 4612307710) 4.8-8.0 SP GRAVITY (test code = 3043532498) 1.003-1.030 GLU U QUAL (test code = 6813791105) Normal Normal BLOOD (test code = 2764358590) Negative Negative KETONES (test code = 2598612723) 80 mg/dL Negative A PROTEIN (test code = 2887-8) 30 mg/dL Negative A UROBILIN (test code = 4375330637) 4.0 mg/dL Normal A BILIRUBIN (test code = 0400737569) Negative Negative NITRITE (test code = 9583474725) Negative Negative LEUK KEHINDE (test code = 7792153391) 75/uL Negative A RBC/HPF (test code = 3990545440) See_Comment H [Automated messa ge] The system which generated this result transmitted reference range: 0 - 3 HPF. The reference range was not used to interpret this result as normal/abnormal. WBC/HPF (test code = 5551182522) See_Comment H [Automated messa ge] The system which generated this result transmitted reference range: 0 - 5 HPF. The reference range was not used to interpret this result as normal/abnormal. BACTERIA (test code = 6415231892) Many Negative A MUCOUS (test code = 3684175098) Marked Negative LPF A SQ EPITH (test code = 1928072479) HPF HYAL CAST (test code = 6436994078) See_Comment [Automated messa ge] The system which generated this result transmitted reference range: <=2 LPF. The reference range was not used to interpret this result as normal/abnormal. Lab Interpretation (test code = 66803-7) Abnormal [facility] CenterUS PELVIS > 14 [id number] 17:53:22IMPRESSIONS: Single intrauterine with estimated gestational age of 26 weeksand 0 days No or maternal complications are identified. RL 4728 ORDERING PHYSICIAN: MARTHA GREGG CLINICAL INDICATIONS: Pelvic pain. COMPARISON: None dee dee ilable. TECHNIQUE: Permanent images were recorded. FINDINGS: ? Single live intrauterine . ?Cephalic presentation. ? heartrate of 146 beats/min. Anterior placenta. Maternal adnexa were notidentified on this study. Cervix is closed measuring 4 cm in length. Amniotic fluid index = 12.4 MEASUREMENTS Biparietal diameter = ?6.5 cmHead circumference = 23.8 cmAbdominal circumference =21.4 cmFemur length = 4.9 cm. Estimated gestational age [...] Inft User - 10/11/2020 12:54 PM CDTFormatting ofthis note might be different from the original.ORDERING PHYSICIAN: MARTHA [...] daysNo or maternal complications are identified.RL 4728 UnNorth [facility] Medical CenterPOCT [id number] 16:32:00* Test Item Value Reference Range Interpretation Comme nts POCT PREG (test code = 1605) Positive On board controls acceptable with C Line (test code = 3574) Yes POCT PREG LOT # (test code = 3575) POCT PREG TEST DATE ( test code = 3576) Lab Interpretation (test cod e = 15564-2) Abnormal [facility] CenterHIV 1/2 AG-AB WITH [id number] 10:25:00* Test Item Value Reference Range Interpretation Comme nts HIV Semi-quantitative (test code = 33566-6) Negative Negative BEATRIZ (test code = BEATRIZ) Non-reactive for HIV-1 antigen and HIV-1/HIV-2 antibodies. ?No laboratory evidence of HIV infection. ?Repeat in 2-4 weeks if acute HIV infection is suspected. [facility] CenterPRENATAL WORKUP, BLOOD [id number] 08:09:30 * Test Item Value Reference Range Interpretation Comme nts ABO & RH (test code = 20) B POSITIVE Performed at [facility] Laboratory Services [facility] Blood [address] Free: [phone] No. [id number] IAT (test code = 1185) Negative Performed at [facility] Laboratory Services - [facility] Blood [address] Free: [phone] No. [id number] [facility] HCG [id number] 08:01:00* Test Item Value Reference Range Interpretation Comme nts BETA HCG (test code = 0933022589) See_Comment [Automated dentalDoctorsa ge] The system which generated this result transmitted reference range: Non- female and male patients: <5 mIU/mL. The reference range was not used to interpret this result as normal/abnormal. BEATRIZ (test code = BEATRIZ) Gestational Age ?Range (mIU/mL) 1-10 ?Weeks ?[id number] Weeks ?78444-59116611-82 Weeks ?4600-72528458-09 Weeks ?2803-022343 Biotin has been reported to cause a negative bias, interpret results relative to patient's use of biotin. [facility] CenterHEPATITIS B SURFACE [id number] 07:41:00 * Test Item Value Reference Range Interpretation Comme nts HBsAg Semi-Quantitative (les t code = 5195-3) Negative Negative [facility] CenterCBC WITH [id number] 06:39:00* Test Item Value Reference Range Interpretation Comme nts WBC (test code = 6690-2) See_Comment [Automated dentalDoctorsa ge] The system which generated this result transmitted reference range: 4.30 - 11.10 10*3/?L. The reference range was not used to interpret this result as normal/abnormal. RBC (test code = 789-8) See_Comment [Automated dentalDoctorsa ge] The system which generated this result transmitted reference range: 3.93 - 5.25 10*6/?L. The reference range was not used to interpret this result as normal/abnormal. HGB (test code = 718-7) 9.2 g/dL 11.6-15 L HCT (test code = 4544-3) 34.2 % 35.7-45.2 L MCV (test code = 787-2) 74.5 fL 80.6-95.5 L MCH (test code = 785-6) 20.0 pg 25.9-32.8 L MCHC (test code = 786-4) 26.9 g/dL 31.6-35.1 L RDW-SD (test code = 31713-4) 47.6 fL 39-49.9 RDW-CV (test code = 788-0) 17.8 % 12-15.5 H PLT (test code = 777-3) See_Comment [Automated dentalDoctorsa ge] The system which generated this result transmitted reference range: 166 - 358 10*3/?L. The reference range was not used to interpret this result as normal/abnormal. MPV (test code = 04285-9) 12.0 fL 9.5-12.9 NRBC/100 WBC (test code = 0956978943) See_Comment [Automated me ssage] The system which generated this result transmitted reference range: 0.0 - 10.0 /100 WBCs. The reference range was not used to interpret this result as normal/abnormal. NRBC x10^3 (test code = 5567960040) <0.01 See_Comment [Automated messa ge] The system which generated this result transmitted reference range: 10*3/?L. The reference range was not used to interpret this result as normal/abnormal. GRAN MAT (NEUT) % (test code = 770-8) 57.9 % IMM GRAN % (test code = 7969142022) 0.30 % LYMPH % (test code = 736-9) 28.3 % MONO % (test code = 5905-5) 9.4 % EOS % (test code = 713-8) 3.2 % BASO % (test code = 706-2) 0.9 % GRAN MAT x10^3(ANC) (test code = 7563323362) 3.81 10*3/uL 1.88-7.09 IMM GRAN x10^3 (test code = 3652070376) <0.03 0-0.06 LYMPH x10^3 (test code = 731-0) 1.86 10*3/uL 1.32-3.29 MONO x10^3 (test code = 742-7) 0.62 10*3/uL 0.33-0.92 EOS x10^3 (test code = 711-2) 0.21 10*3/uL 0.03-0.39 BASO x10^3 (test code = 704-7) 0.06 10*3/uL 0.01-0.07 Lab Interpretation (test code = 56539-2) Abnormal [facility] CenterGLUCOSE 1 HOUR POST [id number] 06:31:00* Test Item Value Reference Range Interpretation Comme nts GLUC 1 HR (test code = 5453399385) 86 mg/dL 120-170 L Lab Interpretation (test cod e = 82179-7) Abnormal [facility] CenterPOCT [id number] 16:17:00* Test Item Value Reference Range Interpretation Comme nts POCT PREG (test code = 1605) Positive On board controls acceptable with C Line (test code = 3574) Yes POCT PREG LOT # (test code = 3575) POCT PREG TEST DATE ( test code = 3576) [facility] URINALYSIS W/O SPECIFIC [id number] 16:17:00* Test Item Value Reference Range Interpretation Comme nts POCT PH U (test code = 3254) 6 mg/dl 5-8 POCT U LEUK EST (test code = 3263) Trace Negative - Negative POCT U NIT (test code = 3262) Neg Negative - Negati ve POCT U PROT (test code = 3259) Trace Negative - Negat kaushik POCT U GLU (test code = 3256) Neg Negative - Negati ve POCT U KETONE (test code = 3258) None Negative - Neg ative POCT U BLD (test code = 3257) Negative - Negati ve [facility] Consult Notes Date/Time Note Provider Source 2022-11-25 01:10:18 Associated Order(s): CONSULT PEDI NEONATOLOGY NEONATOLOGY CONSULT NOTE Date of Service: 11/25/2022 Present: Mother and Father Wreath Machine Tender: no Indication for Consult: anticipated delivery in 48H Maternal Information: Eros Holley is a 22 year old Gestational Age: 34.4 weeks EFW: unknown Maternal Serologies: not available Maternal GBS: Unknown Complications: cervical insufficiency Steroids Received: yes - Betamethasone x 1 Discussed with the mother the risks associated with delivery at 34 weeks: Respiratory distress and the use of surfactant, oxygen, CMV/HFOV, NCPAP Need for IV nutrition/tube feedings/NEC PDA Sepsis and IV antibiotics Hyperbilirubinemia Discussed that infants born extremely premature can be expected to be in the NICU until their expected due date, however this is affected by the baby's clinical course and is only a rough estimate. After reviewing risks and outcomes, mother requests: full intervention after delivery including intubation, mechanical ventilation, CPR, medications, prolonged stay in the NICU All questions were answered and parent(s) state understanding. Thank you for the consult. We will follow until delivery. Antionette Avina APRN, STRATEGIC PLANNING CONSULTANT-BC FOOT MITER OPERATOR- MIDLEVEL PROVIDER [facility] - Health History and Physical Notes Date/Time Note Provider Source 2022-11-25 00:44:30 Formatting of this n ote is different from the original. TRIAGE HISTORY & PHYSICAL IDENTIFYING DATA Eros Holley is 22 year old, Black or , 34w5d, female with ES 01/01/2023, by Last Menstrual Period. : 1998 Primary Care Physician: PATIENT DOES NOT HAVE A PCP CHIEF COMPLAINT Induction of labor HISTORY OF PRESENT ILLNESS Eros Holley is a 22 year old, 34w5d, female who presents with premature rupture of membranes. Presentation began less than 24 hours ago at 19:30 while patient was at [facility] with daughter. Patient has a past history of UTIs which have been treated as recently as 08/13/22. Patient denies fever, headache, vision changes, cough, chest pain, shortness of breath, nausea, vomiting, diarrhea, constipation, new rashes, hip problems, muscle aches, vaginal bleeding, leakage of fluid, change in discharge, urinary urgency, urinary frequency PAST OBSTETRIC HISTORY OB History Para Term AB Living 5 2 1 1 2 2 SAB IAB Ectopic Multiple Live Births 2 0 2 # Outcome Date GA Lbr Misael/2nd Weight Sex Delivery Anes PTL Lv 5 Current 4 12/26/20 36w3d 2825 g F NORMAL SPONT EPI Y MONSERRAT 3 SAB 06/27/18 19w5d VAGINAL FD 2 SAB 2019 1 Term 06/03/17 37w4d 2665 g F VAGINAL Other (com), EPI MONSERRAT Obstetric Comments Denies any complications during labor. 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 Premature uterine contractions 12/26/2020 History of miscarriage 06/16/2019 Bipolar 1 disorder 10/25/2018 Family history of sickle cell disease 05/16/2018 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 Past Medical History: Diagnosis Date Bipolar depression 2018 not on meds 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 Left elbow pain 07/10/2015 Right knee pain 07/10/2015 PAST SURGICAL HISTORY Past Surgical History: Procedure Laterality Date INJECT EPIDURAL ANEST,LUMB,CONTINOUS 06/03/2017 OBSTETRICAL CARE,VAG DELIV ONLY 06/03/2017 SACRAL NERVE STIMULATOR GENERATOR PLACEMENT Left 03/01/2001 MEDICATIONS: Current Facility-Administered Medications Medication Dose Route Frequency Last Rate Last Admin carboprost (HEMABATE) injection 250 mcg 250 mcg Intramuscular Q2HPRN lactated ringers IV infusion 1,000 mL 1,000 mL IV Infusion TITRATE lactated ringers IV infusion 500 mL 500 mL IV Infusion PRN - SEE INSTRUCTIONS lidocaine 1% (PF) (XYLOCAINE) injection 0.3 mL 0.3 mL Infiltration PRN - SEE INSTRUCTIONS lidocaine 1% (XYLOCAINE) 10 mg/mL (1 %) injection 50 mL 50 mL Infiltration PRN - SEE INSTRUCTIONS methylergonovine (METHERGINE) injection 0.2 mg 0.2 mg Intramuscular Q4HPRN miSOPROStoL (CYTOTEC) tablet 1,000 mcg 1,000 mcg Rectal PRN oxytocin (PITOCIN) 30 units in NS 500 mL IV infusion 600 mL/hr IV Infusion PRN penicillin GK 3 million units in NS 50 mL IV infusion (CNR) 3 Million Units IV Piggyback Q4H ABX 3,000,000 Units at 11/25/22 0055 tranexamic acid (CYKLOKAPRON) injection 1,000 mg 1,000 mg Intravenous PRN betamethasone acet,sod phos (CELESTONE SOLUSPAN) 6 mg/mL injection 12 mg 12 mg Intramuscular Q24H 12 mg at 11/24/222054 D5W-LR IV infusion 1,000 mL 1,000 mL IV Infusion CONTINUOUS 125 mL/hr at 11/24/222146 1,000 mL at 11/24/222146 magnesium hydroxide (MILK OF MAGNESIA) 400 mg/5 mL suspension 30 mL 30 mL Oral QDAILYPRN magnesium sulfate 20 g in 500 mL water Loading Dose 12 g/hr IV Infusion ONCE And magnesium sulfate in water for injection 20 gram/500 mL (4 %) IV infusion 2 g/hr IV Infusion CONTINUOUS 50 mL/hr at 11/24/222154 2 g/hr at 11/24/22 215 ALLERGIES Clindamycin HOME MEDICATIONS Medications Prior to Admission Medication Sig Dispense Refill Last Dose azelastine 137 mcg (0.1 %) nasal spray Use 1 Howell in each nostril in the morning and 1 Howell in the evening. Use in each nostril as directed 30 mL 1 Not Taking fluticasone propionate 50 mcg/actuation nasal spray Use 1 Howell in each nostril in the morning. 16 g 0 Not Taking PNV no.95/ferrous fum/folic ac ( ORAL) Take by mouth. Not Taking SOCIAL HISTORY Tobacco History: Negative Social History Tobacco Use Smoking Status Never Passive exposure: Never Smokeless Tobacco Never Drug History: Social History Substance and Sexual Activity Drug Use Not Currently Types: Marijuana Alcohol History: Negative during Social History Substance and Sexual Activity Alcohol Use No Alcohol/week: 0.0 standard drinks of alcohol FAMILY HISTORY Family History Problem Relation Age of Onset Diabetes Mother Diabetes Maternal Aunt Heart Paternal Aunt Diabetes Maternal Grandmother Diabetes Maternal Grandfather Hypertension Maternal Grandfather Hypertension Father REVIEW OF SYSTEMS General: negative for fever, fatigue, weakness Eyes: negative for spotting or blurry vision Cardiovascular: negative for palpitations, murmurs Respiratory: negative for shortness of breath, wheezing, coughing Gastrointestinal:Negative for vomiting, nausea Genitourinary: negative for hematuria, increased frequency, urgency, Neurological: negative for LOS, numbness, tingling Hemat/Lymph: negative for anemia, easy bruising Allergic/Immuno:Clindamycin VITAL SIGNS BP: (96-119)/(53-70) Temp: [36.7 ?C (98 ?F)-36.9 ?C (98.5 ?F)] Temp source: Oral (11/25 0200) Pulse: [98-130] Resp: [16-18] SpO2: [92 %-100 %] Height: -- Weight: -- BMI (calculated): -- PHYSICAL EXAMINATIONS General: In general the patient appears to be in no acute distress. She is alert and oriented cooperative and pleasant interact with. HEENT: Head normocephalic atraumatic. CV: Heart has a regular rate and rhythm. No gallops rubs or murmurs of significance Lungs: Lungs clear to auscultation bilaterally HEART TRACING: Baseline 150s with moderate long-term variability, positive accelerations, no decelerations REVIEW OF LABORATORY, PATHOLOGY, AND RADIOLOGY DATA OBSTETRIC LABS - 1 h 117, sero negative, R Positive, VZV Positive, B positive/neg, GBS unknown, Pap NIL Negative - H/H, plt: 10 / 32.5, 120 on 11/24/22 Placenta Accreta Screening Prior ? : No Prior Uterine Surgery?: No Placenta low lying/previa in current ? : No Screening outcome: Negative screening. ASSESSMENT AND PLAN Eros Holley is a 22 year old at 34w5d who presents for PPROM induction of labor. 1.PPROM with labor -Continue administration of betamethasone to help prevent RDS, intraventricular hemorrhage and decrease duration of respiratory support after . Will augment with pitocin as indicated 2. GBS unknown: PCN for status 3. . Fetus: cat one tracing, vtx, placenta anterior 1882g on 11/01/22 Olivier Guzmán I personally examined the patient on 11/24/22 and have verified the medical student documentation and/or findings, including the history, physical exam, and medical decision making. Additionally, I have personally performed or re-performed the physical exam and medical decision making activities of this patient's evaluation and management service. T [facility] 2022-11-24 21:25:42 Formatting of this n ote is different from the original. TRIAGE HISTORY & PHYSICAL IDENTIFYING DATA Eros Holley is 22 year old, Black or , 34w4d, female with ES 01/01/2023, by Last Menstrual Period. : 1998 Primary Care Physician: PATIENT DOES NOT HAVE A PCP CHIEF COMPLAINT Leakage of fluid Uterine contractions HISTORY OF PRESENT ILLNESS Eros Holley is a 22 year old female, , at 34w4d presents with c/o leakage of fluid at 1930 hrs and contractions started within 10 mins +FM. No VB. No pre-eclampsia sx or other complaints. CARE: OB: Dr Faust Hx of delivery at 36wks - was on Jayashree until it was with-drawn from the market. Serial CL up to 24 wks were WNL PAST OBSTETRIC HISTORY OB History Para Term AB Living 5 2 1 1 2 2 SAB IAB Ectopic Multiple Live Births 2 0 2 # Outcome Date GA Lbr Misael/2nd Weight Sex Delivery Anes PTL Lv 5 Current 4 12/26/20 36w3d 2825 g F NORMAL SPONT EPI Y MONSERRAT 3 SAB 06/27/18 19w5d VAGINAL FD 2 2018 1 Term 06/03/17 37w4d 2665 g F VAGINAL Other (com), EPI MONSERRAT Obstetric Comments Denies any complications during labor. 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 Operations: Past Surgical History: Procedure Laterality Date INJECT EPIDURAL ANEST,LUMB,CONTINOUS 06/03/2017 OBSTETRICAL CARE,VAG DELIV ONLY 06/03/2017 SACRAL NERVE STIMULATOR GENERATOR PLACEMENT Left 03/01/2001 Past Medical History: Diagnosis Date Bipolar depression 2018 not on meds 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 Left elbow pain 07/10/2015 Right knee pain 07/10/2015 CURRENT HEALTH STATUS Medications: Current Facility-Administered Medications Medication Dose Route Frequency Last Rate Last Admin betamethasone acet,sod phos (CELESTONE SOLUSPAN) 6 mg/mL injection 12 mg 12 mg Intramuscular Q24H 12 mg at 11/24/22 2055 D5W-LR IV infusion 1,000 mL 1,000 mL IV Infusion CONTINUOUS magnesium hydroxide (MILK OF MAGNESIA) 400 mg/5 mL suspension 30 mL 30 mL Oral QDAILYPRN magnesium sulfate 20 g in 500 mL water Loading Dose 12 g/hr IV Infusion ONCE And magnesium sulfate in water for injection 20 gram/500 mL (4 %) IV infusion 2 g/hr IV Infusion CONTINUOUS penicillin g pot in dextrose 3 million unit/50 mL RTU iv piggyback 3 Million Units 3 Million Units IV Piggyback Q4H ABX penicillin g potassium 5 Million Units in NaCl 0.9% (NS) 100 mL MINI-BAG 5 Million Units IV Piggyback ONCE 100 mL/hr at 11/24/222054 5 Million Units at 11/24/222054 Allergies and drug reactions: Clindamycin HOME MEDICATIONS Medications Prior to Admission Medication Sig Dispense Refill Last Dose azelastine 137 mcg (0.1 %) nasal spray Use 1 Howell in each nostril in the morning and 1 Howell in the evening. Use in each nostril as directed 30 mL 1 Not Taking fluticasone propionate 50 mcg/actuation nasal spray Use 1 Howell in each nostril in the morning. 16 g 0 Not Taking PNV no.95/ferrous fum/folic ac ( ORAL) Take by mouth. Not Taking SOCIAL HISTORY Tobacco History: Social History Tobacco Use Smoking Status Never Smokeless Tobacco Never Drug History: Social History Substance and Sexual Activity Drug Use Not Currently Types: Marijuana Alcohol History: Social History Substance and Sexual Activity Alcohol Use No Alcohol/week: 0.0 standard drinks of alcohol FAMILY HISTORY Family History Problem Relation Age of Onset Diabetes Mother Diabetes Maternal Aunt Heart Paternal Aunt Diabetes Maternal Grandmother Diabetes Maternal Grandfather Hypertension Maternal Grandfather Hypertension Father REVIEW OF SYSTEMS General: negative Constitutional: negative Eyes: negative ENT/Mouth: negative Cardiovascular: negative Respiratory: negative Gastrointestinal:negative Genitourinary: negative Musculoskeletal: negative Skin/breast: negative Neurological: negative Psychiatric: negative Endocrine: negative Hemat/Lymph: negative Allergic/Immuno:none VITAL SIGNS BP: (107)/(61) Temp: -- Temp source: -- Pulse: [98] Resp: -- SpO2: [99 %] Height: -- Weight: -- BMI (calculated): -- PHYSICAL EXAMINATIONS Gen: alert and oriented, well appearing, no distress CV: RRR Resp: normal work of breathing, Abd: gravid, soft, NTTP. Cephalic on BSUS Ext: no calf tenderness or edema Speculum: Pooling+ of mucoid bloody fluid VE: 3-4/60/-3 Fhr: 150's. Cat 1 [place]: Ctx q1-3mins REVIEW OF LABORATORY, PATHOLOGY, AND RADIOLOGY DATA Lab results: Type & Screen HIV Hep B Syphilis Chlamydia ABO & RH Date Value Ref Range Status 10/13/2022 B Positive Final HIV Ag-Ab Multiplex Date Value Ref Range Status 03/16/2018 Non-reactive Non-reactive Final No components found for: "HBSHBSAG" Syphilis IgG/IgM Date Value Ref Range Status 12/12/2020 Non-reactive Non-reactive Final C. trachomatis Nucleic Acid Date Value Ref Range Status 09/02/2022 Negative Negative Final IAT Date Value Ref Range Status 10/13/2022 Negative Final Varicella Rubella Glucose Group B Strep CBC VZV IgG antibody Date Value Ref Range Status 05/29/2022 Positive Negative Final Rubella screen IgG Date Value Ref Range Status 05/29/2022 Positive Negative Final GLUC 1 HR Date Value Ref Range Status 10/15/2022 117 (L) 120 - 170 mg/dL Final B STREP SCREEN Date Value Ref Range Status 05/28/2017 No Streptococcus Group B isolated Final HGB Date Value Ref Range Status 10/13/2022 11.1 (L) 11.6 - 15.0 g/dL Final HCT Date Value Ref Range Status 10/13/2022 35.6 (L) 35.7 - 45.2 % Final PLT Date Value Ref Range Status 10/13/2022 167 166 - 358 10*3/?L Final Placenta Accreta Screening Prior ? : No Prior Uterine Surgery?: No Placenta low lying/previa in current ? : No Screening outcome: A positive screening outcome indicates a history of prior delivery or prior uterine surgery, AND the presence of either a placenta low lying/previa or ultrasound suspicion of PASD in the current . Negative screening. Active Hospital Problems Diagnosis Date Noted Leakage of amniotic fluid 11/24/2022 34 weeks gestation of 11/24/2022 premature rupture of membranes in third trimester 11/24/2022 Premature uterine contractions 12/26/2020 Resolved Hospital Problems No resolved problems to display. Present on Admission: Leakage of amniotic fluid 34 weeks gestation of premature rupture of membranes in third trimester Premature uterine contractions ASSESSMENT AND PLAN Eros Holley is a 22 year old at 34w4d who presents with PROM and in early labor PROM + pooling of mucoid bloody fluid - Fern pending - 3--4cm dilated - Ist does of Betamethasone given - PCN for GBS prophylaxis - Will transfer out for high level of care due to prematurity. Patient request [facility] - MgSO4 started for [employer] for transfer Fetus - Cephalic on BSUS - CAT [address] Henry at [facility], who accepted the transfer Jaqueline Faust MD [facility] Progress Notes Date/Time Note Provider Source 2022-11-19 13:00:00 Formatting of this n ote might be different from the original. Age: [age] year old GA: 33w6d REAL +FM 1. Supervision of high risk in third trimester 2. 33 weeks gestation of 3. History of delivery, currently , third trimester -Patient getting anxious about possibility of PTD C/o vaginal pressure VE: 1cm/thick/-4, posterior. Cephalic Strong PTL precautions reviewed and C's Advised to go L&D if any concerns - POCT URINALYSIS W/O SPECIFIC GRAVITY REAL in 1-2 weeks or PRN Jaqueline Faust MD [facility] Notes Date/Time Note Provider Source 2024-09-27 14:49:21 Pt educated on positive results for hsv 1&2, verbalized understanding. T [facility] 2024-09-27 14:32:02 Eros Holley is a 24 year old female is requesting a callback to discuss test results. Thank you. Izabela Diallo [facility] 2024-01-10 16:44:45 Patient is calling clinic to discuss her diagnosis of BV. Please call to discuss. Rosa Isela Michel [facility] 2022-11-27 09:51:26 Formatting of this n ote might be different from the original. Problem: Pain Goal: Control of pain at or below patient's documented comfort goal 11/27/2022 0951 by Iris Carpenter RN Outcome: Adequate for discharge 11/27/2022 0806 by Iris Carpenter RN Outcome: Progressing as expected Goal: Reduction in pain sensation 11/27/2022950 by Iris Carpenter RN Outcome: Adequate for discharge 11/27/2022 0806 by Iris Carpenter RN Outcome: Progressing as expected Iris Carpenter RN [facility] 2022-11-27 08:06:44 Formatting of this n ote might be different from the original. Problem: Pain Goal: Control of pain at or below patient's documented comfort goal Outcome: Progressing as expected Goal: Reduction in pain sensation Outcome: Progressing as expected [facility] 2022-11-26 19:21:05 Formatting of this n ote might be different from the original. Problem: Pain Goal: Control of pain at or below patient's documented comfort goal Outcome: Progressing as expected Goal: Reduction in pain sensation Outcome: Progressing as expected Problem: Discharge Planning - Goal: Adequate for discharge Outcome: Progressing as expected Goal: Mood stable Outcome: Progressing as expected Mary Terrazas RN [facility] 2022-11-26 11:58:05 Formatting of this n ote might be different from the original. Problem: Pain Goal: Control of pain at or below patient's documented comfort goal Outcome: Progressing as expected Goal: Reduction in pain sensation Outcome: Progressing as expected Problem: Discharge Planning - Goal: Adequate for discharge Outcome: Progressing as expected Goal: Mood stable Outcome: Progressing as expected Melissa San RN [facility] 2022-11-25 23:53:14 Formatting of this n ote might be different from the original. Problem: Pain Goal: Control of pain at or below patient's documented comfort goal 11/25/20222352 by Cassia Vazquez RN Outcome: Progressing as expected 11/25/20222351 by Cassia Vazquez RN Outcome: Progressing as expected Goal: Reduction in pain sensation 11/25/20222352 by Cassia Vazquez RN Outcome: Progressing as expected 11/25/20222351 by Cassia Vazquez RN Outcome: Progressing as expected Problem: Discharge Planning - Goal: Adequate for discharge Outcome: Progressing as expected Goal: Mood stable Outcome: Progressing as expected Cassia Vzaquez RN [facility] 2022-11-25 09:41:22 Formatting of this n ote might be different from the original. Problem: Intrapartum process (including labor pain) Goal: Absence of or reduction of complications of labor 11/25/2022940 by Arianne Haley RN Outcome: Resolved 11/25/2022716 by Arianne Haley RN Outcome: Progressing as expected Goal: Able to cope with pain 11/25/2022940 by Arianne Haley RN Outcome: Resolved 11/25/2022716 by Arianne Haley, RN Outcome: Progressing as expected Goal: Adequate to move to next level of care 11/25/2022940 by Arianne Haley RN Outcome: Resolved 11/25/2022716 by Arianne Haley RN Outcome: Progressing as expected Goal: Reduction in pain sensation 11/25/2022940 by Arianne Haley RN Outcome: Resolved 11/25/2022716 by Arianne Haley RN Outcome: Progressing as expected Problem: Pain Goal: Control of pain at or below patient's documented comfort goal 11/25/2022940 by Arianne Haley RN Outcome: Progressing as expected 11/25/2022716 by Arianne Haley RN Outcome: Progressing as expected Goal: Reduction in pain sensation 11/25/2022940 by Arianne Haley RN Outcome: Progressing as expected 11/25/2022716 by Arianne Haley RN Outcome: Progressing as expected Arianne Haley RN [facility] 2022-11-25 08:16:32 Formatting of this n ote is different from the original. DELIVERY BY SPONTANEOUS VAGINAL DELIVERY Delivery Date: 11/25/2022 Delivery Time: 7:52 AM Delivery Summary The patient was admitted to the Labor & Delivery unit for PPROM at 34 weeks Delivery Physician: Jennifer Burns MD Intrapartum Anesthesia/Analgesia: Epidural Mode of Delivery: Delivery of forbes fetus with cephalic presentation Fetus Spontaneous vaginal delivery of head with cephalic position, left occipital anterior. As the head crowned and distended the perineum, no episiotomy was performed. A blue towel was used to protect the perineum as the head crowned and delivered. The other hand was used to exert pressure on the occiput to control the delivery of the head. The perineum was pushed with a towel-draped hand as the head and mouth was delivered over the perineum. The head was allowed to rotate externally to achieve natural body posture. Examination of neck revealed no umbilical cord. The shoulder was delivered by gentle downward traction applied to head and downward traction for the delivery of anterior shoulder. This was followed by upward traction with delivery of posterior shoulder and body. After the delivery of infant, bulb suction was performed from ororpharynx and nostril with removal of bloody fluid. A normal, male was delivered. The umbilical cord was double clamped, cut and the was handed off the field to the circulating nurse Placenta Placenta was delivered spontaneously while the abdominal hand lifted the uterus cephalad and other hand keeping the umbilical cord slightly taut. Laceration Laceration Repair: No laceration repair needed. Fourth Stage Fourth stage of labor was managed by uterine massage with abdominal hand and infusion 30 units of pitocin mixed with intravenous fluid. EBL: 218 Complications: none Weight: 2380 g 1 Minute 5 Minute 10 Minute Totals: 8 9 OG-OBSTETRICS & GYNECOLOGY STAFF [facility] 2022-11-25 07:17:35 Formatting of this n ote might be different from the original. Problem: Intrapartum process (including labor pain) Goal: Absence of or reduction of complications of labor Outcome: Progressing as expected Goal: Able to cope with pain Outcome: Progressing as expected Goal: Adequate to move to next level of care Outcome: Progressing as expected Goal: Reduction in pain sensation Outcome: Progressing as expected Problem: Pain Goal: Control of pain at or below patient's documented comfort goal Outcome: Progressing as expected Goal: Reduction in pain sensation Outcome: Progressing as expected [facility] 2022-11-25 04:38:20 Formatting of this n ote is different from the original. Name/ MRN / Age / Gender: Eros Orlando Holley, [id number] 22 year old female BMI: Estimated body mass index is 24.37 kg/m? as calculated from the following: Height as of 11/19/22: 1.676 m (5' 6"). Weight as of 11/19/22: 68.5 kg (151 lb). Allergies: Clindamycin Last Vitals: BP Readings from Last 1 Encounters: 11/25/22 101/58 Pulse Readings from Last 1 Encounters: 11/25/22 127 SpO2 Readings from Last 1 Encounters: 11/25/22 99% Date of Surgery: Surgeon: * Surgery not found * Procedure: CENTRAL NEURAXIAL BLOCK OR Location: * No surgery found * Anesthesia Preop Eval (physical exam) Anesthesia Preop: Chart Review and Hcef-zo-Ccel Anesthesia History Previous Anesthetics/Airways Cardiovascular Pulmonary Neuro/Musculoskeletal GI/Hepatic Hematology Comments: 11/24/22 20:57 HGB: 10.3 (L) HCT: 32.5 (L) MCV: 83.5 MCH: 26.5 MCHC: 31.7 RDW-SD: 42.6 RDW-CV: 14.0 PLT x10^3: 120 (L) (L): Data is abnormally low (+) Anemia Renal Skin Endo/Other Other SIZE STAMPER P: 1 Gestational Age: 34w5d Pediatric Preoperative Medication Instructions Continue taking all prescribed medications except: ZAC inhibitors, ARBs, diuretics, all oral diabetes medications Anticoagulant Therapy: Defer to surgeons Insulin: Take 1/2 dose the night prior to surgery. Hold on DOS. Phentermine: Alert [facility] anesthesiologist SGLT2 Inhibitors: "gliflozins" to be held for 3 days prior to elective surgeries MAC Cases: Continue taking ZAC inhibitors and ARBs ASA Classification ASA: 2 Current Medications: No outpatient medications have been marked as taking for the 11/24/22 encounter (Hospital Encounter). Previous Surgeries: Past Surgical History: Procedure Laterality Date INJECT EPIDURAL ANEST,LUMB,CONTINOUS 06/03/2017 OBSTETRICAL CARE,VAG DELIV ONLY 06/03/2017 SACRAL NERVE STIMULATOR GENERATOR PLACEMENT Left 03/01/2001 Anesthesia Physical Exam General alert and oriented x 3 Neuro/Psych Dental Abdominal Airway (+) Normal facies Extremity Pulmonary Other Cardiovascular Anesthesia Plan ASA Status: 2 Plan discussed during pre-op evaluation: Epidural Anesthetic plan on DOS: Epidural Anesthesia plan discussed with: patient or site safety representative Post-Operative Analgesia: Recovery Plan: LDR Additional comments: AN-ANESTHESIOLOGY ANESTHESIOLOGIST [facility] 2022-11-25 00:39:59 Formatting of this n ote might be different from the original. Problem: Intrapartum process (including labor pain) Goal: Absence of or reduction of complications of labor Outcome: Progressing as expected Goal: Able to cope with pain Outcome: Progressing as expected Goal: Adequate to move to next level of care Outcome: Progressing as expected Goal: Reduction in pain sensation Outcome: Progressing as expected Problem: Pain Goal: Control of pain at or below patient's documented comfort goal Outcome: Progressing as expected Goal: Reduction in pain sensation Outcome: Progressing as expected [facility] 2022-11-24 21:29:29 Formatting of this n ote is different from the original. Name/ MRN / Age / Gender: Eros Holley, [id number] 22 year old female BMI: Estimated body mass index is 24.37 kg/m? as calculated from the following: Height as of 11/19/22: 1.676 m (5' 6"). Weight as of 11/19/22: 68.5 kg (151 lb). Allergies: Clindamycin Last Vitals: BP Readings from Last 1 Encounters: 11/24/22 107/61 Pulse Readings from Last 1 Encounters: 11/24/22 98 SpO2 Readings from Last 1 Encounters: 11/24/22 99% Date of Surgery: Surgeon: * Surgery not found * Procedure: LABOR CONSULT OR Location: * No surgery found * Anesthesia History (-) Hx of anesthetic complications Previous Anesthetics/Airways Cardiovascular Negative Cardiac ROS METS: 5-6 (+) Hx of echocardiogram within past 5 years Pulmonary Negative Pulmonary ROS (-) Asthma Neuro/Musculoskeletal Comments: Preexisting brachial plexus injury from (+) Psychiatric history and bipolar and depression GI/Hepatic Negative GI/Hepatic ROS Hematology Negative Hematology ROS Renal Negative Renal ROS Skin Negative Skin ROS Endo/Other Negative Endo/Other ROS Other SIZE STAMPER Negative SIZE STAMPER ROS Comments: 34 weeks presented to [facility] in labor P: 2 Pediatric Preoperative Medication Instructions Continue taking all prescribed medications except: ZAC inhibitors, ARBs, diuretics, all oral diabetes medications Anticoagulant Therapy: Defer to surgeons Insulin: Take 1/2 dose the night prior to surgery. Hold on DOS. Phentermine: Alert [facility] anesthesiologist SGLT2 Inhibitors: "gliflozins" to be held for 3 days prior to elective surgeries MAC Cases: Continue taking ZAC inhibitors and ARBs ASA Classification ASA: 2 Current Medications: No outpatient medications have been marked as taking for the 11/24/22 encounter (Hospital Encounter). Previous Surgeries: Past Surgical History: Procedure Laterality Date INJECT EPIDURAL ANEST,LUMB,CONTINOUS 06/03/2017 OBSTETRICAL CARE,VAG DELIV ONLY 06/03/2017 SACRAL NERVE STIMULATOR GENERATOR PLACEMENT Left 03/01/2001 Anesthesia Physical Exam General no apparent distress and alert and oriented x 3 Neuro/Psych neurological Nonfocal Dental no notable dental hx Abdominal GI exam normal (+) gravid Airway Mallampati score:II TM distance:> 5 cm Neck ROM: full Mouth opening:normal Extremity Normal extremity Pulmonary pulmonary exam normal and bilateral clear to auscultation Other Cardiovascular cardiovascular exam normalRhythm:Regular Rate: Normal Anesthesia Plan ASA Status: 2 Plan discussed during pre-op evaluation: General and Epidural Anesthetic plan on DOS: Epidural Anesthesia plan discussed with: patient or site safety representative Post-Operative Analgesia: Recovery Plan: LDR Additional comments: Date Anesthesia Start: 11/24/2022 Labor Room: [address] [place] [address] Eros Holley is a 22 year old female here at 34w4d weeks gestation for Vaginal delivery BP 107/61 | Pulse 98 | LMP 03/27/2022 | SpO2 99% Heart Rate: I reviewed the preoperative history, labs, medications and pertinent studies and preformed a physical exam preoperatively. The anesthetic plan is epidural. I discussed this anesthetic plan with all of its components at length with the patient, including the risks, benefits, and alternatives. I answered all of their questions and consent, ID, and npo status were verified. The patient agrees with the plan and desires to proceed with the epidural. AN-ANESTHESIOLOGY ANESTHESIOLOGIST [facility] 2022-11-24 20:10:48 Formatting of this n ote might be different from the original. Pt 34 wks , having contractions every 4 min. Pt is leaking fluids. . Report to Ping Mcdermott RN via LD CN phone. Pt to [facility] via [facility] stretcher and medics. Viktoria Veliz RN [facility] 2022-11-17 22:28:56 Formatting of this n ote might be different from the original. Pt arrived with complaints of vaginal bleeding while wiping [employer]. Pt also reporting lower abdominal pressure and back pain. Pt due 01/[address] Fuentes. Report to PRASAD Reinoso Pt transported to L&D via with ED RN Hattie Kruse RN [facility]
== END ==
LOC: ER 18:00
DX: Z02.9 Encounter for administrative examinations, unspecified (principal)